=== PATIENT | male | born 1940 | race Hispanic/Latino ===

== ENCOUNTER 2017-03-08 18:24 | Emergency (ER) | payer MEDICARE, OTHER ==
[2017-03-08 18:25] VITALS: BMI 36.9
[2017-03-08 18:33] VITALS: RESP 20
--- NOTE | 2017-03-08 19:03 | C.PDOC ---
History Of Present Illness 76 year old male presents to the ED with complaints of hematuria beginning last night . Patient states at times it feels difficult to urinate, but he also has episodes of difficulty controlling his urine. He also notes a prior episode of hematuria that ultimately required prostate cautery by Dr. Kumar. He admits to mild SOB particularly with exertion, and states he has also had loose, dark stool. He denies fever, nausea, vomiting, abdominal pain, chest pain, palpitations. Time Seen by Provider: 03/08/17 18:59 Chief Complaint (Nursing): Male Genitourinary History Per: Patient History/Exam Limitations: no limitations Onset/Duration Of Symptoms: Hrs Current Symptoms Are (Timing): Still Present Severity: Mild Associated Symptoms: denies: Fever, Nausea, Vomiting, Diarrhea Past Medical History Reviewed: Historical Data, Nursing Documentation, Vital Signs Vital Signs: Last Vital Signs Temp 98.1 F 03/08/17 22:30 Pulse 82 03/08/17 22:30 Resp 20 03/08/17 22:30 BP 150/80 03/08/17 22:30 Pulse Ox 99 03/08/17 22:30 - Medical History PMH: Anemia (Requires transfusion), Anxiety, Fractures (ANKLE NO SURGERY), HTN, Hypercholesterolemia, Pneumonia (childhood) Surgical History: Endoscopy - [facility] Procedures TU BLADDER CLEARANCE (09/19/14) TU DESTRUC BLADD LES NEC (09/19/14) URETHRAL DILATION (03/02/14) Family History: States: No Known Family Hx - Social History Hx Alcohol Use: No Hx Substance Use: No Review Of Systems Except As Marked, All Systems Reviewed And Found Negative. Constitutional: Negative for: Fever, Chills Cardiovascular: Negative for: Chest Pain, Palpitations Respiratory: Positive for: Shortness of Breath. Negative for: Cough Gastrointestinal: Negative for: Nausea, Vomiting, Abdominal Pain, Diarrhea Genitourinary: Positive for: Hematuria. Negative for: Dysuria, Rash Skin: Negative for: Rash Physical Exam - Physical Exam Appears: Well, Non-toxic, No Acute Distress Skin: Warm, Dry Eye(s): bilateral: Normal Inspection Oral Mucosa: Moist Neck: Supple Cardiovascular: Rhythm Regular Respiratory: Normal Breath Sounds, No Rales, No Rhonchi, No Wheezing Gastrointestinal/Abdominal: Bowel Sounds, Soft, Tenderness (suprapubic tenderness and distension), No Guarding, No Rebound Rectal: Rectal Tone (normall), No Heme Positive, No Blood Streaked Stool, No Hemorrhoids, No Mass, No Tenderness Back: Normal Inspection, No CVA Tenderness Male Genital: Normal Inspection, Circumcised Neurological/Psych: Oriented x3 ED Course And Treatment - Laboratory Results Result Diagrams: 03/08/17 19:02 03/08/17 19:02 O2 Sat by Pulse Oximetry: 96 (room air ) Pulse Ox Interpretation: Normal - Radiology CXR: Interpreted by Me, Viewed By Me (no infiltrates/effusions) Progress Note: Bladder scan done by nurse showed 750 mL of urine. Walker insertion attempted, however nurse met with resistance. Patient then able to void large amount of urine (on floor). Bladder scan redone showing approx 290ml. Coudet walker catheter (16 icelandic) inserted by me, patient tolerated well. Approx 275ml of dark, tea colored urine drained. Reevaluation Time: 22:10 Reassessment Condition: Improved (Patient resting comfortably, in no pain/ distress. Walker attached to leg bag, and patient given Rx for Ciprofloxacin and instructed to continue his Flomax. Patient/family to call Dr. Kumar's office Friday for appt this week. Dr. Lux also spoken with and aware, agrees with d/c home. Patient understands he should return to ED if symptoms worsen.) - Physician Consult Information Physician Contacted: Yanick Kumar Outcome Of Conversation: Discussed patient with urologist, he would like patient started in antibiotics, continue Flomax, Urine Cx sent. Patient can follow up with him in the office this week - to call office for appt friday. Disposition Counseled Patient/Family Regarding: Studies Performed, Diagnosis, Need For Followup, Rx Given - Disposition Referrals: Yanick Kumar MD [Staff Provider] - Drew Lux MD [Staff Provider] - Disposition: HOME/ ROUTINE Disposition Time: 22:10 Condition: STABLE Additional Instructions: FOLLOW UP WITH DR KUMAR, CALL FOR APPOINTMENT ON FRIDAY FOLLOW UP WITH DR MCNAIR WITHIN 1 WEEK USE MEDICATION DIRECTED RETURN TO ER IF SYMPTOMS WORSEN Prescriptions: Ciprofloxacin [Cipro] 1 tab PO BID #14 tab Instructions: Urinary Retention in Men (ED), Acute Hematuria (ED) Print Language: VIETNAMESE - POA Present On Arrival: None - Clinical Impression Clinical Impression: Hematuria, Urinary retention, Anemia - Scribe Statement The provider has reviewed the documentation as recorded by the Scribe Laney De Leon All medical record entries made by the Nataleeibe were at my direction and personally dictated by me. I have reviewed the chart and agree that the record accurately reflects my personal performance of the history, physical exam, medical decision making, and the department course for this patient. I have also personally directed, reviewed, and agree with the discharge instructions and disposition.
[2017-03-08 19:07] LABS: BASO # 0.1 K/uL (0.0-0.2); BASO % 1.3 % (0.0-2.0); EOS # 0.2 K/uL (0.0-0.7); EOS % 4.4 % (0.0-4.0); HEMATOCRIT 29.7 % (35.0-51.0); LYMPH % 19.3 % (20.0-40.0); MEAN CELL VOLUME 83.5 fL (80.0-94.0); MEAN CORPUSCULAR HGB CONC 31.1 g/dL (33.0-37.0); MEAN PLATELET VOLUME 6.7 fL (7.2-11.7); MONO # 0.4 K/uL (0.0-0.8); MONO % 7.1 % (0.0-10.0); RED CELL DISTRIBUTION WIDTH 19.8 % (11.5-14.5); WHITE BLOOD COUNT 5.4 K/uL (4.8-10.8)
[2017-03-08 19:18] LABS: CHLORIDE 98 mmol/L (98-107); POTASSIUM 4.6 mmol/L (3.6-5.2); SODIUM 140 mmol/L (132-148)
[2017-03-08 19:20] LABS: ALB/GLOB RATIO 1.1 (1.0-2.1); AST/SGOT 21 U/L (17-59); BILIRUBIN,TOTAL 0.5 mg/dL (0.2-1.3); BLOOD UREA NITROGEN 23 mg/dL (9-20); CARBON DIOXIDE 26 mmol/L (22-30); GFR AFRICAN-AMERICAN > 60; TOTAL PROTEIN 8.2 g/dL (6.3-8.3)
[2017-03-08 19:21] LABS: ALKALINE PHOSPHATASE 181 U/L (38-126); ALT/SGPT 17 U/L (21-72); CALCIUM 9.4 mg/dl (8.6-10.4); GLUCOSE,RANDOM 112 mg/dL (75-110)
[2017-03-08 19:25] LABS: INR 1.1
[2017-03-08 20:42] LABS: RBC URINE 1691 /hpf (0-3); URINE BILIRUBIN NEGATIVE (NEGATIVE); URINE BLOOD 3+ (NEGATIVE); URINE COLOR Yellow (YELLOW); URINE GLUCOSE (UA) NORMAL (Normal); URINE KETONE NEGATIVE (NEGATIVE); URINE LEUKOCYTE ESTERASE NEG Leu/uL (Negative); URINE PROTEIN 2+ mg/dL (NEGATIVE); URINE UROBILINOGEN NORMAL mg/dL (0.2-1.0); WBC URINE 5 /hpf (0-5)
[2017-03-08 22:31] VITALS: BP 150/80; PULSE 82; TEMP 98.1
[2017-03-09 06:43] VITALS: O2SAT 96
--- NOTE | 2017-03-09 12:55 | RAD ---
PROCEDURE: CHEST RADIOGRAPH, 1 VIEW portable study 19:22. HISTORY: SOB COMPARISON: None available. FINDINGS: LUNGS: Clear. PLEURA: No pneumothorax or pleural fluid seen. CARDIOVASCULAR: No radiographic findings to suggest acute or significant cardiovascular disease. OSSEOUS STRUCTURES: No significant abnormalities. VISUALIZED UPPER ABDOMEN: Normal. OTHER FINDINGS: None. IMPRESSION: No active disease.
--- NOTE | 2017-03-11 07:41 | CARD ---
APPROVED REPORT EKG Measurement Heart [id number] <Conclusion> Sinus rhythm with sinus arrhythmia with occasional premature ventricular complexes Otherwise normal ECG
--- NOTE | 2017-03-24 09:00 | CP.PCM.CON ---
History of Present Illness - History of Present Illness History of Present Illness: Chief complaint: Abdominal pain History present illness: This is 76-year-old male with history of hypertension diabetes hypercholesteremia BPH chronic lower back pain came to the emergency room because of the abdominal pain. Patient's family concerned about the patient's condition. called me in the morning, bending of blood in the urine. I advised the family to bring him to the emergency room. In the emergency room patient was noted to have increasing abdominal distention. At the time patient was having severe abdominal distention. Patient was seen by emergency room doctor. I spoke to ER doctor, and was noted to have abdominal distention secondary to bladder distention. Immediately Phelps was placed, which was bleeding and later cleared. Patient underwent the hemoglobin monitoring. Clinical stable. Past medical history: Hypertension diabetes hypercholesteremia BPH low back pain Surgical history: Corneal transplant, history of prostate cancer radiation in the past multiple cystoscopy hernia repair Allergy: Allergic to aspirin Family history: Unknown family history father at the age of 62 Social history used to be a smoker in the past quit many years ago Current medications reviewed On examination: Vital signs stable Vital signs reviewed No neck vein distention noted Chest good air entry bilaterally, no wheezing or rales noted CVS regular heart sound, no murmur noted Abdomen soft, nontender. 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 Assessment and a condition: 76-year-old male with history of hypertension diabetes high cholesterol chronic lower back pain BPH prostate cancer status post radiation Patient has a bladder distention, possible retention associated with hematuria. Currently improving. Phelps catheter was inserted, I spoke to the family. Patient can discharge home, follow-up as an outpatient with the radiologist. Otherwise hemodialysis stable. Follow-up Past Patient History - Past Medical History & Family History Past Medical History?: Yes - Past Social History Smoking Status: Former Smoker - CARDIAC Hx Hypercholesterolemia: Yes Hx Hypertension: Yes - PULMONARY Hx Pneumonia: Yes (childhood) - NEUROLOGICAL Hx Neurological Disorder: No - HEENT Hx HEENT Problems: Yes Hx Cataracts: Yes (HAD SURGERY) - RENAL Hx Chronic Kidney Disease: No - ENDOCRINE/METABOLIC Hx Endocrine Disorders: Yes Hx Diabetes Mellitus Type 2: Yes - HEMATOLOGICAL/ONCOLOGICAL Hx Anemia: Yes (Requires transfusion) - INTEGUMENTARY Hx Dermatological Problems: No - MUSCULOSKELETAL/RHEUMATOLOGICAL Hx Fractures: Yes (ANKLE NO SURGERY) - GASTROINTESTINAL Hx Gastrointestinal Disorders: No - GENITOURINARY/GYNECOLOGICAL Hx Genitourinary Disorders: Yes (retention) Hx Hematuria: Yes Hx Prostate Cancer: Yes Hx Prostate Problems: Yes Other/Comment: RETENTION - PSYCHIATRIC Hx Anxiety: Yes Hx Substance Use: No - SURGICAL HISTORY Hx Surgeries: Yes (cysto /oiu) Hx Cataract Extraction: Yes (BILATERAL) Hx Herniorrhaphy: Yes (UMBILICAL AND INGUINAL) Other/Comment: PROSTATE SEED IMPLANT - ANESTHESIA Hx Anesthesia: Yes Hx Anesthesia Reactions: No Hx Malignant Hyperthermia: No Meds Allergies/Adverse Reactions: Allergies Allergy/AdvReac Type Severity Reaction Status Date / Time ciprofloxacin Allergy Intermediate DIZZINESS Verified 03/11/17 02:24 Results - Vital Signs Recent Vital Signs: Last Vital Signs Temp 98.1 F 03/08/17 22:30 Pulse 82 03/08/17 22:30 Resp 20 03/08/17 22:30 BP 150/80 03/08/17 22:30 Pulse Ox 96 03/09/17 06:49 - Labs Result Diagrams: 03/08/17 19:02 03/08/17 19:02
== END 2017-03-08 22:31 | disposition home or self-care (01) ==
LOC: C.ER 18:24
DX: R33.9 Retention of urine, unspecified (principal); R31.9 Hematuria, unspecified; D64.9 Anemia, unspecified

== ENCOUNTER 2017-03-10 18:01 | Inpatient (IN) | payer MEDICARE, OTHER ==
[2017-03-10 18:57] VITALS: BMI 36.8
--- NOTE | 2017-03-10 19:13 | C.PDOC ---
History Of Present Illness Patient was sent to ER by Dr. Gibson for a complaint of hematuria. Patient had a folley placed last week, may need cystoscopy as per Dr. Gibson. Patient has a PMHx of prostate CA. Patient denies nausea, vomiting, fever, or chills. Time Seen by Provider: 03/10/17 19:12 Chief Complaint (Nursing): Male Genitourinary History Per: Patient, Other (Dr. Gibson) History/Exam Limitations: no limitations Onset/Duration Of Symptoms: Hrs Current Symptoms Are (Timing): Still Present Severity: Mild Pain Scale Rating Of: 3 Quality Of Discomfort: Unable To Describe Associated Symptoms: Urinary Symptoms (Hematuria). denies: Fever, Chills, Nausea, Vomiting Alleviating Factors: None Recent travel outside of the [place]: No Past Medical History Reviewed: Historical Data, Nursing Documentation, Vital Signs Vital Signs: Last Vital Signs Temp 98.2 F 03/10/17 18:58 Pulse 95 H 03/10/17 18:58 Resp 18 03/10/17 18:58 BP 200/78 H 03/10/17 18:58 Pulse Ox 95 03/10/17 19:50 - Medical History PMH: Anemia (Requires transfusion), Anxiety, Fractures (ANKLE NO SURGERY), HTN, Hypercholesterolemia, Pneumonia (childhood) Surgical History: Endoscopy - [facility] Procedures TU BLADDER CLEARANCE (09/19/14) TU DESTRUC BLADD LES NEC (09/19/14) URETHRAL DILATION (03/02/14) Family History: States: No Known Family Hx - Social History Hx Alcohol Use: No Hx Substance Use: No - Immunization History Hx Tetanus Toxoid Vaccination: No Hx Influenza Vaccination: No Hx Pneumococcal Vaccination: No Review Of Systems Constitutional: Negative for: Fever, Chills Gastrointestinal: Negative for: Nausea, Vomiting Genitourinary: Positive for: Hematuria Physical Exam - Physical Exam Appears: Well, Non-toxic Skin: Warm, Dry Oral Mucosa: Moist Chest: Symmetrical, No Tenderness Cardiovascular: Rhythm Regular, No Murmur Respiratory: No Rales, No Rhonchi, No Wheezing Gastrointestinal/Abdominal: Soft, Tenderness (Suprapubic) Male Genital: Other (indwelling walker) Neurological/Psych: Oriented x3 ED Course And Treatment - Laboratory Results Result Diagrams: 03/10/17 19:57 03/10/17 19:57 O2 Sat by Pulse Oximetry: 95 (Room air) Pulse Ox Interpretation: Normal Progress Note: Blood work and urinalysis ordered. Disposition Discussed With : Drew Lux Comment: accepted the pt on his service and took over the care at 9:16PM Doctor Will See Patient In The: Hospital Counseled Patient/Family Regarding: Studies Performed, Diagnosis - Disposition Disposition: HOSPITALIZED Disposition Time: 19:13 Condition: FAIR - Clinical Impression Clinical Impression: Hematuria, Anemia - Scribe Statement The provider has reviewed the documentation as recorded by the Scribangelica Briceño All medical record entries made by the Nataleeibe were at my direction and personally dictated by me. I have reviewed the chart and agree that the record accurately reflects my personal performance of the history, physical exam, medical decision making, and the department course for this patient. I have also personally directed, reviewed, and agree with the discharge instructions and disposition. Decision To Admit - Pt Status Changed To: Hospital Disposition Of: Inpatient - Admit Certification Admit to Inpatient:: After my assessment, the patient will require hospitalization for at least two midnights. This is because of the severity of symptoms shown, intensity of services needed, and/or the medical risk in this patient being treated as an outpatient. - InPatient: Physician Admission Certification: I certify that this patient requires 2 or more midnights of care for the following reason:: After my assessment, the patient will require hospitalization for at least two midnights. This is because of the severity of symptoms shown, intensity of services needed, and/or the medical risk in this patient being treated as an outpatient. - . Bed Request Type: Regular Admitting Physician: Drew Lux Patient Diagnosis: Hematuria, Anemia
[2017-03-10 20:04] LABS: BASO # 0.1 K/uL (0.0-0.2); BASO % 0.9 % (0.0-2.0); EOS # 0.2 K/uL (0.0-0.7); HEMATOCRIT 28.5 % (35.0-51.0); LYMPH # 0.9 K/uL (1.0-4.3); LYMPH % 12.1 % (20.0-40.0); MEAN CELL VOLUME 83.1 fL (80.0-94.0); MEAN CORPUSCULAR HEMOGLOBIN 25.7 pg (27.0-31.0); MEAN CORPUSCULAR HGB CONC 30.9 g/dL (33.0-37.0); MEAN PLATELET VOLUME 6.9 fL (7.2-11.7); MONO # 0.5 K/uL (0.0-0.8); RED CELL DISTRIBUTION WIDTH 19.8 % (11.5-14.5); WHITE BLOOD COUNT 7.7 K/uL (4.8-10.8)
[2017-03-10 20:10] LABS: POTASSIUM 4.4 mmol/L (3.6-5.2)
[2017-03-10 20:12] LABS: ALB/GLOB RATIO 1.2 (1.0-2.1); BILIRUBIN,TOTAL 0.5 mg/dL (0.2-1.3); TOTAL PROTEIN 7.9 g/dL (6.3-8.3)
[2017-03-10 20:13] LABS: CALCIUM 8.8 mg/dl (8.6-10.4); INR 1.2
[2017-03-10 21:20] LABS: RBC URINE 35498 /hpf (0-3); URINE BACTERIA RARE (<OCC); URINE BILIRUBIN NEGATIVE (NEGATIVE); URINE BLOOD 3+ (NEGATIVE); URINE COLOR Red (YELLOW); URINE GLUCOSE (UA) 1+ mg/dL (Normal); URINE KETONE 1+ mg/dL (NEGATIVE); URINE LEUKOCYTE ESTERASE NEG Leu/uL (Negative); URINE PROTEIN 2+ mg/dL (NEGATIVE); URINE UROBILINOGEN NORMAL mg/dL (0.2-1.0)
[2017-03-10] MEDS: Sodium Chloride 0.9% 1,000 ML IV SCH (23:45)
--- NOTE | 2017-03-11 07:27 | HP ---
CHIEF COMPLAINT: The patient was sent by Dr. Gibson for hematuria. HISTORY OF PRESENT ILLNESS: The patient who is a 76-year-old male with a history of hypertension, di abetes, hypercholesterolemia, BPH and chronic lower back pain, came to the Emergency Room a few days ago with sudden onset of blood in the urine. The patient came to office Emergency Room. At that gino dominguez was having at least 24 hours prior to that was having significant amount of [facility] he was having significant amount of bleeding and associated with some discomfort, also so me pain. He did not have any fever or chills at that time. The patient denied any nausea, vomiting, but during this time, the patient had a Phelps catheter inserted and was producing significant blood. The labs were reviewed and the patient was sent home with urinary ____ and was told to follow up wi th the urologist. Yesterday he still continued to have blood in the urine. Today he went to see the urologist who referred him to the Emergency Room because of the worsening blood in the urine as well as some discomfort. The patient was also complaining of some pain over the abdominal area. The pat ient currently feeling somewhat discomfort, increased frequency and also pain, suprapubic. Did not h ave any fever, no chills, no nausea or vomiting noted. PAST MEDICAL HISTORY: Hypertension, diabetes, hypercholesterolemia, BPH and chronic lower back pain. PAST SURGICAL HISTORY: Corneal transplant, history of prostate cancer and radiation in the past, mul tiple cystoscopy and hernia repair. ALLERGIES: ALLERGIC TO ASPIRIN. FAMILY HISTORY: Mother: Unknown history. Father at the age of 62 of natural causes, had a his tory of stomach ulcer. SOCIAL HISTORY: He used to be a smoker in the past, quit many years ago. Denies any alcohol. Problems are reviewed. CURRENT MEDICATIONS: Include losartan/hydrochlorothiazide, metformin, allopurinol and Lipitor. REVIEW OF SYSTEMS: Currently, having no headache or visual symptom. Denies any chest pain or shortn ess of breath. No nausea, vomiting, but complaining of abdominal pain associated with some discomfor t. PHYSICAL EXAMINATION: VITAL SIGNS: Currently, temperature is 98.1, pulse 94, blood pressure 128/64, respirations 20, satur ation 96%. HEENT: PERRLA. NECK: Supple. CHEST: Bilateral good air entry. CARDIOVASCULAR: Regular heart sounds. ABDOMEN: Nontender. EXTREMITIES: No pedal edema. CENTRAL NERVOUS SYSTEM: Alert, awake, oriented x 3. No functional neurological deficit. GENITOURINARY: Phelps catheter is in place showing evidence of hematuria, suprapubically. Sonogram did not show any significant amount of urine. LABORATORY DATA: WBC 7.7, hemoglobin 8.8, hematocrit 28.5. Platelet is 431. Chemistry is nonspecif ic. Elevated alkaline phosphatase minimally noted. PT/INR is normal. Stool guaiac is negative. Chest x-ray is nonspecific. EKG normal sinus rhythm at a rate of 78 beats per minute, no ST-T change s. ASSESSMENT AND RECOMMENDATION: The patient is a 76-year-old male with a history of hypertension, jose betes, hypercholesterolemia, prostate cancer status post prostate intervention surgery, radiation see ds were done in the past, multiple cystoscopies in the past, admitted now with worsening hematuria an d worsening in spite of Phelps catheter. Continued to be monitored for intake and output. Urology ev aluation, possible cystoscopy, and monitor the hemoglobin. Will follow up the patient. Glucose jose radha. DVT and GI prophylaxis. Drew Lux MD cc: [id number] TT: 03/11/2017 07:26:10 nj
[2017-03-11 08:32] LABS: INR 1.2
[2017-03-11] MEDS ORDERED: Iodixanol 320 mg/ml 150 ml Bottle IV ONE (09:28)
--- NOTE | 2017-03-11 14:35 | CT ---
PROCEDURE: CT Abdomen and Pelvis with and without intravenous contrast HISTORY: gross hematuria COMPARISON: None available. TECHNIQUE: Axial images of the abdomen were obtained in the pre contrast, portal venous and delayed phases of enhancement. Coronal and sagittal reformats were generated and reviewed. Contrast dose: 100 cc Visipaque 320 Radiation dose: Total exam DLP = 3294.20 MGy-cm. This CT exam was performed using one or more of the following dose reduction techniques: Automated exposure control, adjustment of the mA and/or kV according to patient size, and/or use of iterative reconstruction technique. FINDINGS: LOWER THORAX: No visible consolidation, pleural effusion, or pneumothorax. LIVER: Too small to characterize hepatic hypodensities Sheyla possibly cysts or hemangiomas. GALLBLADDER AND BILE DUCTS: Unremarkable. PANCREAS: Unremarkable. SPLEEN: Unremarkable. ADRENALS: Unremarkable. KIDNEYS AND URETERS: The kidneys enhance symmetrically. No hydronephrosis or obstructing calculus identified. VASCULATURE: Dense atherosclerotic calcifications of the aorta and branches. No aortic aneurysm. BOWEL: Stomach is nondistended. Lack of oral contrast limits evaluation for bowel pathology. Bowel containing umbilical hernia. Bowel loops appear within normal limits of caliber without evidence of obstruction. Extensive diverticulosis without CT evidence of acute diverticulitis. APPENDIX: The appendix appears within normal limits of caliber. No secondary signs of acute appendicitis. PERITONEUM: No significant free fluid. No definite free air. LYMPH NODES: No bulky adenopathy evident. BLADDER: Phelps catheter within an under distended urinary bladder which contains air. Heterogeneous hyperdensity within the dependent portion of the urinary bladder, possibly blood products, however mass cannot be excluded. REPRODUCTIVE: Radiation prostate seeds. Large bilateral hydroceles. BONES: Degenerative changes of the spine. OTHER FINDINGS: Bilateral fat containing inguinal hernias. IMPRESSION: Phelps catheter within an under distended urinary bladder which contains air. Heterogeneous hyperdensity within the dependent portion of the urinary bladder, possibly blood products, however mass cannot be excluded. Recommend correlation with urinalysis and or cystoscopy if indicated. Multiple low-density sub cm lesions within the liver, possibly cysts or hemangiomas. Extensive diverticulosis without CT evidence of acute diverticulitis. Bowel containing umbilical hernia without evidence of obstruction. Prostate radiation seeds.
[2017-03-11] MEDS ORDERED: Lactated Ringer's 1,000 ML IV ONE (14:45)
[2017-03-11] MEDS ORDERED: Propofol 10 mg/ml Inj (20 ML) ONE (15:29)
[2017-03-11] MEDS ORDERED: cefTRIAXone IV 1 gm in Dextros 50 ML IVPB ONE (16:01)
[2017-03-11] MEDS ORDERED: Labetalol 25mg/5ml Syringe IVP STA (16:35)
[2017-03-11] MEDS ORDERED: Oxycodone/Acetaminophen 5/325 mg Tab PO PRN (17:23)
[2017-03-11] MEDS: Sodium Chloride 0.9% 1,000 ML IV SCH (21:06)
[2017-03-11] MEDS ORDERED: Ciprofloxacin 400mg/200ml D5W 400 MG/200 ML BAG IVPB SCH (22:00)
--- NOTE | 2017-03-11 22:11 | PN ---
DATE: 03/11/2017 SUBJECTIVE: The patient is a 76-year-old male admitted with hematuria. Today, the patient underwent a cystoscopy as well as retrograde pyelogram. Evacuation of clots and the biopsy was attempted. Th e patient underwent the procedure without any problems. Postoperatively, the patient is currently re ceiving CBI. Complaining of sweating and shaking, low-grade temperature noted. He denies any nausea , vomiting. Poor appetite noted. PHYSICAL EXAMINATION: VITAL SIGNS: Currently, temperature is 98.9 and , blood pressure 163/66, saturation is 93 on ro om air. CHEST: Bilateral good air entry. CARDIOVASCULAR: Regular heart sound. ABDOMEN: Slight distention noted, but patient is passing gas. EXTREMITIES: No leg edema. GENITOURINARY: Somewhat clear urine coming at this time. LABORATORY DATA: No recent labs. ASSESSMENT AND RECOMMENDATIONS: The patient is a 76-year-old male admitted with benign prostatic hyp ertrophy, hematuria, hypertension, anemia, diabetes, hypercholesterolemia, hypertension, lower back _ ____ and now having cystoscopy. Will continue to monitor electrolytes, monitoring and we will check the CBC and we will follow the patient. Drew Lux MD cc: [id number] TT: 03/11/2017 22:10:57 Confirmation # [id number] Dictation # [id number] mn
[2017-03-11 22:22] VITALS: RESP 20
[2017-03-12] MEDS: Sodium Chloride 0.9% 1,000 ML IV SCH ×2 (07:12→21:21)
[2017-03-12 08:15] LABS: BASO % 0.3 % (0.0-2.0); EOS # 0.1 K/uL (0.0-0.7); EOS % 0.9 % (0.0-4.0); HEMATOCRIT 26.1 % (35.0-51.0); LYMPH # 0.7 K/uL (1.0-4.3); LYMPH % 6.2 % (20.0-40.0); MEAN CELL VOLUME 83.5 fL (80.0-94.0); MEAN CORPUSCULAR HEMOGLOBIN 26.2 pg (27.0-31.0); MEAN CORPUSCULAR HGB CONC 31.3 g/dL (33.0-37.0); MONO # 0.7 K/uL (0.0-0.8); MONO % 6.3 % (0.0-10.0); PLATELET COUNT 370 K/uL (130-400); WHITE BLOOD COUNT 10.8 K/uL (4.8-10.8)
[2017-03-12 09:24] LABS: CHLORIDE 100 mmol/L (98-107)
[2017-03-12 09:25] LABS: POTASSIUM 3.9 mmol/L (3.6-5.2)
[2017-03-12 09:28] LABS: EOSINOPHIL 1 % (0-4); NEUTROPHIL 87 % (50-75); TOTAL CELLS COUNTED 100
[2017-03-12 09:40] LABS: SODIUM 135 mmol/L (132-148)
[2017-03-12 10:01] LABS: ALB/GLOB RATIO 1.1 (1.0-2.1); ALKALINE PHOSPHATASE 115 U/L (38-126); AST/SGOT 19 U/L (17-59); BILIRUBIN,TOTAL 0.5 mg/dL (0.2-1.3); BLOOD UREA NITROGEN 27 mg/dL (9-20); CARBON DIOXIDE 26 mmol/L (22-30); GFR AFRICAN-AMERICAN > 60; GLUCOSE,RANDOM 134 mg/dL (75-110)
[2017-03-12 10:02] LABS: ALT/SGPT 20 U/L (21-72); CALCIUM 7.8 mg/dl (8.6-10.4)
[2017-03-13 08:07] VITALS: BP 122/55
--- NOTE | 2017-03-13 13:18 | CP.PCM.PN ---
Subjective - Date & Time of Evaluation Date of Evaluation: 03/13/17 Time of Evaluation: 13:00 - Subjective Subjective: LAW FIRM ADMINISTRATOR NOTES Pt seen today states feels better , denies any abdominal pain, N/V/D , dysuria , voiding without any problems, clear urine , no clot reported a febrile s/p cystoscopy , and evacuation of clot by Dr. Gibson POD #3 Objective - Vital Signs/Intake and Output Vital Signs (last 24 hours): Temp Pulse Resp BP Pulse Ox 98.0 F 83 20 122/55 L 98 03/13/17 08:02 03/13/17 08:02 03/13/17 08:02 03/13/17 08:02 03/13/17 08:02 Intake and Output: 03/13/17 03/13/17 06:59 18:59 Intake Total 200 Output Total 300 Balance -100 - Medications Medications: Current Medications Acetaminophen (Tylenol 325mg Tab) 650 mg PO Q6 PRN PRN Reason: Pain, moderate (4-7) Ceftriaxone Sodium 1 gm/ (Sodium Chloride) 100 mls @ 100 mls/hr IVPB Q12H [facility] Last Admin: 03/13/17 09:34 Dose: 100 mls/hr Losartan Potassium (Cozaar) 50 mg PO DAILY [facility] Last Admin: 03/13/17 09:34 Dose: 50 mg Oxycodone/Acetaminophen (Percocet 5/325 Mg Tab) 1 tab PO Q6H PRN PRN Reason: Pain Stop: 03/14/17 17:24 Rosuvastatin Calcium (Crestor) 10 mg PO HS [facility] Last Admin: 03/12/17 21:09 Dose: 10 mg Tamsulosin HCl (Flomax) 0.4 mg PO DAILY [facility] Last Admin: 03/13/17 09:34 Dose: 0.4 mg - Labs Labs: 03/12/17 08:04 03/12/17 08:04 PT 13.5 SECONDS (9.7-12.2) H 03/11/17 08:19 INR 1.2 03/11/17 08:19 APTT 33 SECONDS (21-34) 03/10/17 19:57 Assessment and Plan - Assessment and Plan (Free Text) Assessment: A/P 76 yr old male admitted for hematuria s/p cystoscopy and evacuation of clot Day #3 no further hematuria reported hgb - 8.2<8.[address] Gibson today and cleared for discharge home today an d continue proscar and f/u with Dr. Gibson office in 1 -2 weeks D/W Dr. Gaspar can be discharged home today Discharge plan discussed with patient including f/u visit with Dr. Gaspar an dDr. Gibson, who understands and agrees with plan Patient instructed to call Dr. gibson / Dr. Gill or returns to ED for evaluation if hematuria/dysuria recurs or any other concerning symptoms
[2017-03-13 16:28] VITALS: PULSE 72; TEMP 98.2; O2SAT 97
--- NOTE | 2017-03-24 08:54 | CP.PCM.PN ---
Subjective - Date & Time of Evaluation Date of Evaluation: 03/12/17 Time of Evaluation: 08:54 - Subjective Subjective: The urine is much clearing. No blood noted at this time. Patient is able to void. Denies any chest pain or abdominal pain. Eating well. No leg swelling. Currently stable otherwise. Objective - Vital Signs/Intake and Output Vital Signs (last 24 hours): Temp Pulse Resp BP Pulse Ox 98.2 F 72 20 122/55 L 97 03/13/17 16:00 03/13/17 16:00 03/13/17 16:00 03/13/17 08:02 03/13/17 16:00 Intake and Output: Vital signs reviewed No neck vein distention noted Chest good air entry bilaterally, no wheezing or rales noted CVS regular heart sound, no murmur noted Abdomen soft, nontender. Extremities no pedal edema ESTHETICIAN/OWNER alert awake oriented 3, no functional neurological deficit - Labs Labs: 03/12/17 08:04 03/12/17 08:04 PT 13.5 SECONDS (9.7-12.2) H 03/11/17 08:19 INR 1.2 03/11/17 08:19 APTT 33 SECONDS (21-34) 03/10/17 19:57 Assessment and Plan (1) Hematuria Assessment & Plan: Hematuria most likely prosthate bleed. Status post a cystoscopy.clinical stable. Possible discharge planning the morning Status: Acute (2) Urinary retention Status: Acute
--- NOTE | 2017-03-24 08:56 | CP.PCM.DIS ---
Provider - Provider Date of Admission: 03/10/17 21:18 Attending physician: Drew Lux MD Time Spent in preparation of Discharge (in minutes): 45 Diagnosis - Discharge Diagnosis (1) Hematuria Status: Acute (2) Urinary retention Status: Acute Hospital Course - Lab Results Lab Results: Most Recent Lab Values WBC 10.8 K/uL (4.8-10.8) 03/12/17 08:04 RBC 3.13 Mil/uL (4.40-5.90) L 03/12/17 08:04 Hgb 8.2 g/dL (12.0-18.0) L 03/12/17 08:04 Hct 26.1 % (35.0-51.0) L 03/12/17 08:04 MCV 83.5 fL (80.0-94.0) 03/12/17 08:04 MCH 26.2 pg (27.0-31.0) L 03/12/17 08:04 MCHC 31.3 g/dL (33.0-37.0) L 03/12/17 08:04 RDW 20.0 % (11.5-14.5) H 03/12/17 08:04 Plt Count 370 K/uL (130-400) 03/12/17 08:04 MPV 7.0 fL (7.2-11.7) L 03/12/17 08:04 Neut % (Auto) 86.3 % (50.0-75.0) H 03/12/17 08:04 Lymph % (Auto) 6.2 % (20.0-40.0) L 03/12/17 08:04 [place] % (Auto) 6.3 % (0.0-10.0) 03/12/17 08:04 Eos % (Auto) 0.9 % (0.0-4.0) 03/12/17 08:04 Baso % (Auto) 0.3 % (0.0-2.0) 03/12/17 08:04 Neut # 9.3 K/uL (1.8-7.0) H 03/12/17 08:04 Lymph # 0.7 K/uL (1.0-4.3) L 03/12/17 08:04 [place] # 0.7 K/uL (0.0-0.8) 03/12/17 08:04 Eos # 0.1 K/uL (0.0-0.7) 03/12/17 08:04 Baso # 0.0 K/uL (0.0-0.2) 03/12/17 08:04 Neutrophils % (Manual) 87 % (50-75) H 03/12/17 08:04 Lymphocytes % (Manual) 4 % (20-40) L 03/12/17 08:04 Monocytes % (Manual) 8 % (0-10) 03/12/17 08:04 Eosinophils % (Manual) 1 % (0-4) 03/12/17 08:04 Platelet Estimate Normal (NORMAL) 03/12/17 08:04 Hypochromasia (manual) Slight 03/12/17 08:04 Poikilocytosis (manual Slight 03/12/17 08:04 Anisocytosis (manual) Slight 03/12/17 08:04 Ovalocytes Slight 03/12/17 08:04 PT 13.5 SECONDS (9.7-12.2) H 03/11/17 08:19 INR 1.2 03/11/17 08:19 APTT 33 SECONDS (21-34) 03/10/17 19:57 Sodium 135 mmol/L (132-148) 03/12/17 08:04 Potassium 3.9 mmol/L (3.6-5.2) 03/12/17 08:04 Chloride 100 mmol/L (98-107) 03/12/17 08:04 Carbon Dioxide 26 mmol/L (22-30) 03/12/17 08:04 Anion Gap 15 (10-20) 03/12/17 08:04 BUN 27 mg/dL (9-20) H 03/12/17 08:04 Creatinine 1.1 MG/DL (0.8-1.5) 03/12/17 08:04 Est GFR ( Amer) > 60 03/12/17 08:04 Est GFR (Non-Af Amer) > 60 03/12/17 08:04 POC Glucose (mg/dL) 150 mg/dL (65-110) H 03/13/17 15:57 Random Glucose 134 mg/dL (75-110) H 03/12/17 08:04 Calcium 7.8 mg/dl (8.6-10.4) L 03/12/17 08:04 Total Bilirubin 0.5 mg/dL (0.2-1.3) 03/12/17 08:04 AST 19 U/L (17-59) 03/12/17 08:04 ALT 20 U/L (21-72) L 03/12/17 08:04 Alkaline Phosphatase 115 U/L (38-126) 03/12/17 08:04 Total Protein 7.0 g/dL (6.3-8.3) 03/12/17 08:04 Albumin 3.6 g/dL (3.5-5.0) 03/12/17 08:04 Globulin 3.4 gm/dL (2.2-3.9) 03/12/17 08:04 Albumin/Globulin Ratio 1.1 (1.0-2.1) 03/12/17 08:04 Prostate Specific Ag < 0.064 ng/mL (0.00-4.0) 03/11/17 08:19 Urine Color Red (YELLOW) 03/10/17 20:32 Urine Clarity Turbid (Clear) 03/10/17 20:32 Urine pH 5.0 (5.0-8.0) 03/10/17 20:32 Ur Specific [place] 1.029 (1.003-1.030) 03/10/17 20:32 Urine Protein 2+ mg/dL (NEGATIVE) H 03/10/17 20:32 Urine Glucose (UA) 1+ mg/dL (Normal) H 03/10/17 20:32 Urine Ketones 1+ mg/dL (NEGATIVE) H 03/10/17 20:32 Urine Blood 3+ (NEGATIVE) H 03/10/17 20:32 Urine Nitrate Negative (NEGATIVE) 03/10/17 20:32 Urine Bilirubin Negative (NEGATIVE) 03/10/17 20:32 Urine Urobilinogen Normal mg/dL (0.2-1.0) 03/10/17 20:32 Ur Leukocyte Esterase Neg Juan David/uL (Negative) 03/10/17 20:32 Urine RBC (Auto) 93425 /hpf (0-3) H 03/10/17 20:32 Urine Bacteria Rare (<OCC) 03/10/17 20:32 Blood Type O POSITIVE 03/10/17 19:57 Antibody Screen Negative 05/08/17 19:57 - Hospital Course Hospital Course: 76-year-old male with history of hypertension anemia BPH. Patient in the past is seen by urologist. Few days ago patient hospitalized to to the emergency room with the acute urinary bleeding. Patient was sent home after that. But he started having increasing blood in the urine, he came into the emergency room. Patient was having persistent hematuria. In the emergency room patient was having severe bleeding. Hemoglobin otherwise stable and blood pressure was stable. Patient was hospitalized because of the persistent hematuria. Urological evaluation was called, patient underwent cystoscopy. There was a bleeding from the prostatic bed, and which was cauterized. Continuous bladder irrigation was continued. Phelps discontinued after 24 hours, clinically stable. No urine output problems, the urine cleared. Clinical stable. Patient will be discharged home, follow-up as an outpatient. His home medications will be continued. We will follow the patient Discharge Plan - Discharge Medications Prescriptions: Finasteride [Proscar] 5 mg PO DAILY #30 tab - Follow Up Plan Condition: FAIR Disposition: HOME/ ROUTINE Instructions: Finasteride (By mouth), Acute Hematuria (DC), Anemia (DC) Additional Instructions: Please f/u with Dr. Lux office next wee- ( f/u visit after hospitalization ) f/u with Dr. Arthur Herndon office in 1-2 weeks - call for appointment If any hematuria or difficulty voiding call DR. Gibson Continue medication as per Med. REc. Referrals: Drew Lux MD [Staff Provider] - Yanick Gibson MD [Staff Provider] -
--- NOTE | 2017-03-30 21:33 | OP ---
PROCEDURE DATE: 03/11/2017 PREOPERATIVE DIAGNOSIS: Gross hematuria with clot urinary retention. POSTOPERATIVE DIAGNOSIS: Gross hematuria with clot urinary retention. PROCEDURE: Cystoscopy, evacuation of clots, insertion of Phelps catheter. COMPLICATIONS: There were no complications. BLOOD LOSS: Less than 25 mL. See the operative report for further details, but this is a repeat of a dictation. The original date of the surgery is 03/11. And as I am going through the chart and the computer, I am recalling dictating note. INDICATIONS: See history and physical for further details. A 76-year-old gentleman, patient of Dr. Pimentel originally who actually is going to resume care afterwards, who comes in with gross hematuri a and clot urinary retention. See the consultation notes. As indicated above. The patient presented with gross hematuria and is now here for evacuation of clots. See the CT scan that is also listed on the chart. His CT scan dated from 03/10/2017. See the addendum at the end of this note. But basically, a 76-year-old gentleman who comes in with gross hematuria with a possible mass in the bladder, but this is just most likely clots. Although see the addendum at the end. Who is here now for a cystoscopy and evacuation of clots. With possible fulguration. The findings normal , no strictures from the verumontanum and the prostate. There is bleeding from the bladder neck. At this point, given his history, medications, etc., we just wanted to drain the clots. INDICATIONS: See history and physical for the details. A very pleasant gentleman who comes in with clot urinary retention. See the CT scan. He is here now for the above procedure. Afterwards, see the addendum at the end of this note. DESCRIPTION OF PROCEDURE: We introduced cystoscope via the urethra. We irrigated out a tremendous a mount of clots until the urine cleared. At this point, when we inspected further there are some irregularities noted. This may be from the Phelps and may be from the actual tissue. See the addendum at the end. Th e patient needs further followup. To rule out malignancy, but the goal here today was to clear the urine. At this point, once we had cleared the urine, a Phelps catheter inserted via the urethra. We used a 2 2-[place] 3-way catheter. And put this to CBI was some mild traction. The patient tolerated without complication and brought t o recovery in stable condition with the urine essentially clear. ADDENDUM: This is a repeat of a dictation I am trying to thumb through the chart, but the patient is going to return to Dr. Pimentel afterwards. I have discussed with the patient and the family and the particularly that the patient needs fol lowup, because he should get a biopsy for his prostate, bladder neck region to rule out an underlying malignancy at some point. ADDENDUM: Subsequently, I spoke to the patient. Everything went to better. The patient cleared uri ne. He will have outpatient followup. Chace Gibson MD cc: [phone] TT: 03/30/2017 21:32:02 gloria
== END 2017-03-13 16:30 | disposition home or self-care (01) | DRG 726 ==
LOC: C.ER 18:01 → C.3T 21:18
PROVIDERS: ADMIT Internal Medicine; ATTEND Internal Medicine
PROC: 0TCB8ZZ Extirpation of Matter from Bladder, Via Natural or Artificial Opening Endoscopic (ICD-10-PCS; principal; 2017-03-11 16:15)
DX: N40.1 Benign prostatic hyperplasia with lower urinary tract symptoms (principal); D64.9 Anemia, unspecified; E11.9 Type 2 diabetes mellitus without complications; I10 Essential (primary) hypertension; G89.29 Other chronic pain; R31.0 Gross hematuria; E78.00 Pure hypercholesterolemia, unspecified; M54.5 Low back pain; Z85.46 Personal history of malignant neoplasm of prostate; R33.9 Retention of urine, unspecified; Z87.891 Personal history of nicotine dependence

== ENCOUNTER 2017-04-30 08:24 | Inpatient (IN) | payer MEDICARE, OTHER ==
[2017-04-30 08:24] VITALS: BMI 36.8
--- NOTE | 2017-04-30 09:08 | C.PDOC ---
History Of Present Illness 77 y/o male referred to ED from PMD for possible transfusion. Pt s/p outpatient labs 04/25, "7 something." History of hematuria 03/2017. Pt gets weekly iron supplementation. No prior blood transfusion. Denies recurrent hematuria, GI bleed or known PUD. Pt also reports worsening SOB with mild exertion x2-3 weeks. Pt currently asymptomatic. History of HTN, anemia, BPH. REFERRED PMD FOR POSSIBLE TRANSFUSION. S/P OUTPT LABS 04/25, "7 SOMETHING". HO HEMATURIA 03/2017. GETS WEEKLY IRON SUPPLEMENTATION. NO PRIOR BLOOD TRANSFUSION. DENIES RECUR HEMATURIA, GI BLEED, KNOWN PUD. WORSENING SOB W MILD EXERTION X 2- 3 WEEKS. CURRENTLY ASYMPT history of hypertension anemia BPH EXAM NAD MILD PALLOR ABD NEG REMAINDER NEG Time Seen by Provider: 04/30/17 09:07 Chief Complaint (Nursing): Abnormal Labs History Per: Patient History/Exam Limitations: no limitations Current Symptoms Are (Timing): Gone Severity: Mild Reports Recently: Treated By A Physician Recent travel outside of the [place]: No Past Medical History Reviewed: Historical Data, Nursing Documentation, Vital Signs Vital Signs: Last Vital Signs Temp 98 F 04/30/17 08:35 Pulse 89 04/30/17 08:35 Resp 18 04/30/17 08:35 BP 154/71 H 04/30/17 08:35 Pulse Ox 98 04/30/17 10:24 - Medical History PMH: Anemia (Requires transfusion), Anxiety, Fractures (ANKLE NO SURGERY), HTN, Hypercholesterolemia, Pneumonia (childhood) Denies: Chronic Kidney Disease Surgical History: Endoscopy - [facility] Procedures EXTIRPATION OF MATTER FROM BLADDER, ENDO (03/10/17) TU BLADDER CLEARANCE (09/19/14) TU DESTRUC BLADD LES NEC (09/19/14) URETHRAL DILATION (03/02/14) Family History: States: Unknown Family Hx - Social History Hx Alcohol Use: No Hx Substance Use: No - Immunization History Hx Tetanus Toxoid Vaccination: No Hx Influenza Vaccination: No Hx Pneumococcal Vaccination: No Review Of Systems Except As Marked, All Systems Reviewed And Found Negative. Constitutional: Negative for: Fever Cardiovascular: Negative for: Chest Pain Respiratory: Positive for: Shortness of Breath (currently resolved) Gastrointestinal: Negative for: Vomiting Neurological: Negative for: Dizziness Physical Exam - Physical Exam Appears: Non-toxic, No Acute Distress Skin: Warm, Dry, Other (mild pallor) Head: Atraumatic, Normacephalic Neck: Normal, Normal ROM, Supple Chest: Symmetrical Cardiovascular: Rhythm Regular, No Murmur Respiratory: Normal Breath Sounds, No Rales, No Rhonchi, No Wheezing Gastrointestinal/Abdominal: Normal Exam, Soft, No Tenderness Extremity: Normal ROM Extremity: Bilateral: Atraumatic Neurological/Psych: Oriented x3, Normal Speech ED Course And Treatment - Laboratory Results Result Diagrams: 04/30/17 10:27 ECG: Interpreted By Me, Viewed By Me ECG Rhythm: Sinus Rhythm Interpretation Of ECG: occasional premature ventricular complexes Rate From EC (BPM) O2 Sat by Pulse Oximetry: 98 (room air) Pulse Ox Interpretation: Normal - Radiology CXR: Interpreted by Me CXR Interpretation: Yes: No Acute Disease Progress - Re-Evaluation Re-evaluation Note: 04/30/17 09:37 D/W PMD ANEMIA UNK CAUSE. WILL ADMIT 04/30/17 10:49 EXAM UNCH VSS - Data Reviewed Data Reviewed: Lab, Diagnostic imaging, EKG, Old records - Continuity of Care Discussed patient case with:: Patient, Family-HIPPA compliant Medical Decision Making Medical Decision Making: Plan: * EKG * CXR * labs * IV fluids Disposition Counseled Patient/Family Regarding: Studies Performed, Diagnosis, Need For Followup - Disposition Disposition: HOSPITALIZED Disposition Time: 09:37 Condition: STABLE Instructions: Weakness (ED) - POA Present On Arrival: None - Clinical Impression Clinical Impression: Symptomatic anemia, Dyspnea on exertion, Generalized weakness - Scribe Statement The provider has reviewed the documentation as recorded by the Brionna Heard Provider Attestation: All medical record entries made by the Brionna were at my direction and personally dictated by me. I have reviewed the chart and agree that the record accurately reflects my personal performance of the history, physical exam, medical decision making, and the department course for this patient. I have also personally directed, reviewed, and agree with the discharge instructions and disposition. Decision To Admit - Pt Status Changed To: Hospital Disposition Of: Observation - . Bed Request Type: Regular Admitting Physician: Drew Lux Patient Diagnosis: Symptomatic anemia, Dyspnea on exertion, Generalized weakness
--- NOTE | 2017-04-30 10:19 | RAD ---
HISTORY: MED CLEAR COMPARISON: 03/08/2017. TECHNIQUE: Chest PA and lateral FINDINGS: LUNGS: The lungs are well inflated and clear. PLEURA: No significant pleural effusion identified. No pneumothorax apparent. CARDIOVASCULAR: Normal. OSSEOUS STRUCTURES: No significant abnormalities. VISUALIZED UPPER ABDOMEN: Normal. OTHER FINDINGS: None. IMPRESSION: No active pulmonary disease.
[2017-04-30 10:39] LABS: BASO # 0.1 K/uL (0.0-0.2); BASO % 1.1 % (0.0-2.0); EOS # 0.1 K/uL (0.0-0.7); EOS % 2.4 % (0.0-4.0); HEMATOCRIT 25.4 % (35.0-51.0); LYMPH % 18.8 % (20.0-40.0); MEAN CORPUSCULAR HEMOGLOBIN 24.4 pg (27.0-31.0); MEAN CORPUSCULAR HGB CONC 30.9 g/dL (33.0-37.0); MEAN PLATELET VOLUME 7.1 fL (7.2-11.7); MONO # 0.5 K/uL (0.0-0.8); MONO % 9.8 % (0.0-10.0); RED CELL DISTRIBUTION WIDTH 19.5 % (11.5-14.5); WHITE BLOOD COUNT 5.3 K/uL (4.8-10.8)
[2017-04-30 10:41] LABS: CHLORIDE 99 mmol/L (98-107); POTASSIUM 4.4 mmol/L (3.6-5.2); SODIUM 135 mmol/L (132-148)
[2017-04-30 10:44] LABS: CARBON DIOXIDE 22 mmol/L (22-30); GFR AFRICAN-AMERICAN > 60
[2017-04-30 10:45] LABS: BLOOD UREA NITROGEN 26 mg/dL (9-20); CALCIUM 8.5 mg/dl (8.6-10.4); GLUCOSE,RANDOM 111 mg/dL (75-110)
--- NOTE | 2017-04-30 20:18 | CP.PCM.HP ---
History of Present Illness - History of Present Illness History of Present Illness: Patient came to the emergency room with the abnormal hemoglobin. History present illness: 76-year-old male with history of hypertension, hematuria recently, urinary retention, complicated, and also SAMANTHA came to the office today at the time patient was noted to have a very low hemoglobin, patient was immediately x2 the emergency room. In the ER patient was noted to have a low hemoglobin, and he was also having mild exertional dyspnea, and associate with the leg swelling bilaterally. Patient because of the worsening changes, needed hospitalization and further management. Patient as an outpatient was being seen by Dr. Slade for the chronic anemia. Extensive workup outpatient did not reveal any pathology. Patient may need further management including the bone marrow biopsy at this time. So patient came to the emergency room. Past medical history: Hypertension, hypercholesterolemia, patient had a history of BPH, and also present. Urinary retention and hematuria. Surgical history: Endoscopy. Allergy: Ciprofloxacin. Personal history. Nonspecific, nonsmoker nonalcoholic. Family history noncontributory. 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 Labs reviewed. Assessment and recommendation: 76-year-old male with history hypertension, hematuria, urinary retention, hypercholesteremia, BPH admitted to the hospital with the severe anemia and asymptomatic. Patient needed transfusion, iron infusion, hematology evaluation. Possible bone marrow biopsy. I spoke to the family in details about the condition. Continue the current treatment. DVT. GI prophylaxis will follow the patient Present on Admission - Present on Admission Any Indicators Present on Admission: No History of DVT/PE: No History of Uncontrolled Diabetes: No Urinary Catheter: No Decubitus Ulcer Present: No Past Patient History - Past Medical History & Family History Past Medical History?: Yes - Past Social History Smoking Status: Former Smoker - CARDIAC Hx Hypercholesterolemia: Yes Hx Hypertension: Yes - PULMONARY Hx Pneumonia: Yes (childhood) - NEUROLOGICAL Hx Neurological Disorder: No - HEENT Hx HEENT Problems: Yes Hx Cataracts: Yes (HAD SURGERY) - RENAL Hx Chronic Kidney Disease: No - ENDOCRINE/METABOLIC Hx Endocrine Disorders: Yes Hx Diabetes Mellitus Type 2: Yes - HEMATOLOGICAL/ONCOLOGICAL Hx Anemia: Yes (Requires transfusion) - INTEGUMENTARY Hx Dermatological Problems: No - MUSCULOSKELETAL/RHEUMATOLOGICAL Hx Falls: No Hx Fractures: Yes (ANKLE NO SURGERY) - GASTROINTESTINAL Hx Gastrointestinal Disorders: No - GENITOURINARY/GYNECOLOGICAL Hx Genitourinary Disorders: Yes (retention) Hx Hematuria: Yes Hx Prostate Cancer: Yes Hx Prostate Problems: Yes Other/Comment: RETENTION - PSYCHIATRIC Hx Anxiety: Yes Hx Substance Use: No - SURGICAL HISTORY Hx Surgeries: Yes Other/Comment: Colonoscopy - ANESTHESIA Hx Anesthesia: Yes Hx Anesthesia Reactions: No Hx Malignant Hyperthermia: No Meds Home Medications: Home Medication List Medication Instructions Recorded Confirmed Type Furosemide [Lasix] 20 mg PO DAILY #10 tab 05/04/17 Rx Allergies/Adverse Reactions: Allergies Allergy/AdvReac Type Severity Reaction Status Date / Time ciprofloxacin Allergy Intermediate DIZZINESS Verified 03/11/17 02:24 Results - Vital Signs Recent Vital Signs: Last Vital Signs Temp 98.5 F 04/30/17 16:00 Pulse 84 04/30/17 16:00 Resp 18 04/30/17 16:00 BP 140/68 04/30/17 16:00 Pulse Ox 95 04/30/17 15:00 - Labs Result Diagrams: 05/04/17 11:27 05/03/17 06:18
[2017-04-30] MEDS: Latanoprost 2.5 ml Opht Soln OU SCH (22:07)
--- NOTE | 2017-05-01 01:30 | CP.PCM.PN ---
Subjective - Date & Time of Evaluation Date of Evaluation: 05/01/17 Time of Evaluation: 01:30 - Subjective Subjective: Patient is currently feeling slightly better, leg swelling is positive. Urine output is okay, no urinary discomfort noted. Vital signs stable. Clinical stable. Currently the current treatment. Objective - Vital Signs/Intake and Output Vital Signs (last 24 hours): Temp Pulse Resp BP Pulse Ox 98.3 F 84 18 140/68 95 04/30/17 22:08 04/30/17 16:00 04/30/17 16:00 04/30/17 16:00 04/30/17 15:00 Intake and Output: 04/30/17 05/01/17 18:59 06:59 Intake Total 730 Balance 730 - Medications Medications: Current Medications Allopurinol (Zyloprim) 300 mg PO DAILY [facility] Finasteride (Proscar) 5 mg PO DAILY [facility] Furosemide (Lasix) 20 mg IVP DAILY [facility] Latanoprost (Xalatan Opht) 0.05 ml OU HS [facility] Last Admin: 04/30/17 22:07 Dose: 0.05 ml Pneumococcal Polyvalent Vaccine (Pneumovax 23 Vaccine) 0.5 ml IM .ONCE ONE Stop: 05/02/17 10:01 Rosuvastatin Calcium (Crestor) 20 mg PO HS [facility] Last Admin: 04/30/17 22:06 Dose: 20 mg Tamsulosin HCl (Flomax) 1 mg PO DAILY [facility]
[2017-05-01 06:19] LABS: BASO % 0.9 % (0.0-2.0); EOS # 0.2 K/uL (0.0-0.7); EOS % 3.6 % (0.0-4.0); HEMATOCRIT 27.8 % (35.0-51.0); LYMPH % 20.8 % (20.0-40.0); MEAN CELL VOLUME 80.3 fL (80.0-94.0); MEAN CORPUSCULAR HEMOGLOBIN 24.8 pg (27.0-31.0); MEAN CORPUSCULAR HGB CONC 30.8 g/dL (33.0-37.0); MONO # 0.5 K/uL (0.0-0.8); MONO % 9.5 % (0.0-10.0); NRBC % 0.1 % (0.0-2.0); RED CELL DISTRIBUTION WIDTH 18.9 % (11.5-14.5); WHITE BLOOD COUNT 4.8 K/uL (4.8-10.8)
[2017-05-01 07:27] LABS: CHLORIDE 102 mmol/L (98-107); POTASSIUM 4.9 mmol/L (3.6-5.2); SODIUM 138 mmol/L (132-148)
[2017-05-01 07:29] LABS: GFR AFRICAN-AMERICAN > 60
[2017-05-01 07:30] LABS: ALB/GLOB RATIO 0.9 (1.0-2.1); ALKALINE PHOSPHATASE 188 U/L (38-126); ALT/SGPT 22 U/L (21-72); AST/SGOT 21 U/L (17-59); BILIRUBIN,TOTAL 0.5 mg/dL (0.2-1.3); BLOOD UREA NITROGEN 24 mg/dL (9-20); CARBON DIOXIDE 26 mmol/L (22-30); GLUCOSE,RANDOM 120 mg/dL (75-110); TOTAL PROTEIN 6.9 g/dL (6.3-8.3)
[2017-05-01 07:31] LABS: CALCIUM 8.6 mg/dl (8.6-10.4)
[2017-05-01] MEDS ORDERED: Latanoprost 2.5 ml Opht Soln OD SCH (10:00)
[2017-05-01] MEDS: Ferric Sodium Gluconat Complex 62.5 mg/5 ml Vial IVPB SCH (18:07)
--- NOTE | 2017-05-01 18:42 | CP.PCM.CON ---
History of Present Illness - History of Present Illness History of Present Illness: Covering Dr. Slade 77 year old male with a history of HTN, HL, DM, prostate cancer s/p brachytherapy complicated by hematuria requiring evacuation of clots, BPH, chronic anemia of IV iron and intermittent Procrit, admitted with symptomatic anemia. The patient reports to progressive fatigue and swelling of his legs. He notes to intermittent hematuria in the past. He denies seeing blood in his stool. He has been receiving IV iron with Dr. Slade. He is currently s/p 1U PRBC and reports to feeling better. Past medical history: HTN, HL, DM, prostate cancer s/p brachytherapy complicated by hematuria requiring evacuation of clots, BPH, chronic anemia Past surgical history: Hernia repair Family history: Denies hematologic and oncologic problems Social history: Denies tobacco, alcohol, and illicit drug use. Allergies: Ciprofloxacin Review of systems: All remaining review of systems including HEENT, cardiovascular, respiratory, gastrointestinal, genitourinary, musculoskeletal, dermatologic, neurologic, and psychiatric are negative unless mentioned in the HPI. Past Patient History - Past Medical History & Family History Past Medical History?: Yes - Past Social History Smoking Status: Former Smoker - CARDIAC Hx Hypertension: Yes - PULMONARY Hx Pneumonia: Yes (childhood) - NEUROLOGICAL Hx Neurological Disorder: No - HEENT Hx HEENT Problems: Yes Hx Cataracts: Yes (HAD SURGERY) - RENAL Hx Chronic Kidney Disease: No - ENDOCRINE/METABOLIC Hx Diabetes Mellitus Type 2: Yes - HEMATOLOGICAL/ONCOLOGICAL Hx Anemia: Yes (Requires transfusion) - INTEGUMENTARY Hx Dermatological Problems: No - MUSCULOSKELETAL/RHEUMATOLOGICAL Hx Arthritis: Yes (B/L KNEES) - GASTROINTESTINAL Hx Gastrointestinal Disorders: No - GENITOURINARY/GYNECOLOGICAL Hx Genitourinary Disorders: Yes (retention) Hx Hematuria: Yes Hx Prostate Cancer: Yes Hx Prostate Problems: Yes Other/Comment: RETENTION - PSYCHIATRIC Hx Anxiety: Yes Hx Substance Use: No - SURGICAL HISTORY Hx Surgeries: Yes Other/Comment: Colonoscopy - ANESTHESIA Hx Anesthesia: Yes Hx Anesthesia Reactions: No Hx Malignant Hyperthermia: No Meds Allergies/Adverse Reactions: Allergies Allergy/AdvReac Type Severity Reaction Status Date / Time ciprofloxacin Allergy Intermediate DIZZINESS Verified 03/11/17 02:24 - Medications Medications: Current Medications Allopurinol (Zyloprim) 300 mg PO DAILY [facility] Last Admin: 05/01/17 10:53 Dose: 300 mg Ferric Sodium Gluconate Complex (Ferrlecit) 125 mg IVPB DAILY [facility] Stop: 05/09/17 16:31 Last Admin: 05/01/17 18:07 Dose: 125 mg Finasteride (Proscar) 5 mg PO DAILY [facility] Last Admin: 05/01/17 10:53 Dose: 5 mg Furosemide (Lasix) 20 mg IVP DAILY [facility] Last Admin: 05/01/17 10:54 Dose: 20 mg Latanoprost (Xalatan Opht) 0.05 ml OU HS [facility] Last Admin: 04/30/17 22:07 Dose: 0.05 ml Pneumococcal Polyvalent Vaccine (Pneumovax 23 Vaccine) 0.5 ml IM .ONCE ONE Stop: 05/02/17 10:01 Rosuvastatin Calcium (Crestor) 20 mg PO HS [facility] Last Admin: 04/30/17 22:06 Dose: 20 mg Tamsulosin HCl (Flomax) 0.4 mg PO DAILY [facility] Physical Exam - Head Exam Head Exam: ATRAUMATIC - Eye Exam Eye Exam: Normal appearance - ENT Exam ENT Exam: Mucous Membranes Dry - Respiratory Exam Respiratory Exam: NORMAL BREATHING PATTERN - Cardiovascular Exam Cardiovascular Exam: +S1, +S2 - GI/Abdominal Exam GI & Abdominal Exam: Normal Bowel Sounds - Extremities Exam Extremities exam: Positive for: pedal edema - Neurological Exam Neurological exam: Oriented x3 - Psychiatric Exam Psychiatric exam: Normal Affect, Normal Mood - Skin Skin Exam: Warm Results - Vital Signs Recent Vital Signs: Last Vital Signs Temp 97.9 F 05/01/17 08:43 Pulse 65 05/01/17 15:44 Resp 20 05/01/17 08:43 BP 164/67 H 05/01/17 15:44 Pulse Ox 98 05/01/17 15:44 - Labs Result Diagrams: 05/01/17 06:05 05/01/17 06:05 Labs: Laboratory Results - last 24 hr 05/01/17 05/01/17 05/01/17 06:05 06:05 06:05 WBC 4.8 RBC 3.47 L Hgb 8.6 L Hct 27.8 L MCV 80.3 MCH 24.8 L MCHC 30.8 L RDW 18.9 H Plt Count 485 H MPV 7.0 L Neut % (Auto) 65.2 Lymph % (Auto) 20.8 [place] % (Auto) 9.5 Eos % (Auto) 3.6 Baso % (Auto) 0.9 Neut # 3.1 Lymph # 1.0 [place] # 0.5 Eos # 0.2 Baso # 0.0 Sodium 138 Potassium 4.9 Chloride 102 Carbon Dioxide 26 Anion Gap 15 BUN 24 H Creatinine 1.0 Est GFR ( Amer) > 60 Est GFR (Non-Af Amer) > 60 Random Glucose 120 H Lactic Acid 0.6 L Calcium 8.6 Total Bilirubin 0.5 AST 21 ALT 22 Alkaline Phosphatase 188 H D Total Protein 6.9 Albumin 3.2 L Globulin 3.7 Albumin/Globulin Ratio 0.9 L Assessment & Plan (1) Anemia Assessment and Plan: will check retic count, b12, folate ferritin, FOBT, UA ? chronic bleeding will give 1 addition unit PRBC and start IV iron if not iron deficienct, can f/u with Dr. Slade for bone marrow evaluation Status: Acute (2) Prostate cancer Assessment and Plan: s/p brachytherapy in remission Thank you for this interesting consult. Status: Acute
[2017-05-01] MEDS: Latanoprost 2.5 ml Opht Soln OU SCH (21:13)
[2017-05-01 23:37] LABS: URINE BACTERIA RARE (<OCC); URINE BILIRUBIN NEGATIVE (NEGATIVE); URINE BLOOD NEGATIVE (NEGATIVE); URINE COLOR Yellow (YELLOW); URINE GLUCOSE (UA) NORMAL (Normal); URINE KETONE NEGATIVE (NEGATIVE); URINE LEUKOCYTE ESTERASE NEG Leu/uL (Negative); URINE PROTEIN 1+ mg/dL (NEGATIVE); URINE UROBILINOGEN NORMAL mg/dL (0.2-1.0); WBC URINE 1 /hpf (0-5)
[2017-05-02 01:11] VITALS: RESP 20
--- NOTE | 2017-05-02 06:23 | CARD ---
APPROVED REPORT EXAM: Two-dimensional and M-mode echocardiogram with Doppler and color Doppler. Other Information Quality : GoodRhythm : NSR INDICATION symptomatic anema, theodore RISK FACTORS Hypertension Diabetes M-Mode DIMENSIONS RVDd2.23 (2.1-3.2cm)Left Atrium (MM)4.53 (2.5-4.0cm) IVSd1.02 (0.7-1.1cm)Aortic Root3.24 (2.2-3.7cm) LVDd4.41 (4.0-5.6cm)Aortic Cusp Exc.2.15 (1.5-2.0cm) PWd0.98 (0.7-1.1cm)FS (%) 45 % LVDs2.42 (2.0-3.8cm)LVEF (%)77 (>50%) Mitral Valve MV E Ugwwgjza00.1cm/sMV A Rrxtrxeh931.8cm/sE/A ratio0.7 TDI E/Lateral E'0.0E/Medial E'0.0 Tricuspid Valve TR Peak Nuzfkmxa632qs/sTR Peak Gr.[id number] LEFT VENTRICLE The left ventricle is normal size. There is normal left ventricular wall thickness. The left ventricular function is normal. The left ventricular ejection fraction is within the normal range. No regional wall motion abnormalities noted. The left ventricular diastolic function is normal. No left ventricle thrombus noted on this study. There is no ventricular septal defect visualized. There is no left ventricular aneurysm. There is no mass noted in the left ventricle. RIGHT VENTRICLE The right ventricle is normal size. There is normal right ventricular wall thickness. The right ventricular systolic function is normal. ATRIA The left atrium is moderately dilated. The right atrium size is normal. The interatrial septum is intact with no evidence for an atrial septal defect. AORTIC VALVE The aortic valve is normal in structure and function. No aortic regurgitation is present. There is no aortic valvular stenosis. There is no aortic valvular vegetation. MITRAL VALVE The mitral valve is normal in structure and function. There is no evidence of mitral valve prolapse. There is no mitral valve stenosis. There is no mitral valve regurgitation noted. TRICUSPID VALVE The tricuspid valve is normal in structure and function. There is trace tricuspid regurgitation. Right ventricular systolic pressure is estimated at 50-60 mmHg. There is moderate-severe pulmonary hypertension. There is no tricuspid valve prolapse or vegetation. There is no tricuspid valve stenosis. PULMONIC VALVE The pulmonary valve is normal in structure and function. There is no pulmonic valvular regurgitation. There is no pulmonic valvular stenosis. GREAT VESSELS The aortic root is normal in size. The ascending aorta is normal in size. The pulmonary artery is normal. The IVC is normal in size and collapses >50% with inspiration. PERICARDIAL EFFUSION The pericardium appears normal. There is no pleural effusion. <Conclusion> There is normal left ventricular wall thickness. The left ventricular function is normal. The left ventricular ejection fraction is within the normal range. Right ventricular systolic pressure is estimated at 50-60 mmHg. There is moderate-severe pulmonary hypertension. The left atrium is moderately dilated. The pericardium appears normal. There is no pleural effusion.
[2017-05-02 06:40] LABS: BASO # 0.1 K/uL (0.0-0.2); BASO % 0.9 % (0.0-2.0); EOS # 0.2 K/uL (0.0-0.7); EOS % 3.2 % (0.0-4.0); HEMATOCRIT 28.4 % (35.0-51.0); LYMPH # 0.9 K/uL (1.0-4.3); LYMPH % 16.4 % (20.0-40.0); MEAN CELL VOLUME 79.7 fL (80.0-94.0); MEAN CORPUSCULAR HEMOGLOBIN 25.4 pg (27.0-31.0); MEAN CORPUSCULAR HGB CONC 31.9 g/dL (33.0-37.0); MONO # 0.5 K/uL (0.0-0.8); RED CELL DISTRIBUTION WIDTH 18.6 % (11.5-14.5); WHITE BLOOD COUNT 5.8 K/uL (4.8-10.8)
[2017-05-02 08:38] LABS: FOLATE 6.8 ng/mL
[2017-05-02] MEDS ORDERED: Pneumococcal 23-Valent Vaccine IM ONE (10:00)
[2017-05-02] MEDS: Ferric Sodium Gluconat Complex 62.5 mg/5 ml Vial IVPB SCH (11:42)
--- NOTE | 2017-05-02 15:22 | VASCLAB ---
PROCEDURE: Lower Extremity Venous Duplex Exam. HISTORY: pedal edema, B/L Lower extremity Pain PRIORS: None. TECHNIQUE: Bilateral common femoral, femoral, popliteal and posterior tibial, peroneal and great saphenous veins were evaluated. Flow was assessed with color Doppler, compressibility, assessment of phasic flow and augmentation response. Report prepared by Anthony Pulliam RVT FINDINGS: RIGHT: 1. Common Femoral Vein: 1.1. Compressibility - Fully compressible: Thrombus - None : Flow - Phasic: Augmentation -Normal: Reflux - None. 2. Femoral Vein: 2.1. Compressibility - Fully compressible: Thrombus - None : Flow - Phasic: Augmentation -Normal: Reflux - None. 3. Popliteal Vein: 3.1. Compressibility - Fully compressible: Thrombus - None : Flow - Phasic: Augmentation -Normal: Reflux - None. 4. Posterior Tibial Vein: 4.1. Compressibility - Fully compressible: Thrombus - None: Flow - Phasic: Augmentation -Normal: Reflux - None. 5. Peroneal Vein: 5.1. Compressibility - Fully compressible: Thrombus - None: Flow - Phasic: Augmentation -Normal: Reflux - None. 6. Great Saphenous Vein: 6.1. Compressibility - Fully compressible: Thrombus - None: Flow - Phasic: Augmentation - Normal: Reflux - None. LEFT: 1. Common Femoral Vein: 1.1. Compressibility - Fully compressible: Thrombus - None: Flow - Phasic: Augmentation -Normal: Reflux - None. 2. Femoral Vein: 2.1. Compressibility - Fully compressible: Thrombus - None: Flow - Phasic: Augmentation -Normal: Reflux - None. 3. Popliteal Vein: 3.1. Compressibility - Fully compressible: Thrombus - None : Flow - Phasic: Augmentation -Normal: Reflux - None. 4. Posterior Tibial Vein: 4.1. Compressibility - Fully compressible: Thrombus - None: Flow - Phasic: Augmentation -Normal: Reflux - None. 5. Peroneal Vein: 5.1. Compressibility - Fully compressible: Thrombus - None: Flow - Phasic: Augmentation -Normal: Reflux - None. 6. Great Saphenous Vein: 6.1. Compressibility - Fully compressible: Thrombus - None: Flow - Phasic: Augmentation - Normal: Reflux - None. OTHER FINDINGS: Right: None significant. Left: None significant. IMPRESSION: Right: No evidence of deep or superficial vein thrombosis of the right lower extremity. Normal valve function noted of the right side. Left: No evidence of deep or superficial vein thrombosis of the left lower extremity. Normal valve function noted of the left side.
--- NOTE | 2017-05-02 20:38 | CP.PCM.PN ---
Subjective - Date & Time of Evaluation Date of Evaluation: 05/02/17 Time of Evaluation: 20:37 - Subjective Subjective: The patient does not have any chest pain at this time. Able to walk. Neck swelling is positive. Urinary discomfort negative. Patient is making good urine at this time. Leg swelling is less. Vital signs stable. On examination: HEENT PERRLA, neck supple No thyromegaly was noted and no cervical adenopathy noted Chest bilateral good air entry, no wheezing or rales noted CVS regular heart sound, no murmur Abdomen soft and no organomegaly Extremities no pedal edema, no leg swelling, pedal pulses are good. ACADEMIC COACH alert awake oriented x3 no functional neurological deficit. Assessment and recommendation: 72-year-old male with history of anemia, now admitted with the severe anemia at this time. Is not clear about the diagnosis at this time. Patient will need outpatient diagnosis and management. Spoke to the stone grader. Also I spoke to the patient's family will follow the patient Objective - Vital Signs/Intake and Output Vital Signs (last 24 hours): Temp Pulse Resp BP Pulse Ox 98 F 78 20 160/66 H 96 05/02/17 15:00 05/02/17 15:00 05/02/17 15:00 05/02/17 15:00 05/02/17 15:00 Intake and Output: 05/02/17 05/03/17 18:59 06:59 Intake Total 500 Balance 500 - Medications Medications: Current Medications Allopurinol (Zyloprim) 300 mg PO DAILY [facility] Last Admin: 05/02/17 11:43 Dose: 300 mg Ferric Sodium Gluconate Complex (Ferrlecit) 125 mg IVPB DAILY [facility] Stop: 05/09/17 16:31 Last Admin: 05/02/17 11:42 Dose: 125 mg Finasteride (Proscar) 5 mg PO DAILY [facility] Last Admin: 05/02/17 11:42 Dose: 5 mg Furosemide (Lasix) 20 mg IVP DAILY [facility] Last Admin: 05/02/17 11:41 Dose: 20 mg Latanoprost (Xalatan Opht) 0.05 ml OU HS [facility] Last Admin: 05/01/17 21:13 Dose: 0.05 ml Pneumococcal Polyvalent Vaccine (Pneumovax 23 Vaccine) 0.5 ml IM .ONCE ONE Stop: 05/03/17 10:01 Rosuvastatin Calcium (Crestor) 20 mg PO [facility] Last Admin: 05/01/17 21:13 Dose: 20 mg Tamsulosin HCl (Flomax) 0.4 mg PO DAILY [facility] Last Admin: 05/02/17 11:42 Dose: 0.4 mg
--- NOTE | 2017-05-02 20:39 | CP.PCM.PN ---
Subjective - Date & Time of Evaluation Date of Evaluation: 05/02/17 Time of Evaluation: 18:50 - Subjective Subjective: Feeling better Objective - Vital Signs/Intake and Output Vital Signs (last 24 hours): Temp Pulse Resp BP Pulse Ox 98 F 78 20 160/66 H 96 05/02/17 15:00 05/02/17 15:00 05/02/17 15:00 05/02/17 15:00 05/02/17 15:00 Intake and Output: 05/02/17 05/03/17 18:59 06:59 Intake Total 500 Balance 500 - Medications Medications: Current Medications Allopurinol (Zyloprim) 300 mg PO DAILY [facility] Last Admin: 05/02/17 11:43 Dose: 300 mg Ferric Sodium Gluconate Complex (Ferrlecit) 125 mg IVPB DAILY [facility] Stop: 05/09/17 16:31 Last Admin: 05/02/17 11:42 Dose: 125 mg Finasteride (Proscar) 5 mg PO DAILY [facility] Last Admin: 05/02/17 11:42 Dose: 5 mg Furosemide (Lasix) 20 mg IVP DAILY [facility] Last Admin: 05/02/17 11:41 Dose: 20 mg Latanoprost (Xalatan Opht) 0.05 ml OU HS [facility] Last Admin: 05/01/17 21:13 Dose: 0.05 ml Pneumococcal Polyvalent Vaccine (Pneumovax 23 Vaccine) 0.5 ml IM .ONCE ONE Stop: 05/03/17 10:01 Rosuvastatin Calcium (Crestor) 20 mg PO HS [facility] Last Admin: 05/01/17 21:13 Dose: 20 mg Tamsulosin HCl (Flomax) 0.4 mg PO DAILY [facility] Last Admin: 05/02/17 11:42 Dose: 0.4 mg - Head Exam Head Exam: ATRAUMATIC - Eye Exam Eye Exam: Normal appearance - ENT Exam ENT Exam: Mucous Membranes Dry - Respiratory Exam Respiratory Exam: NORMAL BREATHING PATTERN - Cardiovascular Exam Cardiovascular Exam: +S1, +S2 - GI/Abdominal Exam GI & Abdominal Exam: Normal Bowel Sounds - Extremities Exam Extremities Exam: Normal Inspection Assessment and Plan (1) Anemia Assessment & Plan: borderline iron stores s/p 2U PRBC and on IV iron daily outpatient bone marrow biopsy if H/H cont. to trend down with Dr. Slade Status: Acute (2) Prostate cancer Assessment & Plan: in remission Status: Acute
[2017-05-02] MEDS: Latanoprost 2.5 ml Opht Soln OU SCH (21:21)
[2017-05-03 06:27] LABS: BASO % 0.6 % (0.0-2.0); EOS # 0.2 K/uL (0.0-0.7); EOS % 2.1 % (0.0-4.0); HEMATOCRIT 30.7 % (35.0-51.0); LYMPH # 1.1 K/uL (1.0-4.3); LYMPH % 14.4 % (20.0-40.0); MEAN CELL VOLUME 80.2 fL (80.0-94.0); MEAN CORPUSCULAR HEMOGLOBIN 24.7 pg (27.0-31.0); MEAN CORPUSCULAR HGB CONC 30.8 g/dL (33.0-37.0); MONO # 0.6 K/uL (0.0-0.8); MONO % 8.4 % (0.0-10.0); WHITE BLOOD COUNT 7.4 K/uL (4.8-10.8)
--- NOTE | 2017-05-03 06:49 | CARD ---
APPROVED REPORT EKG Measurement Heart [id number] <Conclusion> Sinus rhythm with occasional premature ventricular complexes Otherwise normal ECG
[2017-05-03 07:24] LABS: CHLORIDE 101 mmol/L (98-107); POTASSIUM 4.2 mmol/L (3.6-5.2); SODIUM 136 mmol/L (132-148)
[2017-05-03 07:26] LABS: AST/SGOT 22 U/L (17-59); BILIRUBIN,TOTAL 0.5 mg/dL (0.2-1.3); CARBON DIOXIDE 23 mmol/L (22-30); GFR AFRICAN-AMERICAN > 60
[2017-05-03 07:27] LABS: ALB/GLOB RATIO 0.9 (1.0-2.1); ALKALINE PHOSPHATASE 193 U/L (38-126); ALT/SGPT 21 U/L (21-72); BLOOD UREA NITROGEN 24 mg/dL (9-20); CALCIUM 8.6 mg/dl (8.6-10.4); GLUCOSE,RANDOM 136 mg/dL (75-110); TOTAL PROTEIN 7.1 g/dL (6.3-8.3); URIC ACID 5.5 mg/dL (3.5-8.5)
[2017-05-03] MEDS ORDERED: Pneumococcal 23-Valent Vaccine IM ONE (10:00)
[2017-05-03] MEDS: Ferric Sodium Gluconat Complex 62.5 mg/5 ml Vial IVPB SCH ×2 (10:50→14:26)
[2017-05-03] MEDS: Latanoprost 2.5 ml Opht Soln OU SCH (22:02)
--- NOTE | 2017-05-04 04:08 | CP.PCM.PN ---
Subjective - Date & Time of Evaluation Date of Evaluation: 05/03/17 Time of Evaluation: 15:00 - Subjective Subjective: Feeling better Objective - Vital Signs/Intake and Output Vital Signs (last 24 hours): Temp Pulse Resp BP Pulse Ox 98.6 F 82 20 130/58 L 94 L 05/04/17 00:00 05/04/17 00:00 05/04/17 00:00 05/04/17 00:00 05/04/17 00:00 Intake and Output: 05/03/17 05/04/17 18:59 06:59 Intake Total 400 Balance 400 - Medications Medications: Current Medications Diphenhydramine HCl (Benadryl) 50 mg PO HS [facility] Last Admin: 05/03/17 22:02 Dose: 50 mg Diphenhydramine HCl (Benadryl) 50 mg PO HS [facility] Ferric Sodium Gluconate Complex (Ferrlecit) 125 mg IVPB DAILY [facility] Stop: 05/09/17 16:31 Last Admin: 05/03/17 14:26 Dose: 125 mg Finasteride (Proscar) 5 mg PO DAILY [facility] Last Admin: 05/03/17 10:35 Dose: 5 mg Furosemide (Lasix) 20 mg IVP DAILY [facility] Last Admin: 05/03/17 10:36 Dose: 20 mg Latanoprost (Xalatan Opht) 0.05 ml OU HS [facility] Last Admin: 05/03/17 22:02 Dose: 0.05 ml Rosuvastatin Calcium (Crestor) 20 mg PO [facility] Last Admin: 05/03/17 22:01 Dose: 20 mg Tamsulosin HCl (Flomax) 0.4 mg PO DAILY [facility] Last Admin: 05/03/17 10:36 Dose: 0.4 mg - Labs Labs: 05/03/17 06:18 05/03/17 06:18 - Head Exam Head Exam: ATRAUMATIC - Eye Exam Eye Exam: Normal appearance - ENT Exam ENT Exam: Mucous Membranes Dry - Respiratory Exam Respiratory Exam: NORMAL BREATHING PATTERN - Cardiovascular Exam Cardiovascular Exam: +S1, +S2 - GI/Abdominal Exam GI & Abdominal Exam: Normal Bowel Sounds - Extremities Exam Extremities Exam: Pedal Edema Assessment and Plan (1) Anemia Assessment & Plan: borderline iron stores; on IV iron s/p 2U PRBC outpatient bone marrow biopsy if cytopenias persist Status: Acute (2) Prostate cancer Assessment & Plan: in remission Status: Acute
[2017-05-04] MEDS: Ferric Sodium Gluconat Complex 62.5 mg/5 ml Vial IVPB SCH (10:56)
[2017-05-04 11:33] LABS: BASO % 0.6 % (0.0-2.0); EOS # 0.1 K/uL (0.0-0.7); EOS % 1.3 % (0.0-4.0); HEMATOCRIT 29.4 % (35.0-51.0); MEAN CELL VOLUME 80.6 fL (80.0-94.0); MEAN CORPUSCULAR HEMOGLOBIN 25.2 pg (27.0-31.0); MEAN CORPUSCULAR HGB CONC 31.2 g/dL (33.0-37.0); MEAN PLATELET VOLUME 7.1 fL (7.2-11.7); MONO # 0.6 K/uL (0.0-0.8); MONO % 8.3 % (0.0-10.0); WHITE BLOOD COUNT 7.4 K/uL (4.8-10.8)
--- NOTE | 2017-05-04 13:57 | CP.PCM.DIS ---
Provider - Provider Date of Admission: 05/02/17 09:05 Attending physician: Drew Lux MD Time Spent in preparation of Discharge (in minutes): 45 Hospital Course - Lab Results Lab Results: Most Recent Lab Values WBC 7.4 K/uL (4.8-10.8) 05/04/17 11:27 RBC 3.65 Mil/uL (4.40-5.90) L 05/04/17 11:27 Hgb 9.2 g/dL (12.0-18.0) L 05/04/17 11:27 Hct 29.4 % (35.0-51.0) L 05/04/17 11:27 MCV 80.6 fL (80.0-94.0) 05/04/17 11:27 MCH 25.2 pg (27.0-31.0) L 05/04/17 11:27 MCHC 31.2 g/dL (33.0-37.0) L 05/04/17 11:27 RDW 19.0 % (11.5-14.5) H 05/04/17 11:27 Plt Count 477 K/uL (130-400) H 05/04/17 11:27 MPV 7.1 fL (7.2-11.7) L 05/04/17 11:27 Neut % (Auto) 76.8 % (50.0-75.0) H 05/04/17 11:27 Lymph % (Auto) 13.0 % (20.0-40.0) L 05/04/17 11:27 [place] % (Auto) 8.3 % (0.0-10.0) 05/04/17 11:27 Eos % (Auto) 1.3 % (0.0-4.0) 05/04/17 11:27 Baso % (Auto) 0.6 % (0.0-2.0) 05/04/17 11:27 Neut # 5.7 K/uL (1.8-7.0) 05/04/17 11:27 Lymph # 1.0 K/uL (1.0-4.3) 05/04/17 11:27 [place] # 0.6 K/uL (0.0-0.8) 05/04/17 11:27 Eos # 0.1 K/uL (0.0-0.7) 05/04/17 11:27 Baso # 0.0 K/uL (0.0-0.2) 05/04/17 11:27 Retic Count 1.7 % (0.5-1.5) H 05/02/17 06:20 Sodium 136 mmol/L (132-148) 05/03/17 06:18 Potassium 4.2 mmol/L (3.6-5.2) 05/03/17 06:18 Chloride 101 mmol/L (98-107) 05/03/17 06:18 Carbon Dioxide 23 mmol/L (22-30) 05/03/17 06:18 Anion Gap 16 (10-20) 05/03/17 06:18 BUN 24 mg/dL (9-20) H 05/03/17 06:18 Creatinine 1.0 MG/DL (0.8-1.5) 05/03/17 06:18 Est GFR ( Amer) > 60 05/03/17 06:18 Est GFR (Non-Af Amer) > 60 05/03/17 06:18 Random Glucose 136 mg/dL (75-110) H 05/03/17 06:18 Lactic Acid 0.6 mmol/L (0.7-2.1) L 05/01/17 06:05 Uric Acid 5.5 mg/dL (3.5-8.5) 05/03/17 06:18 Calcium 8.6 mg/dl (8.6-10.4) 05/03/17 06:18 Ferritin 95.0 ng/mL 05/02/17 06:20 Total Bilirubin 0.5 mg/dL (0.2-1.3) 05/03/17 06:18 AST 22 U/L (17-59) 05/03/17 06:18 ALT 21 U/L (21-72) 05/03/17 06:18 Alkaline Phosphatase 193 U/L (38-126) H 05/03/17 06:18 Total Protein 7.1 g/dL (6.3-8.3) 05/03/17 06:18 Albumin 3.3 g/dL (3.5-5.0) L 05/03/17 06:18 Globulin 3.7 gm/dL (2.2-3.9) 05/03/17 06:18 Albumin/Globulin Ratio 0.9 (1.0-2.1) L 05/03/17 06:18 Vitamin B12 329 pg/mL (239-931) 05/02/17 06:20 Folate 6.8 ng/mL 05/02/17 06:20 Urine Color Yellow (YELLOW) 05/01/17 23:15 Urine Clarity Clear (Clear) 05/01/17 23:15 Urine pH 5.0 (5.0-8.0) 05/01/17 23:15 Ur Specific [place] 1.019 (1.003-1.030) 05/01/17 23:15 Urine Protein 1+ mg/dL (NEGATIVE) H 05/01/17 23:15 Urine Glucose (UA) Normal mg/dL (Normal) 05/01/17 23:15 Urine Ketones Negative mg/dL (NEGATIVE) 05/01/17 23:15 Urine Blood Negative (NEGATIVE) 05/01/17 23:15 Urine Nitrate Negative (NEGATIVE) 05/01/17 23:15 Urine Bilirubin Negative (NEGATIVE) 05/01/17 23:15 Urine Urobilinogen Normal mg/dL (0.2-1.0) 05/01/17 23:15 Ur Leukocyte Esterase Neg Juan David/uL (Negative) 05/01/17 23:15 Urine WBC (Auto) 1 /hpf (0-5) 05/01/17 23:15 Ur Squamous Epith Cells 1 /hpf (0-5) 05/01/17 23:15 Urine Bacteria Rare (<OCC) 05/01/17 23:15 Blood Type O POSITIVE 04/30/17 10:27 Antibody Screen Negative 04/30/17 10:27 - Hospital Course Hospital Course: Patient came to the emergency room with the abnormal hemoglobin. History present illness: 76-year-old male with history of hypertension, hematuria recently, urinary retention, complicated, and also SAMANTHA came to the office today at the time patient was noted to have a very low hemoglobin, patient was immediately x2 the emergency room. In the ER patient was noted to have a low hemoglobin, and he was also having mild exertional dyspnea, and associate with the leg swelling bilaterally. Patient because of the worsening changes, needed hospitalization and further management. Patient as an outpatient was being seen by Dr. Slade for the chronic anemia. Extensive workup outpatient did not reveal any pathology. Patient may need further management including the bone marrow biopsy at this time. So patient came to the emergency room. Past medical history: Hypertension, hypercholesterolemia, patient had a history of BPH, and also present. Urinary retention and hematuria. Surgical history: Endoscopy. Allergy: Ciprofloxacin. Personal history. Nonspecific, nonsmoker nonalcoholic. Family history noncontributory. Review of systems: Patient is currently having no headache, mild SOB noted, leg swelling noted, soreness of breath on walking noted, no distention noted On examination: HEENT PERRLA, neck supple No thyromegaly was noted and no cervical adenopathy noted Chest bilateral good air entry, no wheezing or rales noted CVS regular heart sound, no murmur Abdomen soft and no organomegaly Bilateral pedal edema noted INFECTION CONTROL MANAGER alert awake oriented x3 no functional neurological deficit. Labs reviewed. Assessment and recommendation: 76-year-old male with history hypertension, hematuria, urinary retention, hypercholesteremia, BPH admitted to the hospital with the severe anemia and asymptomatic. Patient needed transfusion, iron infusion, hematology evaluation. Possible bone marrow biopsy. I spoke to the family in details about the condition. Continue the current treatment. DVT. GI prophylaxis will follow the patient Patient received 2 units of blood transfusion. Intravenous iron was given. Spoke to the custom car builder. The patient had extensive workup as an outpatient including workup for myeloma so far negative. Insurance Claims Clerk thinking that biopsy can be done as an outpatient. And also spoke to the family. Explained to the family about the condition. Patient will be discharged home, he will continue the diuretics. Will follow the patient. Discharge Exam - Head Exam Head Exam: ATRAUMATIC Discharge Plan - Discharge Medications Prescriptions: Furosemide [Lasix] 20 mg PO DAILY #10 tab - Follow Up Plan Condition: STABLE Disposition: HOME/ ROUTINE Instructions: Furosemide (By mouth), Weakness (ED), Dyspnea (GEN), Anemia (DC) Additional Instructions: Follow up with Dr. Lux on 05/06 or 05/07 about a biopsy. Referrals: Drew Lux MD [Staff Provider] -
[2017-05-04 15:58] VITALS: BP 130/64; PULSE 78; TEMP 99; O2SAT 94
== END 2017-05-04 16:30 | disposition home or self-care (01) | DRG 812 ==
LOC: C.ER 08:24 → C.9E 10:48 → C.3T 11:20 → OBSVTOIN 05-02 09:05
PROVIDERS: ADMIT Internal Medicine; ATTEND Internal Medicine
PROC: 30233N1 Transfusion of Nonautologous Red Blood Cells into Peripheral Vein, Percutaneous Approach (ICD-10-PCS; principal; 2017-05-02)
DX: D50.9 Iron deficiency anemia, unspecified (principal); E11.9 Type 2 diabetes mellitus without complications; I10 Essential (primary) hypertension; F41.9 Anxiety disorder, unspecified; E78.00 Pure hypercholesterolemia, unspecified; Z87.891 Personal history of nicotine dependence; Z85.46 Personal history of malignant neoplasm of prostate; M17.0 Bilateral primary osteoarthritis of knee; R60.0 Localized edema

== ENCOUNTER → 2017-12-08 | Day surgery (SDC) | payer MEDICARE, OTHER ==
[2017-12-05 08:27] VITALS: BMI 31.9
[~2017-12-08] MED LIST: Midazolam 2 MG/2 ML VIAL ONE
--- NOTE | 2017-12-08 13:05 | CP.SDSHP ---
Same Day Surgery H & P - History Proposed Procedure: CT guided left lung mass biopsy Pre-Op Diagnosis: Left lung mass - Allergies Allergies: Allergies No Known Allergies Allergy (Verified 12/05/17 08:45) - Physical Exam Vital Signs: Vital Signs 12/08/17 09:36 Temperature 97.7 F Pulse Rate 92 H Respiratory 20 Rate Blood Pressure 167/70 H O2 Sat by Pulse 97 Oximetry Mental Status: Alert & Oriented x3 Neuro: WNL Heart: WNL Lungs: WNL - Impression Impression: Pt with a 4 cm left lung mass. Plan CT guided core biopsy. Informed consent and risk of pneumothorax requiring chest tube explained. Pt. Evaluated Today:Candidate for Anesthesia & Procedure: Yes (ASA 3 Malampati 3) Short Stay Discharge - Short Stay Discharge Admitting Diagnosis/Reason for Visit: LUNG MASS Disposition: HOME/ ROUTINE
--- NOTE | 2017-12-08 13:20 | PCM.SURG1 ---
Surgeon's Initial Post Op Note - Surgeon's Notes Surgeon: Gautam Campos md [employer] Operator: none Type of Anesthesia: IV Sedation Pre-Operative Diagnosis: Left lung mass Operative Findings: CT shows a 3.2 cm left lung mass. Post-Operative Diagnosis: Lung mass Operation Performed: CT guided left lung mass biopsy. Specimen/Specimens Removed: 20 g core x 2 Estimated Blood Loss: EBL {In ML}: 0 Blood Products Given: N/A Drains Used: No Drains Post-Op Condition: Good Date of Surgery/Procedure: 12/08/17 Time of Surgery/Procedure: 13:20
--- NOTE | 2017-12-08 14:30 | CT ---
PROCEDURE: Date of procedure: 12/08/2017 Procedure: 1. CT-guided lung mass biopsy, CPT [address] Guidance for biopsy, [address] Medications: The patient was sedated by anesthesiologist along with physiologic monitoring. HISTORY: Left upper lobe lung MASS TECHNIQUE: Following informed consent and procedure time out, the patient was placed supine on the CT table and noncontrast CT scan was performed. Noncontrast CT scan confirmed the presence of a 3.2 cm left lung mass. A smaller 6 mm nodule is present. A skin localizer was placed on the patient's LEFT chest and a repeat CT scan was performed. The skin was marked, prepped, and draped in the usual sterile fashion. After the skin was anesthetized with lidocaine and the patient sedated by the anesthesiologist, a 20 gauge core needle was advanced percutaneously under direct CT guidance into the mass. Upon confirmation of needle position, Two 20-gauge core specimens were obtained and sent for routine pathology. The needle was removed and a xeroform dressing was applied. A post biopsy CT scan showed no pneumothorax. IMPRESSION: CT guided core biopsy left lung mass.
--- NOTE | 2017-12-08 14:51 | RAD ---
PROCEDURE: CHEST RADIOGRAPH, 1 VIEW HISTORY: Status post left lung mass biopsy. COMPARISON: None available. FINDINGS: LUNGS: Clear. PLEURA: No pneumothorax or pleural fluid seen. CARDIOVASCULAR: Normal. OSSEOUS STRUCTURES: No significant abnormalities. VISUALIZED UPPER ABDOMEN: Normal. OTHER FINDINGS: None. IMPRESSION: No pneumothorax following biopsy of left lung mass.
[2017-12-08 15:33] VITALS: BP 126/90; PULSE 66; RESP 18; TEMP 97; O2SAT 96
== END | disposition home or self-care (01) ==
LOC: C.CATHLAB 09:22
PROVIDERS: ATTEND Radiology Vascular & Interventional Radiology
DX: R91.8 Other nonspecific abnormal finding of lung field (principal)
CPT/HCPCS: 32405; 71045; 82948; 88305; J2250; J3010

== ENCOUNTER 2018-07-21 16:45 | Inpatient (IN) | payer MEDICARE, OTHER ==
[2018-07-21 17:05] VITALS: BMI 27.2
--- NOTE | 2018-07-21 17:19 | C.PDOC ---
History Of Present Illness 76-year-old male with history of HTN, hypercholesterolemia, and lung cancer sent from D Dr Lux office for admission. Per note and family the patient has been increasing productive cough with sputum and SOB, and associated chest tightness. Patient has 15 pound weight loss and not feeling well. They also report noticing blood in sputum. Time Seen by Provider: 07/21/18 17:16 Chief Complaint (Nursing): Shortness Of Breath History Per: Patient History/Exam Limitations: no limitations Onset/Duration Of Symptoms: Days Current Symptoms Are (Timing): Still Present Past Medical History Reviewed: Historical Data, Nursing Documentation, Vital Signs Vital Signs: Last Vital Signs Temp 98.0 F 07/21/18 17:05 Pulse 101 H 07/21/18 17:05 Resp 19 07/21/18 17:05 BP 97/59 L 07/21/18 17:05 Pulse Ox 94 L 07/21/18 18:20 - Medical History PMH: Anemia (Requires transfusion), Anxiety, Arthritis (B/L KNEES), Fractures ( ANKLE NO SURGERY), HTN, Hypercholesterolemia, Pneumonia (childhood) Surgical History: Endoscopy - [facility] Procedures EXTIRPATION OF MATTER FROM BLADDER, ENDO (03/10/17) TRANSFUSE NONAUT RED BLOOD CELLS IN PERIPH VEIN, PERC (05/02/17) TU BLADDER CLEARANCE (09/19/14) TU DESTRUC BLADD LES NEC (09/19/14) URETHRAL DILATION (03/02/14) Family History: States: No Known Family Hx - Social History Hx Alcohol Use: No Hx Substance Use: No - Immunization History Hx Tetanus Toxoid Vaccination: No Hx Influenza Vaccination: No Hx Pneumococcal Vaccination: No Review Of Systems Constitutional: Negative for: Fever, Chills Cardiovascular: Positive for: Chest Pain Respiratory: Positive for: Cough, Shortness of Breath, Sputum Gastrointestinal: Negative for: Nausea, Vomiting Skin: Negative for: Rash Physical Exam - Physical Exam Appears: No Acute Distress, Chronically Ill Skin: Warm, Dry, Pale, No Rash Head: Atraumatic, Normacephalic Eye(s): bilateral: Normal Inspection Oral Mucosa: Dry Neck: Normal ROM, Supple Cardiovascular: Rhythm Regular, No Murmur Respiratory: No Rales, Rhonchi (scattered), No Wheezing Gastrointestinal/Abdominal: Soft, No Tenderness, No Guarding, No Rebound Extremity: No Pedal Edema, No Calf Tenderness, Capillary Refill (<2 seconds) Neurological/Psych: Oriented x3, Normal Speech Gait: Unable To Assess ED Course And Treatment - Laboratory Results Result Diagrams: 07/21/18 17:46 Lab Interpretation: No Changes Compared To Prior Results O2 Sat by Pulse Oximetry: 94 (RA) - Radiology CXR: Viewed By Me, Read By Radiologist CXR Interpretation: Yes: Cardiomegaly, Other ( interstitial pneumonitis) - Other Rad CXR X-Ray: Viewed By Me, Read By Radiologist Interpretation: HISTORY: sob. COMPARISON: Chest radiographs 06/30/2018. FINDINGS: LUNGS: Persistent infiltrate or mass in the left mid lung zone lateral to the hilum once again without interval change. Reticular markings remain prominent at the right greater than left lung bases with the apices affected but less so than the bases bilaterally. PLEURA: No significant pleural effusion identified, no pneumothorax apparent. CARDIOVASCULAR: Cardiomegaly is stable. No pulmonary vascular congestion. OSSEOUS STRUCTURES: No significant abnormalities. VISUALIZED UPPER ABDOMEN: Normal. OTHER FINDINGS: None. IMPRESSION: Findings suggest interstitial pneumonitis affecting bilateral lung bases with left upper lobe mass unchanged. Consider potential lymphangitis spread of neoplasm. Stable cardiomegaly. Left hemidiaphragm appears elevated. - CT Scan/US CT chest Other Rad Studies (CT/US): Read By Radiologist, Radiology Report Reviewed CT/US Interpretation: PROCEDURE: CT Chest without contrast. HISTORY: lung mass. COMPARISON: Noncontrast chest CT 12/03/2017. TECHNIQUE: Contiguous axial images were obtained through the chest without intravenous contrast enhancement. Sagittal and coronal reconstructions were performed. . Radiation dose (DLP): 478.14 mGy-cm. This CT exam was performed using one or more of the following dose reduction techniques: Automated exposure control, adjustment of the mA and/or kV according to patient size, and/or use of iterative reconstruction technique. FINDINGS: LUNGS: Marked interval progression of the left upper lobe mass is appreciated now measuring 4.1 x 3.8 cm compared to 3.1 x 2.9 cm previously reticular changes are appreciated at the right upper middle and lower lobes and minimally at the left lower lobe in a pattern that come is combined with limited alveolitis and therefore may reflect pneumonia although potential lymphangitis spread of neoplasm is not excluded. Clinically correlate further. Central airways appear clear. MEDIASTINUM: Unremarkable thoracic aorta. No aneurysm. Cardiac size is normal however there is a moderately large pericardial effusion present in the interval. There is also extensive mediastinal lymphadenopathy with moderate bilateral hilar lymphadenopathy suspected though difficult to define given lack of intravenous contrast. Inferior right paratracheal lymph node measures 3.8 x 2.7 cm and a sub carinal lymph node measures 3.8 x 2.5 cm. Main pulmonary artery unremarkable. No vascular congestion. PLEURA: No pleural effusion bilaterally. No pneumothorax. BONES: No fracture. No destructive lesion. UPPER ABDOMEN: Stable 15 mm lucency right lobe liver with a least 1 sub cm lucency identified in the left lobe. OTHER FINDINGS: Bilateral gynecomastia reiterated. IMPRESSION: Interval progression of left upper lobe neoplasm including mediastinal lymphadenopathy. Interval interstitial and alveolar changes affecting the right lung and left lower lobe may reflect atypical pneumonitis with limited possibility of lymphangitic spread of cancer. Further clinical correlation is recommended. Interval progression of mediastinal lymphadenopathy appreciated. Lack images contrast limits definition of mediastinal anatomy. Incidental lucencies at the right and left lobes liver reiterated. Medical Decision Making Medical Decision Making: Impression: Lung CA, worsening cough, SOB and weight loss Plan: * Labs * CXR * CT Chest Progress: diagnostics reviewed. Spoke with Dr Lux who accepted med-reg admission for patient Disposition - Disposition Disposition: HOSPITALIZED Disposition Time: 18:20 Condition: FAIR - POA Present On Arrival: None - Clinical Impression Clinical Impression: Pneumonitis, Lung cancer - PA / CARDIOLOGY CLINICAL CONSULTANT / Resident Statement MD/DO has reviewed & agrees with the documentation as recorded. - Scribe Statement The provider has reviewed the documentation as recorded by the Brionna Reis All medical record entries made by the Brionna were at my direction and personally dictated by me. I have reviewed the chart and agree that the record accurately reflects my personal performance of the history, physical exam, medical decision making, and the department course for this patient. I have also personally directed, reviewed, and agree with the discharge instructions and disposition. Decision To Admit - Pt Status Changed To: Hospital Disposition Of: Inpatient - Admit Certification Admit to Inpatient:: After my assessment, the patient will require hospitalization for at least two midnights. This is because of the severity of symptoms shown, intensity of services needed, and/or the medical risk in this patient being treated as an outpatient. - InPatient: Physician Admission Certification: I certify that this patient requires 2 or more midnights of care for the following reason:: Patient with history of lung cancer, worsening symptoms and weight loss - . Bed Request Type: Regular Admitting Physician: Drew uLx Patient Diagnosis: Pneumonitis, Lung cancer
[2018-07-21 17:58] LABS: BASO % 0.6 % (0.0-2.0); EOS # 0.2 K/uL (0.0-0.7); EOS % 3.7 % (0.0-4.0); HEMOGLOBIN 10.2 g/dL (12.0-18.0); LYMPH # 0.5 K/uL (1.0-4.3); LYMPH % 8.3 % (20.0-40.0); MEAN CELL VOLUME 80.6 fL (80.0-94.0); MEAN CORPUSCULAR HEMOGLOBIN 25.2 pg (27.0-31.0); MEAN CORPUSCULAR HGB CONC 31.3 g/dL (33.0-37.0); MEAN PLATELET VOLUME 7.4 fL (7.2-11.7); MONO # 0.5 K/uL (0.0-0.8); NEUT # 4.7 K/uL (1.8-7.0); NEUT % 79.4 % (50.0-75.0); PLATELET COUNT 269 K/uL (130-400); RBC 4.03 Mil/uL (4.40-5.90); RED CELL DISTRIBUTION WIDTH 21.4 % (11.5-14.5); WHITE BLOOD COUNT 5.9 K/uL (4.8-10.8)
--- NOTE | 2018-07-21 18:02 | RAD ---
Date of service: 07/21/2018 HISTORY: sob COMPARISON: Chest radiographs 06/30/2018. FINDINGS: LUNGS: Persistent infiltrate or mass in the left mid lung zone lateral to the hilum once again without interval change. Reticular markings remain prominent at the right greater than left lung bases with the apices affected but less so than the bases bilaterally. PLEURA: No significant pleural effusion identified, no pneumothorax apparent. CARDIOVASCULAR: Cardiomegaly is stable. No pulmonary vascular congestion. OSSEOUS STRUCTURES: No significant abnormalities. VISUALIZED UPPER ABDOMEN: Normal. OTHER FINDINGS: None. IMPRESSION: Findings suggest interstitial pneumonitis affecting bilateral lung bases with left upper lobe mass unchanged. Consider potential lymphangitis spread of neoplasm. Stable cardiomegaly. Left hemidiaphragm appears elevated.
--- NOTE | 2018-07-21 18:09 | CT ---
Date of service: 07/21/2018 PROCEDURE: CT Chest without contrast HISTORY: lung mass COMPARISON: Noncontrast chest CT 12/03/2017. TECHNIQUE: Contiguous axial images were obtained through the chest without intravenous contrast enhancement. Sagittal and coronal reconstructions were performed. Radiation dose (DLP): 478.14 mGy-cm. This CT exam was performed using one or more of the following dose reduction techniques: Automated exposure control, adjustment of the mA and/or kV according to patient size, and/or use of iterative reconstruction technique. FINDINGS: LUNGS: Marked interval progression of the left upper lobe mass is appreciated now measuring 4.1 x 3.8 cm compared to 3.1 x 2.9 cm previously reticular changes are appreciated at the right upper middle and lower lobes and minimally at the left lower lobe in a pattern that come is combined with limited alveolitis and therefore may reflect pneumonia although potential lymphangitis spread of neoplasm is not excluded. Clinically correlate further. Central airways appear clear. MEDIASTINUM: Unremarkable thoracic aorta. No aneurysm. Cardiac size is normal however there is a moderately large pericardial effusion present in the interval. There is also extensive mediastinal lymphadenopathy with moderate bilateral hilar lymphadenopathy suspected though difficult to define given lack of intravenous contrast. Inferior right paratracheal lymph node measures 3.8 x 2.7 cm and a sub carinal lymph node measures 3.8 x 2.5 cm. Main pulmonary artery unremarkable. No vascular congestion. PLEURA: No pleural effusion bilaterally. No pneumothorax. BONES: No fracture. No destructive lesion. UPPER ABDOMEN: Stable 15 mm lucency right lobe liver with a least 1 sub cm lucency identified in the left lobe. OTHER FINDINGS: Bilateral gynecomastia reiterated. IMPRESSION: Interval progression of left upper lobe neoplasm including mediastinal lymphadenopathy. Interval interstitial and alveolar changes affecting the right lung and left lower lobe may reflect atypical pneumonitis with limited possibility of lymphangitic spread of cancer. Further clinical correlation is recommended. Interval progression of mediastinal lymphadenopathy appreciated. Lack images contrast limits definition of mediastinal anatomy. Incidental lucencies at the right and left lobes liver reiterated.
[2018-07-21 18:11] LABS: INR 1.2; PROTHROMBIN TIME 12.9 SECONDS (9.7-12.2)
[2018-07-21 18:26] LABS: ALBUMIN 3.7 g/dL (3.5-5.0); CALCIUM 8.8 mg/dl (8.6-10.4)
--- NOTE | 2018-07-21 19:02 | CP.PCM.HP ---
History of Present Illness - History of Present Illness History of Present Illness: Chief complaint: Shortness of breath History present illness: 78-year-old male with history of hypertension, diabetes, high cholesterol and BPH history of corneal transplant, prostate cancer recurrent history of urinary tract infection, hematuria, recently diagnosed with lung cancer currently on treatment. Patient for the last one month, started noticing increasing cough. Patient also started noticing increasing wheezing. But 2 weeks symptoms got worse, he started having poor appetite. He's also having significant weight loss. He has a significant problem in eating, he immediately gets diarrhea, associate with the nausea and also stomach discomfort. he's also having increasing coughing, chest congestion, wheezing, unable to sleep, and while he is using the nebulizer, he started having a metallic taste in the mouth. Today he went to see oncologist. Received intravenous iron, IV fluid and Procrit. Patient is taking oral medication for his lung cancer. According to the oncologist at this medicine can cause diffuse lung disease. Patient had tumor of the left upper lung zone, but the recent chest x-ray 2 weeks ago showing worsening lung changes in the right lung guevara. He did not have any fever. Unable to sleep well. Chest pain on and off noted chest tightness. Past medical history: Hypertension, hyperlipidemia, diabetes, hypercholesterolemia. Prostate cancer. Hematorrhea. Lung cancer. Personal history: Used to be a smoker in the past. Nonalcoholic. Lives with family Surgical history include cystoscopy. Prostate seeds. Corneal transplant. Allergic to aspirin. Current medications reviewed Family history noncontributory Review of systems: Patient has ongoing weakness, tiredness, fatigability. Poor intake. Weight loss. Nausea. Vomiting. Diarrhea. On examination: Vital signs stable except hypoxia. Madisyn heart sound. Chest bilateral diffuse rhonchi and wheezing more on the right leg. Regular heart sound. Abdomen soft. No pedal edema Labs reviewed Nonspecific. X-ray and CAT scan showing evidence of bilateral diffuse lung disease. More on the right lung, associate with interstitial changes, alveolar pattern noted Assessment: 78-year-old male with history of lung cancer. Now currently receiving treatment. Comes with hypoxia, interstitial lung changes, underlying interstitial pneumonia possible. Interstitial lung disease possible. Complications From cancer medication is also likely. To start the patient on inhaled corticosteroid bronchodilators IV corticosteroid. Oxygen supplementation. Oncology evaluation. Further workup, possibility of metastatic lung cancer cannot be ruled out. DVT GI prophylaxis and will follow the patient Present on Admission - Present on Admission Any Indicators Present on Admission: No History of DVT/PE: No History of Uncontrolled Diabetes: No Urinary Catheter: No Decubitus Ulcer Present: No Past Patient History - Past Medical History & Family History Past Medical History?: Yes - Past Social History Smoking Status: Former Smoker - CARDIAC Hx Hypercholesterolemia: Yes Hx Hypertension: Yes - PULMONARY Hx Pneumonia: Yes (childhood) - NEUROLOGICAL Hx Neurological Disorder: No - HEENT Hx HEENT Problems: Yes Hx Cataracts: Yes - RENAL Hx Chronic Kidney Disease: No - ENDOCRINE/METABOLIC Hx Endocrine Disorders: Yes Hx Diabetes Mellitus Type 2: Yes - HEMATOLOGICAL/ONCOLOGICAL Hx Anemia: Yes (Requires transfusion) - INTEGUMENTARY Hx Dermatological Problems: No - MUSCULOSKELETAL/RHEUMATOLOGICAL Hx Arthritis: Yes (B/L KNEES) Hx Fractures: Yes (ANKLE NO SURGERY) - GASTROINTESTINAL Hx Gastrointestinal Disorders: No - GENITOURINARY/GYNECOLOGICAL Hx Genitourinary Disorders: Yes (retention) - PSYCHIATRIC Hx Anxiety: Yes Hx Substance Use: No - SURGICAL HISTORY Hx Surgeries: Yes - ANESTHESIA Hx Anesthesia: Yes Hx Anesthesia Reactions: No Hx Malignant Hyperthermia: No Meds Allergies/Adverse Reactions: Allergies Allergy/AdvReac Type Severity Reaction Status Date / Time No Known Allergies Allergy Verified 07/21/18 17:04 Results - Vital Signs Recent Vital Signs: Last Vital Signs Temp 98.5 F 07/21/18 18:55 Pulse 96 H 07/21/18 18:55 Resp 13 07/21/18 18:55 BP 115/46 L 07/21/18 18:55 Pulse Ox 94 L 07/21/18 18:55 - Labs Result Diagrams: 07/21/18 17:46 07/21/18 17:46 Labs: Laboratory Results - last 24 hr 07/21/18 07/21/18 07/21/18 17:46 17:46 17:46 WBC 5.9 RBC 4.03 L Hgb 10.2 L Hct 32.5 L MCV 80.6 D MCH 25.2 L MCHC 31.3 L RDW 21.4 H Plt Count 269 D MPV 7.4 Neut % (Auto) 79.4 H Lymph % (Auto) 8.3 L [place] % (Auto) 8.0 Eos % (Auto) 3.7 Baso % (Auto) 0.6 Neut # (Auto) 4.7 Lymph # (Auto) 0.5 L [place] # (Auto) 0.5 Eos # (Auto) 0.2 Baso # (Auto) 0.0 PT 12.9 H INR 1.2 APTT 32 Sodium 137 Potassium 6.2 H* D Chloride 107 Carbon Dioxide 16 L Anion Gap 20 BUN 74 H Creatinine 2.7 H Est GFR ( Amer) 28 Est GFR (Non-Af Amer) 23 Random Glucose 107 Lactic Acid Calcium 8.8 Total Bilirubin 0.4 AST 25 ALT 21 Alkaline Phosphatase 99 Total Creatine Kinase 70 NT-Pro-B Natriuret Pep 596 Total Protein 7.2 Albumin 3.7 Globulin 3.5 Albumin/Globulin Ratio 1.0 Influenza Typ A,B (EIA) 07/21/18 07/21/18 17:46 18:24 WBC RBC Hgb Hct MCV MCH MCHC RDW Plt Count MPV Neut % (Auto) Lymph % (Auto) [place] % (Auto) Eos % (Auto) Baso % (Auto) Neut # (Auto) Lymph # (Auto) [place] # (Auto) Eos # (Auto) Baso # (Auto) PT INR APTT Sodium Potassium Chloride Carbon Dioxide Anion Gap BUN Creatinine Est GFR ( Amer) Est GFR (Non-Af Amer) Random Glucose Lactic Acid 1.5 Calcium Total Bilirubin AST ALT Alkaline Phosphatase Total Creatine Kinase NT-Pro-B Natriuret Pep Total Protein Albumin Globulin Albumin/Globulin Ratio Influenza Typ A,B (EIA) Negative for flu a/b
[2018-07-21 19:12] LABS: BANDS 8 % (0-2); EOSINOPHIL 4 % (0-4); LYMPHOCYTE 11 % (20-40); MICROCYTOSIS SLIGHT; MONOCYTE 7 % (0-10); NEUTROPHIL 70 % (50-75); OVALOCYTES SLIGHT; PLATELET ESTIMATE NORMAL (NORMAL); TOTAL CELLS COUNTED 100
[2018-07-21 19:13] LABS: HYPOCHROMIC SLIGHT
[2018-07-21 19:33] LABS: ABG ALLEN TEST POS; ARTERIAL BLOOD GAS HCO3 17.5 mmol/L (21-28); ARTERIAL BLOOD GAS HEMOGLOBIN 9.8 g/dL (11.7-17.4); ARTERIAL BLOOD GAS O2 SAT 95.3 % (95-98); ARTERIAL BLOOD GAS PCO2 29 mm/Hg (35-45); ARTERIAL BLOOD GAS PH 7.33 (7.35-7.45); ARTERIAL BLOOD GAS PO2 69 mm/Hg (80-100); ARTERIAL BLOOD GAS TCO2 16.2 mmol/L (22-28)
[2018-07-21] MEDS: Sodium Chloride 0.9% 1,000 ML IV SCH (20:25)
[2018-07-21] MEDS ORDERED: Sod Polystyrene Sulf 15 gm/60 ml Susp PO ONE (22:09)
[2018-07-21] MEDS: Latanoprost 2.5 ml Opht Soln OU SCH (22:20)
[2018-07-21] MEDS: Albuterol-Ipratrop 3 mg / 0.5 (3 ml) UD INH SCH (22:52)
[2018-07-22] MEDS: Albuterol-Ipratrop 3 mg / 0.5 (3 ml) UD INH SCH ×4 (01:11→21:13)
[2018-07-22] MEDS: Sodium Chloride 0.9% 1,000 ML IV SCH (05:29)
[2018-07-22 07:12] LABS: SQUAMOUS EPITHIAL < 1 /hpf (0-5); URINE BACTERIA RARE (<OCC); URINE BILIRUBIN NEGATIVE (NEGATIVE); URINE BLOOD NEGATIVE (NEGATIVE); URINE CLARITY Clear (Clear); URINE COLOR Yellow (YELLOW); URINE GLUCOSE (UA) NORMAL (Normal); URINE LEUKOCYTE ESTERASE NEG Leu/uL (Negative); URINE PROTEIN NEGATIVE (NEGATIVE); URINE UROBILINOGEN NORMAL mg/dL (0.2-1.0)
[2018-07-22 07:48] LABS: BASO % 0.4 % (0.0-2.0); EOS # 0.1 K/uL (0.0-0.7); EOS % 2.3 % (0.0-4.0); HEMOGLOBIN 10.1 g/dL (12.0-18.0); LYMPH # 0.5 K/uL (1.0-4.3); LYMPH % 7.3 % (20.0-40.0); MEAN CELL VOLUME 79.6 fL (80.0-94.0); MEAN CORPUSCULAR HEMOGLOBIN 25.1 pg (27.0-31.0); MEAN CORPUSCULAR HGB CONC 31.6 g/dL (33.0-37.0); MEAN PLATELET VOLUME 7.4 fL (7.2-11.7); MONO # 0.6 K/uL (0.0-0.8); MONO % 8.8 % (0.0-10.0); NEUT # 5.2 K/uL (1.8-7.0); NEUT % 81.2 % (50.0-75.0); PLATELET COUNT 244 K/uL (130-400); RBC 4.02 Mil/uL (4.40-5.90); RED CELL DISTRIBUTION WIDTH 21.7 % (11.5-14.5); WHITE BLOOD COUNT 6.4 K/uL (4.8-10.8)
[2018-07-22 08:04] LABS: ALBUMIN 3.3 g/dL (3.5-5.0); CALCIUM 8.6 mg/dl (8.6-10.4)
[2018-07-22] MEDS ORDERED: FLUOROMETHOLONE OP SCH (10:00)
[2018-07-22 10:11] LABS: ANISOCYTOSIS MODERATE; BANDS 1 % (0-2); EOSINOPHIL 4 % (0-4); HYPOCHROMIC SLIGHT; LYMPHOCYTE 4 % (20-40); MONOCYTE 6 % (0-10); NEUTROPHIL 85 % (50-75); OVALOCYTES SLIGHT; PLATELET ESTIMATE NORMAL (NORMAL); POLYCHROMIC SLIGHT; TOTAL CELLS COUNTED 100
[2018-07-22] MEDS ORDERED: Sodium Chloride 0.9% 1,000 ML IV SCH (10:28)
[2018-07-22] MEDS: Piperacill/Tazo 2.25gm in Dex 2.25 GM/50 ML BAG IVPB SCH ×2 (14:20→22:36)
[2018-07-22 19:59] LABS: BASO % 0.3 % (0.0-2.0); EOS # 0.1 K/uL (0.0-0.7); EOS % 1.9 % (0.0-4.0); HEMOGLOBIN 9.7 g/dL (12.0-18.0); LYMPH # 0.3 K/uL (1.0-4.3); LYMPH % 3.9 % (20.0-40.0); MEAN CELL VOLUME 80.6 fL (80.0-94.0); MEAN CORPUSCULAR HEMOGLOBIN 25.6 pg (27.0-31.0); MEAN CORPUSCULAR HGB CONC 31.7 g/dL (33.0-37.0); MEAN PLATELET VOLUME 7.6 fL (7.2-11.7); MONO # 0.6 K/uL (0.0-0.8); MONO % 7.7 % (0.0-10.0); NEUT # 6.5 K/uL (1.8-7.0); NEUT % 86.2 % (50.0-75.0); PLATELET COUNT 241 K/uL (130-400); RBC 3.81 Mil/uL (4.40-5.90); RED CELL DISTRIBUTION WIDTH 21.7 % (11.5-14.5); WHITE BLOOD COUNT 7.5 K/uL (4.8-10.8)
[2018-07-22 20:27] LABS: ALBUMIN 3.4 g/dL (3.5-5.0); CALCIUM 8.5 mg/dl (8.6-10.4)
[2018-07-22 20:37] LABS: CK-MB 2.1 ng/mL (0.0-3.38); TROPONIN I 0.02 ng/mL (0.00-0.120)
[2018-07-22 21:02] LABS: LYMPHOCYTE 4 % (20-40); MONOCYTE 1 % (0-10); NEUTROPHIL 95 % (50-75); PLATELET ESTIMATE NORMAL (NORMAL); TOTAL CELLS COUNTED 100
[2018-07-22 21:03] LABS: ANISOCYTOSIS SLIGHT; HYPOCHROMIC SLIGHT; OVALOCYTES SLIGHT; POLYCHROMIC SLIGHT
[2018-07-22] MEDS: Latanoprost 2.5 ml Opht Soln OU SCH (23:00)
--- NOTE | 2018-07-22 23:17 | CP.PCM.CON ---
History of Present Illness - History of Present Illness History of Present Illness: Surgery 78 M w PMH of prostate CA, Lung CA on chemo and HTN came with worsening SOB and weakness for a month. Pt started oral chemo therapy 4 month ago for his lung CA. Had unintentional weight loss, SOB , clear productive cough, dyspnea upon lying down. Denies fever, Nausea, vomiting, chest trauma, syncopy. Echo was taken and shows impending cardiac tamponade. Surgery is consulted to evaluate for pericardial effusion. Pt and family consented for surgery. Pt is taken to OR for pericardial window. Still intubated and sent to ICU. PMH see above PSH prostate seeding, hernia repair SS former smoker 2 pack a day, EtOH socially. Review of Systems - Review of Systems Review of Systems: See HPI Past Patient History - Past Medical History & Family History Past Medical History?: Yes - Past Social History Smoking Status: Never Smoked - CARDIAC Hx Hypercholesterolemia: Yes Hx Hypertension: Yes - PULMONARY Hx Pneumonia: Yes (childhood) - NEUROLOGICAL Hx Neurological Disorder: No - HEENT Hx HEENT Problems: Yes Hx Cataracts: Yes Other/Comment: corneal transplant both eyes 5yrs ago - RENAL Hx Chronic Kidney Disease: No Hx Dialysis: No - ENDOCRINE/METABOLIC Hx Endocrine Disorders: Yes Hx Diabetes Mellitus Type 2: Yes - HEMATOLOGICAL/ONCOLOGICAL Hx Anemia: Yes (Requires transfusion) - INTEGUMENTARY Hx Dermatological Problems: No - MUSCULOSKELETAL/RHEUMATOLOGICAL Hx Arthritis: Yes (B/L KNEES) Hx Falls: No Hx Fractures: Yes (ANKLE NO SURGERY) - GASTROINTESTINAL Hx Gastrointestinal Disorders: No - GENITOURINARY/GYNECOLOGICAL Hx Genitourinary Disorders: Yes (retention) - PSYCHIATRIC Hx Anxiety: Yes Hx Substance Use: No - SURGICAL HISTORY Hx Surgeries: Yes - ANESTHESIA Hx Anesthesia: Yes Hx Anesthesia Reactions: No Hx Malignant Hyperthermia: No Meds Allergies/Adverse Reactions: Allergies Allergy/AdvReac Type Severity Reaction Status Date / Time No Known Allergies Allergy Verified 07/21/18 17:04 - Medications Medications: Current Medications Albuterol/Ipratropium (Duoneb 3 Mg/0.5 Mg (3 Ml) Ud) 3 ml INH RQ6 [facility] Last Admin: 07/22/18 21:13 Dose: Not Given Finasteride (Proscar) 5 mg PO DAILY [facility] Last Admin: 07/22/18 09:27 Dose: 5 mg Piperacillin Sod/Tazobactam Sod (Zosyn 2.25 Gm Iv Premix) 2.25 gm in 50 mls @ 100 mls/hr IVPB Q8 [facility] PRN Reason: Protocol Last Admin: 07/22/18 22:36 Dose: 100 mls/hr Latanoprost (Xalatan Opht) 0.05 ml OU HS [facility] Last Admin: 07/21/18 22:20 Dose: 0.05 ml Pantoprazole Sodium (Protonix Inj) 40 mg IVP DAILY [facility] Last Admin: 07/22/18 09:27 Dose: 40 mg Tamsulosin HCl (Flomax) 0.4 mg PO DAILY [facility] Last Admin: 07/22/18 09:27 Dose: 0.4 mg Physical Exam - Constitutional Appears: In Acute Distress - Head Exam Head Exam: ATRAUMATIC, NORMAL INSPECTION, NORMOCEPHALIC - Eye Exam Eye Exam: Normal appearance - ENT Exam ENT Exam: Mucous Membranes Moist, Normal Exam - Neck Exam Neck exam: Positive for: Normal Inspection - Respiratory Exam Respiratory Exam: Respiratory Distress Additional comments: on vent . b/l chest tubes - Cardiovascular Exam Cardiovascular Exam: Tachycardia - GI/Abdominal Exam GI & Abdominal Exam: Soft. absent: Distended, Tenderness - Extremities Exam Extremities exam: Positive for: normal inspection - Back Exam Back exam: NORMAL INSPECTION - Skin Skin Exam: Dry, Intact, Normal Color, Warm Results - Vital Signs Recent Vital Signs: Last Vital Signs Temp 98.2 F 07/22/18 15:30 Pulse 103 H 07/22/18 15:30 Resp 20 07/22/18 15:30 BP 107/65 07/22/18 15:30 Pulse Ox 96 07/22/18 15:30 - Labs Result Diagrams: 07/22/18 19:50 07/22/18 19:50 Labs: Laboratory Results - last 24 hr 07/21/18 07/22/18 07/22/18 17:19 07:35 07:35 WBC 6.4 RBC 4.02 L Hgb 10.1 L Hct 32.0 L MCV 79.6 L MCH 25.1 L MCHC 31.6 L RDW 21.7 H Plt Count 244 MPV 7.4 Neut % (Auto) 81.2 H Lymph % (Auto) 7.3 L [place] % (Auto) 8.8 Eos % (Auto) 2.3 Baso % (Auto) 0.4 Neut # (Auto) 5.2 Lymph # (Auto) 0.5 L [place] # (Auto) 0.6 Eos # (Auto) 0.1 Baso # (Auto) 0.0 Neutrophils % (Manual) 85 H Band Neutrophils % 1 Lymphocytes % (Manual) 4 L Monocytes % (Manual) 6 Eosinophils % (Manual) 4 Platelet Estimate Normal Polychromasia Slight Hypochromasia (manual) Slight Anisocytosis (manual) Moderate Ovalocytes Slight Sodium 140 Potassium 5.6 H Chloride 110 H Carbon Dioxide 17 L Anion Gap 19 BUN 66 H Creatinine 2.5 H Est GFR ( Amer) 31 Est GFR (Non-Af Amer) 25 Random Glucose 114 H Calcium 8.6 Phosphorus 4.2 Magnesium 2.1 Total Bilirubin 0.2 AST 21 ALT 25 Alkaline Phosphatase 105 Total Creatine Kinase CK-MB (Mass) Troponin I Total Protein 6.7 Albumin 3.3 L Globulin 3.4 Albumin/Globulin Ratio 1.0 Urine Color Yellow Urine Clarity Clear Urine pH 5.0 Ur Specific [place] 1.014 Urine Protein Negative Urine Glucose (UA) Normal Urine Ketones Negative Urine Blood Negative Urine Nitrate Negative Urine Bilirubin Negative Urine Urobilinogen Normal Ur Leukocyte Esterase Neg Urine WBC (Auto) 3 Urine RBC (Auto) < 1 Ur Squamous Epith Cells < 1 Urine Bacteria Rare C. difficile Ag & Toxin 07/22/18 07/22/18 07/22/18 13:05 19:50 19:50 WBC 7.5 RBC 3.81 L Hgb 9.7 L Hct 30.7 L MCV 80.6 MCH 25.6 L MCHC 31.7 L RDW 21.7 H Plt Count 241 MPV 7.6 Neut % (Auto) 86.2 H Lymph % (Auto) 3.9 L [place] % (Auto) 7.7 Eos % (Auto) 1.9 Baso % (Auto) 0.3 Neut # (Auto) 6.5 Lymph # (Auto) 0.3 L [place] # (Auto) 0.6 Eos # (Auto) 0.1 Baso # (Auto) 0.0 Neutrophils % (Manual) 95 H Band Neutrophils % Lymphocytes % (Manual) 4 L Monocytes % (Manual) 1 Eosinophils % (Manual) Platelet Estimate Normal Polychromasia Slight Hypochromasia (manual) Slight Anisocytosis (manual) Slight Ovalocytes Slight Sodium 136 Potassium 4.6 Chloride 106 Carbon Dioxide 15 L Anion Gap 19 BUN 63 H Creatinine 2.2 H Est GFR ( Amer) 35 Est GFR (Non-Af Amer) 29 Random Glucose 206 H Calcium 8.5 L Phosphorus 4.2 Magnesium 2.0 Total Bilirubin 0.1 L AST 18 ALT 21 Alkaline Phosphatase 95 Total Creatine Kinase 62 CK-MB (Mass) 2.10 Troponin I 0.0200 Total Protein 6.6 Albumin 3.4 L Globulin 3.2 Albumin/Globulin Ratio 1.0 Urine Color Urine Clarity Urine pH Ur Specific [place] Urine Protein Urine Glucose (UA) Urine Ketones Urine Blood Urine Nitrate Urine Bilirubin Urine Urobilinogen Ur Leukocyte Esterase Urine WBC (Auto) Urine RBC (Auto) Ur Squamous Epith Cells Urine Bacteria C. difficile Ag & Toxin Negative Assessment & Plan - Assessment and Plan (Free Text) Assessment: Pericardial effusion POD 1 s/p pericardial window and chest tubes x2 Post op CXR reviewed w Dr. Yañez: likely mucus plug -Recommend bronchoscopy / chest PT / suctioning -Monitor chest tube output: CT to suction -MOnitor VS DW Dr. Yañez
--- NOTE | 2018-07-22 23:31 | CP.PCM.PN ---
Subjective - Date & Time of Evaluation Date of Evaluation: 07/22/18 Time of Evaluation: 23:25 - Subjective Subjective: Reason for consultation: Impending cardiac tamponade. Reques ashley by: Dr Haskins. 78 yo male pmh of nonsmall cell lung ca on chemo who presented with sob, tachycardia and tachypnea. ECHO: consistent with impending cardiac tamponade. CT chest large left kaleigh mass with bilat lymphagitic infiltrates. a/p: Pericardial effusion Impending cardiac tampondade. Pericardial window. Objective - Vital Signs/Intake and Output Vital Signs (last 24 hours): Temp Pulse Resp BP Pulse Ox 98.2 F 103 H 20 107/65 96 07/22/18 15:30 07/22/18 15:30 07/22/18 15:30 07/22/18 15:30 07/22/18 15:30 Intake and Output: 07/22/18 07/23/18 18:59 06:59 Intake Total 1150 Balance 1150 - Medications Medications: Current Medications Albuterol/Ipratropium (Duoneb 3 Mg/0.5 Mg (3 Ml) Ud) 3 ml INH RQ6 [facility] Last Admin: 07/22/18 21:13 Dose: Not Given Finasteride (Proscar) 5 mg PO DAILY [facility] Last Admin: 07/22/18 09:27 Dose: 5 mg Piperacillin Sod/Tazobactam Sod (Zosyn 2.25 Gm Iv Premix) 2.25 gm in 50 mls @ 100 mls/hr IVPB Q8 [facility] PRN Reason: Protocol Last Admin: 07/22/18 22:36 Dose: 100 mls/hr Latanoprost (Xalatan Opht) 0.05 ml OU HS [facility] Last Admin: 07/21/18 22:20 Dose: 0.05 ml Pantoprazole Sodium (Protonix Inj) 40 mg IVP DAILY [facility] Last Admin: 07/22/18 09:27 Dose: 40 mg Tamsulosin HCl (Flomax) 0.4 mg PO DAILY [facility] Last Admin: 07/22/18 09:27 Dose: 0.4 mg - Labs Labs: 07/22/18 19:50 07/22/18 19:50 PT 12.9 SECONDS (9.7-12.2) H 07/21/18 17:46 INR 1.2 07/21/18 17:46 APTT 32 SECONDS (21-34) 07/21/18 17:46
[2018-07-22] MEDS ORDERED: KETAMINE HCL 50 MG/ML SYRINGE ONE (23:32)
[2018-07-22] MEDS ORDERED: Etomidate 20 mg/10ml Inj IV ONE (23:59)
[2018-07-22] MEDS ORDERED: Succinylcholine Chloride 20 mg/ml Syr (5 ml) IV ONE (23:59)
[2018-07-23] MEDS ORDERED: Midazolam 2 MG/2 ML VIAL ONE
--- NOTE | 2018-07-23 00:06 | CP.PCM.CON ---
History of Present Illness - History of Present Illness History of Present Illness: 78yo M. PMHx HTN, DM type 2, high cholesterol, BPH, corneal transplant, prostate CA, UTI, hematuria, lung cancer on treatment. p/w SOB, found to have significant pericardial effusion, being taken to OR for pericardial window and drainage. Review of Systems - Review of Systems All systems: reviewed and no additional remarkable complaints except - Respiratory Additional comments: SOB with orthopnea Past Patient History - Past Medical History & Family History Past Medical History?: Yes - Past Social History Smoking Status: Never Smoked - CARDIAC Hx Hypercholesterolemia: Yes Hx Hypertension: Yes - PULMONARY Hx Pneumonia: Yes (childhood) - NEUROLOGICAL Hx Neurological Disorder: No - HEENT Hx HEENT Problems: Yes Hx Cataracts: Yes Other/Comment: corneal transplant both eyes 5yrs ago - RENAL Hx Chronic Kidney Disease: No Hx Dialysis: No - ENDOCRINE/METABOLIC Hx Endocrine Disorders: Yes Hx Diabetes Mellitus Type 2: Yes - HEMATOLOGICAL/ONCOLOGICAL Hx Anemia: Yes (Requires transfusion) - INTEGUMENTARY Hx Dermatological Problems: No - MUSCULOSKELETAL/RHEUMATOLOGICAL Hx Arthritis: Yes (B/L KNEES) Hx Falls: No Hx Fractures: Yes (ANKLE NO SURGERY) - GASTROINTESTINAL Hx Gastrointestinal Disorders: No - GENITOURINARY/GYNECOLOGICAL Hx Genitourinary Disorders: Yes (retention) - PSYCHIATRIC Hx Anxiety: Yes Hx Substance Use: No - SURGICAL HISTORY Hx Surgeries: Yes - ANESTHESIA Hx Anesthesia: Yes Hx Anesthesia Reactions: No Hx Malignant Hyperthermia: No Meds Allergies/Adverse Reactions: Allergies Allergy/AdvReac Type Severity Reaction Status Date / Time No Known Allergies Allergy Verified 07/21/18 17:04 - Medications Medications: Current Medications Albuterol/Ipratropium (Duoneb 3 Mg/0.5 Mg (3 Ml) Ud) 3 ml INH RQ6 [facility] Last Admin: 07/22/18 21:13 Dose: Not Given Finasteride (Proscar) 5 mg PO DAILY [facility] Last Admin: 07/22/18 09:27 Dose: 5 mg Piperacillin Sod/Tazobactam Sod (Zosyn 2.25 Gm Iv Premix) 2.25 gm in 50 mls @ 100 mls/hr IVPB Q8 [facility] PRN Reason: Protocol Last Admin: 07/22/18 22:36 Dose: 100 mls/hr Latanoprost (Xalatan Opht) 0.05 ml OU HS [facility] Last Admin: 07/21/18 22:20 Dose: 0.05 ml Pantoprazole Sodium (Protonix Inj) 40 mg IVP DAILY [facility] Last Admin: 07/22/18 09:27 Dose: 40 mg Tamsulosin HCl (Flomax) 0.4 mg PO DAILY [facility] Last Admin: 07/22/18 09:27 Dose: 0.4 mg Physical Exam - Constitutional Appears: In Acute Distress - Head Exam Head Exam: ATRAUMATIC, NORMAL INSPECTION, NORMOCEPHALIC - Eye Exam Eye Exam: EOMI, Normal appearance, PERRL Pupil Exam: NORMAL ACCOMODATION, PERRL - Respiratory Exam Respiratory Exam: Clear to Auscultation Bilateral Additional comments: tachypnea - Cardiovascular Exam Cardiovascular Exam: Tachycardia - GI/Abdominal Exam GI & Abdominal Exam: Normal Bowel Sounds, Soft. absent: Tenderness - Extremities Exam Extremities exam: Positive for: normal inspection - Neurological Exam Neurological exam: Alert, Oriented x3 - Psychiatric Exam Psychiatric exam: Anxious Results - Vital Signs Recent Vital Signs: Last Vital Signs Temp 98.7 F 07/22/18 22:30 Pulse 103 H 07/22/18 15:30 Resp 20 07/22/18 15:30 BP 107/65 07/22/18 15:30 Pulse Ox 96 07/22/18 15:30 - Labs Result Diagrams: 07/22/18 19:50 07/22/18 19:50 Labs: Laboratory Results - last 24 hr 07/21/18 07/22/18 07/22/18 17:19 07:35 07:35 WBC 6.4 RBC 4.02 L Hgb 10.1 L Hct 32.0 L MCV 79.6 L MCH 25.1 L MCHC 31.6 L RDW 21.7 H Plt Count 244 MPV 7.4 Neut % (Auto) 81.2 H Lymph % (Auto) 7.3 L [place] % (Auto) 8.8 Eos % (Auto) 2.3 Baso % (Auto) 0.4 Neut # (Auto) 5.2 Lymph # (Auto) 0.5 L [place] # (Auto) 0.6 Eos # (Auto) 0.1 Baso # (Auto) 0.0 Neutrophils % (Manual) 85 H Band Neutrophils % 1 Lymphocytes % (Manual) 4 L Monocytes % (Manual) 6 Eosinophils % (Manual) 4 Platelet Estimate Normal Polychromasia Slight Hypochromasia (manual) Slight Anisocytosis (manual) Moderate Ovalocytes Slight Sodium 140 Potassium 5.6 H Chloride 110 H Carbon Dioxide 17 L Anion Gap 19 BUN 66 H Creatinine 2.5 H Est GFR ( Amer) 31 Est GFR (Non-Af Amer) 25 Random Glucose 114 H Calcium 8.6 Phosphorus 4.2 Magnesium 2.1 Total Bilirubin 0.2 AST 21 ALT 25 Alkaline Phosphatase 105 Total Creatine Kinase CK-MB (Mass) Troponin I Total Protein 6.7 Albumin 3.3 L Globulin 3.4 Albumin/Globulin Ratio 1.0 Urine Color Yellow Urine Clarity Clear Urine pH 5.0 Ur Specific [place] 1.014 Urine Protein Negative Urine Glucose (UA) Normal Urine Ketones Negative Urine Blood Negative Urine Nitrate Negative Urine Bilirubin Negative Urine Urobilinogen Normal Ur Leukocyte Esterase Neg Urine WBC (Auto) 3 Urine RBC (Auto) < 1 Ur Squamous Epith Cells < 1 Urine Bacteria Rare C. difficile Ag & Toxin Blood Type Antibody Screen 07/22/18 07/22/18 07/22/18 13:05 19:50 19:50 WBC 7.5 RBC 3.81 L Hgb 9.7 L Hct 30.7 L MCV 80.6 MCH 25.6 L MCHC 31.7 L RDW 21.7 H Plt Count 241 MPV 7.6 Neut % (Auto) 86.2 H Lymph % (Auto) 3.9 L [place] % (Auto) 7.7 Eos % (Auto) 1.9 Baso % (Auto) 0.3 Neut # (Auto) 6.5 Lymph # (Auto) 0.3 L [place] # (Auto) 0.6 Eos # (Auto) 0.1 Baso # (Auto) 0.0 Neutrophils % (Manual) 95 H Band Neutrophils % Lymphocytes % (Manual) 4 L Monocytes % (Manual) 1 Eosinophils % (Manual) Platelet Estimate Normal Polychromasia Slight Hypochromasia (manual) Slight Anisocytosis (manual) Slight Ovalocytes Slight Sodium 136 Potassium 4.6 Chloride 106 Carbon Dioxide 15 L Anion Gap 19 BUN 63 H Creatinine 2.2 H Est GFR ( Amer) 35 Est GFR (Non-Af Amer) 29 Random Glucose 206 H Calcium 8.5 L Phosphorus 4.2 Magnesium 2.0 Total Bilirubin 0.1 L AST 18 ALT 21 Alkaline Phosphatase 95 Total Creatine Kinase 62 CK-MB (Mass) 2.10 Troponin I 0.0200 Total Protein 6.6 Albumin 3.4 L Globulin 3.2 Albumin/Globulin Ratio 1.0 Urine Color Urine Clarity Urine pH Ur Specific [place] Urine Protein Urine Glucose (UA) Urine Ketones Urine Blood Urine Nitrate Urine Bilirubin Urine Urobilinogen Ur Leukocyte Esterase Urine WBC (Auto) Urine RBC (Auto) Ur Squamous Epith Cells Urine Bacteria C. difficile Ag & Toxin Negative Blood Type Antibody Screen 07/22/18 23:07 WBC RBC Hgb Hct MCV MCH MCHC RDW Plt Count MPV Neut % (Auto) Lymph % (Auto) [place] % (Auto) Eos % (Auto) Baso % (Auto) Neut # (Auto) Lymph # (Auto) [place] # (Auto) Eos # (Auto) Baso # (Auto) Neutrophils % (Manual) Band Neutrophils % Lymphocytes % (Manual) Monocytes % (Manual) Eosinophils % (Manual) Platelet Estimate Polychromasia Hypochromasia (manual) Anisocytosis (manual) Ovalocytes Sodium Potassium Chloride Carbon Dioxide Anion Gap BUN Creatinine Est GFR ( Amer) Est GFR (Non-Af Amer) Random Glucose Calcium Phosphorus Magnesium Total Bilirubin AST ALT Alkaline Phosphatase Total Creatine Kinase CK-MB (Mass) Troponin I Total Protein Albumin Globulin Albumin/Globulin Ratio Urine Color Urine Clarity Urine pH Ur Specific [place] Urine Protein Urine Glucose (UA) Urine Ketones Urine Blood Urine Nitrate Urine Bilirubin Urine Urobilinogen Ur Leukocyte Esterase Urine WBC (Auto) Urine RBC (Auto) Ur Squamous Epith Cells Urine Bacteria C. difficile Ag & Toxin Blood Type O POSITIVE Antibody Screen Negative Assessment & Plan (1) Pericardial effusion with cardiac tamponade Assessment and Plan: 78yo M. PMHx HTN, DM type 2, high cholesterol, BPH, corneal transplant, prostate CA, UTI, hematuria, lung cancer on treatment. p/w pericardial effusion with tamponade. Neuro: alert and oriented x 3 Pulm: SOB with orthopnea CV: relative hypotension for a normally hypertensive patient. Cardiac tamponade from pericardial effusion, undergoing pericardial window with drainage , will monitor post-op. Cause of effusion is unknown, must consider malignant, f/u cytology. Hem: no acute issues Renal: no acute issues, urine output wnl Endo: DM type 2, SISS for coverage GI: heart healthy diet ID: empiric therapy with Zosyn, bandemia resolved, can consider stopping. DVT proph - SCD's, a/c held immediately post-op GI proph - not currently indicated Code status - full code Critical Care Time spent 35 minutes The documented time is cumulative and includes review of patient data/exams/labs /chart review and examination of the patient on rounds and throughout the day; time is exclusive of any procedures or teaching time. Status: Acute
[2018-07-23] MEDS ORDERED: Propofol 10 mg/ml Inj (20 ML) ONE (00:09)
--- NOTE | 2018-07-23 00:27 | CP.PCM.CON ---
History of Present Illness - History of Present Illness History of Present Illness: Covering Dr. Slade 78 year old male with a history of HTN, HL, DM, prostate cancer s/p brachytherapy in remission, NSCLC dx 12/[address] Slade, presenting with progressive shortness of breath and orthopnea, found to have increasing pericardial effusion concerning for impending cardiac tamponade, awaiting pericardial window. The patient notes to taking pills for his lung cancer. He feels his increasing fluid may be related to his treatment. He is being transferred to ICU and for pericardial window for impending pericardial tamponade. Past medical history: HTN, HL, DM, prostate cancer s/p brachytherapy anemia, NSCLC Past surgical history: Hernia repair Family history: Denies hematologic and oncologic problems Social history: Denies tobacco, alcohol, and illicit drug use. Allergies: Ciprofloxacin Review of systems: All remaining review of systems including HEENT, cardiovascular, respiratory, gastrointestinal, genitourinary, musculoskeletal, dermatologic, neurologic, and psychiatric are negative unless mentioned in the HPI. Past Patient History - Past Medical History & Family History Past Medical History?: Yes - Past Social History Smoking Status: Never Smoked - CARDIAC Hx Hypercholesterolemia: Yes Hx Hypertension: Yes - PULMONARY Hx Pneumonia: Yes (childhood) - NEUROLOGICAL Hx Neurological Disorder: No - HEENT Hx HEENT Problems: Yes Hx Cataracts: Yes Other/Comment: corneal transplant both eyes 5yrs ago - RENAL Hx Chronic Kidney Disease: No Hx Dialysis: No - ENDOCRINE/METABOLIC Hx Endocrine Disorders: Yes Hx Diabetes Mellitus Type 2: Yes - HEMATOLOGICAL/ONCOLOGICAL Hx Anemia: Yes (Requires transfusion) - INTEGUMENTARY Hx Dermatological Problems: No - MUSCULOSKELETAL/RHEUMATOLOGICAL Hx Arthritis: Yes (B/L KNEES) Hx Falls: No Hx Fractures: Yes (ANKLE NO SURGERY) - GASTROINTESTINAL Hx Gastrointestinal Disorders: No - GENITOURINARY/GYNECOLOGICAL Hx Genitourinary Disorders: Yes (retention) - PSYCHIATRIC Hx Anxiety: Yes Hx Substance Use: No - SURGICAL HISTORY Hx Surgeries: Yes - ANESTHESIA Hx Anesthesia: Yes Hx Anesthesia Reactions: No Hx Malignant Hyperthermia: No Meds Allergies/Adverse Reactions: Allergies Allergy/AdvReac Type Severity Reaction Status Date / Time No Known Allergies Allergy Verified 07/21/18 17:04 - Medications Medications: Current Medications Albuterol/Ipratropium (Duoneb 3 Mg/0.5 Mg (3 Ml) Ud) 3 ml INH RQ6 CHARLES Last Admin: 07/22/18 21:13 Dose: Not Given Finasteride (Proscar) 5 mg PO DAILY [facility] Last Admin: 07/22/18 09:27 Dose: 5 mg Piperacillin Sod/Tazobactam Sod (Zosyn 2.25 Gm Iv Premix) 2.25 gm in 50 mls @ 100 mls/hr IVPB Q8 CHARLES PRN Reason: Protocol Last Admin: 07/22/18 22:36 Dose: 100 mls/hr Latanoprost (Xalatan Opht) 0.05 ml OU HS [facility] Last Admin: 07/21/18 22:20 Dose: 0.05 ml Pantoprazole Sodium (Protonix Inj) 40 mg IVP DAILY [facility] Last Admin: 07/22/18 09:27 Dose: 40 mg Tamsulosin HCl (Flomax) 0.4 mg PO DAILY [facility] Last Admin: 07/22/18 09:27 Dose: 0.4 mg Physical Exam - Head Exam Head Exam: ATRAUMATIC - Eye Exam Eye Exam: Normal appearance - ENT Exam ENT Exam: Mucous Membranes Dry - Respiratory Exam Respiratory Exam: Decreased Breath Sounds - Cardiovascular Exam Cardiovascular Exam: +S1, +S2 - GI/Abdominal Exam GI & Abdominal Exam: Normal Bowel Sounds - Extremities Exam Extremities exam: Positive for: pedal edema - Neurological Exam Neurological exam: Oriented x3 - Psychiatric Exam Psychiatric exam: Normal Affect, Normal Mood - Skin Skin Exam: Warm Results - Vital Signs Recent Vital Signs: Last Vital Signs Temp 98.7 F 07/22/18 22:30 Pulse 110 H 07/22/18 23:20 Resp 16 07/22/18 23:20 BP 129/63 07/22/18 23:07 Pulse Ox 97 07/22/18 23:20 - Labs Result Diagrams: 07/22/18 19:50 07/22/18 19:50 Labs: Laboratory Results - last 24 hr 07/21/18 07/22/18 07/22/18 17:19 07:35 07:35 WBC 6.4 RBC 4.02 L Hgb 10.1 L Hct 32.0 L MCV 79.6 L MCH 25.1 L MCHC 31.6 L RDW 21.7 H Plt Count 244 MPV 7.4 Neut % (Auto) 81.2 H Lymph % (Auto) 7.3 L [place] % (Auto) 8.8 Eos % (Auto) 2.3 Baso % (Auto) 0.4 Neut # (Auto) 5.2 Lymph # (Auto) 0.5 L [place] # (Auto) 0.6 Eos # (Auto) 0.1 Baso # (Auto) 0.0 Neutrophils % (Manual) 85 H Band Neutrophils % 1 Lymphocytes % (Manual) 4 L Monocytes % (Manual) 6 Eosinophils % (Manual) 4 Platelet Estimate Normal Polychromasia Slight Hypochromasia (manual) Slight Anisocytosis (manual) Moderate Ovalocytes Slight Sodium 140 Potassium 5.6 H Chloride 110 H Carbon Dioxide 17 L Anion Gap 19 BUN 66 H Creatinine 2.5 H Est GFR ( Amer) 31 Est GFR (Non-Af Amer) 25 Random Glucose 114 H Calcium 8.6 Phosphorus 4.2 Magnesium 2.1 Total Bilirubin 0.2 AST 21 ALT 25 Alkaline Phosphatase 105 Total Creatine Kinase CK-MB (Mass) Troponin I Total Protein 6.7 Albumin 3.3 L Globulin 3.4 Albumin/Globulin Ratio 1.0 Urine Color Yellow Urine Clarity Clear Urine pH 5.0 Ur Specific [place] 1.014 Urine Protein Negative Urine Glucose (UA) Normal Urine Ketones Negative Urine Blood Negative Urine Nitrate Negative Urine Bilirubin Negative Urine Urobilinogen Normal Ur Leukocyte Esterase Neg Urine WBC (Auto) 3 Urine RBC (Auto) < 1 Ur Squamous Epith Cells < 1 Urine Bacteria Rare C. difficile Ag & Toxin Blood Type Antibody Screen 07/22/18 07/22/18 07/22/18 13:05 19:50 19:50 WBC 7.5 RBC 3.81 L Hgb 9.7 L Hct 30.7 L MCV 80.6 MCH 25.6 L MCHC 31.7 L RDW 21.7 H Plt Count 241 MPV 7.6 Neut % (Auto) 86.2 H Lymph % (Auto) 3.9 L [place] % (Auto) 7.7 Eos % (Auto) 1.9 Baso % (Auto) 0.3 Neut # (Auto) 6.5 Lymph # (Auto) 0.3 L [place] # (Auto) 0.6 Eos # (Auto) 0.1 Baso # (Auto) 0.0 Neutrophils % (Manual) 95 H Band Neutrophils % Lymphocytes % (Manual) 4 L Monocytes % (Manual) 1 Eosinophils % (Manual) Platelet Estimate Normal Polychromasia Slight Hypochromasia (manual) Slight Anisocytosis (manual) Slight Ovalocytes Slight Sodium 136 Potassium 4.6 Chloride 106 Carbon Dioxide 15 L Anion Gap 19 BUN 63 H Creatinine 2.2 H Est GFR ( Amer) 35 Est GFR (Non-Af Amer) 29 Random Glucose 206 H Calcium 8.5 L Phosphorus 4.2 Magnesium 2.0 Total Bilirubin 0.1 L AST 18 ALT 21 Alkaline Phosphatase 95 Total Creatine Kinase 62 CK-MB (Mass) 2.10 Troponin I 0.0200 Total Protein 6.6 Albumin 3.4 L Globulin 3.2 Albumin/Globulin Ratio 1.0 Urine Color Urine Clarity Urine pH Ur Specific [place] Urine Protein Urine Glucose (UA) Urine Ketones Urine Blood Urine Nitrate Urine Bilirubin Urine Urobilinogen Ur Leukocyte Esterase Urine WBC (Auto) Urine RBC (Auto) Ur Squamous Epith Cells Urine Bacteria C. difficile Ag & Toxin Negative Blood Type Antibody Screen 07/22/18 23:07 WBC RBC Hgb Hct MCV MCH MCHC RDW Plt Count MPV Neut % (Auto) Lymph % (Auto) [place] % (Auto) Eos % (Auto) Baso % (Auto) Neut # (Auto) Lymph # (Auto) [place] # (Auto) Eos # (Auto) Baso # (Auto) Neutrophils % (Manual) Band Neutrophils % Lymphocytes % (Manual) Monocytes % (Manual) Eosinophils % (Manual) Platelet Estimate Polychromasia Hypochromasia (manual) Anisocytosis (manual) Ovalocytes Sodium Potassium Chloride Carbon Dioxide Anion Gap BUN Creatinine Est GFR ( Amer) Est GFR (Non-Af Amer) Random Glucose Calcium Phosphorus Magnesium Total Bilirubin AST ALT Alkaline Phosphatase Total Creatine Kinase CK-MB (Mass) Troponin I Total Protein Albumin Globulin Albumin/Globulin Ratio Urine Color Urine Clarity Urine pH Ur Specific [place] Urine Protein Urine Glucose (UA) Urine Ketones Urine Blood Urine Nitrate Urine Bilirubin Urine Urobilinogen Ur Leukocyte Esterase Urine WBC (Auto) Urine RBC (Auto) Ur Squamous Epith Cells Urine Bacteria C. difficile Ag & Toxin Blood Type O POSITIVE Antibody Screen Negative Assessment & Plan (1) Pericardial effusion with cardiac tamponade Assessment and Plan: ? malignant f/u cytology pericardial window by CT surgery Status: Acute (2) Anemia Assessment and Plan: retic count, b12, folate, ferritin to further characterize Status: Acute (3) Lung cancer Assessment and Plan: NSCLC PDL1 positive outpatient treatment with Dr. Slade Status: Acute (4) History of prostate cancer Assessment and Plan: likely in remission check PSA Thank you for this interesting consult. Status: Acute
[2018-07-23] MEDS ORDERED: Bacitracin Ointment 30 GM TUBE ONE (01:19)
[2018-07-23] MEDS ORDERED: Propofol 10 mg/ml Inj (100 ml) IV SCH (02:00)
[2018-07-23] MEDS ORDERED: Sodium Chloride 0.9% 1,000 ML IV SCH ×2 (02:00→07:56)
[2018-07-23] MEDS ORDERED: HYDROmorphone 1 mg/ml ISec IVP PRN (02:06)
--- NOTE | 2018-07-23 02:14 | PCM.SURG1 ---
Surgeon's Initial Post Op Note - Surgeon's Notes Surgeon: Dr. Yañez Junior Financial Analyst: Brandon Marcus PGY3 Type of Anesthesia: General Endo Anesthesia Administered By: Ramon Pre-Operative Diagnosis: Pericardial effusion Operative Findings: 1.5L blood in pericardium Post-Operative Diagnosis: Same Operation Performed: Pericardial effusion Specimen/Specimens Removed: 1.5 L Pericardial blood Estimated Blood Loss: EBL {In ML}: 50 Blood Products Given: N/A Drains Used: Chest Tubes Post-Op Condition: Fair Date of Surgery/Procedure: 07/23/18 Time of Surgery/Procedure: 02:13
[2018-07-23 02:53] LABS: ARTERIAL BLOOD GAS HCO3 14.8 mmol/L (21-28); ARTERIAL BLOOD GAS HEMOGLOBIN 9.6 g/dL (11.7-17.4); ARTERIAL BLOOD GAS O2 SAT 97.5 % (95-98); ARTERIAL BLOOD GAS PCO2 42 mm/Hg (35-45); ARTERIAL BLOOD GAS PH 7.16 (7.35-7.45); ARTERIAL BLOOD GAS PO2 90 mm/Hg (80-100); ARTERIAL BLOOD GAS TCO2 16.3 mmol/L (22-28)
[2018-07-23] MEDS ORDERED: Sodium Bicarbonate (8.4%) 50 Meq Syringe IV ONE (03:00)
[2018-07-23] MEDS: Albuterol-Ipratrop 3 mg / 0.5 (3 ml) UD INH SCH ×4 (03:31→19:37)
[2018-07-23] MEDS ORDERED: Propofol 10 mg/ml 1,000 MG/100 ML VIAL IV PRN (03:46)
[2018-07-23 06:09] LABS: ARTERIAL BLOOD GAS HCO3 17.9 mmol/L (21-28); ARTERIAL BLOOD GAS HEMOGLOBIN 9.1 g/dL (11.7-17.4); ARTERIAL BLOOD GAS O2 SAT 99.5 % (95-98); ARTERIAL BLOOD GAS PCO2 35 mm/Hg (35-45); ARTERIAL BLOOD GAS PH 7.29 (7.35-7.45); ARTERIAL BLOOD GAS PO2 295 mm/Hg (80-100); ARTERIAL BLOOD GAS TCO2 17.9 mmol/L (22-28)
[2018-07-23] MEDS: Piperacill/Tazo 2.25gm in Dex 2.25 GM/50 ML BAG IVPB SCH ×3 (06:24→21:04)
--- NOTE | 2018-07-23 06:24 | CARD ---
APPROVED REPORT Date of service: 07/22/2018 EXAM: Two-dimensional and M-mode echocardiogram with Doppler and color Doppler. INDICATION Congestive Heart Failure Lung Cancer/ Pneumonitis 2D DIMENSIONS IVSd1.0 (0.7-1.1cm)LVDd3.9 (3.9-5.9cm) PWd1.0 (0.7-1.1cm)LVDs2.0 (2.5-4.0cm) FS (%) 50.4 %LVEF (%)75.0 (>50%) M-Mode DIMENSIONS Left Atrium (MM)3.56 (2.5-4.0cm)IVSd0.86 (0.7-1.1cm) Aortic Root4.09 (2.2-3.7cm)LVDd4.53 (4.0-5.6cm) Aortic Cusp Exc.2.49 (1.5-2.0cm)PWd0.78 (0.7-1.1cm) FS (%) 42 %LVDs2.61 (2.0-3.8cm) TAPSE25.07 cmLVEF (%)74 (>50%) Mitral Valve MV E Fyeqmdhs19.6cm/sMV A Lzxjidxe89.8cm/sE/A ratio0.7 TDI E/Lateral E'0.0E/Medial E'0.0 Tricuspid Valve TR Peak Nvgkxmzb371ic/sTR Peak Gr.[id number] LEFT VENTRICLE The left ventricle is normal size. There is mild concentric left ventricular hypertrophy. Left ventricle systolic function is normal. The Ejection Fraction is 65-70%. Septal motion consistent with conduction abnormality. Tissue Doppler imaging reveals abnormal left ventricular diastolic dysfunction. RIGHT VENTRICLE The right ventricle is normal size. There is normal right ventricular wall thickness. The right ventricle is hyperdynamic. ATRIA The left atrium size is normal. The right atrium size is normal. The interatrial septum is intact with no evidence for an atrial septal defect. AORTIC VALVE The aortic valve is normal in structure. No aortic regurgitation is present. There is no aortic valvular stenosis. There is no aortic valvular vegetation. MITRAL VALVE The mitral valve is normal in structure. There is no evidence of mitral valve prolapse. There is no mitral valve stenosis. There is no mitral valve regurgitation noted. TRICUSPID VALVE The tricuspid valve is normal in structure. There is mild tricuspid regurgitation. Right ventricular systolic pressure is estimated at 40-50 mmHg. There is mild-moderate pulmonary hypertension. PULMONIC VALVE The pulmonic valve is not well visualized. There is no pulmonic valvular regurgitation. GREAT VESSELS The aortic root is normal in size. PERICARDIAL EFFUSION There is a large circumferential pericardial effusion. There are echocardiographic indications impending cardiac tamponade. There is an evidence of diastolic compression of the right ventricle pericardial effusion. Clinical correlation suggested. <Conclusion> Left ventricle systolic function is normal. The Ejection Fraction is 65-70%. Hypertensive heart disease. Diastolic dysfunction. No aortic regurgitation is present. There is no mitral valve regurgitation noted. There is mild tricuspid regurgitation. There is mild-moderate pulmonary hypertension. There is no pulmonic valvular regurgitation. There is a large circumferential pericardial effusion. There are echocardiographic indications impending cardiac tamponade. There is an evidence of diastolic compression of the right ventricle pericardial effusion. Please correlate clinically.
[2018-07-23 06:27] LABS: BASO % 0.2 % (0.0-2.0); EOS % 0.2 % (0.0-4.0); HEMOGLOBIN 9.4 g/dL (12.0-18.0); LYMPH # 0.3 K/uL (1.0-4.3); LYMPH % 3.1 % (20.0-40.0); MEAN CELL VOLUME 80.5 fL (80.0-94.0); MEAN CORPUSCULAR HEMOGLOBIN 25.5 pg (27.0-31.0); MEAN CORPUSCULAR HGB CONC 31.7 g/dL (33.0-37.0); MEAN PLATELET VOLUME 7.6 fL (7.2-11.7); MONO # 0.7 K/uL (0.0-0.8); NEUT # 8.5 K/uL (1.8-7.0); NEUT % 89.5 % (50.0-75.0); PLATELET COUNT 197 K/uL (130-400); RBC 3.67 Mil/uL (4.40-5.90); RED CELL DISTRIBUTION WIDTH 21.1 % (11.5-14.5); WHITE BLOOD COUNT 9.5 K/uL (4.8-10.8)
[2018-07-23 06:51] LABS: CALCIUM 7.9 mg/dl (8.6-10.4)
--- NOTE | 2018-07-23 06:58 | CARD ---
APPROVED REPORT Date of service: 07/21/2018 EKG Measurement Heart [id number] CT [id number] <Conclusion> Sinus rhythm with fusion complexes Low voltage QRS Cannot rule out Anterior infarct, age undetermined Abnormal ECG
--- NOTE | 2018-07-23 08:00 | RAD ---
Date of service: 07/23/2018 HISTORY: s/p OR COMPARISON: Portable chest 07/21/2018. FINDINGS: LUNGS: An endotracheal tube is in placed with the tip terminating 5 cm of the ade. Complete opacification of the right upper lobe possibly as a function of postobstructive atelectasis. Left-sided pulmonary mass again identified. Patchy airspace disease seen at the inferior right lung zone. Reticular markings unchanged at the left base. PLEURA: No significant pleural effusion identified, no pneumothorax apparent. CARDIOVASCULAR: Normal. OSSEOUS STRUCTURES: No significant abnormalities. VISUALIZED UPPER ABDOMEN: Skin sheeba are seen at the midline upper abdomen with tubing overlying or within the abdomen and lower chest. OTHER FINDINGS: None. IMPRESSION: Likely dense postobstructive atelectasis right upper lobe with endotracheal tube placed as discussed above. Patchy density developing at the right base with reticular markings unchanged left base. Left mid lung zone mass reiterated.
[2018-07-23 08:18] LABS: BODY FLUID TYPE PERICARDIAL
--- NOTE | 2018-07-23 08:38 | RAD ---
Date of service: 07/23/2018 HISTORY: lung collapse COMPARISON: 07/23/2018 FINDINGS: LUNGS: Interval re-expansion and/or aeration of the prior right upper lobe homogeneous opacity. Coalescent airspace opacity right mid lung zone probably similar Patchy rounded opacity left mid lung zone slightly increased in density-apparently a previously referenced suspected pulmonary mass. Endotracheal tube tip above the ade-inferior clavicular level. PLEURA: Small right pleural effusion suspect. No pneumothorax appreciated CARDIOVASCULAR: Cardiomegaly. Central pulmonary venous congestion-similar Atherosclerotic vascular calcifications present. OSSEOUS STRUCTURES: Thoracic spondylosis. VISUALIZED UPPER ABDOMEN: Midline abdominal skin sheeba present. OTHER FINDINGS: Overlying central thoracic and upper abdominal tubing/lines projecting over image-correlate clinically. IMPRESSION: Interval re-expansion/improved aeration of prior right upper lobe collapse. The coalescent mid lung zone patchy opacity compatible with coalescent areas of atelectasis/pneumonitis with or without pulmonary edema. Continued follow-up here recommended. Appearance is similar. Left mid lung zone apparently known rounded lung mass suspicious for malignancy. Other findings as above.
[2018-07-23 08:48] LABS: ANISOCYTOSIS MODERATE; BANDS 12 % (0-2); HYPOCHROMIC MODERATE; LYMPHOCYTE 6 % (20-40); MONOCYTE 7 % (0-10); NEUTROPHIL 75 % (50-75); PLATELET ESTIMATE NORMAL (NORMAL); POIKILOCYTOSIS SLIGHT; TOTAL CELLS COUNTED 100
[2018-07-23 08:49] LABS: OVALOCYTES SLIGHT; TOXIC GRANULATION PRESENT
[2018-07-23 09:41] LABS: BF GROSS APPEARANCE BLOODY (CLEAR)
[2018-07-23 09:45] LABS: BODY FLUID MONO/MACROPHAGE 3 % (0-0); BODY FLUID TOTAL COUNT 100 (0-0)
--- NOTE | 2018-07-23 13:08 | CP.CCUPN ---
<Sukh Cotton - Last Filed: 07/23/18 15:49> CCU Subjective - Physician Review Subjective (Free Text): Critical care progress note: Pt seen and examined at bedside. Patient extubated this morning. Denies any pain or complaints at this time. 12 Point ROS performed and neg other than stated above. CCU Objective - Vital Signs / Intake & Output Vital Signs (Last 4 hours): Vital Signs Pulse Resp BP Pulse Ox 07/23/18 11:10 121 H 18 113/51 L 93 L 07/23/18 09:55 118 H 15 111/51 L 100 Intake and Output (Last 8hrs): Intake & Output 07/22/18 07/23/18 07/23/18 22:59 06:59 14:59 Intake Total 382.86 546.4 Output Total 80 520 Balance 302.86 26.4 Intake: IV 5.5 Intake, IV Amount 377.36 546.4 Left Antecubital 6.0 4.8 Left Forearm 33.86 41.6 Right Forearm 337.5 500 Oral 0 Output: Drainage 150 Anterior Medial Chest 150 Urine 80 370 Urethral (Phelps) 80 370 Urine, Voided 0 - Physical Exam Head: Positive for: Atraumatic, Normocephalic Pupils: Positive for: PERRL Extroacular Muscles: Positive for: EOMI Mouth: Positive for: Moist Mucous Membranes Neck: Positive for: Normal Range of Motion. Negative for: JVD Respiratory/Chest: Positive for: Clear to Auscultation, Good Air Exchange. Negative for: Wheezes, Rales Cardiovascular: Positive for: Regular Rate and Rhythm, Normal S1, S2 Abdomen: Positive for: Normal Bowel Sounds. Negative for: Tenderness, Distention Upper Extremity: Negative for: Cyanosis, Edema Lower Extremity: Negative for: Edema, CALF TENDERNESS Neurological: Positive for: GCS=15, CN II-XII Intact Skin: Positive for: Warm, Dry Psychiatric: Positive for: Alert, Oriented x 3 - Medications Active Medications: Active Medications Generic Name Dose Route Start Last Admin Trade Name Freq PRN Reason Stop Dose Admin Albuterol/Ipratropium 3 ml 07/21/18 20:00 07/23/18 08:24 Duoneb 3 Mg/0.5 Mg (3 Ml) Ud INH 3 ml RQ6 ASPEN Administration Finasteride 5 mg 07/22/18 10:00 07/22/18 09:27 Proscar PO 5 mg DAILY ASPEN Administration Piperacillin Sod/Tazobactam Sod 2.25 gm in 50 mls @ 100 mls/hr 07/22/18 14:00 07/23/18 06:24 Zosyn 2.25 Gm Iv Premix IVPB 100 mls/hr Q8 ASPEN Administration Protocol Sodium Chloride 1,000 mls @ 50 mls/hr 07/23/18 07:56 Sodium Chloride 0.9% IV .Q20H ASPEN Latanoprost 0.05 ml 07/21/18 22:00 07/22/18 23:00 Xalatan Opht OU 0.05 ml HS ASPEN Administration Morphine Sulfate 2 mg 07/23/18 07:45 Morphine IVP Q4 PRN Pain, severe (8-10) Pantoprazole Sodium 40 mg 07/22/18 10:00 07/23/18 10:29 Protonix Inj IVP 40 mg DAILY ASPEN Administration Tamsulosin HCl 0.4 mg 07/22/18 10:00 07/22/18 09:27 Flomax PO 0.4 mg DAILY ASPEN Administration - Patient Studies Lab Studies: Microbiology Studies 07/23/18 08:13 Fungal Culture - Preliminary Pericardial Fluid Lab Studies 07/23/18 07/23/18 07/23/18 Range/Units 11:15 08:13 06:17 WBC (4.8-10.8) K/uL RBC (4.40-5.90) Mil/uL Hgb (12.0-18.0) g/dL Hct (35.0-51.0) % MCV (80.0-94.0) fL MCH (27.0-31.0) pg MCHC (33.0-37.0) g/dL RDW (11.5-14.5) % Plt Count (130-400) K/uL MPV (7.2-11.7) fL Neut % (Auto) (50.0-75.0) % Lymph % (Auto) (20.0-40.0) % [place] % (Auto) (0.0-10.0) % Eos % (Auto) (0.0-4.0) % Baso % (Auto) (0.0-2.0) % Neut # (Auto) (1.8-7.0) K/uL Lymph # (Auto) (1.0-4.3) K/uL [place] # (Auto) (0.0-0.8) K/uL Eos # (Auto) (0.0-0.7) K/uL Baso # (Auto) (0.0-0.2) K/uL Neutrophils % (Manual) (50-75) % Band Neutrophils % (0-2) % Lymphocytes % (Manual) (20-40) % Monocytes % (Manual) (0-10) % Toxic Granulation Platelet Estimate (NORMAL) Polychromasia Hypochromasia (manual) Poikilocytosis (manual Anisocytosis (manual) Ovalocytes Puncture Site pCO2 (35-45) mm/Hg pO2 (80-100) mm/Hg HCO3 (21-28) mmol/L ABG pH (7.35-7.45) ABG Total CO2 (22-28) mmol/L ABG O2 Saturation (95-98) % ABG Base Excess (-2.0-3.0) mmol/L ABG Hemoglobin (11.7-17.4) g/dL ABG Carboxyhemoglobin (0.5-1.5) % POC ABG HHb (Measured) (0.0-5.0) % ABG Methemoglobin (0.0-3.0) % Braulio Test A-a O2 Difference mm/Hg Respiratory Index Hgb O2 Saturation (95.0-98.0) % Vent Mode Mechanical Rate FiO2 % Tidal Volume PEEP Crit Value Called To Crit Value Called By Crit Value Read Back Blood Gas Notified Time Sodium 137 (132-148) mmol/L Potassium 4.7 (3.6-5.2) mmol/L Chloride 108 H (98-107) mmol/L Carbon Dioxide 16 L (22-30) mmol/L Anion Gap 18 (10-20) BUN 61 H (9-20) mg/dL Creatinine 2.0 H (0.8-1.5) mg/dL Est GFR ( Amer) 40 Est GFR (Non-Af Amer) 33 POC Glucose (mg/dL) 140 H (65-110) mg/dL Random Glucose 153 H (75-110) mg/dL Calcium 7.9 L (8.6-10.4) mg/dl Phosphorus 5.3 H (2.5-4.5) mg/dL Magnesium 2.0 (1.6-2.3) mg/dL Total Bilirubin 0.3 (0.2-1.3) mg/dL AST 20 (17-59) U/L ALT 28 (21-72) U/L Alkaline Phosphatase 74 (38-126) U/L Total Creatine Kinase (55-170) U/L CK-MB (Mass) (0.0-3.38) ng/mL Troponin I (0.00-0.120) ng/mL Total Protein 6.0 L (6.3-8.3) g/dL Albumin 3.0 L (3.5-5.0) g/dL Globulin 3.0 (2.2-3.9) gm/dL Albumin/Globulin Ratio 1.0 (1.0-2.1) Fluid Source Pericardial Fluid Appearance Bloody (CLEAR) Fluid WBC 8522.0 H (0.0-300.0) /mm3 Fluid RBC 8639405.0 H (0.0-0.0) /mm3 Fluid Tot Cell Count 100 H (0-0) Fluid Neutrophils 71.0 H (0-0) % Fluid Lymphocytes 10.0 H (0-0) % Fld Monocyte/Macrophag 3 H (0-0) % Fluid Comment C. difficile Ag & Toxin (NEGATIVE) Blood Type Antibody Screen 07/23/18 07/23/18 07/23/18 Range/Units 06:17 05:36 02:47 WBC 9.5 (4.8-10.8) K/uL RBC 3.67 L (4.40-5.90) Mil/uL Hgb 9.4 L (12.0-18.0) g/dL Hct 29.6 L (35.0-51.0) % MCV 80.5 (80.0-94.0) fL MCH 25.5 L (27.0-31.0) pg MCHC 31.7 L (33.0-37.0) g/dL RDW 21.1 H (11.5-14.5) % Plt Count 197 (130-400) K/uL MPV 7.6 (7.2-11.7) fL Neut % (Auto) 89.5 H (50.0-75.0) % Lymph % (Auto) 3.1 L (20.0-40.0) % [place] % (Auto) 7.0 (0.0-10.0) % Eos % (Auto) 0.2 (0.0-4.0) % Baso % (Auto) 0.2 (0.0-2.0) % Neut # (Auto) 8.5 H (1.8-7.0) K/uL Lymph # (Auto) 0.3 L (1.0-4.3) K/uL [place] # (Auto) 0.7 (0.0-0.8) K/uL Eos # (Auto) 0.0 (0.0-0.7) K/uL Baso # (Auto) 0.0 (0.0-0.2) K/uL Neutrophils % (Manual) 75 (50-75) % Band Neutrophils % 12 H* (0-2) % Lymphocytes % (Manual) 6 L (20-40) % Monocytes % (Manual) 7 (0-10) % Toxic Granulation Present Platelet Estimate Normal (NORMAL) Polychromasia Hypochromasia (manual) Moderate Poikilocytosis (manual Slight Anisocytosis (manual) Moderate Ovalocytes Slight Puncture Site A-line A-line pCO2 35 42 (35-45) mm/Hg pO2 295 H 90 (80-100) mm/Hg HCO3 17.9 L 14.8 L (21-28) mmol/L ABG pH 7.29 L 7.16 L* (7.35-7.45) ABG Total CO2 17.9 L 16.3 L (22-28) mmol/L ABG O2 Saturation 99.5 H 97.5 (95-98) % ABG Base Excess -9.0 L -12.9 L (-2.0-3.0) mmol/L ABG Hemoglobin 9.1 L 9.6 L (11.7-17.4) g/dL ABG Carboxyhemoglobin 1.3 2.0 H (0.5-1.5) % POC ABG HHb (Measured) 0.5 2.4 (0.0-5.0) % ABG Methemoglobin 1.5 1.0 (0.0-3.0) % Braulio Test Na Na A-a O2 Difference 374.0 571.0 mm/Hg Respiratory Index 1.3 6.3 Hgb O2 Saturation 96.8 94.6 L (95.0-98.0) % Vent Mode Prvc Prvc Mechanical Rate 14 14 FiO2 100.0 100.0 % Tidal Volume 450 500 PEEP 8 8 Crit Value Called To Serafin morales olericulturist Crit Value Called By Magalie andrews rt Crit Value Read Back Y Blood Gas Notified Time 252 Sodium (132-148) mmol/L Potassium (3.6-5.2) mmol/L Chloride (98-107) mmol/L Carbon Dioxide (22-30) mmol/L Anion Gap (10-20) BUN (9-20) mg/dL Creatinine (0.8-1.5) mg/dL Est GFR ( Amer) Est GFR (Non-Af Amer) POC Glucose (mg/dL) (65-110) mg/dL Random Glucose (75-110) mg/dL Calcium (8.6-10.4) mg/dl Phosphorus (2.5-4.5) mg/dL Magnesium (1.6-2.3) mg/dL Total Bilirubin (0.2-1.3) mg/dL AST (17-59) U/L ALT (21-72) U/L Alkaline Phosphatase (38-126) U/L Total Creatine Kinase (55-170) U/L CK-MB (Mass) (0.0-3.38) ng/mL Troponin I (0.00-0.120) ng/mL Total Protein (6.3-8.3) g/dL Albumin (3.5-5.0) g/dL Globulin (2.2-3.9) gm/dL Albumin/Globulin Ratio (1.0-2.1) Fluid Source Fluid Appearance (CLEAR) Fluid WBC (0.0-300.0) /mm3 Fluid RBC (0.0-0.0) /mm3 Fluid Tot Cell Count (0-0) Fluid Neutrophils (0-0) % Fluid Lymphocytes (0-0) % Fld Monocyte/Macrophag (0-0) % Fluid Comment C. difficile Ag & Toxin (NEGATIVE) Blood Type Antibody Screen 07/22/18 07/22/18 07/22/18 Range/Units 23:07 19:50 19:50 WBC 7.5 (4.8-10.8) K/uL RBC 3.81 L (4.40-5.90) Mil/uL Hgb 9.7 L (12.0-18.0) g/dL Hct 30.7 L (35.0-51.0) % MCV 80.6 (80.0-94.0) fL MCH 25.6 L (27.0-31.0) pg MCHC 31.7 L (33.0-37.0) g/dL RDW 21.7 H (11.5-14.5) % Plt Count 241 (130-400) K/uL MPV 7.6 (7.2-11.7) fL Neut % (Auto) 86.2 H (50.0-75.0) % Lymph % (Auto) 3.9 L (20.0-40.0) % [place] % (Auto) 7.7 (0.0-10.0) % Eos % (Auto) 1.9 (0.0-4.0) % Baso % (Auto) 0.3 (0.0-2.0) % Neut # (Auto) 6.5 (1.8-7.0) K/uL Lymph # (Auto) 0.3 L (1.0-4.3) K/uL [place] # (Auto) 0.6 (0.0-0.8) K/uL Eos # (Auto) 0.1 (0.0-0.7) K/uL Baso # (Auto) 0.0 (0.0-0.2) K/uL Neutrophils % (Manual) 95 H (50-75) % Band Neutrophils % (0-2) % Lymphocytes % (Manual) 4 L (20-40) % Monocytes % (Manual) 1 (0-10) % Toxic Granulation Platelet Estimate Normal (NORMAL) Polychromasia Slight Hypochromasia (manual) Slight Poikilocytosis (manual Anisocytosis (manual) Slight Ovalocytes Slight Puncture Site pCO2 (35-45) mm/Hg pO2 (80-100) mm/Hg HCO3 (21-28) mmol/L ABG pH (7.35-7.45) ABG Total CO2 (22-28) mmol/L ABG O2 Saturation (95-98) % ABG Base Excess (-2.0-3.0) mmol/L ABG Hemoglobin (11.7-17.4) g/dL ABG Carboxyhemoglobin (0.5-1.5) % POC ABG HHb (Measured) (0.0-5.0) % ABG Methemoglobin (0.0-3.0) % Braulio Test A-a O2 Difference mm/Hg Respiratory Index Hgb O2 Saturation (95.0-98.0) % Vent Mode Mechanical Rate FiO2 % Tidal Volume PEEP Crit Value Called To Crit Value Called By Crit Value Read Back Blood Gas Notified Time Sodium 136 (132-148) mmol/L Potassium 4.6 (3.6-5.2) mmol/L Chloride 106 (98-107) mmol/L Carbon Dioxide 15 L (22-30) mmol/L Anion Gap 19 (10-20) BUN 63 H (9-20) mg/dL Creatinine 2.2 H (0.8-1.5) mg/dL Est GFR ( Amer) 35 Est GFR (Non-Af Amer) 29 POC Glucose (mg/dL) (65-110) mg/dL Random Glucose 206 H (75-110) mg/dL Calcium 8.5 L (8.6-10.4) mg/dl Phosphorus 4.2 (2.5-4.5) mg/dL Magnesium 2.0 (1.6-2.3) mg/dL Total Bilirubin 0.1 L (0.2-1.3) mg/dL AST 18 (17-59) U/L ALT 21 (21-72) U/L Alkaline Phosphatase 95 (38-126) U/L Total Creatine Kinase 62 (55-170) U/L CK-MB (Mass) 2.10 (0.0-3.38) ng/mL Troponin I 0.0200 (0.00-0.120) ng/mL Total Protein 6.6 (6.3-8.3) g/dL Albumin 3.4 L (3.5-5.0) g/dL Globulin 3.2 (2.2-3.9) gm/dL Albumin/Globulin Ratio 1.0 (1.0-2.1) Fluid Source Fluid Appearance (CLEAR) Fluid WBC (0.0-300.0) /mm3 Fluid RBC (0.0-0.0) /mm3 Fluid Tot Cell Count (0-0) Fluid Neutrophils (0-0) % Fluid Lymphocytes (0-0) % Fld Monocyte/Macrophag (0-0) % Fluid Comment C. difficile Ag & Toxin (NEGATIVE) Blood Type O POSITIVE Antibody Screen Negative 07/22/18 Range/Units 13:05 WBC (4.8-10.8) K/uL RBC (4.40-5.90) Mil/uL Hgb (12.0-18.0) g/dL Hct (35.0-51.0) % MCV (80.0-94.0) fL MCH (27.0-31.0) pg MCHC (33.0-37.0) g/dL RDW (11.5-14.5) % Plt Count (130-400) K/uL MPV (7.2-11.7) fL Neut % (Auto) (50.0-75.0) % Lymph % (Auto) (20.0-40.0) % [place] % (Auto) (0.0-10.0) % Eos % (Auto) (0.0-4.0) % Baso % (Auto) (0.0-2.0) % Neut # (Auto) (1.8-7.0) K/uL Lymph # (Auto) (1.0-4.3) K/uL [place] # (Auto) (0.0-0.8) K/uL Eos # (Auto) (0.0-0.7) K/uL Baso # (Auto) (0.0-0.2) K/uL Neutrophils % (Manual) (50-75) % Band Neutrophils % (0-2) % Lymphocytes % (Manual) (20-40) % Monocytes % (Manual) (0-10) % Toxic Granulation Platelet Estimate (NORMAL) Polychromasia Hypochromasia (manual) Poikilocytosis (manual Anisocytosis (manual) Ovalocytes Puncture Site pCO2 (35-45) mm/Hg pO2 (80-100) mm/Hg HCO3 (21-28) mmol/L ABG pH (7.35-7.45) ABG Total CO2 (22-28) mmol/L ABG O2 Saturation (95-98) % ABG Base Excess (-2.0-3.0) mmol/L ABG Hemoglobin (11.7-17.4) g/dL ABG Carboxyhemoglobin (0.5-1.5) % POC ABG HHb (Measured) (0.0-5.0) % ABG Methemoglobin (0.0-3.0) % Braulio Test A-a O2 Difference mm/Hg Respiratory Index Hgb O2 Saturation (95.0-98.0) % Vent Mode Mechanical Rate FiO2 % Tidal Volume PEEP Crit Value Called To Crit Value Called By Crit Value Read Back Blood Gas Notified Time Sodium (132-148) mmol/L Potassium (3.6-5.2) mmol/L Chloride (98-107) mmol/L Carbon Dioxide (22-30) mmol/L Anion Gap (10-20) BUN (9-20) mg/dL Creatinine (0.8-1.5) mg/dL Est GFR ( Amer) Est GFR (Non-Af Amer) POC Glucose (mg/dL) (65-110) mg/dL Random Glucose (75-110) mg/dL Calcium (8.6-10.4) mg/dl Phosphorus (2.5-4.5) mg/dL Magnesium (1.6-2.3) mg/dL Total Bilirubin (0.2-1.3) mg/dL AST (17-59) U/L ALT (21-72) U/L Alkaline Phosphatase (38-126) U/L Total Creatine Kinase (55-170) U/L CK-MB (Mass) (0.0-3.38) ng/mL Troponin I (0.00-0.120) ng/mL Total Protein (6.3-8.3) g/dL Albumin (3.5-5.0) g/dL Globulin (2.2-3.9) gm/dL Albumin/Globulin Ratio (1.0-2.1) Fluid Source Fluid Appearance (CLEAR) Fluid WBC (0.0-300.0) /mm3 Fluid RBC (0.0-0.0) /mm3 Fluid Tot Cell Count (0-0) Fluid Neutrophils (0-0) % Fluid Lymphocytes (0-0) % Fld Monocyte/Macrophag (0-0) % Fluid Comment C. difficile Ag & Toxin Negative (NEGATIVE) Blood Type Antibody Screen Laboratory Results - last 24 hr 0907/22/18 07/22/18 13:05 19:50 19:50 WBC 7.5 RBC 3.81 L Hgb 9.7 L Hct 30.7 L MCV 80.6 MCH 25.6 L MCHC 31.7 L RDW 21.7 H Plt Count 241 MPV 7.6 Neut % (Auto) 86.2 H Lymph % (Auto) 3.9 L [place] % (Auto) 7.7 Eos % (Auto) 1.9 Baso % (Auto) 0.3 Neut # (Auto) 6.5 Lymph # (Auto) 0.3 L [place] # (Auto) 0.6 Eos # (Auto) 0.1 Baso # (Auto) 0.0 Neutrophils % (Manual) 95 H Band Neutrophils % Lymphocytes % (Manual) 4 L Monocytes % (Manual) 1 Toxic Granulation Platelet Estimate Normal Polychromasia Slight Hypochromasia (manual) Slight Poikilocytosis (manual Anisocytosis (manual) Slight Ovalocytes Slight Puncture Site pCO2 pO2 HCO3 ABG pH ABG Total CO2 ABG O2 Saturation ABG Base Excess ABG Hemoglobin ABG Carboxyhemoglobin POC ABG HHb (Measured) ABG Methemoglobin Braulio Test A-a O2 Difference Respiratory Index Hgb O2 Saturation Vent Mode Mechanical Rate FiO2 Tidal Volume PEEP Crit Value Called To Crit Value Called By Crit Value Read Back Blood Gas Notified Time Sodium 136 Potassium 4.6 Chloride 106 Carbon Dioxide 15 L Anion Gap 19 BUN 63 H Creatinine 2.2 H Est GFR ( Amer) 35 Est GFR (Non-Af Amer) 29 POC Glucose (mg/dL) Random Glucose 206 H Calcium 8.5 L Phosphorus 4.2 Magnesium 2.0 Total Bilirubin 0.1 L AST 18 ALT 21 Alkaline Phosphatase 95 Total Creatine Kinase 62 CK-MB (Mass) 2.10 Troponin I 0.0200 Total Protein 6.6 Albumin 3.4 L Globulin 3.2 Albumin/Globulin Ratio 1.0 Fluid Source Fluid Appearance Fluid WBC Fluid RBC Fluid Tot Cell Count Fluid Neutrophils Fluid Lymphocytes Fld Monocyte/Macrophag Fluid Comment C. difficile Ag & Toxin Negative Blood Type Antibody Screen 07/22/18 07/23/18 07/23/18 23:07 02:47 05:36 WBC RBC Hgb Hct MCV MCH MCHC RDW Plt Count MPV Neut % (Auto) Lymph % (Auto) [place] % (Auto) Eos % (Auto) Baso % (Auto) Neut # (Auto) Lymph # (Auto) [place] # (Auto) Eos # (Auto) Baso # (Auto) Neutrophils % (Manual) Band Neutrophils % Lymphocytes % (Manual) Monocytes % (Manual) Toxic Granulation Platelet Estimate Polychromasia Hypochromasia (manual) Poikilocytosis (manual Anisocytosis (manual) Ovalocytes Puncture Site A-line A-line pCO2 42 35 pO2 90 295 H HCO3 14.8 L 17.9 L ABG pH 7.16 L* 7.29 L ABG Total CO2 16.3 L 17.9 L ABG O2 Saturation 97.5 99.5 H ABG Base Excess -12.9 L -9.0 L ABG Hemoglobin 9.6 L 9.1 L ABG Carboxyhemoglobin 2.0 H 1.3 POC ABG HHb (Measured) 2.4 0.5 ABG Methemoglobin 1.0 1.5 Braulio Test Na Na A-a O2 Difference 571.0 374.0 Respiratory Index 6.3 1.3 Hgb O2 Saturation 94.6 L 96.8 Vent Mode Prvc Prvc Mechanical Rate 14 14 FiO2 100.0 100.0 Tidal Volume 500 450 PEEP 8 8 Crit Value Called To Serafin morales olericulturist Crit Value Called By Magalie andrews rt Crit Value Read Back Y Blood Gas Notified Time 252 Sodium Potassium Chloride Carbon Dioxide Anion Gap BUN Creatinine Est GFR ( Amer) Est GFR (Non-Af Amer) POC Glucose (mg/dL) Random Glucose Calcium Phosphorus Magnesium Total Bilirubin AST ALT Alkaline Phosphatase Total Creatine Kinase CK-MB (Mass) Troponin I Total Protein Albumin Globulin Albumin/Globulin Ratio Fluid Source Fluid Appearance Fluid WBC Fluid RBC Fluid Tot Cell Count Fluid Neutrophils Fluid Lymphocytes Fld Monocyte/Macrophag Fluid Comment C. difficile Ag & Toxin Blood Type O POSITIVE Antibody Screen Negative 07/23/18 07/23/18 07/23/18 06:17 06:17 08:13 WBC 9.5 RBC 3.67 L Hgb 9.4 L Hct 29.6 L MCV 80.5 MCH 25.5 L MCHC 31.7 L RDW 21.1 H Plt Count 197 MPV 7.6 Neut % (Auto) 89.5 H Lymph % (Auto) 3.1 L [place] % (Auto) 7.0 Eos % (Auto) 0.2 Baso % (Auto) 0.2 Neut # (Auto) 8.5 H Lymph # (Auto) 0.3 L [place] # (Auto) 0.7 Eos # (Auto) 0.0 Baso # (Auto) 0.0 Neutrophils % (Manual) 75 Band Neutrophils % 12 H* Lymphocytes % (Manual) 6 L Monocytes % (Manual) 7 Toxic Granulation Present Platelet Estimate Normal Polychromasia Hypochromasia (manual) Moderate Poikilocytosis (manual Slight Anisocytosis (manual) Moderate Ovalocytes Slight Puncture Site pCO2 pO2 HCO3 ABG pH ABG Total CO2 ABG O2 Saturation ABG Base Excess ABG Hemoglobin ABG Carboxyhemoglobin POC ABG HHb (Measured) ABG Methemoglobin Braulio Test A-a O2 Difference Respiratory Index Hgb O2 Saturation Vent Mode Mechanical Rate FiO2 Tidal Volume PEEP Crit Value Called To Crit Value Called By Crit Value Read Back Blood Gas Notified Time Sodium 137 Potassium 4.7 Chloride 108 H Carbon Dioxide 16 L Anion Gap 18 BUN 61 H Creatinine 2.0 H Est GFR ( Amer) 40 Est GFR (Non-Af Amer) 33 POC Glucose (mg/dL) Random Glucose 153 H Calcium 7.9 L Phosphorus 5.3 H Magnesium 2.0 Total Bilirubin 0.3 AST 20 ALT 28 Alkaline Phosphatase 74 Total Creatine Kinase CK-MB (Mass) Troponin I Total Protein 6.0 L Albumin 3.0 L Globulin 3.0 Albumin/Globulin Ratio 1.0 Fluid Source Pericardial Fluid Appearance Bloody Fluid WBC 8522.0 H Fluid RBC 7861617.0 H Fluid Tot Cell Count 100 H Fluid Neutrophils 71.0 H Fluid Lymphocytes 10.0 H Fld Monocyte/Macrophag 3 H Fluid Comment C. difficile Ag & Toxin Blood Type Antibody Screen 07/23/18 11:15 WBC RBC Hgb Hct MCV MCH MCHC RDW Plt Count MPV Neut % (Auto) Lymph % (Auto) [place] % (Auto) Eos % (Auto) Baso % (Auto) Neut # (Auto) Lymph # (Auto) [place] # (Auto) Eos # (Auto) Baso # (Auto) Neutrophils % (Manual) Band Neutrophils % Lymphocytes % (Manual) Monocytes % (Manual) Toxic Granulation Platelet Estimate Polychromasia Hypochromasia (manual) Poikilocytosis (manual Anisocytosis (manual) Ovalocytes Puncture Site pCO2 pO2 HCO3 ABG pH ABG Total CO2 ABG O2 Saturation ABG Base Excess ABG Hemoglobin ABG Carboxyhemoglobin POC ABG HHb (Measured) ABG Methemoglobin Braulio Test A-a O2 Difference Respiratory Index Hgb O2 Saturation Vent Mode Mechanical Rate FiO2 Tidal Volume PEEP Crit Value Called To Crit Value Called By Crit Value Read Back Blood Gas Notified Time Sodium Potassium Chloride Carbon Dioxide Anion Gap BUN Creatinine Est GFR ( Amer) Est GFR (Non-Af Amer) POC Glucose (mg/dL) 140 H Random Glucose Calcium Phosphorus Magnesium Total Bilirubin AST ALT Alkaline Phosphatase Total Creatine Kinase CK-MB (Mass) Troponin I Total Protein Albumin Globulin Albumin/Globulin Ratio Fluid Source Fluid Appearance Fluid WBC Fluid RBC Fluid Tot Cell Count Fluid Neutrophils Fluid Lymphocytes Fld Monocyte/Macrophag Fluid Comment C. difficile Ag & Toxin Blood Type Antibody Screen EKG/Cardiology Studies: Cardiology / EKG Studies 07/22/18 18:39 EKG [ELECTROCARDIOGRAM] Stat Comment: Mode Of Transportation: PORTABLE Reason For Exam: c/o pressure in chest Review of Systems - Review of Systems All systems: reviewed and no additional remarkable complaints except (HPI) Critical Care Progress Note - Nutrition Nutrition: Nutrition Category Date Time Status Liquid Diet [DIET] Diets 07/23/18 Breakfast Ordered Assessment/Plan - Assessment and Plan (Free Text) Assessment: 78yo M. PMHx HTN, DM type 2, high cholesterol, BPH, corneal transplant, prostate CA, UTI, hematuria, lung cancer on treatment presents with pericardial effusion with tamponade. S/p pericardial window and drainage. S/p extubation today. Neuro: - alert and oriented x 3 - pain control Pulm: - Extubated this AM, tolerating well - Nasal cannula as needed - Maintain SPO2 > 92% - Cont Duonebs aspen CV: - Currently hemodynamically stable - maintain MAP > 65 f/u cytology - F/u CT surgery consult and recs - F/u drain output GI: - Gi ppx - Liquid diet as tolerated Hem: - no acute issues - Monitor H/H Renal: - no acute issues, urine output wnl - Cont bicarb ggt - Monitor I and O - Replete electrolytes as needed - Cont finesteride Endo: - DM type 2, SISS for coverage ID: - empiric therapy with Zosyn - F/u septic work up DVT proph - SCD's, a/c held immediately post-op GI proph - protonix Code status - full code Case and plan was removed and discussed in detail with Dr Romero. <HeatherRobert M - Last Filed: 07/23/18 20:45> CCU Objective - Vital Signs / Intake & Output Vital Signs (Last 4 hours): Vital Signs Pulse Resp BP Pulse Ox 07/23/18 19:02 106 H 22 100/41 L 95 07/23/18 18:02 104 H 21 102/49 L 92 L 07/23/18 17:02 102 H 17 102/42 L 96 Intake and Output (Last 8hrs): Intake & Output 07/23/18 07/23/18 07/23/18 06:59 14:59 22:59 Intake Total 382.86 1146.4 750 Output Total 80 800 243 Balance 302.86 346.4 507 Intake: IV 5.5 Intake, IV Amount 377.36 1146.4 750 Left Antecubital 6.0 4.8 Left Forearm 33.86 41.6 Right Forearm 337.5 1100 750 Oral 0 Output: Chest Tube Drainage 38 Right mid anterior chest 38 Drainage 150 Anterior Medial Chest 150 Urine 80 650 205 Urethral ([place]) 80 650 205 Urine, Voided 0 - Medications Active Medications: Active Medications Generic Name Dose Route Start Last Admin Trade Name Freq PRN Reason Stop Dose Admin Albuterol/Ipratropium 3 ml 07/21/18 20:00 07/23/18 19:37 Duoneb 3 Mg/0.5 Mg (3 Ml) Ud INH 3 ml RQ6 ASPEN Administration Finasteride 5 mg 07/22/18 10:00 07/23/18 15:12 Proscar PO 5 mg DAILY ASPEN Administration Piperacillin Sod/Tazobactam Sod 2.25 gm in 50 mls @ 100 mls/hr 07/22/18 14:00 07/23/18 14:35 Zosyn 2.25 Gm Iv Premix IVPB 100 mls/hr Q8 ASPEN Administration Protocol Insulin Human Regular 0 unit 07/23/18 22:00 Novolin R SC ACHS ASPEN Protocol Latanoprost 0.05 ml 07/21/18 22:00 07/22/18 23:00 Xalatan Opht OU 0.05 ml HS ASPEN Administration Morphine Sulfate 2 mg 07/23/18 07:45 07/23/18 16:07 Morphine IVP 2 mg Q4 PRN Administration Pain, severe (8-10) Pantoprazole Sodium 40 mg 07/22/18 10:00 07/23/18 10:29 Protonix Inj IVP 40 mg DAILY ASPEN Administration Tamsulosin HCl 0.4 mg 07/22/18 10:00 07/23/18 15:12 Flomax PO 0.4 mg DAILY ASPEN Administration - Patient Studies Lab Studies: Microbiology Studies 07/23/18 08:13 Gram Stain - Final Pericardial Fluid Fungal Culture - Preliminary 07/21/18 21:29 Blood Culture - Preliminary Blood NO GROWTH AFTER 24 HOURS Lab Studies 07/23/18 07/23/18 07/23/18 Range/Units 16:12 11:15 08:13 WBC (4.8-10.8) K/uL RBC (4.40-5.90) Mil/uL Hgb (12.0-18.0) g/dL Hct (35.0-51.0) % MCV (80.0-94.0) fL MCH (27.0-31.0) pg MCHC (33.0-37.0) g/dL RDW (11.5-14.5) % Plt Count (130-400) K/uL MPV (7.2-11.7) fL Neut % (Auto) (50.0-75.0) % Lymph % (Auto) (20.0-40.0) % [place] % (Auto) (0.0-10.0) % Eos % (Auto) (0.0-4.0) % Baso % (Auto) (0.0-2.0) % Neut # (Auto) (1.8-7.0) K/uL Lymph # (Auto) (1.0-4.3) K/uL [place] # (Auto) (0.0-0.8) K/uL Eos # (Auto) (0.0-0.7) K/uL Baso # (Auto) (0.0-0.2) K/uL Neutrophils % (Manual) (50-75) % Band Neutrophils % (0-2) % Lymphocytes % (Manual) (20-40) % Monocytes % (Manual) (0-10) % Toxic Granulation Platelet Estimate (NORMAL) Polychromasia Hypochromasia (manual) Poikilocytosis (manual Anisocytosis (manual) Ovalocytes Puncture Site pCO2 (35-45) mm/Hg pO2 (80-100) mm/Hg HCO3 (21-28) mmol/L ABG pH (7.35-7.45) ABG Total CO2 (22-28) mmol/L ABG O2 Saturation (95-98) % ABG Base Excess (-2.0-3.0) mmol/L ABG Hemoglobin (11.7-17.4) g/dL ABG Carboxyhemoglobin (0.5-1.5) % POC ABG HHb (Measured) (0.0-5.0) % ABG Methemoglobin (0.0-3.0) % Braulio Test A-a O2 Difference mm/Hg Respiratory Index Hgb O2 Saturation (95.0-98.0) % Vent Mode Mechanical Rate FiO2 % Tidal Volume PEEP Crit Value Called To Crit Value Called By Crit Value Read Back Blood Gas Notified Time Sodium (132-148) mmol/L Potassium (3.6-5.2) mmol/L Chloride (98-107) mmol/L Carbon Dioxide (22-30) mmol/L Anion Gap (10-20) BUN (9-20) mg/dL Creatinine (0.8-1.5) mg/dL Est GFR ( Amer) Est GFR (Non-Af Amer) POC Glucose (mg/dL) 200 H 140 H (65-110) mg/dL Random Glucose (75-110) mg/dL Calcium (8.6-10.4) mg/dl Phosphorus (2.5-4.5) mg/dL Magnesium (1.6-2.3) mg/dL Total Bilirubin (0.2-1.3) mg/dL AST (17-59) U/L ALT (21-72) U/L Alkaline Phosphatase (38-126) U/L Total Protein (6.3-8.3) g/dL Albumin (3.5-5.0) g/dL Globulin (2.2-3.9) gm/dL Albumin/Globulin Ratio (1.0-2.1) Fluid Source Pericardial Fluid Appearance Bloody (CLEAR) Fluid WBC 8522.0 H (0.0-300.0) /mm3 Fluid RBC 4967363.0 H (0.0-0.0) /mm3 Fluid Tot Cell Count 100 H (0-0) Fluid Neutrophils 71.0 H (0-0) % Fluid Lymphocytes 10.0 H (0-0) % Fld Monocyte/Macrophag 3 H (0-0) % Fluid Comment Blood Type Antibody Screen 07/23/18 07/23/18 07/23/18 Range/Units 06:17 06:17 05:36 WBC 9.5 (4.8-10.8) K/uL RBC 3.67 L (4.40-5.90) Mil/uL Hgb 9.4 L (12.0-18.0) g/dL Hct 29.6 L (35.0-51.0) % MCV 80.5 (80.0-94.0) fL MCH 25.5 L (27.0-31.0) pg MCHC 31.7 L (33.0-37.0) g/dL RDW 21.1 H (11.5-14.5) % Plt Count 197 (130-400) K/uL MPV 7.6 (7.2-11.7) fL Neut % (Auto) 89.5 H (50.0-75.0) % Lymph % (Auto) 3.1 L (20.0-40.0) % [place] % (Auto) 7.0 (0.0-10.0) % Eos % (Auto) 0.2 (0.0-4.0) % Baso % (Auto) 0.2 (0.0-2.0) % Neut # (Auto) 8.5 H (1.8-7.0) K/uL Lymph # (Auto) 0.3 L (1.0-4.3) K/uL [place] # (Auto) 0.7 (0.0-0.8) K/uL Eos # (Auto) 0.0 (0.0-0.7) K/uL Baso # (Auto) 0.0 (0.0-0.2) K/uL Neutrophils % (Manual) 75 (50-75) % Band Neutrophils % 12 H* (0-2) % Lymphocytes % (Manual) 6 L (20-40) % Monocytes % (Manual) 7 (0-10) % Toxic Granulation Present Platelet Estimate Normal (NORMAL) Polychromasia Hypochromasia (manual) Moderate Poikilocytosis (manual Slight Anisocytosis (manual) Moderate Ovalocytes Slight Puncture Site A-line pCO2 35 (35-45) mm/Hg pO2 295 H (80-100) mm/Hg HCO3 17.9 L (21-28) mmol/L ABG pH 7.29 L (7.35-7.45) ABG Total CO2 17.9 L (22-28) mmol/L ABG O2 Saturation 99.5 H (95-98) % ABG Base Excess -9.0 L (-2.0-3.0) mmol/L ABG Hemoglobin 9.1 L (11.7-17.4) g/dL ABG Carboxyhemoglobin 1.3 (0.5-1.5) % POC ABG HHb (Measured) 0.5 (0.0-5.0) % ABG Methemoglobin 1.5 (0.0-3.0) % Braulio Test Na A-a O2 Difference 374.0 mm/Hg Respiratory Index 1.3 Hgb O2 Saturation 96.8 (95.0-98.0) % Vent Mode Prvc Mechanical Rate 14 FiO2 100.0 % Tidal Volume 450 PEEP 8 Crit Value Called To Crit Value Called By Crit Value Read Back Blood Gas Notified Time Sodium 137 (132-148) mmol/L Potassium 4.7 (3.6-5.2) mmol/L Chloride 108 H (98-107) mmol/L Carbon Dioxide 16 L (22-30) mmol/L Anion Gap 18 (10-20) BUN 61 H (9-20) mg/dL Creatinine 2.0 H (0.8-1.5) mg/dL Est GFR ( Amer) 40 Est GFR (Non-Af Amer) 33 POC Glucose (mg/dL) (65-110) mg/dL Random Glucose 153 H (75-110) mg/dL Calcium 7.9 L (8.6-10.4) mg/dl Phosphorus 5.3 H (2.5-4.5) mg/dL Magnesium 2.0 (1.6-2.3) mg/dL Total Bilirubin 0.3 (0.2-1.3) mg/dL AST 20 (17-59) U/L ALT 28 (21-72) U/L Alkaline Phosphatase 74 (38-126) U/L Total Protein 6.0 L (6.3-8.3) g/dL Albumin 3.0 L (3.5-5.0) g/dL Globulin 3.0 (2.2-3.9) gm/dL Albumin/Globulin Ratio 1.0 (1.0-2.1) Fluid Source Fluid Appearance (CLEAR) Fluid WBC (0.0-300.0) /mm3 Fluid RBC (0.0-0.0) /mm3 Fluid Tot Cell Count (0-0) Fluid Neutrophils (0-0) % Fluid Lymphocytes (0-0) % Fld Monocyte/Macrophag (0-0) % Fluid Comment Blood Type Antibody Screen 07/23/18 07/22/18 07/22/18 Range/Units 02:47 23:07 19:50 WBC (4.8-10.8) K/uL RBC (4.40-5.90) Mil/uL Hgb (12.0-18.0) g/dL Hct (35.0-51.0) % MCV (80.0-94.0) fL MCH (27.0-31.0) pg MCHC (33.0-37.0) g/dL RDW (11.5-14.5) % Plt Count (130-400) K/uL MPV (7.2-11.7) fL Neut % (Auto) (50.0-75.0) % Lymph % (Auto) (20.0-40.0) % [place] % (Auto) (0.0-10.0) % Eos % (Auto) (0.0-4.0) % Baso % (Auto) (0.0-2.0) % Neut # (Auto) (1.8-7.0) K/uL Lymph # (Auto) (1.0-4.3) K/uL [place] # (Auto) (0.0-0.8) K/uL Eos # (Auto) (0.0-0.7) K/uL Baso # (Auto) (0.0-0.2) K/uL Neutrophils % (Manual) 95 H (50-75) % Band Neutrophils % (0-2) % Lymphocytes % (Manual) 4 L (20-40) % Monocytes % (Manual) 1 (0-10) % Toxic Granulation Platelet Estimate Normal (NORMAL) Polychromasia Slight Hypochromasia (manual) Slight Poikilocytosis (manual Anisocytosis (manual) Slight Ovalocytes Slight Puncture Site A-line pCO2 42 (35-45) mm/Hg pO2 90 (80-100) mm/Hg HCO3 14.8 L (21-28) mmol/L ABG pH 7.16 L* (7.35-7.45) ABG Total CO2 16.3 L (22-28) mmol/L ABG O2 Saturation 97.5 (95-98) % ABG Base Excess -12.9 L (-2.0-3.0) mmol/L ABG Hemoglobin 9.6 L (11.7-17.4) g/dL ABG Carboxyhemoglobin 2.0 H (0.5-1.5) % POC ABG HHb (Measured) 2.4 (0.0-5.0) % ABG Methemoglobin 1.0 (0.0-3.0) % Braulio Test Na A-a O2 Difference 571.0 mm/Hg Respiratory Index 6.3 Hgb O2 Saturation 94.6 L (95.0-98.0) % Vent Mode Prvc Mechanical Rate 14 FiO2 100.0 % Tidal Volume 500 PEEP 8 Crit Value Called To Serafin morales olericulturist Crit Value Called By Magalie andrews rt Crit Value Read Back Y Blood Gas Notified Time 252 Sodium (132-148) mmol/L Potassium (3.6-5.2) mmol/L Chloride (98-107) mmol/L Carbon Dioxide (22-30) mmol/L Anion Gap (10-20) BUN (9-20) mg/dL Creatinine (0.8-1.5) mg/dL Est GFR ( Amer) Est GFR (Non-Af Amer) POC Glucose (mg/dL) (65-110) mg/dL Random Glucose (75-110) mg/dL Calcium (8.6-10.4) mg/dl Phosphorus (2.5-4.5) mg/dL Magnesium (1.6-2.3) mg/dL Total Bilirubin (0.2-1.3) mg/dL AST (17-59) U/L ALT (21-72) U/L Alkaline Phosphatase (38-126) U/L Total Protein (6.3-8.3) g/dL Albumin (3.5-5.0) g/dL Globulin (2.2-3.9) gm/dL Albumin/Globulin Ratio (1.0-2.1) Fluid Source Fluid Appearance (CLEAR) Fluid WBC (0.0-300.0) /mm3 Fluid RBC (0.0-0.0) /mm3 Fluid Tot Cell Count (0-0) Fluid Neutrophils (0-0) % Fluid Lymphocytes (0-0) % Fld Monocyte/Macrophag (0-0) % Fluid Comment Blood Type O POSITIVE Antibody Screen Negative Laboratory Results - last 24 hr 07/22/18 07/22/18 07/23/18 19:50 23:07 02:47 WBC RBC Hgb Hct MCV MCH MCHC RDW Plt Count MPV Neut % (Auto) Lymph % (Auto) [place] % (Auto) Eos % (Auto) Baso % (Auto) Neut # (Auto) Lymph # (Auto) [place] # (Auto) Eos # (Auto) Baso # (Auto) Neutrophils % (Manual) 95 H Band Neutrophils % Lymphocytes % (Manual) 4 L Monocytes % (Manual) 1 Toxic Granulation Platelet Estimate Normal Polychromasia Slight Hypochromasia (manual) Slight Poikilocytosis (manual Anisocytosis (manual) Slight Ovalocytes Slight Puncture Site A-line pCO2 42 pO2 90 HCO3 14.8 L ABG pH 7.16 L* ABG Total CO2 16.3 L ABG O2 Saturation 97.5 ABG Base Excess -12.9 L ABG Hemoglobin 9.6 L ABG Carboxyhemoglobin 2.0 H POC ABG HHb (Measured) 2.4 ABG Methemoglobin 1.0 Braulio Test Na A-a O2 Difference 571.0 Respiratory Index 6.3 Hgb O2 Saturation 94.6 L Vent Mode Prvc Mechanical Rate 14 FiO2 100.0 Tidal Volume 500 PEEP 8 Crit Value Called To Serafin morales olericulturist Crit Value Called By Magalie andrews rt Crit Value Read Back Y Blood Gas Notified Time 252 Sodium Potassium Chloride Carbon Dioxide Anion Gap BUN Creatinine Est GFR ( Amer) Est GFR (Non-Af Amer) POC Glucose (mg/dL) Random Glucose Calcium Phosphorus Magnesium Total Bilirubin AST ALT Alkaline Phosphatase Total Protein Albumin Globulin Albumin/Globulin Ratio Fluid Source Fluid Appearance Fluid WBC Fluid RBC Fluid Tot Cell Count Fluid Neutrophils Fluid Lymphocytes Fld Monocyte/Macrophag Fluid Comment Blood Type O POSITIVE Antibody Screen Negative 07/23/18 07/23/18 07/23/18 05:36 06:17 06:17 WBC 9.5 RBC 3.67 L Hgb 9.4 L Hct 29.6 L MCV 80.5 MCH 25.5 L MCHC 31.7 L RDW 21.1 H Plt Count 197 MPV 7.6 Neut % (Auto) 89.5 H Lymph % (Auto) 3.1 L [place] % (Auto) 7.0 Eos % (Auto) 0.2 Baso % (Auto) 0.2 Neut # (Auto) 8.5 H Lymph # (Auto) 0.3 L [place] # (Auto) 0.7 Eos # (Auto) 0.0 Baso # (Auto) 0.0 Neutrophils % (Manual) 75 Band Neutrophils % 12 H* Lymphocytes % (Manual) 6 L Monocytes % (Manual) 7 Toxic Granulation Present Platelet Estimate Normal Polychromasia Hypochromasia (manual) Moderate Poikilocytosis (manual Slight Anisocytosis (manual) Moderate Ovalocytes Slight Puncture Site A-line pCO2 35 pO2 295 H HCO3 17.9 L ABG pH 7.29 L ABG Total CO2 17.9 L ABG O2 Saturation 99.5 H ABG Base Excess -9.0 L ABG Hemoglobin 9.1 L ABG Carboxyhemoglobin 1.3 POC ABG HHb (Measured) 0.5 ABG Methemoglobin 1.5 Braulio Test Na A-a O2 Difference 374.0 Respiratory Index 1.3 Hgb O2 Saturation 96.8 Vent Mode Prvc Mechanical Rate 14 FiO2 100.0 Tidal Volume 450 PEEP 8 Crit Value Called To Crit Value Called By Crit Value Read Back Blood Gas Notified Time Sodium 137 Potassium 4.7 Chloride 108 H Carbon Dioxide 16 L Anion Gap 18 BUN 61 H Creatinine 2.0 H Est GFR ( Amer) 40 Est GFR (Non-Af Amer) 33 POC Glucose (mg/dL) Random Glucose 153 H Calcium 7.9 L Phosphorus 5.3 H Magnesium 2.0 Total Bilirubin 0.3 AST 20 ALT 28 Alkaline Phosphatase 74 Total Protein 6.0 L Albumin 3.0 L Globulin 3.0 Albumin/Globulin Ratio 1.0 Fluid Source Fluid Appearance Fluid WBC Fluid RBC Fluid Tot Cell Count Fluid Neutrophils Fluid Lymphocytes Fld Monocyte/Macrophag Fluid Comment Blood Type Antibody Screen 07/23/18 07/23/18 07/23/18 08:13 11:15 16:12 WBC RBC Hgb Hct MCV MCH MCHC RDW Plt Count MPV Neut % (Auto) Lymph % (Auto) [place] % (Auto) Eos % (Auto) Baso % (Auto) Neut # (Auto) Lymph # (Auto) [place] # (Auto) Eos # (Auto) Baso # (Auto) Neutrophils % (Manual) Band Neutrophils % Lymphocytes % (Manual) Monocytes % (Manual) Toxic Granulation Platelet Estimate Polychromasia Hypochromasia (manual) Poikilocytosis (manual Anisocytosis (manual) Ovalocytes Puncture Site pCO2 pO2 HCO3 ABG pH ABG Total CO2 ABG O2 Saturation ABG Base Excess ABG Hemoglobin ABG Carboxyhemoglobin POC ABG HHb (Measured) ABG Methemoglobin Braulio Test A-a O2 Difference Respiratory Index Hgb O2 Saturation Vent Mode Mechanical Rate FiO2 Tidal Volume PEEP Crit Value Called To Crit Value Called By Crit Value Read Back Blood Gas Notified Time Sodium Potassium Chloride Carbon Dioxide Anion Gap BUN Creatinine Est GFR ( Amer) Est GFR (Non-Af Amer) POC Glucose (mg/dL) 140 H 200 H Random Glucose Calcium Phosphorus Magnesium Total Bilirubin AST ALT Alkaline Phosphatase Total Protein Albumin Globulin Albumin/Globulin Ratio Fluid Source Pericardial Fluid Appearance Bloody Fluid WBC 8522.0 H Fluid RBC 4146133.0 H Fluid Tot Cell Count 100 H Fluid Neutrophils 71.0 H Fluid Lymphocytes 10.0 H Fld Monocyte/Macrophag 3 H Fluid Comment Blood Type Antibody Screen Critical Care Progress Note - Nutrition Nutrition: Nutrition Category Date Time Status Liquid Diet [DIET] Diets 07/23/18 Breakfast Active Attending/Attestation - Attestation I have personally seen and examined this patient.: Yes I have fully participated in the care of the patient.: Yes I have reviewed all pertinent clinical information: Yes Notes (Text): 07/23/18 20:45 The patient was Seen/interviewed and examined by me at the bedside during ICU round, Medical records reviewed and Management issues were discussed and formulated with the house staff. Events reviewed I have reviewed all the relevant clinical, laboratory, hemodynamic, radiographic data and medications Pain issues, skin care, head of the bed elevation, glycemic control were addressed. I concur with resident's assessment and plan of care as transcribed in Dr. Cotton note.
--- NOTE | 2018-07-23 13:22 | CP.PCM.PN ---
Subjective - Date & Time of Evaluation Date of Evaluation: 07/23/18 Time of Evaluation: 13:17 - Subjective Subjective: Pt s/e. Extubated. sinus tach-O2 sat satisfactory. CXR : Right upper lobe reexpanded. chest tube: 150cc of ss fluid-no air leak. a/p: satisfactory POD#1 Continue current supportive care. Objective - Vital Signs/Intake and Output Vital Signs (last 24 hours): Temp Pulse Resp BP Pulse Ox 97.5 F L 121 H 17 91/48 L 95 07/23/18 12:00 07/23/18 12:10 07/23/18 12:10 07/23/18 12:10 07/23/18 12:10 Intake and Output: 07/23/18 07/23/18 06:59 18:59 Intake Total 382.86 996.4 Output Total 80 735 Balance 302.86 261.4 - Medications Medications: Current Medications Albuterol/Ipratropium (Duoneb 3 Mg/0.5 Mg (3 Ml) Ud) 3 ml INH RQ6 [facility] Last Admin: 07/23/18 08:24 Dose: 3 ml Finasteride (Proscar) 5 mg PO DAILY [facility] Last Admin: 07/22/18 09:27 Dose: 5 mg Piperacillin Sod/Tazobactam Sod (Zosyn 2.25 Gm Iv Premix) 2.25 gm in 50 mls @ 100 mls/hr IVPB Q8 [facility] PRN Reason: Protocol Last Admin: 07/23/18 06:24 Dose: 100 mls/hr Latanoprost (Xalatan Opht) 0.05 ml OU HS [facility] Last Admin: 07/22/18 23:00 Dose: 0.05 ml Morphine Sulfate (Morphine) 2 mg IVP Q4 PRN PRN Reason: Pain, severe (8-10) Pantoprazole Sodium (Protonix Inj) 40 mg IVP DAILY [facility] Last Admin: 07/23/18 10:29 Dose: 40 mg Tamsulosin HCl (Flomax) 0.4 mg PO DAILY [facility] Last Admin: 07/22/18 09:27 Dose: 0.4 mg - Labs Labs: 07/23/18 06:17 07/23/18 06:17 PT 12.9 SECONDS (9.7-12.2) H 07/21/18 17:46 INR 1.2 07/21/18 17:46 APTT 32 SECONDS (21-34) 07/21/18 17:46
--- NOTE | 2018-07-23 16:00 | CP.PCM.CON ---
History of Present Illness - History of Present Illness History of Present Illness: Cardiology consult note ( Dr. Graham covering Dr. Ricci's service) CC: Pericardial effusion HPI: As per EMR as patient was intubated during the encounter Patient is a 78 year old male with past medical history of HTN, DM type 2, high cholesterol, BPH, corneal transplant, prostate CA, UTI, hematuria, lung cancer on treatment with complaint of increasing shortness of breath and cough that started a month ago. Patient also presented with complaint of significant weight loss. Patient was admitted to the ICU for noted pericardial effusion s/p 1.5L blood in pericardium drainage (pericardial window and drainage). Cardiology consultation placed for pericardial effusion. During evaluation, unable to evaluate ROS and obtain HPI due to current patient's status. PMD: Dr. Lux PMHx: HTN, DM type 2, high cholesterol, BPH, corneal transplant, prostate CA, UTI, hematuria, lung cancer PSHx: Prostate seeds, Corneal transplant FHx: Noncontributory Medications: refer to the emr Allergies: NKDA Social Hx: Lives with family. Former smoker, nonalcoholic and denies illicit drugs Review of Systems - Review of Systems Review of Systems: Unable to evaluate as patient is currently intubated with mild sedation Past Patient History - Past Medical History & Family History Past Medical History?: Yes - Past Social History Smoking Status: Never Smoked - CARDIAC Hx Hypercholesterolemia: Yes Hx Hypertension: Yes - PULMONARY Hx Pneumonia: Yes (childhood) - NEUROLOGICAL Hx Neurological Disorder: No - HEENT Hx HEENT Problems: Yes Hx Cataracts: Yes Other/Comment: corneal transplant both eyes 5yrs ago - RENAL Hx Chronic Kidney Disease: No Hx Dialysis: No - ENDOCRINE/METABOLIC Hx Endocrine Disorders: Yes Hx Diabetes Mellitus Type 2: Yes - HEMATOLOGICAL/ONCOLOGICAL Hx Anemia: Yes (Requires transfusion) - INTEGUMENTARY Hx Dermatological Problems: No - MUSCULOSKELETAL/RHEUMATOLOGICAL Hx Arthritis: Yes (B/L KNEES) Hx Falls: No Hx Fractures: Yes (ANKLE NO SURGERY) - GASTROINTESTINAL Hx Gastrointestinal Disorders: No - GENITOURINARY/GYNECOLOGICAL Hx Genitourinary Disorders: Yes (retention) - PSYCHIATRIC Hx Anxiety: Yes Hx Substance Use: No - SURGICAL HISTORY Hx Surgeries: Yes - ANESTHESIA Hx Anesthesia: Yes Hx Anesthesia Reactions: No Hx Malignant Hyperthermia: No Meds Allergies/Adverse Reactions: Allergies Allergy/AdvReac Type Severity Reaction Status Date / Time No Known Allergies Allergy Verified 07/21/18 17:04 - Medications Medications: Current Medications Albuterol/Ipratropium (Duoneb 3 Mg/0.5 Mg (3 Ml) Ud) 3 ml INH RQ6 [facility] Last Admin: 07/23/18 13:37 Dose: 3 ml Finasteride (Proscar) 5 mg PO DAILY [facility] Last Admin: 07/23/18 15:12 Dose: 5 mg Piperacillin Sod/Tazobactam Sod (Zosyn 2.25 Gm Iv Premix) 2.25 gm in 50 mls @ 100 mls/hr IVPB Q8 [facility] PRN Reason: Protocol Last Admin: 07/23/18 14:35 Dose: 100 mls/hr Latanoprost (Xalatan Opht) 0.05 ml OU HS [facility] Last Admin: 07/22/18 23:00 Dose: 0.05 ml Morphine Sulfate (Morphine) 2 mg IVP Q4 PRN PRN Reason: Pain, severe (8-10) Pantoprazole Sodium (Protonix Inj) 40 mg IVP DAILY [facility] Last Admin: 07/23/18 10:29 Dose: 40 mg Tamsulosin HCl (Flomax) 0.4 mg PO DAILY [facility] Last Admin: 07/23/18 15:12 Dose: 0.4 mg Physical Exam - Constitutional Appears: No Acute Distress - Head Exam Head Exam: ATRAUMATIC - Eye Exam Eye Exam: EOMI - Respiratory Exam Respiratory Exam: NORMAL BREATHING PATTERN Additional comments: Intubation - Cardiovascular Exam Cardiovascular Exam: REGULAR RHYTHM, +S1, +S2 - GI/Abdominal Exam GI & Abdominal Exam: Normal Bowel Sounds, Soft - Extremities Exam Extremities exam: Positive for: normal inspection. Negative for: calf tenderness, pedal edema - Neurological Exam Neurological exam: Alert, Oriented x3 Results - Vital Signs Recent Vital Signs: Last Vital Signs Temp 97.5 F L 07/23/18 12:00 Pulse 121 H 07/23/18 13:10 Resp 16 07/23/18 13:10 BP 91/52 L 07/23/18 13:10 Pulse Ox 94 L 07/23/18 13:10 - Labs Result Diagrams: 07/23/18 06:17 07/23/18 06:17 Labs: Laboratory Results - last 24 hr 07/22/18 07/22/18 07/22/18 13:05 19:50 19:50 WBC 7.5 RBC 3.81 L Hgb 9.7 L Hct 30.7 L MCV 80.6 MCH 25.6 L MCHC 31.7 L RDW 21.7 H Plt Count 241 MPV 7.6 Neut % (Auto) 86.2 H Lymph % (Auto) 3.9 L [place] % (Auto) 7.7 Eos % (Auto) 1.9 Baso % (Auto) 0.3 Neut # (Auto) 6.5 Lymph # (Auto) 0.3 L [place] # (Auto) 0.6 Eos # (Auto) 0.1 Baso # (Auto) 0.0 Neutrophils % (Manual) 95 H Band Neutrophils % Lymphocytes % (Manual) 4 L Monocytes % (Manual) 1 Toxic Granulation Platelet Estimate Normal Polychromasia Slight Hypochromasia (manual) Slight Poikilocytosis (manual Anisocytosis (manual) Slight Ovalocytes Slight Puncture Site pCO2 pO2 HCO3 ABG pH ABG Total CO2 ABG O2 Saturation ABG Base Excess ABG Hemoglobin ABG Carboxyhemoglobin POC ABG HHb (Measured) ABG Methemoglobin Braulio Test A-a O2 Difference Respiratory Index Hgb O2 Saturation Vent Mode Mechanical Rate FiO2 Tidal Volume PEEP Crit Value Called To Crit Value Called By Crit Value Read Back Blood Gas Notified Time Sodium 136 Potassium 4.6 Chloride 106 Carbon Dioxide 15 L Anion Gap 19 BUN 63 H Creatinine 2.2 H Est GFR ( Amer) 35 Est GFR (Non-Af Amer) 29 POC Glucose (mg/dL) Random Glucose 206 H Calcium 8.5 L Phosphorus 4.2 Magnesium 2.0 Total Bilirubin 0.1 L AST 18 ALT 21 Alkaline Phosphatase 95 Total Creatine Kinase 62 CK-MB (Mass) 2.10 Troponin I 0.0200 Total Protein 6.6 Albumin 3.4 L Globulin 3.2 Albumin/Globulin Ratio 1.0 Fluid Source Fluid Appearance Fluid WBC Fluid RBC Fluid Tot Cell Count Fluid Neutrophils Fluid Lymphocytes Fld Monocyte/Macrophag Fluid Comment C. difficile Ag & Toxin Negative Blood Type Antibody Screen 07/22/18 07/23/18 07/23/18 23:07 02:47 05:36 WBC RBC Hgb Hct MCV MCH MCHC RDW Plt Count MPV Neut % (Auto) Lymph % (Auto) [place] % (Auto) Eos % (Auto) Baso % (Auto) Neut # (Auto) Lymph # (Auto) [place] # (Auto) Eos # (Auto) Baso # (Auto) Neutrophils % (Manual) Band Neutrophils % Lymphocytes % (Manual) Monocytes % (Manual) Toxic Granulation Platelet Estimate Polychromasia Hypochromasia (manual) Poikilocytosis (manual Anisocytosis (manual) Ovalocytes Puncture Site A-line A-line pCO2 42 35 pO2 90 295 H HCO3 14.8 L 17.9 L ABG pH 7.16 L* 7.29 L ABG Total CO2 16.3 L 17.9 L ABG O2 Saturation 97.5 99.5 H ABG Base Excess -12.9 L -9.0 L ABG Hemoglobin 9.6 L 9.1 L ABG Carboxyhemoglobin 2.0 H 1.3 POC ABG HHb (Measured) 2.4 0.5 ABG Methemoglobin 1.0 1.5 Braulio Test Na Na A-a O2 Difference 571.0 374.0 Respiratory Index 6.3 1.3 Hgb O2 Saturation 94.6 L 96.8 Vent Mode Prvc Prvc Mechanical Rate 14 14 FiO2 100.0 100.0 Tidal Volume 500 450 PEEP 8 8 Crit Value Called To Serafin redito horticulture instructor Crit Value Called By Magalie andrews rt Crit Value Read Back Y Blood Gas Notified Time 252 Sodium Potassium Chloride Carbon Dioxide Anion Gap BUN Creatinine Est GFR ( Amer) Est GFR (Non-Af Amer) POC Glucose (mg/dL) Random Glucose Calcium Phosphorus Magnesium Total Bilirubin AST ALT Alkaline Phosphatase Total Creatine Kinase CK-MB (Mass) Troponin I Total Protein Albumin Globulin Albumin/Globulin Ratio Fluid Source Fluid Appearance Fluid WBC Fluid RBC Fluid Tot Cell Count Fluid Neutrophils Fluid Lymphocytes Fld Monocyte/Macrophag Fluid Comment C. difficile Ag & Toxin Blood Type O POSITIVE Antibody Screen Negative 07/23/18 07/23/18 07/23/18 06:17 06:17 08:13 WBC 9.5 RBC 3.67 L Hgb 9.4 L Hct 29.6 L MCV 80.5 MCH 25.5 L MCHC 31.7 L RDW 21.1 H Plt Count 197 MPV 7.6 Neut % (Auto) 89.5 H Lymph % (Auto) 3.1 L [place] % (Auto) 7.0 Eos % (Auto) 0.2 Baso % (Auto) 0.2 Neut # (Auto) 8.5 H Lymph # (Auto) 0.3 L [place] # (Auto) 0.7 Eos # (Auto) 0.0 Baso # (Auto) 0.0 Neutrophils % (Manual) 75 Band Neutrophils % 12 H* Lymphocytes % (Manual) 6 L Monocytes % (Manual) 7 Toxic Granulation Present Platelet Estimate Normal Polychromasia Hypochromasia (manual) Moderate Poikilocytosis (manual Slight Anisocytosis (manual) Moderate Ovalocytes Slight Puncture Site pCO2 pO2 HCO3 ABG pH ABG Total CO2 ABG O2 Saturation ABG Base Excess ABG Hemoglobin ABG Carboxyhemoglobin POC ABG HHb (Measured) ABG Methemoglobin Braulio Test A-a O2 Difference Respiratory Index Hgb O2 Saturation Vent Mode Mechanical Rate FiO2 Tidal Volume PEEP Crit Value Called To Crit Value Called By Crit Value Read Back Blood Gas Notified Time Sodium 137 Potassium 4.7 Chloride 108 H Carbon Dioxide 16 L Anion Gap 18 BUN 61 H Creatinine 2.0 H Est GFR ( Amer) 40 Est GFR (Non-Af Amer) 33 POC Glucose (mg/dL) Random Glucose 153 H Calcium 7.9 L Phosphorus 5.3 H Magnesium 2.0 Total Bilirubin 0.3 AST 20 ALT 28 Alkaline Phosphatase 74 Total Creatine Kinase CK-MB (Mass) Troponin I Total Protein 6.0 L Albumin 3.0 L Globulin 3.0 Albumin/Globulin Ratio 1.0 Fluid Source Pericardial Fluid Appearance Bloody Fluid WBC 8522.0 H Fluid RBC 8041470.0 H Fluid Tot Cell Count 100 H Fluid Neutrophils 71.0 H Fluid Lymphocytes 10.0 H Fld Monocyte/Macrophag 3 H Fluid Comment C. difficile Ag & Toxin Blood Type Antibody Screen 07/23/18 11:15 WBC RBC Hgb Hct MCV MCH MCHC RDW Plt Count MPV Neut % (Auto) Lymph % (Auto) [place] % (Auto) Eos % (Auto) Baso % (Auto) Neut # (Auto) Lymph # (Auto) [place] # (Auto) Eos # (Auto) Baso # (Auto) Neutrophils % (Manual) Band Neutrophils % Lymphocytes % (Manual) Monocytes % (Manual) Toxic Granulation Platelet Estimate Polychromasia Hypochromasia (manual) Poikilocytosis (manual Anisocytosis (manual) Ovalocytes Puncture Site pCO2 pO2 HCO3 ABG pH ABG Total CO2 ABG O2 Saturation ABG Base Excess ABG Hemoglobin ABG Carboxyhemoglobin POC ABG HHb (Measured) ABG Methemoglobin Braulio Test A-a O2 Difference Respiratory Index Hgb O2 Saturation Vent Mode Mechanical Rate FiO2 Tidal Volume PEEP Crit Value Called To Crit Value Called By Crit Value Read Back Blood Gas Notified Time Sodium Potassium Chloride Carbon Dioxide Anion Gap BUN Creatinine Est GFR ( Amer) Est GFR (Non-Af Amer) POC Glucose (mg/dL) 140 H Random Glucose Calcium Phosphorus Magnesium Total Bilirubin AST ALT Alkaline Phosphatase Total Creatine Kinase CK-MB (Mass) Troponin I Total Protein Albumin Globulin Albumin/Globulin Ratio Fluid Source Fluid Appearance Fluid WBC Fluid RBC Fluid Tot Cell Count Fluid Neutrophils Fluid Lymphocytes Fld Monocyte/Macrophag Fluid Comment C. difficile Ag & Toxin Blood Type Antibody Screen Assessment & Plan (1) Pericardial effusion Assessment and Plan: Patient is a 78 year old male with past medical history of HTN, DM type 2, high cholesterol, BPH, corneal transplant, prostate CA, UTI, hematuria, lung cancer on treatment with complaint of increasing shortness of breath and cough that started a month ago. Patient was noted on admission for pericardial effusion, with echocardiogram noting: Normal LV function, EF (65-70%), Large circumferential pericardial effusion. Evidence of diastolic compression of RV pericardial effusion. 1. s/p 1.5L blood in pericardium drainage (pericardial window and drainage) 2. Currently stable and intubated with mild sedation 3. Plans for extubation today by ICU team 4. Will continue to follow hospital course Status: Acute
--- NOTE | 2018-07-23 20:52 | CP.PCM.PN ---
Subjective - Date & Time of Evaluation Date of Evaluation: 07/23/18 Time of Evaluation: 20:52 - Subjective Subjective: Today postoperative day one. Patient had emergency pericardial window, 1 L of hemorrhagic fluid removed, still having drainage noted. Patient is currently on ventilator. Oxygen is better. Patient is awake and responding. Possibly will start weaning. On examination: Vital signs stable. Chest good air entry. Regular heart sound. Abdominal tenderness negative. Assessment: 78-year-old male with a history of prostate cancer. History of COPD Diagnosed with the lung cancer, on treatment. Now admitted with a pericardial tamponade cardiogenic shock acute renal failure status post a pericardial window. Renal insufficiency improving We will possibly wean the patient today and will follow the patient Objective - Vital Signs/Intake and Output Vital Signs (last 24 hours): Temp Pulse Resp BP Pulse Ox 98.6 F 106 H 22 100/41 L 95 07/23/18 16:00 07/23/18 19:02 07/23/18 19:02 07/23/18 19:02 07/23/18 19:02 Intake and Output: 07/23/18 07/24/18 18:59 06:59 Intake Total 1746.4 150 Output Total 1043 Balance 703.4 150 - Medications Medications: Current Medications Albuterol/Ipratropium (Duoneb 3 Mg/0.5 Mg (3 Ml) Ud) 3 ml INH RQ6 [facility] Last Admin: 07/23/18 19:37 Dose: 3 ml Finasteride (Proscar) 5 mg PO DAILY [facility] Last Admin: 07/23/18 15:12 Dose: 5 mg Piperacillin Sod/Tazobactam Sod (Zosyn 2.25 Gm Iv Premix) 2.25 gm in 50 mls @ 100 mls/hr IVPB Q8 [facility] PRN Reason: Protocol Last Admin: 07/23/18 14:35 Dose: 100 mls/hr Insulin Human Regular (Novolin R) 0 unit SC ACHS [facility] PRN Reason: Protocol Latanoprost (Xalatan Opht) 0.05 ml OU HS [facility] Last Admin: 07/22/18 23:00 Dose: 0.05 ml Morphine Sulfate (Morphine) 2 mg IVP Q4 PRN PRN Reason: Pain, severe (8-10) Last Admin: 07/23/18 16:07 Dose: 2 mg Pantoprazole Sodium (Protonix Inj) 40 mg IVP DAILY [facility] Last Admin: 07/23/18 10:29 Dose: 40 mg Tamsulosin HCl (Flomax) 0.4 mg PO DAILY [facility] Last Admin: 07/23/18 15:12 Dose: 0.4 mg - Labs Labs: 07/23/18 06:17 07/23/18 06:17 PT 12.9 SECONDS (9.7-12.2) H 07/21/18 17:46 INR 1.2 07/21/18 17:46 APTT 32 SECONDS (21-34) 07/21/18 17:46
--- NOTE | 2018-07-23 20:53 | CP.PCM.PN ---
Subjective - Date & Time of Evaluation Date of Evaluation: 07/22/18 Time of Evaluation: 21:33 - Subjective Subjective: Patient was seen by me in the evening time. Family was at bedside. Patient was having difficult time in breathing. He was not able to lie flat. He was holding the chest in the anterior chest, having some tightness and unable to lie flat shortness of breath even at rest. I reviewed the patient's echocardiogram which was done in the morning, there was a severe concern about the cardiac tamponade, and also pericardial effusion. I discussed with the Dr. Ricci, who recommended that the patient will need emergency pericardial window likely to decompress the heart. I discussed with the cardiothoracic surgeon. Patient will be transferred to ICU. Possibly emergency surgery will be done tonight. I spoke to the patient's family in details. Will continue the current treatment. Objective - Vital Signs/Intake and Output Vital Signs (last 24 hours): Temp Pulse Resp BP Pulse Ox 98.6 F 106 H 22 100/41 L 95 07/23/18 16:00 07/23/18 19:02 07/23/18 19:02 07/23/18 19:02 07/23/18 19:02 Intake and Output: 07/23/18 07/24/18 18:59 06:59 Intake Total 1746.4 150 Output Total 1043 Balance 703.4 150 - Medications Medications: Current Medications Albuterol/Ipratropium (Duoneb 3 Mg/0.5 Mg (3 Ml) Ud) 3 ml INH RQ6 [facility] Last Admin: 07/23/18 19:37 Dose: 3 ml Finasteride (Proscar) 5 mg PO DAILY [facility] Last Admin: 07/23/18 15:12 Dose: 5 mg Piperacillin Sod/Tazobactam Sod (Zosyn 2.25 Gm Iv Premix) 2.25 gm in 50 mls @ 100 mls/hr IVPB Q8 [facility] PRN Reason: Protocol Last Admin: 07/23/18 14:35 Dose: 100 mls/hr Insulin Human Regular (Novolin R) 0 unit SC ACHS [facility] PRN Reason: Protocol Latanoprost (Xalatan Opht) 0.05 ml OU HS [facility] Last Admin: 07/22/18 23:00 Dose: 0.05 ml Morphine Sulfate (Morphine) 2 mg IVP Q4 PRN PRN Reason: Pain, severe (8-10) Last Admin: 07/23/18 16:07 Dose: 2 mg Pantoprazole Sodium (Protonix Inj) 40 mg IVP DAILY [facility] Last Admin: 07/23/18 10:29 Dose: 40 mg Tamsulosin HCl (Flomax) 0.4 mg PO DAILY [facility] Last Admin: 07/23/18 15:12 Dose: 0.4 mg - Labs Labs: 07/23/18 06:17 07/23/18 06:17 PT 12.9 SECONDS (9.7-12.2) H 07/21/18 17:46 INR 1.2 07/21/18 17:46 APTT 32 SECONDS (21-34) 07/21/18 17:46
--- NOTE | 2018-07-23 21:41 | CARD ---
APPROVED REPORT Date of service: 07/22/2018 EKG Measurement Heart [id number] <Conclusion> Sinus tachycardia with APCs Nonspecific T wave abnormality Abnormal ECG
[2018-07-23] MEDS: (Novolin R) Insulin Human Regular 100 units/ml vial SC SCH (22:58)
[2018-07-23] MEDS: Latanoprost 2.5 ml Opht Soln OU SCH (23:00)
[2018-07-24] MEDS: Albuterol-Ipratrop 3 mg / 0.5 (3 ml) UD INH SCH ×4 (02:08→19:32)
[2018-07-24] MEDS: Piperacill/Tazo 2.25gm in Dex 2.25 GM/50 ML BAG IVPB SCH ×3 (05:39→22:13)
[2018-07-24 06:30] LABS: BASO % 0.5 % (0.0-2.0); EOS # 0.2 K/uL (0.0-0.7); EOS % 2.4 % (0.0-4.0); HEMOGLOBIN 8.4 g/dL (12.0-18.0); LYMPH # 0.3 K/uL (1.0-4.3); LYMPH % 3.5 % (20.0-40.0); MEAN CELL VOLUME 78.2 fL (80.0-94.0); MEAN CORPUSCULAR HEMOGLOBIN 25.2 pg (27.0-31.0); MEAN CORPUSCULAR HGB CONC 32.3 g/dL (33.0-37.0); MEAN PLATELET VOLUME 7.6 fL (7.2-11.7); MONO # 0.6 K/uL (0.0-0.8); MONO % 7.1 % (0.0-10.0); NEUT # 7.4 K/uL (1.8-7.0); NEUT % 86.5 % (50.0-75.0); PLATELET COUNT 186 K/uL (130-400); RBC 3.32 Mil/uL (4.40-5.90); RED CELL DISTRIBUTION WIDTH 21.3 % (11.5-14.5); WHITE BLOOD COUNT 8.6 K/uL (4.8-10.8)
[2018-07-24 06:50] LABS: ALB/GLOB RATIO 0.9 (1.0-2.1); ALBUMIN 2.6 g/dL (3.5-5.0); CALCIUM 7.4 mg/dl (8.6-10.4)
[2018-07-24] MEDS ORDERED: Bisacodyl 5mg EC Tab PO ONE (07:55)
[2018-07-24] MEDS: (Novolin R) Insulin Human Regular 100 units/ml vial SC SCH ×4 (08:00→22:14)
[2018-07-24] MEDS: HYDROmorphone 0.5 mg/0.5 ml ISec IVP PRN ×3 (08:23→23:45)
[2018-07-24 08:32] LABS: EOSINOPHIL 1 % (0-4); LYMPHOCYTE 2 % (20-40); MONOCYTE 1 % (0-10); NEUTROPHIL 96 % (50-75); TOTAL CELLS COUNTED 100
[2018-07-24 08:33] LABS: ANISOCYTOSIS SLIGHT; HYPOCHROMIC SLIGHT; PLATELET ESTIMATE NORMAL (NORMAL); POLYCHROMIC SLIGHT
--- NOTE | 2018-07-24 08:36 | RAD ---
Date of service: 07/24/2018 HISTORY: pericardial effusion/CTs COMPARISON: 07/23/2018 FINDINGS: LUNGS: rounded left perihilar opacity may reflect infiltrate or neoplasm. No other significant abnormal opacity. PLEURA: Probable small left pleural effusion. No right pleural effusion. No pneumothorax. CARDIOVASCULAR: Normal heart size. No congestive change. OSSEOUS STRUCTURES: No significant abnormalities. VISUALIZED UPPER ABDOMEN: Normal. OTHER FINDINGS: None. IMPRESSION: Rounded opacity adjacent to left hilum possibly neoplastic versus infectious. Correlating with CT examination of 07/21/2018, suspicious for malignant neoplasm.
[2018-07-24] MEDS ORDERED: Tramadol 25 mg PO PRN (08:42)
--- NOTE | 2018-07-24 08:48 | CP.PCM.PN ---
Subjective - Date & Time of Evaluation Date of Evaluation: 07/24/18 Time of Evaluation: 08:43 - Subjective Subjective: Surgery Pt seen and examined. Extubated. Pain controlled. anterior b/ chest tube in place. no leak. SOB improved. Denies fever, nausea, weakness. Objective - Vital Signs/Intake and Output Vital Signs (last 24 hours): Temp Pulse Resp BP Pulse Ox 98 F 105 H 21 119/51 L 93 L 07/24/18 04:00 07/24/18 07:01 07/24/18 07:01 07/24/18 08:30 07/24/18 07:01 Intake and Output: 07/24/18 07/24/18 06:59 18:59 Intake Total 925 Output Total 307 Balance 618 - Medications Medications: Current Medications Albuterol/Ipratropium (Duoneb 3 Mg/0.5 Mg (3 Ml) Ud) 3 ml INH RQ6 [facility] Last Admin: 07/24/18 07:35 Dose: 3 ml Finasteride (Proscar) 5 mg PO DAILY [facility] Last Admin: 07/23/18 15:12 Dose: 5 mg Hydromorphone HCl (Dilaudid) 0.5 mg IVP Q6H PRN PRN Reason: Pain, severe (8-10) Last Admin: 07/24/18 08:23 Dose: 0.5 mg Piperacillin Sod/Tazobactam Sod (Zosyn 2.25 Gm Iv Premix) 2.25 gm in 50 mls @ 100 mls/hr IVPB Q8 [facility] PRN Reason: Protocol Last Admin: 07/24/18 05:39 Dose: 100 mls/hr Insulin Human Regular (Novolin R) 0 unit SC ACHS [facility] PRN Reason: Protocol Last Admin: 07/23/18 22:58 Dose: Not Given Latanoprost (Xalatan Opht) 0.05 ml OU HS [facility] Last Admin: 07/23/18 23:00 Dose: 0.05 ml Pantoprazole Sodium (Protonix Inj) 40 mg IVP DAILY [facility] Last Admin: 07/23/18 10:29 Dose: 40 mg Tamsulosin HCl (Flomax) 0.4 mg PO DAILY [facility] Last Admin: 07/23/18 15:12 Dose: 0.4 mg Tramadol HCl (Ultram) 25 mg PO TID PRN PRN Reason: Pain, moderate (4-7) - Labs Labs: 07/24/18 06:23 07/24/18 06:23 PT 12.9 SECONDS (9.7-12.2) H 07/21/18 17:46 INR 1.2 07/21/18 17:46 APTT 32 SECONDS (21-34) 07/21/18 17:46 - Constitutional Appears: No Acute Distress - Head Exam Head Exam: ATRAUMATIC, NORMAL INSPECTION, NORMOCEPHALIC - Eye Exam Eye Exam: EOMI, Normal appearance, PERRL Pupil Exam: NORMAL ACCOMODATION, PERRL - ENT Exam ENT Exam: Mucous Membranes Moist, Normal Exam - Neck Exam Neck Exam: Full ROM, Normal Inspection. absent: Lymphadenopathy - Respiratory Exam Respiratory Exam: NORMAL BREATHING PATTERN - Cardiovascular Exam Cardiovascular Exam: Tachycardia Additional comments: anterior b/l chest tube 100cc SS /24hrs. - GI/Abdominal Exam GI & Abdominal Exam: Soft, Normal Bowel Sounds. absent: Guarding, Tenderness - Exam Exam: NORMAL INSPECTION - Extremities Exam Extremities Exam: Full ROM, Normal Capillary Refill, Normal Inspection. absent : Joint Swelling, Pedal Edema - Back Exam Back Exam: NORMAL INSPECTION - Neurological Exam Neurological Exam: Alert, Awake, CN II-XII Intact, Normal Gait, Oriented x3 - Psychiatric Exam Psychiatric exam: Normal Affect, Normal Mood - Skin Skin Exam: Dry, Intact, Normal Color, Warm Assessment and Plan - Assessment and Plan (Free Text) Assessment: POD 1 s/p pericardial window 2 anterior chest wall tube: 100cc ss /24hrs. -Chest tube to suction -Monitor output -Pain control -Advance diet as tolerated -OOB/ambulation -Medical management WIll SANDRO Yañez
--- NOTE | 2018-07-24 09:41 | CP.PCM.PN ---
Subjective - Date & Time of Evaluation Date of Evaluation: 07/23/18 Time of Evaluation: 18:15 - Subjective Subjective: Feeling better s/p pericardial window and chest tube Objective - Vital Signs/Intake and Output Vital Signs (last 24 hours): Temp Pulse Resp BP Pulse Ox 98 F 105 H 21 119/51 L 93 L 07/24/18 04:00 07/24/18 07:01 07/24/18 07:01 07/24/18 08:30 07/24/18 07:01 Intake and Output: 07/24/18 07/24/18 06:59 18:59 Intake Total 925 Output Total 307 Balance 618 - Medications Medications: Current Medications Albuterol/Ipratropium (Duoneb 3 Mg/0.5 Mg (3 Ml) Ud) 3 ml INH RQ6 [facility] Last Admin: 07/24/18 07:35 Dose: 3 ml Finasteride (Proscar) 5 mg PO DAILY [facility] Last Admin: 07/23/18 15:12 Dose: 5 mg Hydromorphone HCl (Dilaudid) 0.5 mg IVP Q6H PRN PRN Reason: Pain, severe (8-10) Last Admin: 07/24/18 08:23 Dose: 0.5 mg Piperacillin Sod/Tazobactam Sod (Zosyn 2.25 Gm Iv Premix) 2.25 gm in 50 mls @ 100 mls/hr IVPB Q8 [facility] PRN Reason: Protocol Last Admin: 07/24/18 05:39 Dose: 100 mls/hr Insulin Human Regular (Novolin R) 0 unit SC ACHS [facility] PRN Reason: Protocol Last Admin: 07/24/18 08:00 Dose: Not Given Latanoprost (Xalatan Opht) 0.05 ml OU HS [facility] Last Admin: 07/23/18 23:00 Dose: 0.05 ml Pantoprazole Sodium (Protonix Inj) 40 mg IVP DAILY [facility] Last Admin: 07/23/18 10:29 Dose: 40 mg Tamsulosin HCl (Flomax) 0.4 mg PO DAILY [facility] Last Admin: 07/23/18 15:12 Dose: 0.4 mg Tramadol HCl (Ultram) 25 mg PO TID PRN PRN Reason: Pain, moderate (4-7) - Labs Labs: 07/24/18 06:23 07/24/18 06:23 PT 12.9 SECONDS (9.7-12.2) H 07/21/18 17:46 INR 1.2 07/21/18 17:46 APTT 32 SECONDS (21-34) 07/21/18 17:46 - Head Exam Head Exam: ATRAUMATIC - Eye Exam Eye Exam: Normal appearance - ENT Exam ENT Exam: Mucous Membranes Dry - Respiratory Exam Respiratory Exam: NORMAL BREATHING PATTERN - Cardiovascular Exam Cardiovascular Exam: +S1, +S2 - GI/Abdominal Exam GI & Abdominal Exam: Normal Bowel Sounds Assessment and Plan (1) Pericardial effusion with cardiac tamponade Assessment & Plan: s/p pericardial window and chest tube f/u cytology Status: Acute (2) Anemia Assessment & Plan: anemia of chronic disease from malignancy recent cancer therapy Status: Acute (3) Lung cancer Assessment & Plan: stage IV on treatment with Dr. Slade Status: Acute (4) History of prostate cancer Assessment & Plan: in remission f/u PSA Status: Acute
--- NOTE | 2018-07-24 09:51 | CP.PCM.PN ---
Subjective - Date & Time of Evaluation Date of Evaluation: 07/24/18 Time of Evaluation: 09:51 - Subjective Subjective: Patient extubated yesterday. This afternoon patient had an episode of shortness of breath. Lasix was given. Currently patient is feeling well. Cough noted. Weakness present. Chest tube pericardial tube noted On examination: Vital signs stable otherwise. On high flow oxygen. Chest decreased air entry Assessment: Patient admitted with cardiogenic shock secondary to cardiac tamponade heart secondary to malignant the pericardial effusion likely. Fluid analysis pending. Continue the supportive care. Will follow-up the patient Objective - Vital Signs/Intake and Output Vital Signs (last 24 hours): Temp Pulse Resp BP Pulse Ox 98 F 105 H 21 119/51 L 93 L 07/24/18 04:00 07/24/18 07:01 07/24/18 07:01 07/24/18 08:30 07/24/18 07:01 Intake and Output: 07/24/18 07/24/18 06:59 18:59 Intake Total 925 Output Total 307 Balance 618 - Medications Medications: Current Medications Albuterol/Ipratropium (Duoneb 3 Mg/0.5 Mg (3 Ml) Ud) 3 ml INH RQ6 [facility] Last Admin: 07/24/18 07:35 Dose: 3 ml Finasteride (Proscar) 5 mg PO DAILY [facility] Last Admin: 07/23/18 15:12 Dose: 5 mg Hydromorphone HCl (Dilaudid) 0.5 mg IVP Q6H PRN PRN Reason: Pain, severe (8-10) Last Admin: 07/24/18 08:23 Dose: 0.5 mg Piperacillin Sod/Tazobactam Sod (Zosyn 2.25 Gm Iv Premix) 2.25 gm in 50 mls @ 100 mls/hr IVPB Q8 [facility] PRN Reason: Protocol Last Admin: 07/24/18 05:39 Dose: 100 mls/hr Insulin Human Regular (Novolin R) 0 unit SC ACHS [facility] PRN Reason: Protocol Last Admin: 07/24/18 08:00 Dose: Not Given Latanoprost (Xalatan Opht) 0.05 ml OU HS [facility] Last Admin: 07/23/18 23:00 Dose: 0.05 ml Pantoprazole Sodium (Protonix Inj) 40 mg IVP DAILY [facility] Last Admin: 07/23/18 10:29 Dose: 40 mg Tamsulosin HCl (Flomax) 0.4 mg PO DAILY [facility] Last Admin: 07/23/18 15:12 Dose: 0.4 mg Tramadol HCl (Ultram) 25 mg PO TID PRN PRN Reason: Pain, moderate (4-7) - Labs Labs: 07/24/18 06:23 07/24/18 06:23 PT 12.9 SECONDS (9.7-12.2) H 07/21/18 17:46 INR 1.2 07/21/18 17:46 APTT 32 SECONDS (21-34) 07/21/18 17:46
--- NOTE | 2018-07-24 10:44 | CP.CCUPN ---
<Sukh Cotton - Last Filed: 07/24/18 10:44> CCU Subjective - Physician Review Subjective (Free Text): Critical care progress note: Pt seen and examined at bedside. Patient was placed on Venti max and sat to high 80's. Was placed on high flow oxygen at 50%. . No complaints at this time. 12 Point ROS performed and neg other than stated above. CCU Objective - Vital Signs / Intake & Output Vital Signs (Last 4 hours): Vital Signs Pulse Resp BP Pulse Ox 07/24/18 08:30 119/51 L 07/24/18 07:01 105 H 21 113/53 L 93 L 07/24/18 06:52 20 Intake and Output (Last 8hrs): Intake & Output 07/23/18 07/24/18 07/24/18 22:59 06:59 14:59 Intake Total 1150 375 Output Total 428 122 Balance 722 253 Weight 185 lb 11.2 oz Intake: Intake, IV Amount 800 50 Right Forearm 800 50 Oral 350 325 Output: Chest Tube Drainage 38 82 Right mid anterior chest 38 82 Urine 390 40 Urethral (Walker) 390 40 - Physical Exam Head: Positive for: Atraumatic, Normocephalic Pupils: Positive for: PERRL Extroacular Muscles: Positive for: EOMI Mouth: Positive for: Moist Mucous Membranes Neck: Positive for: Normal Range of Motion. Negative for: JVD Respiratory/Chest: Positive for: Clear to Auscultation, Good Air Exchange. Negative for: Wheezes, Rales Cardiovascular: Positive for: Regular Rate and Rhythm, Normal S1, S2, Other ( preicardial drain ) Abdomen: Positive for: Normal Bowel Sounds. Negative for: Tenderness, Distention Upper Extremity: Negative for: Cyanosis, Edema Lower Extremity: Negative for: Edema, CALF TENDERNESS Neurological: Positive for: GCS=15, CN II-XII Intact Skin: Positive for: Warm, Dry Psychiatric: Positive for: Alert, Oriented x 3 - Medications Active Medications: Active Medications Generic Name Dose Route Start Last Admin Trade Name Freq PRN Reason Stop Dose Admin Albuterol/Ipratropium 3 ml 07/21/18 20:00 07/24/18 07:35 Duoneb 3 Mg/0.5 Mg (3 Ml) Ud INH 3 ml RQ6 ASPEN Administration Finasteride 5 mg 07/22/18 10:00 07/23/18 15:12 Proscar PO 5 mg DAILY ASPEN Administration Hydromorphone HCl 0.5 mg 07/24/18 07:57 07/24/18 08:23 Dilaudid IVP 0.5 mg Q6H PRN Administration Pain, severe (8-10) Piperacillin Sod/Tazobactam Sod 2.25 gm in 50 mls @ 100 mls/hr 07/22/18 14:00 07/24/18 05:39 Zosyn 2.25 Gm Iv Premix IVPB 100 mls/hr Q8 ASPEN Administration Protocol Insulin Human Regular 0 unit 07/23/18 22:00 07/24/18 08:00 Novolin R SC Not Given ACHS ASPEN Protocol Latanoprost 0.05 ml 07/21/18 22:00 07/23/18 23:00 Xalatan Opht OU 0.05 ml HS ASPEN Administration Pantoprazole Sodium 40 mg 07/22/18 10:00 07/23/18 10:29 Protonix Inj IVP 40 mg DAILY ASPEN Administration Tamsulosin HCl 0.4 mg 07/22/18 10:00 07/23/18 15:12 Flomax PO 0.4 mg DAILY ASPEN Administration - Patient Studies Lab Studies: Microbiology Studies 07/23/18 08:13 Gram Stain - Final Pericardial Fluid Body Fluid Culture - Preliminary NO GROWTH AFTER 24 HOURS Fungal Culture - Preliminary 07/21/18 21:29 Blood Culture - Preliminary Blood NO GROWTH AFTER 24 HOURS Lab Studies 07/24/18 07/24/18 07/23/18 Range/Units 06:23 06:23 21:16 WBC 8.6 (4.8-10.8) K/uL RBC 3.32 L (4.40-5.90) Mil/uL Hgb 8.4 L (12.0-18.0) g/dL Hct 26.0 L (35.0-51.0) % MCV 78.2 L D (80.0-94.0) fL MCH 25.2 L (27.0-31.0) pg MCHC 32.3 L (33.0-37.0) g/dL RDW 21.3 H (11.5-14.5) % Plt Count 186 (130-400) K/uL MPV 7.6 (7.2-11.7) fL Neut % (Auto) 86.5 H (50.0-75.0) % Lymph % (Auto) 3.5 L (20.0-40.0) % [place] % (Auto) 7.1 (0.0-10.0) % Eos % (Auto) 2.4 (0.0-4.0) % Baso % (Auto) 0.5 (0.0-2.0) % Neut # (Auto) 7.4 H (1.8-7.0) K/uL Lymph # (Auto) 0.3 L (1.0-4.3) K/uL [place] # (Auto) 0.6 (0.0-0.8) K/uL Eos # (Auto) 0.2 (0.0-0.7) K/uL Baso # (Auto) 0.0 (0.0-0.2) K/uL Neutrophils % (Manual) 96 H (50-75) % Lymphocytes % (Manual) 2 L (20-40) % Monocytes % (Manual) 1 (0-10) % Eosinophils % (Manual) 1 (0-4) % Platelet Estimate Normal (NORMAL) Polychromasia Slight Hypochromasia (manual) Slight Anisocytosis (manual) Slight Sodium 135 (132-148) mmol/L Potassium 3.7 (3.6-5.2) mmol/L Chloride 102 (98-107) mmol/L Carbon Dioxide 21 L (22-30) mmol/L Anion Gap 16 (10-20) BUN 47 H (9-20) mg/dL Creatinine 1.4 (0.8-1.5) mg/dL Est GFR ( Amer) 60 Est GFR (Non-Af Amer) 49 POC Glucose (mg/dL) 73 (65-110) mg/dL Random Glucose 135 H (75-110) mg/dL Calcium 7.4 L (8.6-10.4) mg/dl Phosphorus 3.4 (2.5-4.5) mg/dL Magnesium 1.8 (1.6-2.3) mg/dL Total Bilirubin 0.2 (0.2-1.3) mg/dL AST 22 (17-59) U/L ALT 18 L D (21-72) U/L Alkaline Phosphatase 74 (38-126) U/L Total Protein 5.5 L (6.3-8.3) g/dL Albumin 2.6 L (3.5-5.0) g/dL Globulin 2.9 (2.2-3.9) gm/dL Albumin/Globulin Ratio 0.9 L (1.0-2.1) 07/23/18 07/23/18 Range/Units 16:12 11:15 WBC (4.8-10.8) K/uL RBC (4.40-5.90) Mil/uL Hgb (12.0-18.0) g/dL Hct (35.0-51.0) % MCV (80.0-94.0) fL MCH (27.0-31.0) pg MCHC (33.0-37.0) g/dL RDW (11.5-14.5) % Plt Count (130-400) K/uL MPV (7.2-11.7) fL Neut % (Auto) (50.0-75.0) % Lymph % (Auto) (20.0-40.0) % [place] % (Auto) (0.0-10.0) % Eos % (Auto) (0.0-4.0) % Baso % (Auto) (0.0-2.0) % Neut # (Auto) (1.8-7.0) K/uL Lymph # (Auto) (1.0-4.3) K/uL [place] # (Auto) (0.0-0.8) K/uL Eos # (Auto) (0.0-0.7) K/uL Baso # (Auto) (0.0-0.2) K/uL Neutrophils % (Manual) (50-75) % Lymphocytes % (Manual) (20-40) % Monocytes % (Manual) (0-10) % Eosinophils % (Manual) (0-4) % Platelet Estimate (NORMAL) Polychromasia Hypochromasia (manual) Anisocytosis (manual) Sodium (132-148) mmol/L Potassium (3.6-5.2) mmol/L Chloride (98-107) mmol/L Carbon Dioxide (22-30) mmol/L Anion Gap (10-20) BUN (9-20) mg/dL Creatinine (0.8-1.5) mg/dL Est GFR ( Amer) Est GFR (Non-Af Amer) POC Glucose (mg/dL) 200 H 140 H (65-110) mg/dL Random Glucose (75-110) mg/dL Calcium (8.6-10.4) mg/dl Phosphorus (2.5-4.5) mg/dL Magnesium (1.6-2.3) mg/dL Total Bilirubin (0.2-1.3) mg/dL AST (17-59) U/L ALT (21-72) U/L Alkaline Phosphatase (38-126) U/L Total Protein (6.3-8.3) g/dL Albumin (3.5-5.0) g/dL Globulin (2.2-3.9) gm/dL Albumin/Globulin Ratio (1.0-2.1) Laboratory Results - last 24 hr 07/23/18 07/23/18 07/23/18 11:15 16:12 21:16 WBC RBC Hgb Hct MCV MCH MCHC RDW Plt Count MPV Neut % (Auto) Lymph % (Auto) [place] % (Auto) Eos % (Auto) Baso % (Auto) Neut # (Auto) Lymph # (Auto) [place] # (Auto) Eos # (Auto) Baso # (Auto) Neutrophils % (Manual) Lymphocytes % (Manual) Monocytes % (Manual) Eosinophils % (Manual) Platelet Estimate Polychromasia Hypochromasia (manual) Anisocytosis (manual) Sodium Potassium Chloride Carbon Dioxide Anion Gap BUN Creatinine Est GFR ( Amer) Est GFR (Non-Af Amer) POC Glucose (mg/dL) 140 H 200 H 73 Random Glucose Calcium Phosphorus Magnesium Total Bilirubin AST ALT Alkaline Phosphatase Total Protein Albumin Globulin Albumin/Globulin Ratio 07/24/18 07/24/18 06:23 06:23 WBC 8.6 RBC 3.32 L Hgb 8.4 L Hct 26.0 L MCV 78.2 L D MCH 25.2 L MCHC 32.3 L RDW 21.3 H Plt Count 186 MPV 7.6 Neut % (Auto) 86.5 H Lymph % (Auto) 3.5 L [place] % (Auto) 7.1 Eos % (Auto) 2.4 Baso % (Auto) 0.5 Neut # (Auto) 7.4 H Lymph # (Auto) 0.3 L [place] # (Auto) 0.6 Eos # (Auto) 0.2 Baso # (Auto) 0.0 Neutrophils % (Manual) 96 H Lymphocytes % (Manual) 2 L Monocytes % (Manual) 1 Eosinophils % (Manual) 1 Platelet Estimate Normal Polychromasia Slight Hypochromasia (manual) Slight Anisocytosis (manual) Slight Sodium 135 Potassium 3.7 Chloride 102 Carbon Dioxide 21 L Anion Gap 16 BUN 47 H Creatinine 1.4 Est GFR ( Amer) 60 Est GFR (Non-Af Amer) 49 POC Glucose (mg/dL) Random Glucose 135 H Calcium 7.4 L Phosphorus 3.4 Magnesium 1.8 Total Bilirubin 0.2 AST 22 ALT 18 L D Alkaline Phosphatase 74 Total Protein 5.5 L Albumin 2.6 L Globulin 2.9 Albumin/Globulin Ratio 0.9 L Fingerstick Blood Sugar Results: 77 Review of Systems - Review of Systems All systems: reviewed and no additional remarkable complaints except (HPI) Critical Care Progress Note - Nutrition Nutrition: Nutrition Category Date Time Status Heart Healthy Diet [DIET] Diets 07/24/18 Lunch Active Assessment/Plan - Assessment and Plan (Free Text) Assessment: 78yo M. PMHx HTN, DM type 2, high cholesterol, BPH, corneal transplant, prostate CA, UTI, hematuria, lung cancer on treatment presents with pericardial effusion with tamponade. S/p pericardial window and drainage POD2 . S/p extubation yesterday . Neuro: - alert and oriented x 3 - pain control with dilaudid Pulm: - Currently on high flow oxygen - Maintain SPO2 > 92% - Cont Duonebs aspen - Encourage incentive spirometry CV: - Currently hemodynamically stable - maintain MAP > 65 f/u cytology - F/u CT surgery consult and recs - drain management - Echo showed EF of 75% GI: - Gi ppx - Liquid diet as tolerated Hem: - no acute issues - Monitor H/H Renal: - d/ronnie walker cath yesterday monitor for urine output - Monitor I and O - Replete electrolytes as needed - Cont finesteride and flomax Endo: - DM type 2, SISS for coverage ID: - empiric therapy with Zosyn - F/u septic work up DVT proph - SCD's, a/c held immediately post-op GI proph - protonix Code status - full code PT/OT, OOB chair Case and plan was removed and discussed in detail with Dr Yee. <Terrie Yee - Last Filed: 07/24/18 15:08> CCU Objective - Vital Signs / Intake & Output Vital Signs (Last 4 hours): Vital Signs Resp 07/24/18 13:58 19 Intake and Output (Last 8hrs): Intake & Output 07/24/18 07/24/18 07/24/18 06:59 14:59 22:59 Intake Total 375 Output Total 122 Balance 253 Weight 185 lb 11.2 oz Intake: Intake, IV Amount 50 Right Forearm 50 Oral 325 Output: Chest Tube Drainage 82 Right mid anterior chest 82 Urine 40 Urethral (Walker) 40 - Medications Active Medications: Active Medications Generic Name Dose Route Start Last Admin Trade Name Freq PRN Reason Stop Dose Admin Albuterol/Ipratropium 3 ml 07/21/18 20:00 07/24/18 13:57 Duoneb 3 Mg/0.5 Mg (3 Ml) Ud INH 3 ml RQ6 ASPEN Administration Finasteride 5 mg 07/22/18 10:00 07/24/18 10:57 Proscar PO 5 mg DAILY ASPEN Administration Hydromorphone HCl 0.5 mg 07/24/18 07:57 07/24/18 14:50 Dilaudid IVP 0.5 mg Q6H PRN Administration Pain, severe (8-10) Piperacillin Sod/Tazobactam Sod 2.25 gm in 50 mls @ 100 mls/hr 07/22/18 14:00 07/24/18 14:34 Zosyn 2.25 Gm Iv Premix IVPB 100 mls/hr Q8 ASPEN Administration Protocol Insulin Human Regular 0 unit 07/23/18 22:00 07/24/18 12:06 Novolin R SC 1 u ACHS ASPEN Administration Protocol Latanoprost 0.05 ml 07/21/18 22:00 07/23/18 23:00 Xalatan Opht OU 0.05 ml HS ASPEN Administration Pantoprazole Sodium 40 mg 07/22/18 10:00 07/24/18 10:57 Protonix Inj IVP 40 mg DAILY ASPEN Administration Tamsulosin HCl 0.4 mg 07/22/18 10:00 07/24/18 10:57 Flomax PO 0.4 mg DAILY ASPEN Administration - Patient Studies Lab Studies: Microbiology Studies 07/23/18 08:13 Mycobacterial Culture - Preliminary Other: Please Indicate 07/22/18 22:22 MRSA Culture (Admit) - Final Naris MRSA NOT DETECTED 07/21/18 21:29 Blood Culture - Preliminary Blood NO GROWTH AFTER 48 HOURS 07/22/18 13:05 Stool Culture - Final Stool NO SALMONELLA, SHIGELLA OR CAMPYLOBACTER ISOLATED. 07/23/18 08:13 Gram Stain - Final Pericardial Fluid Body Fluid Culture - Preliminary NO GROWTH AFTER 24 HOURS Fungal Culture - Preliminary Lab Studies 07/24/18 07/24/18 07/24/18 Range/Units 11:10 07:11 06:23 WBC (4.8-10.8) K/uL RBC (4.40-5.90) Mil/uL Hgb (12.0-18.0) g/dL Hct (35.0-51.0) % MCV (80.0-94.0) fL MCH (27.0-31.0) pg MCHC (33.0-37.0) g/dL RDW (11.5-14.5) % Plt Count (130-400) K/uL MPV (7.2-11.7) fL Neut % (Auto) (50.0-75.0) % Lymph % (Auto) (20.0-40.0) % [place] % (Auto) (0.0-10.0) % Eos % (Auto) (0.0-4.0) % Baso % (Auto) (0.0-2.0) % Neut # (Auto) (1.8-7.0) K/uL Lymph # (Auto) (1.0-4.3) K/uL [place] # (Auto) (0.0-0.8) K/uL Eos # (Auto) (0.0-0.7) K/uL Baso # (Auto) (0.0-0.2) K/uL Neutrophils % (Manual) (50-75) % Lymphocytes % (Manual) (20-40) % Monocytes % (Manual) (0-10) % Eosinophils % (Manual) (0-4) % Platelet Estimate (NORMAL) Polychromasia Hypochromasia (manual) Anisocytosis (manual) Sodium 135 (132-148) mmol/L Potassium 3.7 (3.6-5.2) mmol/L Chloride 102 (98-107) mmol/L Carbon Dioxide 21 L (22-30) mmol/L Anion Gap 16 (10-20) BUN 47 H (9-20) mg/dL Creatinine 1.4 (0.8-1.5) mg/dL Est GFR ( Amer) 60 Est GFR (Non-Af Amer) 49 POC Glucose (mg/dL) 162 H 117 H (65-110) mg/dL Random Glucose 135 H (75-110) mg/dL Calcium 7.4 L (8.6-10.4) mg/dl Phosphorus 3.4 (2.5-4.5) mg/dL Magnesium 1.8 (1.6-2.3) mg/dL Total Bilirubin 0.2 (0.2-1.3) mg/dL AST 22 (17-59) U/L ALT 18 L D (21-72) U/L Alkaline Phosphatase 74 (38-126) U/L Total Protein 5.5 L (6.3-8.3) g/dL Albumin 2.6 L (3.5-5.0) g/dL Globulin 2.9 (2.2-3.9) gm/dL Albumin/Globulin Ratio 0.9 L (1.0-2.1) 07/24/18 07/23/18 07/23/18 Range/Units 06:23 21:16 16:12 WBC 8.6 (4.8-10.8) K/uL RBC 3.32 L (4.40-5.90) Mil/uL Hgb 8.4 L (12.0-18.0) g/dL Hct 26.0 L (35.0-51.0) % MCV 78.2 L D (80.0-94.0) fL MCH 25.2 L (27.0-31.0) pg MCHC 32.3 L (33.0-37.0) g/dL RDW 21.3 H (11.5-14.5) % Plt Count 186 (130-400) K/uL MPV 7.6 (7.2-11.7) fL Neut % (Auto) 86.5 H (50.0-75.0) % Lymph % (Auto) 3.5 L (20.0-40.0) % [place] % (Auto) 7.1 (0.0-10.0) % Eos % (Auto) 2.4 (0.0-4.0) % Baso % (Auto) 0.5 (0.0-2.0) % Neut # (Auto) 7.4 H (1.8-7.0) K/uL Lymph # (Auto) 0.3 L (1.0-4.3) K/uL [place] # (Auto) 0.6 (0.0-0.8) K/uL Eos # (Auto) 0.2 (0.0-0.7) K/uL Baso # (Auto) 0.0 (0.0-0.2) K/uL Neutrophils % (Manual) 96 H (50-75) % Lymphocytes % (Manual) 2 L (20-40) % Monocytes % (Manual) 1 (0-10) % Eosinophils % (Manual) 1 (0-4) % Platelet Estimate Normal (NORMAL) Polychromasia Slight Hypochromasia (manual) Slight Anisocytosis (manual) Slight Sodium (132-148) mmol/L Potassium (3.6-5.2) mmol/L Chloride (98-107) mmol/L Carbon Dioxide (22-30) mmol/L Anion Gap (10-20) BUN (9-20) mg/dL Creatinine (0.8-1.5) mg/dL Est GFR ( Amer) Est GFR (Non-Af Amer) POC Glucose (mg/dL) 73 200 H (65-110) mg/dL Random Glucose (75-110) mg/dL Calcium (8.6-10.4) mg/dl Phosphorus (2.5-4.5) mg/dL Magnesium (1.6-2.3) mg/dL Total Bilirubin (0.2-1.3) mg/dL AST (17-59) U/L ALT (21-72) U/L Alkaline Phosphatase (38-126) U/L Total Protein (6.3-8.3) g/dL Albumin (3.5-5.0) g/dL Globulin (2.2-3.9) gm/dL Albumin/Globulin Ratio (1.0-2.1) Laboratory Results - last 24 hr 09/20/18 09/20/18 09/21/18 16:12 21:16 06:23 WBC 8.6 RBC 3.32 L Hgb 8.4 L Hct 26.0 L MCV 78.2 L D MCH 25.2 L MCHC 32.3 L RDW 21.3 H Plt Count 186 MPV 7.6 Neut % (Auto) 86.5 H Lymph % (Auto) 3.5 L [place] % (Auto) 7.1 Eos % (Auto) 2.4 Baso % (Auto) 0.5 Neut # (Auto) 7.4 H Lymph # (Auto) 0.3 L [place] # (Auto) 0.6 Eos # (Auto) 0.2 Baso # (Auto) 0.0 Neutrophils % (Manual) 96 H Lymphocytes % (Manual) 2 L Monocytes % (Manual) 1 Eosinophils % (Manual) 1 Platelet Estimate Normal Polychromasia Slight Hypochromasia (manual) Slight Anisocytosis (manual) Slight Sodium Potassium Chloride Carbon Dioxide Anion Gap BUN Creatinine Est GFR ( Amer) Est GFR (Non-Af Amer) POC Glucose (mg/dL) 200 H 73 Random Glucose Calcium Phosphorus Magnesium Total Bilirubin AST ALT Alkaline Phosphatase Total Protein Albumin Globulin Albumin/Globulin Ratio 07/24/18 07/24/18 07/24/18 06:23 07:11 11:10 WBC RBC Hgb Hct MCV MCH MCHC RDW Plt Count MPV Neut % (Auto) Lymph % (Auto) [place] % (Auto) Eos % (Auto) Baso % (Auto) Neut # (Auto) Lymph # (Auto) [place] # (Auto) Eos # (Auto) Baso # (Auto) Neutrophils % (Manual) Lymphocytes % (Manual) Monocytes % (Manual) Eosinophils % (Manual) Platelet Estimate Polychromasia Hypochromasia (manual) Anisocytosis (manual) Sodium 135 Potassium 3.7 Chloride 102 Carbon Dioxide 21 L Anion Gap 16 BUN 47 H Creatinine 1.4 Est GFR ( Amer) 60 Est GFR (Non-Af Amer) 49 POC Glucose (mg/dL) 117 H 162 H Random Glucose 135 H Calcium 7.4 L Phosphorus 3.4 Magnesium 1.8 Total Bilirubin 0.2 AST 22 ALT 18 L D Alkaline Phosphatase 74 Total Protein 5.5 L Albumin 2.6 L Globulin 2.9 Albumin/Globulin Ratio 0.9 L Critical Care Progress Note - Nutrition Nutrition: Nutrition Category Date Time Status Heart Healthy Diet [DIET] Diets 07/24/18 Lunch Active Assessment/Plan - Assessment and Plan (Free Text) Assessment: Above patient seen and examined at bedside. Patient with h/o pericadial effusion s/p pericardial window. -Patient post op feeling better -continue pericardial tube management as per thoracic surgery -Patient remains hemodynamically stable. -Above resident documents my clinical management. - Date & Time Date: 07/24/18 Time: 15:08
--- NOTE | 2018-07-24 14:14 | CP.PCM.PN ---
Subjective - Date & Time of Evaluation Date of Evaluation: 07/24/18 Time of Evaluation: 14:13 - Subjective Subjective: Pt s/e. No c/o. Sinus tach at 100 chest tube-150cc/24 a/p: Satisfacory POD#2. Continue current supportive care. Objective - Vital Signs/Intake and Output Vital Signs (last 24 hours): Temp Pulse Resp BP Pulse Ox 99 F 108 H 19 110/55 L 95 07/24/18 08:00 07/24/18 11:01 07/24/18 13:58 07/24/18 11:01 07/24/18 11:01 Intake and Output: 07/24/18 07/24/18 06:59 18:59 Intake Total 925 Output Total 307 Balance 618 - Medications Medications: Current Medications Albuterol/Ipratropium (Duoneb 3 Mg/0.5 Mg (3 Ml) Ud) 3 ml INH RQ6 CHARLES Last Admin: 07/24/18 13:57 Dose: 3 ml Finasteride (Proscar) 5 mg PO DAILY CHARLES Last Admin: 07/24/18 10:57 Dose: 5 mg Hydromorphone HCl (Dilaudid) 0.5 mg IVP Q6H PRN PRN Reason: Pain, severe (8-10) Last Admin: 07/24/18 08:23 Dose: 0.5 mg Piperacillin Sod/Tazobactam Sod (Zosyn 2.25 Gm Iv Premix) 2.25 gm in 50 mls @ 100 mls/hr IVPB Q8 CHARLES PRN Reason: Protocol Last Admin: 07/24/18 05:39 Dose: 100 mls/hr Insulin Human Regular (Novolin R) 0 unit SC ACHS CHARLES PRN Reason: Protocol Last Admin: 07/24/18 12:06 Dose: 1 u Latanoprost (Xalatan Opht) 0.05 ml OU HS CHARLES Last Admin: 07/23/18 23:00 Dose: 0.05 ml Pantoprazole Sodium (Protonix Inj) 40 mg IVP DAILY CHARLES Last Admin: 07/24/18 10:57 Dose: 40 mg Tamsulosin HCl (Flomax) 0.4 mg PO DAILY CHARLES Last Admin: 07/24/18 10:57 Dose: 0.4 mg - Labs Labs: 07/24/18 06:23 07/24/18 06:23 PT 12.9 SECONDS (9.7-12.2) H 07/21/18 17:46 INR 1.2 07/21/18 17:46 APTT 32 SECONDS (21-34) 07/21/18 17:46
[2018-07-24] MEDS: Latanoprost 2.5 ml Opht Soln OU SCH (22:13)
[2018-07-25] MEDS: Albuterol-Ipratrop 3 mg / 0.5 (3 ml) UD INH SCH ×4 (01:50→19:38)
[2018-07-25] MEDS: Piperacill/Tazo 2.25gm in Dex 2.25 GM/50 ML BAG IVPB SCH ×3 (05:51→21:20)
[2018-07-25 06:41] LABS: BASO % 0.5 % (0.0-2.0); EOS # 0.5 K/uL (0.0-0.7); EOS % 6.1 % (0.0-4.0); HEMOGLOBIN 8.6 g/dL (12.0-18.0); LYMPH # 0.3 K/uL (1.0-4.3); LYMPH % 4.5 % (20.0-40.0); MEAN CELL VOLUME 78.5 fL (80.0-94.0); MEAN CORPUSCULAR HEMOGLOBIN 25.7 pg (27.0-31.0); MEAN CORPUSCULAR HGB CONC 32.8 g/dL (33.0-37.0); MEAN PLATELET VOLUME 7.4 fL (7.2-11.7); MONO # 0.5 K/uL (0.0-0.8); NEUT # 6.2 K/uL (1.8-7.0); NEUT % 81.9 % (50.0-75.0); PLATELET COUNT 180 K/uL (130-400); RBC 3.35 Mil/uL (4.40-5.90); RED CELL DISTRIBUTION WIDTH 21.7 % (11.5-14.5); WHITE BLOOD COUNT 7.5 K/uL (4.8-10.8)
[2018-07-25 07:01] LABS: ALBUMIN 2.8 g/dL (3.5-5.0); ALT/SGPT 34 U/L (21-72); AST/SGOT 30 U/L (17-59); BLOOD UREA NITROGEN 33 mg/dL (9-20); CALCIUM 8.2 mg/dl (8.6-10.4); GFR NON-AFRICAN AMERICAN 54
--- NOTE | 2018-07-25 07:11 | CP.PCM.PN ---
Subjective - Date & Time of Evaluation Date of Evaluation: 07/25/18 Time of Evaluation: 07:09 - Subjective Subjective: CT surgery progress note for Dr. Onur Gallo, PGY-2 Pt S & E at bedside at 0605 Pt reports minimal discomfort at CT insertion sites, aggravated by movement. Some SOB. Denies N & V, F & C. CT with 150 cc serosanguinous output over 24Hrs No airleak Slightly tachycardic into low 100s Objective - Vital Signs/Intake and Output Vital Signs (last 24 hours): Temp Pulse Resp BP Pulse Ox 98.6 F 107 H 22 109/51 L 91 L 07/25/18 04:00 07/25/18 06:00 07/25/18 06:28 07/25/18 05:01 07/25/18 06:00 Intake and Output: 07/25/18 07/25/18 06:59 18:59 Intake Total 320 120 Output Total 400 50 Balance -80 70 - Medications Medications: Current Medications Albuterol/Ipratropium (Duoneb 3 Mg/0.5 Mg (3 Ml) Ud) 3 ml INH RQ6 CHARLES Last Admin: 07/25/18 01:50 Dose: 3 ml Finasteride (Proscar) 5 mg PO DAILY CHARLES Last Admin: 07/24/18 10:57 Dose: 5 mg Hydromorphone HCl (Dilaudid) 0.5 mg IVP Q6H PRN PRN Reason: Pain, severe (8-10) Last Admin: 07/24/18 23:45 Dose: 0.5 mg Piperacillin Sod/Tazobactam Sod (Zosyn 2.25 Gm Iv Premix) 2.25 gm in 50 mls @ 100 mls/hr IVPB Q8 CHARLES PRN Reason: Protocol Last Admin: 07/25/18 05:51 Dose: 100 mls/hr Insulin Human Regular (Novolin R) 0 unit SC ACHS CHARLES PRN Reason: Protocol Last Admin: 07/24/18 22:14 Dose: Not Given Latanoprost (Xalatan Opht) 0.05 ml OU HS CHARLES Last Admin: 07/24/18 22:13 Dose: 0.05 ml Pantoprazole Sodium (Protonix Inj) 40 mg IVP DAILY CHARLES Last Admin: 07/24/18 10:57 Dose: 40 mg Tamsulosin HCl (Flomax) 0.4 mg PO DAILY CHARLES Last Admin: 07/24/18 10:57 Dose: 0.4 mg - Labs Labs: 07/25/18 06:26 07/25/18 06:26 PT 12.9 SECONDS (9.7-12.2) H 07/21/18 17:46 INR 1.2 07/21/18 17:46 APTT 32 SECONDS (21-34) 07/21/18 17:46 - Constitutional Appears: Non-toxic, No Acute Distress - Head Exam Head Exam: ATRAUMATIC, NORMAL INSPECTION, NORMOCEPHALIC - Eye Exam Eye Exam: EOMI, Normal appearance - ENT Exam ENT Exam: Mucous Membranes Moist, Normal Exam - Neck Exam Neck Exam: Normal Inspection - Respiratory Exam Respiratory Exam: Chest Wall Tenderness (over anterior CT insertion sites- dressing in place-clean/dry/intact), NORMAL BREATHING PATTERN. absent: Respiratory Distress - Cardiovascular Exam Cardiovascular Exam: Tachycardia, +S1, +S2 - GI/Abdominal Exam GI & Abdominal Exam: Soft. absent: Distended, Firm, Guarding, Tenderness - Neurological Exam Neurological Exam: Alert, Awake, CN II-XII Intact, Oriented x3 - Psychiatric Exam Psychiatric exam: Normal Affect, Normal Mood - Skin Skin Exam: Dry, Normal Color, Warm Assessment and Plan - Assessment and Plan (Free Text) Assessment: 78M POD#3 s/p pericardial window & 2 anterior chest wall tubes Plan: CT to wall suction MOnitor output Pain control PRN OOBTC Ambulate Encourage IS use Further mgmt as per primary/speciality teams Yg Gallo, PGY-2
[2018-07-25] MEDS: (Novolin R) Insulin Human Regular 100 units/ml vial SC SCH ×4 (08:00→21:55)
[2018-07-25 09:13] LABS: BANDS 3 % (0-2); EOSINOPHIL 6 % (0-4); LYMPHOCYTE 2 % (20-40); MONOCYTE 6 % (0-10); NEUTROPHIL 83 % (50-75); TOTAL CELLS COUNTED 100
[2018-07-25 09:14] LABS: ANISOCYTOSIS MODERATE; HYPOCHROMIC SLIGHT; MICROCYTOSIS SLIGHT; OVALOCYTES SLIGHT; PLATELET ESTIMATE NORMAL (NORMAL); POIKILOCYTOSIS SLIGHT; POLYCHROMIC SLIGHT
[2018-07-25 09:15] LABS: SCHISTOCYTES SLIGHT
[2018-07-25 09:17] LABS: TOXIC GRANULATION PRESENT
[2018-07-25] MEDS: Pantoprazole 40 mg EC Tab PO SCH (09:48)
--- NOTE | 2018-07-25 11:23 | CP.PCM.PN ---
Subjective - Date & Time of Evaluation Date of Evaluation: 07/25/18 Time of Evaluation: 11:18 - Subjective Subjective: Patient seen and examined at bedside. Patient saturating well on nasal caunla, ( +)Pericardial tube output ~50 ml, denies any fevers, denies any nausea or vomitting Objective - Vital Signs/Intake and Output Vital Signs (last 24 hours): Temp Pulse Resp BP Pulse Ox 98.3 F 113 H 24 127/54 L 90 L 07/25/18 08:00 07/25/18 09:22 07/25/18 09:22 07/25/18 09:48 07/25/18 09:22 Intake and Output: 07/25/18 07/25/18 06:59 18:59 Intake Total 320 120 Output Total 400 50 Balance -80 70 - Medications Medications: Current Medications Albuterol/Ipratropium (Duoneb 3 Mg/0.5 Mg (3 Ml) Ud) 3 ml INH RQ6 ASPEN Last Admin: 07/25/18 07:00 Dose: 3 ml Finasteride (Proscar) 5 mg PO DAILY [facility] Last Admin: 07/25/18 09:47 Dose: 5 mg Hydromorphone HCl (Dilaudid) 0.5 mg IVP Q6H PRN PRN Reason: Pain, severe (8-10) Last Admin: 07/24/18 23:45 Dose: 0.5 mg Piperacillin Sod/Tazobactam Sod (Zosyn 2.25 Gm Iv Premix) 2.25 gm in 50 mls @ 100 mls/hr IVPB Q8 ASPEN PRN Reason: Protocol Last Admin: 07/25/18 05:51 Dose: 100 mls/hr Insulin Human Regular (Novolin R) 0 unit SC ACHS ASPEN PRN Reason: Protocol Last Admin: 07/25/18 08:00 Dose: Not Given Latanoprost (Xalatan Opht) 0.05 ml OU HS [facility] Last Admin: 07/24/18 22:13 Dose: 0.05 ml Pantoprazole Sodium (Protonix Ec Tab) 40 mg PO DAILY [facility] Last Admin: 07/25/18 09:48 Dose: 40 mg Tamsulosin HCl (Flomax) 0.4 mg PO DAILY [facility] Last Admin: 07/25/18 09:48 Dose: 0.4 mg - Labs Labs: 07/25/18 06:26 07/25/18 06:26 PT 12.9 SECONDS (9.7-12.2) H 07/21/18 17:46 INR 1.2 07/21/18 17:46 APTT 32 SECONDS (21-34) 07/21/18 17:46 - Constitutional Appears: Well, Non-toxic - Head Exam Head Exam: ATRAUMATIC, NORMAL INSPECTION - Eye Exam Eye Exam: EOMI - ENT Exam ENT Exam: Mucous Membranes Moist - Respiratory Exam Respiratory Exam: Clear to Ausculation Bilateral, NORMAL BREATHING PATTERN - Cardiovascular Exam Cardiovascular Exam: REGULAR RHYTHM, +S1, +S2 - GI/Abdominal Exam GI & Abdominal Exam: Normal Bowel Sounds - Extremities Exam Extremities Exam: Full ROM - Neurological Exam Neurological Exam: Awake, CN II-XII Intact Assessment and Plan - Assessment and Plan (Free Text) Assessment: 78yo M. PMHx HTN, DM type 2, high cholesterol, BPH, corneal transplant, prostate CA, UTI, hematuria, lung cancer on treatment presents with pericardial effusion with tamponade. S/p pericardial window and drainage POD3. Neuro: - alert and oriented x 3 - pain controled Pulm: -hypoxic respiratory failure -change from high flow to nasal canula - Cont Duonebs aspen - Encourage incentive spirometry CV: Chronic Diastolic heart failure - continue lasix today to decrease pulmonary congestion - maintain MAP > 65 f/u cytology -EF 65% -Pericardial effusion:continue management as per CT surgery -continue tube feeds BPH - Cont finesteride and flomax ID: - empiric therapy with Zosyn -continue dvt/pud ppx: CT surgery to assertain hemostatiss before starting chemical DVT ppx, currently on SCDS Code status - full code PT/OT, OOB chair -Patient remains hemodynamically stable
--- NOTE | 2018-07-25 12:38 | RAD ---
Date of service: 07/25/2018 HISTORY: mediastinal tubes COMPARISON: 07/24/2018. FINDINGS: LUNGS: The lungs are well inflated. There is moderate pulmonary venous congestion. There is interval improved aeration in the right lung. There is persistent mass like opacity in the left mid lung. PLEURA: No change in moderate left pleural effusion, no pneumothorax apparent. CARDIOVASCULAR: Persistent mild cardiomegaly. OSSEOUS STRUCTURES: No significant abnormalities. VISUALIZED UPPER ABDOMEN: Normal. OTHER FINDINGS: None. IMPRESSION: No change in round masslike opacity in the left mid lung. Persistent moderate left pleural effusion. Interval mild improved aeration in the right lung and redemonstration of pulmonary venous congestion.
[2018-07-25] MEDS: Latanoprost 2.5 ml Opht Soln OU SCH (21:21)
[2018-07-26] MEDS: HYDROmorphone 0.5 mg/0.5 ml ISec IVP PRN (00:38)
[2018-07-26] MEDS: Albuterol-Ipratrop 3 mg / 0.5 (3 ml) UD INH SCH ×3 (01:20→19:40)
[2018-07-26] MEDS ORDERED: Dexmedetomidine Hydrochloride 200 MCG in Sodium Chloride 0.9% 48 ML IV PRN (03:28)
[2018-07-26] MEDS ORDERED: Albumin Human 25% (12.5 gm/50 ml) IV SCH (03:45)
[2018-07-26] MEDS ORDERED: Albumin Human 25% (12.5 gm/50 ml) IV ONE (04:45)
[2018-07-26] MEDS: Piperacill/Tazo 2.25gm in Dex 2.25 GM/50 ML BAG IVPB SCH ×3 (05:48→22:05)
[2018-07-26 06:31] LABS: BASO % 0.6 % (0.0-2.0); EOS # 0.2 K/uL (0.0-0.7); EOS % 2.3 % (0.0-4.0); HEMOGLOBIN 8.4 g/dL (12.0-18.0); LYMPH # 0.2 K/uL (1.0-4.3); LYMPH % 2.4 % (20.0-40.0); MEAN CORPUSCULAR HEMOGLOBIN 25.5 pg (27.0-31.0); MEAN CORPUSCULAR HGB CONC 32.7 g/dL (33.0-37.0); MEAN PLATELET VOLUME 7.3 fL (7.2-11.7); MONO # 0.6 K/uL (0.0-0.8); NEUT % 87.7 % (50.0-75.0); PLATELET COUNT 164 K/uL (130-400); RED CELL DISTRIBUTION WIDTH 21.5 % (11.5-14.5)
[2018-07-26 06:56] LABS: ALB/GLOB RATIO 1.1 (1.0-2.1); ALBUMIN 3.1 g/dL (3.5-5.0); ALT/SGPT 56 U/L (21-72); AST/SGOT 31 U/L (17-59); BLOOD UREA NITROGEN 27 mg/dL (9-20); CALCIUM 8.4 mg/dl (8.6-10.4); GFR NON-AFRICAN AMERICAN 54
[2018-07-26] MEDS: (Novolin R) Insulin Human Regular 100 units/ml vial SC SCH ×4 (08:23→22:00)
[2018-07-26 08:31] LABS: BANDS 8 % (0-2); LYMPHOCYTE 4 % (20-40); MONOCYTE 5 % (0-10); NEUTROPHIL 83 % (50-75); PLATELET ESTIMATE NORMAL (NORMAL); TOTAL CELLS COUNTED 100
[2018-07-26 08:32] LABS: ANISOCYTOSIS MODERATE; HYPOCHROMIC SLIGHT; MICROCYTOSIS SLIGHT; OVALOCYTES SLIGHT; POIKILOCYTOSIS SLIGHT; POLYCHROMIC SLIGHT
[2018-07-26 08:33] LABS: TOXIC GRANULATION PRESENT
[2018-07-26 08:34] LABS: PLATELET CLUMPS PRESENT; SCHISTOCYTES SLIGHT
--- NOTE | 2018-07-26 08:34 | RAD ---
Date of service: 07/26/2018 HISTORY: hypoxia COMPARISON: 07/25/2018. FINDINGS: LUNGS: Worsening pulmonary edema in the right perihilar region and lower lobe. Worsening left perihilar edema. Persistent masslike opacity in the left mid lung. PLEURA: Suspect pleural effusions, no pneumothorax apparent. CARDIOVASCULAR: Persistent cardiomegaly. OSSEOUS STRUCTURES: No significant abnormalities. VISUALIZED UPPER ABDOMEN: Normal. OTHER FINDINGS: None. IMPRESSION: Worsening pulmonary edema. No other change.
--- NOTE | 2018-07-26 09:08 | CP.PCM.PN ---
Subjective - Date & Time of Evaluation Date of Evaluation: 07/23/18 Time of Evaluation: 09:00 - Subjective Subjective: Covering for Dr Ricci intubated s/p pericardial window re: cardiac tamponade hemodynamically stable Objective - Vital Signs/Intake and Output Vital Signs (last 24 hours): Temp Pulse Resp BP Pulse Ox 99.2 F 109 H 18 90/58 L 93 L 07/26/18 08:00 07/26/18 08:00 07/26/18 08:00 07/26/18 08:01 07/26/18 08:00 Intake and Output: 07/26/18 07/26/18 06:59 18:59 Intake Total 562.9 0 Output Total 2660 200 Balance -2097.1 -200 - Medications Medications: Current Medications Albuterol/Ipratropium (Duoneb 3 Mg/0.5 Mg (3 Ml) Ud) 3 ml INH RQ6 [facility] Last Admin: 07/26/18 07:05 Dose: 3 ml Finasteride (Proscar) 5 mg PO DAILY [facility] Last Admin: 07/25/18 09:47 Dose: 5 mg Heparin Sodium (Porcine) (Heparin) 5,000 units SC Q8 [facility] Last Admin: 07/26/18 05:50 Dose: 5,000 units Hydromorphone HCl (Dilaudid) 0.5 mg IVP Q6H PRN PRN Reason: Pain, severe (8-10) Last Admin: 07/26/18 00:38 Dose: 0.5 mg Piperacillin Sod/Tazobactam Sod (Zosyn 2.25 Gm Iv Premix) 2.25 gm in 50 mls @ 100 mls/hr IVPB Q8 [facility] PRN Reason: Protocol Last Admin: 07/26/18 05:48 Dose: 100 mls/hr Insulin Human Regular (Novolin R) 0 unit SC ACHS [facility] PRN Reason: Protocol Last Admin: 07/26/18 08:23 Dose: Not Given Latanoprost (Xalatan Opht) 0.05 ml OU HS [facility] Last Admin: 07/25/18 21:21 Dose: 0.05 ml Pantoprazole Sodium (Protonix Ec Tab) 40 mg PO DAILY [facility] Last Admin: 07/25/18 09:48 Dose: 40 mg Tamsulosin HCl (Flomax) 0.4 mg PO DAILY [facility] Last Admin: 07/25/18 09:48 Dose: 0.4 mg - Labs Labs: 07/26/18 06:27 07/26/18 06:27 PT 12.9 SECONDS (9.7-12.2) H 07/21/18 17:46 INR 1.2 07/21/18 17:46 APTT 32 SECONDS (21-34) 07/21/18 17:46 - Constitutional Appears: Toxic - Head Exam Head Exam: NORMAL INSPECTION - Eye Exam Eye Exam: absent: Scleral icterus - ENT Exam Additional comments: intubated - Neck Exam Neck Exam: Full ROM - Respiratory Exam Respiratory Exam: Decreased Breath Sounds - Cardiovascular Exam Cardiovascular Exam: REGULAR RHYTHM - GI/Abdominal Exam GI & Abdominal Exam: Soft - Extremities Exam Extremities Exam: absent: Pedal Edema Assessment and Plan - Assessment and Plan (Free Text) Assessment: s/p pericardial window Cardiac tamponade Lung ca Prostate ca Plan: Should be extubated soon Cont post-op management
--- NOTE | 2018-07-26 09:15 | CP.PCM.PN ---
Subjective - Date & Time of Evaluation Date of Evaluation: 07/26/18 Time of Evaluation: 09:12 - Subjective Subjective: Surgery Pt seen and examined. No acute events. O2 sat 86-94%. Placed on BiPAP. CXR shows pulmonary edema. Mild SOB, improved s/p surgery. Denies weakness, CP, nausea, NEGRO. Objective - Vital Signs/Intake and Output Vital Signs (last 24 hours): Temp Pulse Resp BP Pulse Ox 99.2 F 109 H 18 90/58 L 93 L 07/26/18 08:00 07/26/18 08:00 07/26/18 08:00 07/26/18 08:01 07/26/18 08:00 Intake and Output: 07/26/18 07/26/18 06:59 18:59 Intake Total 562.9 0 Output Total 2660 200 Balance -2097.1 -200 - Medications Medications: Current Medications Albuterol/Ipratropium (Duoneb 3 Mg/0.5 Mg (3 Ml) Ud) 3 ml INH RQ6 [facility] Last Admin: 07/26/18 07:05 Dose: 3 ml Finasteride (Proscar) 5 mg PO DAILY [facility] Last Admin: 07/25/18 09:47 Dose: 5 mg Heparin Sodium (Porcine) (Heparin) 5,000 units SC Q8 [facility] Last Admin: 07/26/18 05:50 Dose: 5,000 units Hydromorphone HCl (Dilaudid) 0.5 mg IVP Q6H PRN PRN Reason: Pain, severe (8-10) Last Admin: 07/26/18 00:38 Dose: 0.5 mg Piperacillin Sod/Tazobactam Sod (Zosyn 2.25 Gm Iv Premix) 2.25 gm in 50 mls @ 100 mls/hr IVPB Q8 [facility] PRN Reason: Protocol Last Admin: 07/26/18 05:48 Dose: 100 mls/hr Insulin Human Regular (Novolin R) 0 unit SC ACHS [facility] PRN Reason: Protocol Last Admin: 07/26/18 08:23 Dose: Not Given Latanoprost (Xalatan Opht) 0.05 ml OU HS [facility] Last Admin: 07/25/18 21:21 Dose: 0.05 ml Pantoprazole Sodium (Protonix Ec Tab) 40 mg PO DAILY [facility] Last Admin: 07/25/18 09:48 Dose: 40 mg Tamsulosin HCl (Flomax) 0.4 mg PO DAILY [facility] Last Admin: 07/25/18 09:48 Dose: 0.4 mg - Labs Labs: 07/26/18 06:27 07/26/18 06:27 PT 12.9 SECONDS (9.7-12.2) H 07/21/18 17:46 INR 1.2 07/21/18 17:46 APTT 32 SECONDS (21-34) 07/21/18 17:46 - Constitutional Appears: No Acute Distress - Head Exam Head Exam: ATRAUMATIC, NORMAL INSPECTION, NORMOCEPHALIC - Eye Exam Eye Exam: EOMI, Normal appearance, PERRL Pupil Exam: NORMAL ACCOMODATION, PERRL - ENT Exam ENT Exam: Mucous Membranes Moist, Normal Exam Additional comments: has BIPAP on. - Neck Exam Neck Exam: Full ROM, Normal Inspection. absent: Lymphadenopathy - Respiratory Exam Additional comments: BIPAP - Cardiovascular Exam Cardiovascular Exam: Tachycardia, +S1, +S2 - GI/Abdominal Exam GI & Abdominal Exam: Soft, Normal Bowel Sounds. absent: Distended, Tenderness Additional comments: Chest tube x2 in place on ant chest wall: 50cc ss /24hrs. - Exam Exam: NORMAL INSPECTION - Extremities Exam Extremities Exam: Full ROM, Normal Capillary Refill, Normal Inspection. absent : Joint Swelling, Pedal Edema - Back Exam Back Exam: NORMAL INSPECTION - Neurological Exam Neurological Exam: Alert, Awake, CN II-XII Intact, Normal Gait, Oriented x3 - Psychiatric Exam Psychiatric exam: Normal Affect, Normal Mood - Skin Skin Exam: Dry, Normal Color, Warm Assessment and Plan - Assessment and Plan (Free Text) Assessment: 78M POD#4 s/p pericardial window & 2 anterior chest wall tubes 50cc ss/24hrs. Plan: CT to wall suction MOnitor output Pain control PRN OOBTC Ambulate Encourage IS use Further mgmt as per primary/speciality teams Yg Yañez
--- NOTE | 2018-07-26 09:16 | CP.PCM.PN ---
Subjective - Date & Time of Evaluation Date of Evaluation: 07/24/18 Time of Evaluation: 08:45 - Subjective Subjective: improving clinically no pressors Afebrile Objective - Vital Signs/Intake and Output Vital Signs (last 24 hours): Temp Pulse Resp BP Pulse Ox 99.2 F 109 H 18 90/58 L 93 L 07/26/18 08:00 07/26/18 08:00 07/26/18 08:00 07/26/18 08:01 07/26/18 08:00 Intake and Output: 07/26/18 07/26/18 06:59 18:59 Intake Total 562.9 0 Output Total 2660 200 Balance -2097.1 -200 - Medications Medications: Current Medications Albuterol/Ipratropium (Duoneb 3 Mg/0.5 Mg (3 Ml) Ud) 3 ml INH RQ6 [facility] Last Admin: 07/26/18 07:05 Dose: 3 ml Finasteride (Proscar) 5 mg PO DAILY [facility] Last Admin: 07/25/18 09:47 Dose: 5 mg Heparin Sodium (Porcine) (Heparin) 5,000 units SC Q8 [facility] Last Admin: 07/26/18 05:50 Dose: 5,000 units Hydromorphone HCl (Dilaudid) 0.5 mg IVP Q6H PRN PRN Reason: Pain, severe (8-10) Last Admin: 07/26/18 00:38 Dose: 0.5 mg Piperacillin Sod/Tazobactam Sod (Zosyn 2.25 Gm Iv Premix) 2.25 gm in 50 mls @ 100 mls/hr IVPB Q8 [facility] PRN Reason: Protocol Last Admin: 07/26/18 05:48 Dose: 100 mls/hr Insulin Human Regular (Novolin R) 0 unit SC ACHS [facility] PRN Reason: Protocol Last Admin: 07/26/18 08:23 Dose: Not Given Latanoprost (Xalatan Opht) 0.05 ml OU HS [facility] Last Admin: 07/25/18 21:21 Dose: 0.05 ml Pantoprazole Sodium (Protonix Ec Tab) 40 mg PO DAILY [facility] Last Admin: 07/25/18 09:48 Dose: 40 mg Tamsulosin HCl (Flomax) 0.4 mg PO DAILY [facility] Last Admin: 07/25/18 09:48 Dose: 0.4 mg - Labs Labs: 07/26/18 06:27 07/26/18 06:27 PT 12.9 SECONDS (9.7-12.2) H 07/21/18 17:46 INR 1.2 07/21/18 17:46 APTT 32 SECONDS (21-34) 07/21/18 17:46 - Constitutional Appears: Non-toxic - Head Exam Head Exam: NORMAL INSPECTION - Eye Exam Eye Exam: absent: Scleral icterus - Neck Exam Neck Exam: Full ROM - Respiratory Exam Respiratory Exam: Clear to Ausculation Bilateral - Cardiovascular Exam Cardiovascular Exam: REGULAR RHYTHM - GI/Abdominal Exam GI & Abdominal Exam: Soft. absent: Tenderness - Extremities Exam Extremities Exam: absent: Pedal Edema Assessment and Plan - Assessment and Plan (Free Text) Assessment: s/p pericardial window re: cardiac tamponade Ca of Lung Ca of Prostate COPD Anemia Pre-renal ARF Plan: Cont nebulizer treatment Cont post-op management
[2018-07-26] MEDS: Pantoprazole 40 mg EC Tab PO SCH (09:32)
--- NOTE | 2018-07-26 09:38 | CP.PCM.PN ---
Subjective - Date & Time of Evaluation Date of Evaluation: 07/25/18 Time of Evaluation: 09:00 - Subjective Subjective: extubated c/o pain at surgical site Objective - Vital Signs/Intake and Output Vital Signs (last 24 hours): Temp Pulse Resp BP Pulse Ox 99.2 F 109 H 18 90/58 L 93 L 07/26/18 08:00 07/26/18 08:00 07/26/18 08:00 07/26/18 08:01 07/26/18 08:00 Intake and Output: 07/26/18 07/26/18 06:59 18:59 Intake Total 562.9 0 Output Total 2660 200 Balance -2097.1 -200 - Medications Medications: Current Medications Albuterol/Ipratropium (Duoneb 3 Mg/0.5 Mg (3 Ml) Ud) 3 ml INH RQ6 [facility] Last Admin: 07/26/18 07:05 Dose: 3 ml Finasteride (Proscar) 5 mg PO DAILY [facility] Last Admin: 07/25/18 09:47 Dose: 5 mg Heparin Sodium (Porcine) (Heparin) 5,000 units SC Q8 [facility] Last Admin: 07/26/18 05:50 Dose: 5,000 units Hydromorphone HCl (Dilaudid) 0.5 mg IVP Q6H PRN PRN Reason: Pain, severe (8-10) Last Admin: 07/26/18 00:38 Dose: 0.5 mg Piperacillin Sod/Tazobactam Sod (Zosyn 2.25 Gm Iv Premix) 2.25 gm in 50 mls @ 100 mls/hr IVPB Q8 [facility] PRN Reason: Protocol Last Admin: 07/26/18 05:48 Dose: 100 mls/hr Insulin Human Regular (Novolin R) 0 unit SC ACHS [facility] PRN Reason: Protocol Last Admin: 07/26/18 08:23 Dose: Not Given Latanoprost (Xalatan Opht) 0.05 ml OU HS [facility] Last Admin: 07/25/18 21:21 Dose: 0.05 ml Pantoprazole Sodium (Protonix Ec Tab) 40 mg PO DAILY [facility] Last Admin: 07/25/18 09:48 Dose: 40 mg Tamsulosin HCl (Flomax) 0.4 mg PO DAILY [facility] Last Admin: 07/25/18 09:48 Dose: 0.4 mg Tramadol HCl (Ultram) 25 mg PO TID PRN PRN Reason: Pain, moderate (4-7) - Labs Labs: 07/26/18 06:27 07/26/18 06:27 PT 12.9 SECONDS (9.7-12.2) H 07/21/18 17:46 INR 1.2 07/21/18 17:46 APTT 32 SECONDS (21-34) 07/21/18 17:46 - Constitutional Appears: Non-toxic - Head Exam Head Exam: NORMAL INSPECTION - Eye Exam Eye Exam: absent: Scleral icterus - Neck Exam Neck Exam: absent: Lymphadenopathy - Respiratory Exam Respiratory Exam: NORMAL BREATHING PATTERN - Cardiovascular Exam Cardiovascular Exam: REGULAR RHYTHM - GI/Abdominal Exam GI & Abdominal Exam: Soft. absent: Tenderness - Extremities Exam Extremities Exam: Full ROM
[2018-07-26] MEDS ORDERED: Potassium Chloride 20 mEq/15 ml LIQ UD PO ONE ×2 (10:50→12:00)
--- NOTE | 2018-07-26 21:19 | CON ---
DATE: 07/26/2018 REASON FOR CONSULTATION: Metastatic adenocarcinoma of the lung. 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 The patient was treated with osimertinib 40 mg a day, reduced dose because of the diarrhea. Recently, the patient was complaining of increasing shortness of breath, some blood-tinged sputum, was evaluated by Dr. Lux and had an x-ray of the chest done and then reevaluated again for possible CAT scan; however, the patient was admitted with shortness of breath. CAT scan showed progression of the disease, also pericardial effusion and I am called on consult for further evaluation and suggestions. PAST MEDICAL HISTORY: Significant for hypertension, hyperlipidemia, diabetes, hypercholesterolemia and prostate cancer. SOCIAL HISTORY: He used to smoke, quit smoking many years ago. No ethanol abuse. Lives with the and very supportive daughter. ALLERGIES: NO KNOWN DRUG ALLERGIES. MEDICATIONS: Reviewed. REVIEW OF SYSTEMS: Decreased appetite, weight loss and shortness of breath. Also, loose bowel movement. No nausea or vomiting. No dysuria or hematuria at present time. No headache or dizziness. No passing out. No chest pain. PHYSICAL EXAMINATION: GENERAL: The patient is awake, alert, and oriented, quiet and pleasant, not in acute distress, out of bed in the chair. VITAL SIGNS: Temperature 99.2, respiratory rate 21, FIO2 of 80% and blood pressure 90/58. HEENT: Head is normocephalic and atraumatic. Eyes, conjunctivae are pale, sclerae are white. Pupils reacting to light. Ears, nose, and throat are within normal limits. LUNGS: Bilaterally good air entry, clear to auscultation and percussion. HEART: S1 and S2 regular. No gallop, no murmur. ABDOMEN: Soft, not distended, nontender, and no hepatosplenomegaly. CENTRAL NERVOUS SYSTEM: No gross motor or sensory deficits. LYMPH NODES: No cervical, axillary or inguinal lymph nodes palpable. IMPRESSION: 1. Metastatic adenocarcinoma of the lungs to the lymph nodes. 2. Anemia secondary to renal insufficiency and lung cancer. PLAN: Clinical status discussed at length with the patient and the . I will discuss at more length with the daughter tomorrow. Discussed with Dr. Lux. Clinically,the patient is losing weight, increasing shortness of breath. CAT scan highly suggestive of progression of the disease. I discussed briefly with the patient and the about the treatment with the chemotherapy and immunotherapy. The patient and have understood, but I will discuss with the daughter in length. We will get a double lumen LifePort placement. We will continue the chemotherapy as an outpatient. The patient and have understood and agreed with it. Thank you for letting me participate in the care of this patient and I will follow up the patient with you. Jaz Slade MD cc: Drew Lux MD
--- NOTE | 2018-07-26 21:33 | CP.PCM.PN ---
Subjective - Date & Time of Evaluation Date of Evaluation: 07/26/18 Time of Evaluation: 21:33 - Subjective Subjective: Patient last night had an episode of severe respiratory distress. Patient was placed on BiPAP last night. But the patient was restless. Change in to nasal cannula with high flow oxygen. Today patient is tolerating well. The FiO2 still 70%. Saturation is better. Patient is alert and awake. Not in any distress otherwise. Chest good air entry, wheezing or rales noted bilaterally. Regular heart sound. Edema negative No IV fluids, medications on antibiotic. Bronchodilators. We'll continue to monitor. Continue the high flow oxygen. Patient today possibly has acute fluid overload status. Will continue the gentle diuresis. DVT GI prophylaxis and will follow-up the patient Objective - Vital Signs/Intake and Output Vital Signs (last 24 hours): Temp Pulse Resp BP Pulse Ox 97.8 F 103 H 20 100/49 L 86 L 07/26/18 16:00 07/26/18 17:10 07/26/18 19:41 07/26/18 17:10 07/26/18 17:10 Intake and Output: 07/26/18 07/27/18 18:59 06:59 Intake Total 0 Output Total 200 Balance -200 - Medications Medications: Current Medications Acetaminophen (Tylenol 325mg Tab) 650 mg PO Q6 PRN PRN Reason: Pain, Mild (1-3) Finasteride (Proscar) 5 mg PO DAILY [facility] Last Admin: 07/26/18 09:32 Dose: 5 mg Heparin Sodium (Porcine) (Heparin) 5,000 units SC Q8 [facility] Last Admin: 07/26/18 13:28 Dose: 5,000 units Hydromorphone HCl (Dilaudid) 0.5 mg IVP Q6H PRN PRN Reason: Pain, severe (8-10) Last Admin: 07/26/18 00:38 Dose: 0.5 mg Piperacillin Sod/Tazobactam Sod (Zosyn 2.25 Gm Iv Premix) 2.25 gm in 50 mls @ 100 mls/hr IVPB Q8 [facility] PRN Reason: Protocol Last Admin: 07/26/18 13:28 Dose: 100 mls/hr Insulin Human Regular (Novolin R) 0 unit SC ACHS [facility] PRN Reason: Protocol Last Admin: 07/26/18 16:27 Dose: Not Given Latanoprost (Xalatan Opht) 0.05 ml OU HS [facility] Last Admin: 07/25/18 21:21 Dose: 0.05 ml Pantoprazole Sodium (Protonix Ec Tab) 40 mg PO DAILY [facility] Last Admin: 07/26/18 09:32 Dose: 40 mg Tamsulosin HCl (Flomax) 0.4 mg PO DAILY [facility] Last Admin: 07/26/18 09:31 Dose: 0.4 mg Tramadol HCl (Ultram) 25 mg PO TID PRN PRN Reason: Pain, moderate (4-7) - Labs Labs: 07/26/18 06:27 07/26/18 06:27 PT 12.9 SECONDS (9.7-12.2) H 07/21/18 17:46 INR 1.2 07/21/18 17:46 APTT 32 SECONDS (21-34) 07/21/18 17:46
--- NOTE | 2018-07-26 21:33 | CP.PCM.PN ---
Subjective - Date & Time of Evaluation Date of Evaluation: 07/25/18 Time of Evaluation: 21:32 - Subjective Subjective: Patient is currently feeling well. He is on cannula. Sitting up comfortably. Not in any distress. On examination no new changes noted Labs and x-rays reviewed Patient is now feeling well. Possibly tube will be removed today one of them. And will follow-up the patient Objective - Vital Signs/Intake and Output Vital Signs (last 24 hours): Temp Pulse Resp BP Pulse Ox 97.8 F 103 H 20 100/49 L 86 L 07/26/18 16:00 07/26/18 17:10 07/26/18 19:41 07/26/18 17:10 07/26/18 17:10 Intake and Output: 07/26/18 07/27/18 18:59 06:59 Intake Total 0 Output Total 200 Balance -200 - Medications Medications: Current Medications Acetaminophen (Tylenol 325mg Tab) 650 mg PO Q6 PRN PRN Reason: Pain, Mild (1-3) Finasteride (Proscar) 5 mg PO DAILY [facility] Last Admin: 07/26/18 09:32 Dose: 5 mg Heparin Sodium (Porcine) (Heparin) 5,000 units SC Q8 [facility] Last Admin: 07/26/18 13:28 Dose: 5,000 units Hydromorphone HCl (Dilaudid) 0.5 mg IVP Q6H PRN PRN Reason: Pain, severe (8-10) Last Admin: 07/26/18 00:38 Dose: 0.5 mg Piperacillin Sod/Tazobactam Sod (Zosyn 2.25 Gm Iv Premix) 2.25 gm in 50 mls @ 100 mls/hr IVPB Q8 [facility] PRN Reason: Protocol Last Admin: 07/26/18 13:28 Dose: 100 mls/hr Insulin Human Regular (Novolin R) 0 unit SC ACHS [facility] PRN Reason: Protocol Last Admin: 07/26/18 16:27 Dose: Not Given Latanoprost (Xalatan Opht) 0.05 ml OU HS [facility] Last Admin: 07/25/18 21:21 Dose: 0.05 ml Pantoprazole Sodium (Protonix Ec Tab) 40 mg PO DAILY [facility] Last Admin: 07/26/18 09:32 Dose: 40 mg Tamsulosin HCl (Flomax) 0.4 mg PO DAILY [facility] Last Admin: 07/26/18 09:31 Dose: 0.4 mg Tramadol HCl (Ultram) 25 mg PO TID PRN PRN Reason: Pain, moderate (4-7) - Labs Labs: 07/26/18 06:27 07/26/18 06:27 PT 12.9 SECONDS (9.7-12.2) H 07/21/18 17:46 INR 1.2 07/21/18 17:46 APTT 32 SECONDS (21-34) 07/21/18 17:46
[2018-07-26] MEDS: Latanoprost 2.5 ml Opht Soln OU SCH (22:05)
[2018-07-27] MEDS: Piperacill/Tazo 2.25gm in Dex 2.25 GM/50 ML BAG IVPB SCH ×3 (05:20→21:43)
[2018-07-27] MEDS: Tramadol 25 mg PO PRN ×2 (05:20→21:44)
[2018-07-27 05:33] LABS: BASO % 0.6 % (0.0-2.0); EOS # 0.6 K/uL (0.0-0.7); EOS % 8.3 % (0.0-4.0); HEMOGLOBIN 8.6 g/dL (12.0-18.0); LYMPH # 0.4 K/uL (1.0-4.3); LYMPH % 5.7 % (20.0-40.0); MEAN CELL VOLUME 78.6 fL (80.0-94.0); MEAN CORPUSCULAR HEMOGLOBIN 26.2 pg (27.0-31.0); MEAN CORPUSCULAR HGB CONC 33.3 g/dL (33.0-37.0); MEAN PLATELET VOLUME 7.1 fL (7.2-11.7); MONO # 0.4 K/uL (0.0-0.8); MONO % 5.5 % (0.0-10.0); NEUT # 5.6 K/uL (1.8-7.0); NEUT % 79.9 % (50.0-75.0); NRBC % 0.1 % (0.0-2.0); PLATELET COUNT 179 K/uL (130-400); RBC 3.28 Mil/uL (4.40-5.90); RED CELL DISTRIBUTION WIDTH 21.7 % (11.5-14.5)
[2018-07-27 05:54] LABS: ALBUMIN 2.9 g/dL (3.5-5.0); CALCIUM 8.2 mg/dl (8.6-10.4)
--- NOTE | 2018-07-27 07:02 | OP ---
PROCEDURE DATE: 07/22/2018 PREOPERATIVE DIAGNOSES: 1. Pericardial effusion. 2. Impending cardiac tamponade. POSTOPERATIVE DIAGNOSES: 1. Hemorrhagic pericardial effusion. 2. Impending cardiac tamponade. OPERATION PERFORMED: 1. Subxiphoid pericardial window. 2. Biopsy of pericardium. 3. Biopsy of mediastinal fat pad. SURGEON: Crow Yañez MD FIGHT MANAGER: Dr. Amrit Taylor ANESTHESIOLOGIST: Dr. Navarro. OPERATIVE FINDINGS: Approximately 1500 mL of hemorrhagic pericardial effusion was evacuated. Otherwise, epicardium and pericardium appeared normal. OPERATIVE PROCEDURE: The patient was taken to the operating room, where the patient was placed in a supine position and operative field prepared and draped in a sterile fashion. At the end of the preparation, the patient was slowly induced. Surgery was started out through upper midline, subxiphoid incision, and linea alba was incised. While linea alba was retracted laterally with the retractor, substernal tunnel was created using digital dissection. Some difficulty was obtained due to tight space, therefore, small portion of xiphoid process was amputated following which the subxiphoid space was readily enlarged using digital dissection, and then both were retracted laterally. At this time, distended pericardium was noted, which was subsequently cleared of mediastinal fat pad as well as pleural reflection. Finally 10 cm syringe with 22-gauge needle was used to impale the pericardium to confirm the pericardial space, and then subsequently, the needle hole was enlarged and the pericardial effusion was evacuated. Fluid was sent down for cell count as well as cytology. Fluid was also sent out for microbiological studies, which included routine aerobe and anaerobe and fungus. Approximately 5 cm x 5 cm anterior wall of the pericardium was removed and then using pool sucker, pericardial space was evacuated over all the pericardial effusion. Pericardial space was irrigated with 50 mL of warm normal saline following which two 28 chest tubes were placed in crisscrossed fashion, and chest tube was secured to the skin edge with 0 silk sutures in the usual manner. Linea alba was next approximated with #1 PDS, continuous, and subcutaneous fascia with continuous 0 Vicryl and skin with skin stapler. Sterile dressings were applied and taped in usual manner. The patient tolerated the procedure very well and was then transferred to the ICU in stable condition, intubated. Estimated blood loss was approximately 10 mL and sponge, needle, and instrument counts were correct. Crow Yañez MD
[2018-07-27] MEDS: Albuterol-Ipratrop 3 mg / 0.5 (3 ml) UD INH PRN (07:36)
[2018-07-27 07:46] LABS: BASOPHIL 1 % (0-2); EOSINOPHIL 9 % (0-4); LYMPHOCYTE 4 % (20-40); PLATELET ESTIMATE NORMAL (NORMAL); TOTAL CELLS COUNTED 100
[2018-07-27 07:47] LABS: ANISOCYTOSIS SLIGHT; HYPOCHROMIC SLIGHT; MONOCYTE 8 % (0-10); NEUTROPHIL 78 % (50-75); POIKILOCYTOSIS SLIGHT
[2018-07-27 07:48] LABS: LARGE PLATELETS PRESENT; OVALOCYTES SLIGHT; POLYCHROMIC SLIGHT; TARGET CELLS SLIGHT
[2018-07-27] MEDS: (Novolin R) Insulin Human Regular 100 units/ml vial SC SCH ×4 (07:58→21:35)
--- NOTE | 2018-07-27 09:24 | RAD ---
Chest x-ray single frontal view HISTORY: Congestive heart failure. COMPARISON: 07/26/2018 Findings: Persistent moderate to severe venous congestion. More confluent airspace opacifications seen within the bilateral mid lung zone; right greater than left. Right hilar prominence. Cardiomegaly. Surgical clips project over upper abdomen. Degenerative changes in the spine and shoulders. Impression: Persistent moderate to severe venous congestion. More confluent airspace opacifications seen within the bilateral mid lung zone; right greater than left. Right hilar prominence. Cardiomegaly. Surgical clips project over upper abdomen.
[2018-07-27] MEDS: Pantoprazole 40 mg EC Tab PO SCH (09:28)
--- NOTE | 2018-07-27 11:39 | CP.PCM.PN ---
Subjective - Date & Time of Evaluation Date of Evaluation: 07/27/18 Time of Evaluation: 11:37 - Subjective Subjective: Pt s/e. No c/o. chest tube-40cc/y cxr-cardiomegally and coalescing density bilat. a/p: 1. POD #5 Satisfactory. 2. Both tubes removed. 3. CXR in AM. Objective - Vital Signs/Intake and Output Vital Signs (last 24 hours): Temp Pulse Resp BP Pulse Ox 98.3 F 106 H 19 108/52 L 92 L 07/27/18 08:00 07/27/18 08:02 07/27/18 08:02 07/27/18 09:28 07/27/18 08:02 Intake and Output: 07/27/18 07/27/18 06:59 18:59 Intake Total 400 250 Output Total 400 Balance 0 250 - Medications Medications: Current Medications Acetaminophen (Tylenol 325mg Tab) 650 mg PO Q6 PRN PRN Reason: Pain, Mild (1-3) Albuterol/Ipratropium (Duoneb 3 Mg/0.5 Mg (3 Ml) Ud) 3 ml INH RQ6 PRN PRN Reason: Cough Last Admin: 07/27/18 07:36 Dose: 3 ml Finasteride (Proscar) 5 mg PO DAILY [facility] Last Admin: 07/27/18 09:28 Dose: 5 mg Furosemide (Lasix) 20 mg IVP DAILY [facility] Last Admin: 07/27/18 09:28 Dose: 20 mg Heparin Sodium (Porcine) (Heparin) 5,000 units SC Q8 [facility] Last Admin: 07/27/18 05:20 Dose: 5,000 units Hydromorphone HCl (Dilaudid) 0.5 mg IVP Q6H PRN PRN Reason: Pain, severe (8-10) Last Admin: 07/26/18 00:38 Dose: 0.5 mg Piperacillin Sod/Tazobactam Sod (Zosyn 2.25 Gm Iv Premix) 2.25 gm in 50 mls @ 100 mls/hr IVPB Q8 [facility] PRN Reason: Protocol Last Admin: 07/27/18 05:20 Dose: 100 mls/hr Insulin Human Regular (Novolin R) 0 unit SC ACHS [facility] PRN Reason: Protocol Last Admin: 07/27/18 07:58 Dose: Not Given Latanoprost (Xalatan Opht) 0.05 ml OU HS [facility] Last Admin: 07/26/18 22:05 Dose: 0.05 ml Pantoprazole Sodium (Protonix Ec Tab) 40 mg PO DAILY [facility] Last Admin: 07/27/18 09:28 Dose: 40 mg Tamsulosin HCl (Flomax) 0.4 mg PO DAILY [facility] Last Admin: 07/27/18 09:28 Dose: 0.4 mg Tramadol HCl (Ultram) 25 mg PO TID PRN PRN Reason: Pain, moderate (4-7) Last Admin: 07/27/18 05:20 Dose: 25 mg - Labs Labs: 07/27/18 05:29 07/27/18 05:29 PT 12.9 SECONDS (9.7-12.2) H 07/21/18 17:46 INR 1.2 07/21/18 17:46 APTT 32 SECONDS (21-34) 07/21/18 17:46
--- NOTE | 2018-07-27 17:18 | CARD ---
APPROVED REPORT Date of service: 07/27/2018 EXAM: LIMITED Two-dimensional and M-mode echocardiogram with Doppler and color Doppler. Other Information Quality : GoodRhythm : INDICATION Pericardial Effusion Follow-up Cardiac Tamponade M-Mode DIMENSIONS TAPSE13.02 cm Mitral Valve E/A ratio0.0 TDI E/Lateral E'0.0E/Medial E'0.0 Tricuspid Valve TR Peak [id number] Peak Gr.[id number] LEFT VENTRICLE The left ventricular function is normal. The left ventricular ejection fraction is within the normal range. RIGHT VENTRICLE The right ventricle is mildly dilated. Systolic function is mildly reduced. ATRIA The left atrium size is normal. The right atrium is mildlyto moderately dilated. AORTIC VALVE The aortic valve is normal in structure. No aortic regurgitation is present. MITRAL VALVE The mitral valve is normal in structure. There is no mitral valve regurgitation noted. TRICUSPID VALVE The tricuspid valve is normal in structure. There is moderate tricuspid regurgitation. Right ventricular systolic pressure is estimated at - 50 mmHg. There is moderate pulmonary hypertension. PULMONIC VALVE The pulmonary valve is normal in structure. <Conclusion> LIMITED FOLLOW STUDY FOR PERICARDIAL EFFUSION Successfully evacuated large pericardial effusion present in proir study of July 22, 2018. Presently no gross evidence of pericardial effusion. Grossly normal left ventricular function. There is moderate tricuspid regurgitation. Right ventricular systolic pressure is estimated at - 50 mmHg compatible with moderate pulmonary hypertension.
[2018-07-27] MEDS: Latanoprost 2.5 ml Opht Soln OU SCH (21:43)
--- NOTE | 2018-07-28 00:09 | CP.PCM.PN ---
Subjective - Date & Time of Evaluation Date of Evaluation: 07/24/18 Time of Evaluation: 18:00 - Subjective Subjective: Feeling better Objective - Vital Signs/Intake and Output Vital Signs (last 24 hours): Temp Pulse Resp BP Pulse Ox 98.2 F 105 H 19 132/50 L 91 L 07/28/18 00:00 07/28/18 00:00 07/28/18 00:00 07/28/18 00:00 07/28/18 00:00 Intake and Output: 07/27/18 07/28/18 18:59 06:59 Intake Total 450 250 Output Total 600 Balance -150 250 - Medications Medications: Current Medications Acetaminophen (Tylenol 325mg Tab) 650 mg PO Q6 PRN PRN Reason: Pain, Mild (1-3) Albuterol/Ipratropium (Duoneb 3 Mg/0.5 Mg (3 Ml) Ud) 3 ml INH RQ6 PRN PRN Reason: Cough Last Admin: 07/27/18 07:36 Dose: 3 ml Finasteride (Proscar) 5 mg PO DAILY [facility] Last Admin: 07/27/18 09:28 Dose: 5 mg Furosemide (Lasix) 20 mg IVP DAILY [facility] Last Admin: 07/27/18 09:28 Dose: 20 mg Heparin Sodium (Porcine) (Heparin) 5,000 units SC Q8 [facility] Last Admin: 07/27/18 21:43 Dose: 5,000 units Hydromorphone HCl (Dilaudid) 0.5 mg IVP Q6H PRN PRN Reason: Pain, severe (8-10) Last Admin: 07/26/18 00:38 Dose: 0.5 mg Piperacillin Sod/Tazobactam Sod (Zosyn 2.25 Gm Iv Premix) 2.25 gm in 50 mls @ 100 mls/hr IVPB Q8 [facility] PRN Reason: Protocol Last Admin: 07/27/18 21:43 Dose: 100 mls/hr Insulin Human Regular (Novolin R) 0 unit SC ACHS [facility] PRN Reason: Protocol Last Admin: 07/27/18 21:35 Dose: Not Given Latanoprost (Xalatan Opht) 0.05 ml OU HS [facility] Last Admin: 07/27/18 21:43 Dose: 0.05 ml Pantoprazole Sodium (Protonix Ec Tab) 40 mg PO DAILY [facility] Last Admin: 07/27/18 09:28 Dose: 40 mg Prednisone (Prednisone Tab) 20 mg PO DAILY [facility] Stop: 07/29/18 11:46 Last Admin: 07/27/18 12:16 Dose: 20 mg Tamsulosin HCl (Flomax) 0.4 mg PO DAILY [facility] Last Admin: 07/27/18 09:28 Dose: 0.4 mg Tramadol HCl (Ultram) 25 mg PO TID PRN PRN Reason: Pain, moderate (4-7) Last Admin: 07/27/18 21:44 Dose: 25 mg - Labs Labs: 07/27/18 05:29 07/27/18 05:29 PT 12.9 SECONDS (9.7-12.2) H 07/21/18 17:46 INR 1.2 07/21/18 17:46 APTT 32 SECONDS (21-34) 07/21/18 17:46 - Head Exam Head Exam: ATRAUMATIC - Eye Exam Eye Exam: Normal appearance - ENT Exam ENT Exam: Mucous Membranes Dry - Respiratory Exam Respiratory Exam: NORMAL BREATHING PATTERN - Cardiovascular Exam Cardiovascular Exam: +S1, +S2 - GI/Abdominal Exam GI & Abdominal Exam: Normal Bowel Sounds Assessment and Plan (1) Pericardial effusion with cardiac tamponade Assessment & Plan: s/p pericardial window and chest tube f/u cytology Status: Acute (2) Anemia Assessment & Plan: sanemia of chronic disease from malignancy recent cancer therapy Status: Acute (3) Lung cancer Assessment & Plan: stage IV on treatment with Dr. Slade Status: Acute (4) History of prostate cancer Assessment & Plan: in remission f/u PSA Status: Acute
--- NOTE | 2018-07-28 00:10 | CP.PCM.PN ---
Subjective - Date & Time of Evaluation Date of Evaluation: 07/25/18 Time of Evaluation: 16:00 - Subjective Subjective: Feeling better Objective - Vital Signs/Intake and Output Vital Signs (last 24 hours): Temp Pulse Resp BP Pulse Ox 98.2 F 105 H 19 132/50 L 91 L 07/28/18 00:00 07/28/18 00:00 07/28/18 00:00 07/28/18 00:00 07/28/18 00:00 Intake and Output: 07/27/18 07/28/18 18:59 06:59 Intake Total 450 250 Output Total 600 Balance -150 250 - Medications Medications: Current Medications Acetaminophen (Tylenol 325mg Tab) 650 mg PO Q6 PRN PRN Reason: Pain, Mild (1-3) Albuterol/Ipratropium (Duoneb 3 Mg/0.5 Mg (3 Ml) Ud) 3 ml INH RQ6 PRN PRN Reason: Cough Last Admin: 07/27/18 07:36 Dose: 3 ml Finasteride (Proscar) 5 mg PO DAILY [facility] Last Admin: 07/27/18 09:28 Dose: 5 mg Furosemide (Lasix) 20 mg IVP DAILY [facility] Last Admin: 07/27/18 09:28 Dose: 20 mg Heparin Sodium (Porcine) (Heparin) 5,000 units SC Q8 [facility] Last Admin: 07/27/18 21:43 Dose: 5,000 units Hydromorphone HCl (Dilaudid) 0.5 mg IVP Q6H PRN PRN Reason: Pain, severe (8-10) Last Admin: 07/26/18 00:38 Dose: 0.5 mg Piperacillin Sod/Tazobactam Sod (Zosyn 2.25 Gm Iv Premix) 2.25 gm in 50 mls @ 100 mls/hr IVPB Q8 [facility] PRN Reason: Protocol Last Admin: 07/27/18 21:43 Dose: 100 mls/hr Insulin Human Regular (Novolin R) 0 unit SC ACHS [facility] PRN Reason: Protocol Last Admin: 07/27/18 21:35 Dose: Not Given Latanoprost (Xalatan Opht) 0.05 ml OU HS [facility] Last Admin: 07/27/18 21:43 Dose: 0.05 ml Pantoprazole Sodium (Protonix Ec Tab) 40 mg PO DAILY [facility] Last Admin: 07/27/18 09:28 Dose: 40 mg Prednisone (Prednisone Tab) 20 mg PO DAILY [facility] Stop: 07/29/18 11:46 Last Admin: 07/27/18 12:16 Dose: 20 mg Tamsulosin HCl (Flomax) 0.4 mg PO DAILY [facility] Last Admin: 07/27/18 09:28 Dose: 0.4 mg Tramadol HCl (Ultram) 25 mg PO TID PRN PRN Reason: Pain, moderate (4-7) Last Admin: 07/27/18 21:44 Dose: 25 mg - Labs Labs: 07/27/18 05:29 07/27/18 05:29 PT 12.9 SECONDS (9.7-12.2) H 07/21/18 17:46 INR 1.2 07/21/18 17:46 APTT 32 SECONDS (21-34) 07/21/18 17:46 - Head Exam Head Exam: ATRAUMATIC - Eye Exam Eye Exam: Normal appearance - ENT Exam ENT Exam: Mucous Membranes Dry - Respiratory Exam Respiratory Exam: NORMAL BREATHING PATTERN - Cardiovascular Exam Cardiovascular Exam: +S1, +S2 - GI/Abdominal Exam GI & Abdominal Exam: Normal Bowel Sounds Assessment and Plan (1) Pericardial effusion with cardiac tamponade Assessment & Plan: s/p pericardial window and chest tube f/u cytology Status: Acute (2) Anemia Assessment & Plan: anemia of chronic disease from malignancy recent cancer therapy Status: Acute (3) Lung cancer Assessment & Plan: stage IV on treatment with Dr. Slade Status: Acute (4) History of prostate cancer Assessment & Plan: in remission f/u PSA Status: Acute
--- NOTE | 2018-07-28 00:12 | CP.PCM.PN ---
Subjective - Date & Time of Evaluation Date of Evaluation: 07/27/18 Time of Evaluation: 20:00 - Subjective Subjective: Feeling better Objective - Vital Signs/Intake and Output Vital Signs (last 24 hours): Temp Pulse Resp BP Pulse Ox 98.2 F 105 H 19 132/50 L 91 L 07/28/18 00:00 07/28/18 00:00 07/28/18 00:00 07/28/18 00:00 07/28/18 00:00 Intake and Output: 07/27/18 07/28/18 18:59 06:59 Intake Total 450 250 Output Total 600 Balance -150 250 - Medications Medications: Current Medications Acetaminophen (Tylenol 325mg Tab) 650 mg PO Q6 PRN PRN Reason: Pain, Mild (1-3) Albuterol/Ipratropium (Duoneb 3 Mg/0.5 Mg (3 Ml) Ud) 3 ml INH RQ6 PRN PRN Reason: Cough Last Admin: 07/27/18 07:36 Dose: 3 ml Finasteride (Proscar) 5 mg PO DAILY [facility] Last Admin: 07/27/18 09:28 Dose: 5 mg Furosemide (Lasix) 20 mg IVP DAILY [facility] Last Admin: 07/27/18 09:28 Dose: 20 mg Heparin Sodium (Porcine) (Heparin) 5,000 units SC Q8 [facility] Last Admin: 07/27/18 21:43 Dose: 5,000 units Hydromorphone HCl (Dilaudid) 0.5 mg IVP Q6H PRN PRN Reason: Pain, severe (8-10) Last Admin: 07/26/18 00:38 Dose: 0.5 mg Piperacillin Sod/Tazobactam Sod (Zosyn 2.25 Gm Iv Premix) 2.25 gm in 50 mls @ 100 mls/hr IVPB Q8 [facility] PRN Reason: Protocol Last Admin: 07/27/18 21:43 Dose: 100 mls/hr Insulin Human Regular (Novolin R) 0 unit SC ACHS [facility] PRN Reason: Protocol Last Admin: 07/27/18 21:35 Dose: Not Given Latanoprost (Xalatan Opht) 0.05 ml OU HS [facility] Last Admin: 07/27/18 21:43 Dose: 0.05 ml Pantoprazole Sodium (Protonix Ec Tab) 40 mg PO DAILY [facility] Last Admin: 07/27/18 09:28 Dose: 40 mg Prednisone (Prednisone Tab) 20 mg PO DAILY [facility] Stop: 07/29/18 11:46 Last Admin: 07/27/18 12:16 Dose: 20 mg Tamsulosin HCl (Flomax) 0.4 mg PO DAILY [facility] Last Admin: 07/27/18 09:28 Dose: 0.4 mg Tramadol HCl (Ultram) 25 mg PO TID PRN PRN Reason: Pain, moderate (4-7) Last Admin: 07/27/18 21:44 Dose: 25 mg - Labs Labs: 07/27/18 05:29 07/27/18 05:29 PT 12.9 SECONDS (9.7-12.2) H 07/21/18 17:46 INR 1.2 07/21/18 17:46 APTT 32 SECONDS (21-34) 07/21/18 17:46 - Head Exam Head Exam: ATRAUMATIC - Eye Exam Eye Exam: Normal appearance - ENT Exam ENT Exam: Mucous Membranes Dry - Respiratory Exam Respiratory Exam: NORMAL BREATHING PATTERN - Cardiovascular Exam Cardiovascular Exam: +S1, +S2 - GI/Abdominal Exam GI & Abdominal Exam: Normal Bowel Sounds Assessment and Plan (1) Pericardial effusion with cardiac tamponade Assessment & Plan: s/p pericardial window and chest tube malignant effusion by cytology Status: Acute (2) Anemia Assessment & Plan: anemia of chronic disease from malignancy recent cancer therapy Status: Acute (3) Lung cancer Assessment & Plan: stage IV on treatment with Dr. Slade Status: Acute (4) History of prostate cancer Assessment & Plan: in remission f/u PSA Status: Acute
[2018-07-28] MEDS: Piperacill/Tazo 2.25gm in Dex 2.25 GM/50 ML BAG IVPB SCH ×3 (06:34→21:29)
[2018-07-28] MEDS: Albuterol-Ipratrop 3 mg / 0.5 (3 ml) UD INH PRN (07:34)
[2018-07-28] MEDS: (Novolin R) Insulin Human Regular 100 units/ml vial SC SCH ×4 (08:53→21:19)
--- NOTE | 2018-07-28 12:03 | CP.PCM.PN ---
Subjective - Date & Time of Evaluation Date of Evaluation: 07/28/18 Time of Evaluation: 11:59 - Subjective Subjective: Surgery pT seen and examined. No acute events. Pt is on high flow O2 70%. saturating at 85%. Denies SOB, CP, weakness. Biopsy result shows malignant pericardial effusion and pericardial tissue shows metastatic ca from lung origin. Pt tolerating diet. OOB. Objective - Vital Signs/Intake and Output Vital Signs (last 24 hours): Temp Pulse Resp BP Pulse Ox 97.0 F L 106 H 18 117/53 L 95 07/28/18 08:00 07/28/18 08:18 07/28/18 08:00 07/28/18 08:00 07/28/18 08:00 Intake and Output: 07/28/18 07/28/18 06:59 18:59 Intake Total 400 Output Total 600 Balance -200 - Medications Medications: Current Medications Acetaminophen (Tylenol 325mg Tab) 650 mg PO Q6 PRN PRN Reason: Pain, Mild (1-3) Albuterol/Ipratropium (Duoneb 3 Mg/0.5 Mg (3 Ml) Ud) 3 ml INH RQ6 PRN PRN Reason: Cough Last Admin: 07/28/18 07:34 Dose: 3 ml Finasteride (Proscar) 5 mg PO DAILY [facility] Last Admin: 07/27/18 09:28 Dose: 5 mg Furosemide (Lasix) 20 mg IVP DAILY [facility] Last Admin: 07/27/18 09:28 Dose: 20 mg Heparin Sodium (Porcine) (Heparin) 5,000 units SC Q8 [facility] Last Admin: 07/28/18 06:36 Dose: 5,000 units Piperacillin Sod/Tazobactam Sod (Zosyn 2.25 Gm Iv Premix) 2.25 gm in 50 mls @ 100 mls/hr IVPB Q8 [facility]; Protocol Last Admin: 07/28/18 06:34 Dose: 100 mls/hr Insulin Human Regular (Novolin R) 0 unit SC ACHS [facility]; Protocol Last Admin: 07/28/18 08:53 Dose: Not Given Latanoprost (Xalatan Opht) 0.05 ml OU HS [facility] Last Admin: 07/27/18 21:43 Dose: 0.05 ml Pantoprazole Sodium (Protonix Ec Tab) 40 mg PO DAILY [facility] Last Admin: 07/27/18 09:28 Dose: 40 mg Prednisone (Prednisone Tab) 20 mg PO DAILY [facility] Stop: 07/29/18 11:46 Last Admin: 07/27/18 12:16 Dose: 20 mg Tamsulosin HCl (Flomax) 0.4 mg PO DAILY [facility] Last Admin: 07/27/18 09:28 Dose: 0.4 mg Tramadol HCl (Ultram) 25 mg PO TID PRN PRN Reason: Pain, moderate (4-7) Last Admin: 07/27/18 21:44 Dose: 25 mg - Labs Labs: 07/27/18 05:29 07/27/18 05:29 PT 12.9 SECONDS (9.7-12.2) H 07/21/18 17:46 INR 1.2 07/21/18 17:46 APTT 32 SECONDS (21-34) 07/21/18 17:46 - Constitutional Appears: No Acute Distress - Head Exam Head Exam: ATRAUMATIC, NORMAL INSPECTION, NORMOCEPHALIC - Eye Exam Eye Exam: EOMI, Normal appearance, PERRL Pupil Exam: NORMAL ACCOMODATION, PERRL - ENT Exam ENT Exam: Mucous Membranes Moist, Normal Exam - Neck Exam Neck Exam: Full ROM, Normal Inspection. absent: Lymphadenopathy - Respiratory Exam Respiratory Exam: NORMAL BREATHING PATTERN - Cardiovascular Exam Cardiovascular Exam: Tachycardia - GI/Abdominal Exam GI & Abdominal Exam: Soft, Normal Bowel Sounds. absent: Tenderness Additional comments: Incisions c/D/i - Extremities Exam Extremities Exam: Full ROM, Normal Capillary Refill, Normal Inspection. absent: Joint Swelling, Pedal Edema - Back Exam Back Exam: NORMAL INSPECTION - Neurological Exam Neurological Exam: Alert, Awake, CN II-XII Intact, Normal Gait, Oriented x3 - Psychiatric Exam Psychiatric exam: Normal Affect, Normal Mood - Skin Skin Exam: Dry, Intact, Normal Color, Warm Assessment and Plan - Assessment and Plan (Free Text) Assessment: pod 5 s/p pericardial window for malignant pericardial effusion : improved both drains removed. -No surgical further surgical intervention at this time. - CXR -f/u echo result DW Dr. Yañez
[2018-07-28] MEDS: Pantoprazole 40 mg EC Tab PO SCH (12:05)
--- NOTE | 2018-07-28 13:39 | VASCLAB ---
Date of service: 07/27/2018 PROCEDURE: Lower Extremity Venous Duplex Exam. HISTORY: Swelling r/o dvt PRIORS: None. TECHNIQUE: Bilateral common femoral, femoral, popliteal and posterior tibial, peroneal and great saphenous veins were evaluated. Flow was assessed with color Doppler, compressibility, assessment of phasic flow and augmentation response. Report prepared by JUAN RAMON Ozuna FINDINGS: RIGHT: 1. Common Femoral Vein: 1.1. Compressibility - Fully compressible: Thrombus - None : Flow - Phasic: Augmentation -Normal: Reflux - None. 2. Femoral Vein: 2.1. Compressibility - Fully compressible: Thrombus - None : Flow - Phasic: Augmentation -Normal: Reflux - None. 3. Popliteal Vein: 3.1. Compressibility - Fully compressible: Thrombus - None : Flow - Phasic: Augmentation -Normal: Reflux - None. 4. Posterior Tibial Vein: 4.1. Compressibility - Fully compressible: Thrombus - None: Flow - Phasic: Augmentation -Normal: Reflux - None. 5. Peroneal Vein: 5.1. Compressibility - Fully compressible: Thrombus - None: Flow - Phasic: Augmentation -Normal: Reflux - None. 6. Great Saphenous Vein: 6.1. Compressibility - Fully compressible: Thrombus - None: Flow - Phasic: Augmentation - Normal: Reflux - None. LEFT: 1. Common Femoral Vein: 1.1. Compressibility - Fully compressible: Thrombus - None: Flow - Phasic: Augmentation -Normal: Reflux - None. 2. Femoral Vein: 2.1. Compressibility - Fully compressible: Thrombus - None: Flow - Phasic: Augmentation -Normal: Reflux - None. 3. Popliteal Vein: 3.1. Compressibility - Fully compressible: Thrombus - None : Flow - Phasic: Augmentation -Normal: Reflux - None. 4. Posterior Tibial Vein: 4.1. Compressibility - Fully compressible: Thrombus - None: Flow - Phasic: Augmentation -Normal: Reflux - None. 5. Peroneal Vein: 5.1. Compressibility - Fully compressible: Thrombus - None: Flow - Phasic: Augmentation -Normal: Reflux - None. 6. Great Saphenous Vein: 6.1. Compressibility - Fully compressible: Thrombus - None: Flow - Phasic: Augmentation - Normal: Reflux - None. OTHER FINDINGS: Right: None significant. Left: None significant. IMPRESSION: Right: No evidence of deep or superficial vein thrombosis of the right lower extremity. Normal valve function noted of the right side. Left: No evidence of deep or superficial vein thrombosis of the left lower extremity. Normal valve function noted of the left side.
--- NOTE | 2018-07-28 21:25 | CP.PCM.PN ---
Subjective - Date & Time of Evaluation Date of Evaluation: 07/28/18 Time of Evaluation: 21:24 - Subjective Subjective: Patient is still on high flow oxygen today. He is able to eat by himself without any problem. No diarrhea noted. He is currently on 60% FiO2, saturation is 92. No pain noted. Minimal cough noted. But no mucus production Patient had a echocardiogram yesterday, ejection fraction is good, but no fluid was noted On examination: Vital signs stable. SPO2 92% with high flow FiO2 60%. Chest bilateral good air entry Regular heart sound Abdominal tenderness negative Leg edema negative Labs: Pathology showing evidence of invasive carcinoma of the lungs origin along with lymphovascular invasion Patient is currently on Lasix IV, antibiotic, prednisone for 2 days. Assessment: 78-year-old male with a history of lung cancer, gastric cancer also COPD hypertension. Patient admitted with the cardiac tamponade. Status post a pericardial window. 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 Patient is being seen by oncologist Dr. Slade. Anemia noted Currently on high flow FiO2 Will taper the oxygen as tolerated. Patient may need home oxygen. Physical therapy needed. Discharge plan is pending. Patient like to go home, possibly with the home oxygen and nebulizer once the patient is clinically stable. I discussed with the patient's and patient and family in detail. Patient will be followed up by hospitalist tomorrow Objective - Vital Signs/Intake and Output Vital Signs (last 24 hours): Temp Pulse Resp BP Pulse Ox 98 F 105 H 20 112/58 L 91 L 07/28/18 16:00 07/28/18 16:00 07/28/18 16:00 07/28/18 16:00 07/28/18 16:00 Intake and Output: 07/28/18 07/29/18 18:59 06:59 Intake Total 1050 Output Total 800 Balance 250 - Medications Medications: Current Medications Acetaminophen (Tylenol 325mg Tab) 650 mg PO Q6 PRN PRN Reason: Pain, Mild (1-3) Albuterol/Ipratropium (Duoneb 3 Mg/0.5 Mg (3 Ml) Ud) 3 ml INH RQ6 PRN PRN Reason: Cough Last Admin: 07/28/18 07:34 Dose: 3 ml Finasteride (Proscar) 5 mg PO DAILY [facility] Last Admin: 07/28/18 12:05 Dose: 5 mg Furosemide (Lasix) 20 mg IVP DAILY [facility] Last Admin: 07/28/18 12:05 Dose: 20 mg Heparin Sodium (Porcine) (Heparin) 5,000 units SC Q8 [facility] Last Admin: 07/28/18 13:59 Dose: 5,000 units Piperacillin Sod/Tazobactam Sod (Zosyn 2.25 Gm Iv Premix) 2.25 gm in 50 mls @ 100 mls/hr IVPB Q8 [facility]; Protocol Last Admin: 07/28/18 13:59 Dose: 100 mls/hr Insulin Human Regular (Novolin R) 0 unit SC ACHS [facility]; Protocol Last Admin: 07/28/18 21:19 Dose: Not Given Latanoprost (Xalatan Opht) 0.05 ml OU HS [facility] Last Admin: 07/27/18 21:43 Dose: 0.05 ml Pantoprazole Sodium (Protonix Ec Tab) 40 mg PO DAILY [facility] Last Admin: 07/28/18 12:05 Dose: 40 mg Prednisone (Prednisone Tab) 20 mg PO DAILY [facility] Stop: 07/29/18 11:46 Last Admin: 07/28/18 12:43 Dose: 20 mg Tamsulosin HCl (Flomax) 0.4 mg PO DAILY [facility] Last Admin: 07/28/18 12:05 Dose: 0.4 mg Tramadol HCl (Ultram) 25 mg PO TID PRN PRN Reason: Pain, moderate (4-7) Last Admin: 07/27/18 21:44 Dose: 25 mg - Labs Labs: 07/27/18 05:29 07/27/18 05:29 PT 12.9 SECONDS (9.7-12.2) H 07/21/18 17:46 INR 1.2 07/21/18 17:46 APTT 32 SECONDS (21-34) 07/21/18 17:46
[2018-07-28] MEDS: Latanoprost 2.5 ml Opht Soln OU SCH (21:27)
[2018-07-29] MEDS: Tramadol 25 mg PO PRN (03:00)
[2018-07-29] MEDS: Piperacill/Tazo 2.25gm in Dex 2.25 GM/50 ML BAG IVPB SCH ×3 (05:55→21:36)
[2018-07-29 06:31] LABS: BASO # 0.1 K/uL (0.0-0.2); BASO % 0.6 % (0.0-2.0); EOS # 0.4 K/uL (0.0-0.7); EOS % 4.5 % (0.0-4.0); HEMOGLOBIN 8.5 g/dL (12.0-18.0); LYMPH # 0.5 K/uL (1.0-4.3); LYMPH % 5.8 % (20.0-40.0); MEAN CELL VOLUME 80.4 fL (80.0-94.0); MEAN CORPUSCULAR HEMOGLOBIN 26.2 pg (27.0-31.0); MEAN CORPUSCULAR HGB CONC 32.6 g/dL (33.0-37.0); MEAN PLATELET VOLUME 7.5 fL (7.2-11.7); MONO # 0.5 K/uL (0.0-0.8); MONO % 6.1 % (0.0-10.0); NEUT # 7.4 K/uL (1.8-7.0); PLATELET COUNT 245 K/uL (130-400); RBC 3.24 Mil/uL (4.40-5.90); RED CELL DISTRIBUTION WIDTH 21.6 % (11.5-14.5); WHITE BLOOD COUNT 8.9 K/uL (4.8-10.8)
[2018-07-29 06:40] LABS: ALBUMIN 2.8 g/dL (3.5-5.0); ALT/SGPT 43 U/L (21-72); AST/SGOT 39 U/L (17-59); BLOOD UREA NITROGEN 32 mg/dL (9-20); CALCIUM 8.2 mg/dl (8.6-10.4); GFR NON-AFRICAN AMERICAN 59
--- NOTE | 2018-07-29 06:55 | CP.PCM.PN ---
Subjective - Date & Time of Evaluation Date of Evaluation: 07/27/18 Time of Evaluation: 09:10 - Subjective Subjective: tolerating off respirator NAD VSS Afebrile Objective - Vital Signs/Intake and Output Vital Signs (last 24 hours): Temp Pulse Resp BP Pulse Ox 98.2 F 96 H 18 115/50 L 91 L 07/29/18 04:00 07/29/18 04:00 07/29/18 04:00 07/29/18 04:00 07/29/18 04:00 Intake and Output: 07/28/18 07/29/18 18:59 06:59 Intake Total 1050 Output Total 800 Balance 250 - Medications Medications: Current Medications Acetaminophen (Tylenol 325mg Tab) 650 mg PO Q6 PRN PRN Reason: Pain, Mild (1-3) Albuterol/Ipratropium (Duoneb 3 Mg/0.5 Mg (3 Ml) Ud) 3 ml INH RQ6 PRN PRN Reason: Cough Last Admin: 07/28/18 07:34 Dose: 3 ml Finasteride (Proscar) 5 mg PO DAILY [facility] Last Admin: 07/28/18 12:05 Dose: 5 mg Heparin Sodium (Porcine) (Heparin) 5,000 units SC Q8 [facility] Last Admin: 07/29/18 05:55 Dose: 5,000 units Piperacillin Sod/Tazobactam Sod (Zosyn 2.25 Gm Iv Premix) 2.25 gm in 50 mls @ 100 mls/hr IVPB Q8 [facility]; Protocol Last Admin: 07/29/18 05:55 Dose: 100 mls/hr Insulin Human Regular (Novolin R) 0 unit SC ACHS [facility]; Protocol Last Admin: 07/28/18 21:19 Dose: Not Given Latanoprost (Xalatan Opht) 0.05 ml OU HS [facility] Last Admin: 07/28/18 21:27 Dose: 0.05 ml Pantoprazole Sodium (Protonix Ec Tab) 40 mg PO DAILY [facility] Last Admin: 07/28/18 12:05 Dose: 40 mg Prednisone (Prednisone Tab) 20 mg PO DAILY [facility] Stop: 07/29/18 11:46 Last Admin: 07/28/18 12:43 Dose: 20 mg Tamsulosin HCl (Flomax) 0.4 mg PO DAILY [facility] Last Admin: 07/28/18 12:05 Dose: 0.4 mg Tramadol HCl (Ultram) 25 mg PO TID PRN PRN Reason: Pain, moderate (4-7) Last Admin: 07/29/18 03:00 Dose: 25 mg - Labs Labs: 07/29/18 06:21 07/29/18 06:14 PT 12.9 SECONDS (9.7-12.2) H 07/21/18 17:46 INR 1.2 07/21/18 17:46 APTT 32 SECONDS (21-34) 07/21/18 17:46 - Constitutional Appears: No Acute Distress - Head Exam Head Exam: NORMAL INSPECTION - Eye Exam Eye Exam: absent: Scleral icterus - ENT Exam ENT Exam: Mucous Membranes Moist - Neck Exam Neck Exam: Full ROM - Respiratory Exam Respiratory Exam: NORMAL BREATHING PATTERN - Cardiovascular Exam Cardiovascular Exam: REGULAR RHYTHM - GI/Abdominal Exam GI & Abdominal Exam: Soft - Extremities Exam Extremities Exam: absent: Pedal Edema - Neurological Exam Neurological Exam: Alert, Oriented x3 Assessment and Plan - Assessment and Plan (Free Text) Assessment: Cardiac tamponade s/p pericardial window Lung ca Prostate ca COPD Plan: Cont post-op management DVT prophylaxis
--- NOTE | 2018-07-29 06:59 | CP.PCM.PN ---
Subjective - Date & Time of Evaluation Date of Evaluation: 07/28/18 Time of Evaluation: 09:00 - Subjective Subjective: Pt seen bedside with residents found pt sitting on the bed NAD Afebrile Objective - Vital Signs/Intake and Output Vital Signs (last 24 hours): Temp Pulse Resp BP Pulse Ox 98.2 F 96 H 18 115/50 L 91 L 07/29/18 04:00 07/29/18 04:00 07/29/18 04:00 07/29/18 04:00 07/29/18 04:00 Intake and Output: 07/28/18 07/29/18 18:59 06:59 Intake Total 1050 Output Total 800 Balance 250 - Medications Medications: Current Medications Acetaminophen (Tylenol 325mg Tab) 650 mg PO Q6 PRN PRN Reason: Pain, Mild (1-3) Albuterol/Ipratropium (Duoneb 3 Mg/0.5 Mg (3 Ml) Ud) 3 ml INH RQ6 PRN PRN Reason: Cough Last Admin: 07/28/18 07:34 Dose: 3 ml Finasteride (Proscar) 5 mg PO DAILY [facility] Last Admin: 07/28/18 12:05 Dose: 5 mg Heparin Sodium (Porcine) (Heparin) 5,000 units SC Q8 [facility] Last Admin: 07/29/18 05:55 Dose: 5,000 units Piperacillin Sod/Tazobactam Sod (Zosyn 2.25 Gm Iv Premix) 2.25 gm in 50 mls @ 100 mls/hr IVPB Q8 [facility]; Protocol Last Admin: 07/29/18 05:55 Dose: 100 mls/hr Insulin Human Regular (Novolin R) 0 unit SC ACHS [facility]; Protocol Last Admin: 07/28/18 21:19 Dose: Not Given Latanoprost (Xalatan Opht) 0.05 ml OU HS [facility] Last Admin: 07/28/18 21:27 Dose: 0.05 ml Pantoprazole Sodium (Protonix Ec Tab) 40 mg PO DAILY [facility] Last Admin: 07/28/18 12:05 Dose: 40 mg Prednisone (Prednisone Tab) 20 mg PO DAILY [facility] Stop: 07/29/18 11:46 Last Admin: 07/28/18 12:43 Dose: 20 mg Tamsulosin HCl (Flomax) 0.4 mg PO DAILY [facility] Last Admin: 07/28/18 12:05 Dose: 0.4 mg Tramadol HCl (Ultram) 25 mg PO TID PRN PRN Reason: Pain, moderate (4-7) Last Admin: 07/29/18 03:00 Dose: 25 mg - Labs Labs: 07/29/18 06:21 07/29/18 06:14 PT 12.9 SECONDS (9.7-12.2) H 07/21/18 17:46 INR 1.2 07/21/18 17:46 APTT 32 SECONDS (21-34) 07/21/18 17:46 - Constitutional Appears: Non-toxic - Head Exam Head Exam: NORMAL INSPECTION - Eye Exam Eye Exam: Scleral icterus - Neck Exam Neck Exam: Full ROM - Respiratory Exam Respiratory Exam: Decreased Breath Sounds - Cardiovascular Exam Cardiovascular Exam: Tachycardia - GI/Abdominal Exam GI & Abdominal Exam: Soft - Extremities Exam Extremities Exam: Pedal Edema - Neurological Exam Neurological Exam: Alert Assessment and Plan - Assessment and Plan (Free Text) Assessment: Cardiac tamponade most like 2ndary to Lung ca s/p pericardial window COPD Lung ca Prostate ca Plan: Cont post-op care
--- NOTE | 2018-07-29 07:04 | CP.PCM.PN ---
Subjective - Date & Time of Evaluation Date of Evaluation: 07/25/18 Time of Evaluation: 09:25 - Subjective Subjective: pt on nasal cannula feeling good NAD sitting on bed in good spirit Objective - Vital Signs/Intake and Output Vital Signs (last 24 hours): Temp Pulse Resp BP Pulse Ox 98.2 F 96 H 18 115/50 L 91 L 07/29/18 04:00 07/29/18 04:00 07/29/18 05:57 07/29/18 04:00 07/29/18 04:00 Intake and Output: 07/29/18 07/29/18 06:59 18:59 Intake Total 1050 Output Total 800 Balance 250 - Medications Medications: Current Medications Acetaminophen (Tylenol 325mg Tab) 650 mg PO Q6 PRN PRN Reason: Pain, Mild (1-3) Albuterol/Ipratropium (Duoneb 3 Mg/0.5 Mg (3 Ml) Ud) 3 ml INH RQ6 PRN PRN Reason: Cough Last Admin: 07/28/18 07:34 Dose: 3 ml Finasteride (Proscar) 5 mg PO DAILY [facility] Last Admin: 07/28/18 12:05 Dose: 5 mg Heparin Sodium (Porcine) (Heparin) 5,000 units SC Q8 [facility] Last Admin: 07/29/18 05:55 Dose: 5,000 units Piperacillin Sod/Tazobactam Sod (Zosyn 2.25 Gm Iv Premix) 2.25 gm in 50 mls @ 100 mls/hr IVPB Q8 [facility]; Protocol Last Admin: 07/29/18 05:55 Dose: 100 mls/hr Insulin Human Regular (Novolin R) 0 unit SC ACHS [facility]; Protocol Last Admin: 07/28/18 21:19 Dose: Not Given Latanoprost (Xalatan Opht) 0.05 ml OU HS [facility] Last Admin: 07/28/18 21:27 Dose: 0.05 ml Pantoprazole Sodium (Protonix Ec Tab) 40 mg PO DAILY [facility] Last Admin: 07/28/18 12:05 Dose: 40 mg Prednisone (Prednisone Tab) 20 mg PO DAILY [facility] Stop: 07/29/18 11:46 Last Admin: 07/28/18 12:43 Dose: 20 mg Tamsulosin HCl (Flomax) 0.4 mg PO DAILY [facility] Last Admin: 07/28/18 12:05 Dose: 0.4 mg Tramadol HCl (Ultram) 25 mg PO TID PRN PRN Reason: Pain, moderate (4-7) Last Admin: 07/29/18 03:00 Dose: 25 mg - Labs Labs: 07/29/18 06:21 07/29/18 06:14 PT 12.9 SECONDS (9.7-12.2) H 07/21/18 17:46 INR 1.2 07/21/18 17:46 APTT 32 SECONDS (21-34) 07/21/18 17:46 - Constitutional Appears: Non-toxic - Head Exam Head Exam: NORMAL INSPECTION - Eye Exam Eye Exam: absent: Scleral icterus - ENT Exam ENT Exam: Mucous Membranes Moist - Neck Exam Neck Exam: Full ROM - Respiratory Exam Respiratory Exam: Decreased Breath Sounds - Cardiovascular Exam Cardiovascular Exam: REGULAR RHYTHM - GI/Abdominal Exam GI & Abdominal Exam: Soft. absent: Tenderness - Extremities Exam Extremities Exam: absent: Pedal Edema - Neurological Exam Neurological Exam: Alert Assessment and Plan - Assessment and Plan (Free Text) Assessment: Cardiac tamponade s/p pericardial window Lung ca COPD Prostate ca Plan: Cont meds Cont post-op care
[2018-07-29] MEDS: Albuterol-Ipratrop 3 mg / 0.5 (3 ml) UD INH PRN (07:31)
[2018-07-29] MEDS: (Novolin R) Insulin Human Regular 100 units/ml vial SC SCH ×4 (08:00→21:37)
[2018-07-29 08:38] LABS: BANDS 1 % (0-2); EOSINOPHIL 4 % (0-4); LYMPHOCYTE 11 % (20-40); MONOCYTE 4 % (0-10); NEUTROPHIL 80 % (50-75); TOTAL CELLS COUNTED 100
[2018-07-29 08:39] LABS: ANISOCYTOSIS SLIGHT; HYPOCHROMIC SLIGHT; PLATELET ESTIMATE NORMAL (NORMAL); POLYCHROMIC SLIGHT
[2018-07-29] MEDS: Pantoprazole 40 mg EC Tab PO SCH (09:20)
--- NOTE | 2018-07-29 10:05 | RAD ---
Date of service: 07/29/2018 HISTORY: PNA COMPARISON: 07/27/2018 left parahilar pulmonary mass unchanged. Right-sided opacity parahilar, unchanged. No new abnormal opacity. FINDINGS: LUNGS: No active pulmonary disease. PLEURA: No significant pleural effusion identified, no pneumothorax apparent. CARDIOVASCULAR: Normal. OSSEOUS STRUCTURES: No significant abnormalities. VISUALIZED UPPER ABDOMEN: Normal. OTHER FINDINGS: None. IMPRESSION: Left parahilar rounded opacity likely mass. Right parahilar opacity possible pneumonia. No significant change.
--- NOTE | 2018-07-29 13:03 | PN ---
DATE: 07/29/2018 HISTORY OF PRESENT ILLNESS: Clinically, the patient has improved. Shortness of breath is decreased. The patient will be transferred from the ICU to the telemetry. No fever or chills. REVIEW OF SYSTEMS: Denies any headache, dizziness, or blackout. No chest pain or palpitation. No fever or chills. Sitting out of bed in the chair. No nausea, vomiting, melena, hemoptysis, or hematemesis. No dysuria or hematuria. No change in the bowel habits. No change in the color of the stool. No tingling or numbness. No localized weakness. PHYSICAL EXAMINATION: VITAL SIGNS: Temperature 98.1, pulse 98, respirations 20, and blood pressure 114/58. HEENT: Head normocephalic, atraumatic. Eyes, conjunctivae pale. Sclerae white. Pupils reacting to light. Ear, nose and throat within normal limits. LUNGS: Bilaterally decreased breath sounds at both the bases. HEART: S1 and S2 regular. No gallop. No murmur. ABDOMEN: Soft, not distended, not tender. No hepatosplenomegaly. FITTING ROOM ATTENDANT: No gross motor or sensory deficits. LYMPH NODE: No cervical, axillary, or inguinal lymph nodes palpable. EXTREMITIES: No edema, no cyanosis, no clubbing, and no varicose vein. LABORATORY DATA: WBC 8900, hemoglobin 8.5, and platelet count 245,000. GFR is 59, calcium is 8.2, and albumin is 2.8. Rest within normal limits. 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 PLAN: Clinical status discussed with the patient. Also discussed with the daughter on the phone. The patient may not be a candidate for chemotherapy, but might be a candidate for the immunotherapy with Keytruda. The patient's PDL1 was more than 50% positive. Once the patient is discharged, we will reevaluate in the office and plan further treatment. Thank you for letting me participate in the care of this patient and I will follow up the patient with you. Jaz Slade MD cc: Dr. Lux
--- NOTE | 2018-07-29 14:07 | CP.PCM.PN ---
Subjective - Date & Time of Evaluation Date of Evaluation: 07/29/18 Time of Evaluation: 14:05 - Subjective Subjective: Pt s/e. Path: pericardium-metastatic ca with lung primary. Doing well. Continue current supportive care. Objective - Vital Signs/Intake and Output Vital Signs (last 24 hours): Temp Pulse Resp BP Pulse Ox 98.1 F 98 H 20 114/58 L 92 L 07/29/18 08:00 07/29/18 08:00 07/29/18 13:10 07/29/18 08:00 07/29/18 08:00 Intake and Output: 07/29/18 07/29/18 06:59 18:59 Intake Total 1050 Output Total 800 Balance 250 - Medications Medications: Current Medications Acetaminophen (Tylenol 325mg Tab) 650 mg PO Q6 PRN PRN Reason: Pain, Mild (1-3) Albuterol/Ipratropium (Duoneb 3 Mg/0.5 Mg (3 Ml) Ud) 3 ml INH RQ6 PRN PRN Reason: Cough Last Admin: 07/29/18 07:31 Dose: 3 ml Finasteride (Proscar) 5 mg PO DAILY [facility] Last Admin: 07/29/18 09:20 Dose: 5 mg Heparin Sodium (Porcine) (Heparin) 5,000 units SC Q8 [facility] Last Admin: 07/29/18 05:55 Dose: 5,000 units Piperacillin Sod/Tazobactam Sod (Zosyn 2.25 Gm Iv Premix) 2.25 gm in 50 mls @ 100 mls/hr IVPB Q8 [facility]; Protocol Last Admin: 07/29/18 05:55 Dose: 100 mls/hr Insulin Human Regular (Novolin R) 0 unit SC ACHS [facility]; Protocol Last Admin: 07/29/18 11:45 Dose: 1 u Latanoprost (Xalatan Opht) 0.05 ml OU HS [facility] Last Admin: 07/28/18 21:27 Dose: 0.05 ml Pantoprazole Sodium (Protonix Ec Tab) 40 mg PO DAILY [facility] Last Admin: 07/29/18 09:20 Dose: 40 mg Tamsulosin HCl (Flomax) 0.4 mg PO DAILY [facility] Last Admin: 07/29/18 09:20 Dose: 0.4 mg Tramadol HCl (Ultram) 25 mg PO TID PRN PRN Reason: Pain, moderate (4-7) Last Admin: 07/29/18 03:00 Dose: 25 mg - Labs Labs: 07/29/18 06:21 07/29/18 06:14 PT 12.9 SECONDS (9.7-12.2) H 07/21/18 17:46 INR 1.2 07/21/18 17:46 APTT 32 SECONDS (21-34) 07/21/18 17:46
[2018-07-29] MEDS: Latanoprost 2.5 ml Opht Soln OU SCH (21:37)
--- NOTE | 2018-07-29 22:02 | CP.PCM.PN ---
Subjective - Date & Time of Evaluation Date of Evaluation: 07/29/18 Time of Evaluation: 13:00 - Subjective Subjective: Patient seen and evaluated denies chest pain and dyspnea Metastatic Ca S/P Pericardial window Objective - Vital Signs/Intake and Output Vital Signs (last 24 hours): Temp Pulse Resp BP Pulse Ox 98.2 F 120 H 20 128/66 94 L 07/29/18 19:33 07/29/18 19:46 07/29/18 19:33 07/29/18 19:33 07/29/18 16:00 Intake and Output: 07/29/18 07/30/18 18:59 06:59 Intake Total 650 Output Total 950 Balance -300 - Medications Medications: Current Medications Acetaminophen (Tylenol 325mg Tab) 650 mg PO Q6 PRN PRN Reason: Pain, Mild (1-3) Albuterol/Ipratropium (Duoneb 3 Mg/0.5 Mg (3 Ml) Ud) 3 ml INH RQ6 PRN PRN Reason: Cough Last Admin: 07/29/18 07:31 Dose: 3 ml Finasteride (Proscar) 5 mg PO DAILY [facility] Last Admin: 07/29/18 09:20 Dose: 5 mg Furosemide (Lasix) 40 mg PO DAILY [facility] Last Admin: 07/29/18 16:01 Dose: 40 mg Heparin Sodium (Porcine) (Heparin) 5,000 units SC Q8 [facility] Last Admin: 07/29/18 21:39 Dose: 5,000 units Piperacillin Sod/Tazobactam Sod (Zosyn 2.25 Gm Iv Premix) 2.25 gm in 50 mls @ 100 mls/hr IVPB Q8 [facility]; Protocol Last Admin: 07/29/18 21:36 Dose: 100 mls/hr Insulin Human Regular (Novolin R) 0 unit SC ACHS [facility]; Protocol Last Admin: 07/29/18 21:37 Dose: Not Given Latanoprost (Xalatan Opht) 0.05 ml OU HS [facility] Last Admin: 07/29/18 21:37 Dose: 0.05 ml Pantoprazole Sodium (Protonix Ec Tab) 40 mg PO DAILY [facility] Last Admin: 07/29/18 09:20 Dose: 40 mg Tamsulosin HCl (Flomax) 0.4 mg PO DAILY [facility] Last Admin: 07/29/18 09:20 Dose: 0.4 mg Tramadol HCl (Ultram) 25 mg PO TID PRN PRN Reason: Pain, moderate (4-7) Last Admin: 07/29/18 03:00 Dose: 25 mg - Labs Labs: 07/29/18 06:21 07/29/18 06:14 PT 12.9 SECONDS (9.7-12.2) H 07/21/18 17:46 INR 1.2 07/21/18 17:46 APTT 32 SECONDS (21-34) 07/21/18 17:46
--- NOTE | 2018-07-30 00:14 | CP.PCM.PN ---
<Jayson Engel - Last Filed: 07/30/18 00:36> Subjective - Date & Time of Evaluation Date of Evaluation: 07/29/18 Time of Evaluation: 10:25 - Subjective Subjective: PGY-1 progress note for Hospitalist Dr Crocker Patient is seen and examined at bedside. Patient reports having trouble sleeping, mostly related to hospital staff coming to room frequently. Patient admits to chronic coughing, with clear phlegm, nonbloody. Patient admits to previous yellow and red colored sputum, but not currently. Otherwise, patient denies any acute events. Patient denies fever, chills, nausea, vomiting, chest pain, shortness of breath, diarrhea or constipation. Objective - Vital Signs/Intake and Output Vital Signs (last 24 hours): Temp Pulse Resp BP Pulse Ox 98.2 F 120 H 20 128/66 94 L 07/29/18 19:33 07/29/18 19:46 07/29/18 23:36 07/29/18 19:33 07/29/18 16:00 Intake and Output: 07/29/18 07/30/18 18:59 06:59 Intake Total 650 Output Total 950 Balance -300 - Medications Medications: Current Medications Acetaminophen (Tylenol 325mg Tab) 650 mg PO Q6 PRN PRN Reason: Pain, Mild (1-3) Last Admin: 07/29/18 22:30 Dose: 650 mg Albuterol/Ipratropium (Duoneb 3 Mg/0.5 Mg (3 Ml) Ud) 3 ml INH RQ6 PRN PRN Reason: Cough Last Admin: 07/29/18 07:31 Dose: 3 ml Finasteride (Proscar) 5 mg PO DAILY [facility] Last Admin: 07/29/18 09:20 Dose: 5 mg Furosemide (Lasix) 40 mg PO DAILY [facility] Last Admin: 07/29/18 16:01 Dose: 40 mg Heparin Sodium (Porcine) (Heparin) 5,000 units SC Q8 [facility] Last Admin: 07/29/18 21:39 Dose: 5,000 units Piperacillin Sod/Tazobactam Sod (Zosyn 2.25 Gm Iv Premix) 2.25 gm in 50 mls @ 100 mls/hr IVPB Q8 [facility]; Protocol Last Admin: 07/29/18 21:36 Dose: 100 mls/hr Insulin Human Regular (Novolin R) 0 unit SC ACHS [facility]; Protocol Last Admin: 07/29/18 21:37 Dose: Not Given Latanoprost (Xalatan Opht) 0.05 ml OU HS [facility] Last Admin: 07/29/18 21:37 Dose: 0.05 ml Pantoprazole Sodium (Protonix Ec Tab) 40 mg PO DAILY [facility] Last Admin: 07/29/18 09:20 Dose: 40 mg Tamsulosin HCl (Flomax) 0.4 mg PO DAILY [facility] Last Admin: 07/29/18 09:20 Dose: 0.4 mg Tramadol HCl (Ultram) 25 mg PO TID PRN PRN Reason: Pain, moderate (4-7) Last Admin: 07/29/18 03:00 Dose: 25 mg - Labs Labs: 07/29/18 06:21 07/29/18 06:14 PT 12.9 SECONDS (9.7-12.2) H 07/21/18 17:46 INR 1.2 07/21/18 17:46 APTT 32 SECONDS (21-34) 07/21/18 17:46 - Constitutional Appears: Well, Non-toxic, No Acute Distress - Head Exam Head Exam: ATRAUMATIC, NORMAL INSPECTION, NORMOCEPHALIC - Eye Exam Eye Exam: EOMI, Normal appearance - ENT Exam ENT Exam: Mucous Membranes Moist, Normal Exam - Neck Exam Neck Exam: Full ROM, Normal Inspection - Respiratory Exam Respiratory Exam: Clear to Ausculation Bilateral, NORMAL BREATHING PATTERN. absent: Accessory Muscle Use, Respiratory Distress - Cardiovascular Exam Cardiovascular Exam: REGULAR RHYTHM, +S1, +S2 - GI/Abdominal Exam GI & Abdominal Exam: Soft, Normal Bowel Sounds. absent: Tenderness - Extremities Exam Extremities Exam: Full ROM, Normal Inspection Additional comments: edema lower extremities bilaterally - Back Exam Back Exam: Full ROM, NORMAL INSPECTION - Neurological Exam Neurological Exam: Alert, Awake, Oriented x3 - Psychiatric Exam Psychiatric exam: Normal Affect, Normal Mood - Skin Skin Exam: Intact, Normal Color, Warm Assessment and Plan - Assessment and Plan (Free Text) Plan: hypoxia, interstitial lung changes, underlying interstitial pneumonia possible * 07/29 Chest Xray - Left parahilar rounded opacity likely mass. Right parahilar opacity, possible pneumonia, no significant change * chest xray - persisten moderate to severe venous congestion. More confluent airspace opacification seen within the bilateral mid lung zone, rig ht greater than left. Right hilar prominence. Cardiomegaly, surgical clips project over upper abdomen. * CT scan - Interval progression of left upper lobe neoplasm including mediastinal lymphadenopathy. Interval interstitial and alveolar changes affecting the right lung and left lower lobe, may refelct atypical pneumonitis, limited possibility of spread of cancer. * sputum culture - normal oral clint * Mycobacterial culture- no acid fast bacilli seen * Naris culture - no MRSA detected * Stool culture negative * Blood culture - negative, no growth after 5 days * afebrile today, vitals wnl * WBC - 8.9, previous was 7 - follow up am labs * Patient currently on high flow FiO2 - consider weaning oxygen high flow, and observation if patient tolerating before sending him home vs ISAC. * Meds - Zosyn 2.25mg IVPB Q8 [facility] started 07/22/18 Cardiac tamponade/ Pericardial effusion * Dr Ricci consulted - recommended cardiac window 07/22 - performed on 07/[address] Yañez. As per surgery, no further surgical intervention at this time. * Patient transferred to ICU 07/23 * cardiogenic shock acute renal failure status post a pericardial window - renal insufficiency improved - chest tubes placed in surgery, later were removed. * Patient extubated * Lasix given - Ordered Lasix 40 mg PO Qdaily for swelling of legs * Patient currently on high flow FiO2 * pericardial fluid culture- no anaerbic isolated, no growth * Cardiology Dr Graham consulted - continue meds, continue post op care Hx prostate, gastric CA, metastatic lung cancer * Oncology consult - Dr Slade - follow recs * Pathology showing evidence of invasive carcinoma of the lungs origin along with lymphovascular invasion * Oncology Dr Gale - f/u recs * prostate ca in remission * H/H - 8.5/26.1 follow up am labs hx of COPD * inhaled corticosteroid bronchodilators IV corticosteroid * Oxygen supplementation * Duonebs Prophylaxis * DVT: Heparin 5000 SC Q8 * GI: Protonix 40 mg PO QD * Pain: tramadol 25 ng PO TID PRN * fever control - tylenol 650 PO Q6 PRN * continue HHD * Patient like to go home, possibly with the home oxygen and nebulizer once the patient is clinically stable. follow up PT recs on use of oxygen. Plan discussed with Dr Lizzette Engel, PGY-1 <Zion Crocker - Last Filed: 08/01/18 18:11> Attending/Attestation - Attestation I have personally seen and examined this patient.: Yes I have fully participated in the care of the patient.: Yes I have reviewed all pertinent clinical information, including history, physical exam and plan: Yes Notes (Text): Hypoxia, interstitial lung changes, underlying interstitial pneumonia Cardiac tamponade/ Pericardial effusion Hx prostate, gastric CA, metastatic lung cancer
[2018-07-30] MEDS: Piperacill/Tazo 2.25gm in Dex 2.25 GM/50 ML BAG IVPB SCH ×2 (05:50→22:30)
[2018-07-30] MEDS: Albuterol-Ipratrop 3 mg / 0.5 (3 ml) UD INH PRN (06:07)
--- NOTE | 2018-07-30 07:42 | CP.PCM.PN ---
Subjective - Subjective Subjective: pt on nasal cannula feeling good NAD sitting on bed in good spirit Objective - Vital Signs/Intake and Output Vital Signs (last 24 hours): Temp Pulse Resp BP Pulse Ox 98 F 114 H 20 127/62 97 07/29/18 23:10 07/30/18 00:00 07/30/18 05:12 07/29/18 23:10 07/29/18 23:10 Intake and Output: 07/30/18 07/30/18 06:59 18:59 Intake Total 650 Output Total 2100 Balance -1450 - Medications Medications: Current Medications Acetaminophen (Tylenol 325mg Tab) 650 mg PO Q6 PRN PRN Reason: Pain, Mild (1-3) Last Admin: 07/29/18 22:30 Dose: 650 mg Albuterol/Ipratropium (Duoneb 3 Mg/0.5 Mg (3 Ml) Ud) 3 ml INH RQ6 PRN PRN Reason: Cough Last Admin: 07/30/18 06:07 Dose: 3 ml Finasteride (Proscar) 5 mg PO DAILY [facility] Last Admin: 07/29/18 09:20 Dose: 5 mg Furosemide (Lasix) 40 mg PO DAILY [facility] Last Admin: 07/29/18 16:01 Dose: 40 mg Heparin Sodium (Porcine) (Heparin) 5,000 units SC Q8 [facility] Last Admin: 07/30/18 05:48 Dose: 5,000 units Piperacillin Sod/Tazobactam Sod (Zosyn 2.25 Gm Iv Premix) 2.25 gm in 50 mls @ 100 mls/hr IVPB Q8 [facility]; Protocol Last Admin: 07/30/18 05:50 Dose: 100 mls/hr Insulin Human Regular (Novolin R) 0 unit SC ACHS [facility]; Protocol Last Admin: 07/29/18 21:37 Dose: Not Given Latanoprost (Xalatan Opht) 0.05 ml OU HS [facility] Last Admin: 07/29/18 21:37 Dose: 0.05 ml Pantoprazole Sodium (Protonix Ec Tab) 40 mg PO DAILY [facility] Last Admin: 07/29/18 09:20 Dose: 40 mg Tamsulosin HCl (Flomax) 0.4 mg PO DAILY [facility] Last Admin: 07/29/18 09:20 Dose: 0.4 mg Tramadol HCl (Ultram) 25 mg PO TID PRN PRN Reason: Pain, moderate (4-7) Last Admin: 07/29/18 03:00 Dose: 25 mg - Labs Labs: 07/29/18 06:21 07/29/18 06:14 PT 12.9 SECONDS (9.7-12.2) H 07/21/18 17:46 INR 1.2 07/21/18 17:46 APTT 32 SECONDS (21-34) 07/21/18 17:46 - Constitutional Appears: Non-toxic - Head Exam Head Exam: NORMAL INSPECTION - Eye Exam Eye Exam: absent: Scleral icterus - Neck Exam Neck Exam: Full ROM - Respiratory Exam Respiratory Exam: NORMAL BREATHING PATTERN - Cardiovascular Exam Cardiovascular Exam: REGULAR RHYTHM - GI/Abdominal Exam GI & Abdominal Exam: Normal Bowel Sounds - Extremities Exam Extremities Exam: absent: Pedal Edema Assessment and Plan - Assessment and Plan (Free Text) Assessment: Cardiac tamponade s/p pericardiocentesis Lung ca Prostate ca COPD Plan: Cont present management
[2018-07-30] MEDS: (Novolin R) Insulin Human Regular 100 units/ml vial SC SCH ×4 (08:22→22:06)
[2018-07-30] MEDS: Pantoprazole 40 mg EC Tab PO SCH (09:09)
--- NOTE | 2018-07-30 12:31 | CP.PCM.PN ---
Subjective - Date & Time of Evaluation Date of Evaluation: 07/30/18 Time of Evaluation: 12:30 - Subjective Subjective: Pt s/e. Transferred out of ICU. Continue to do well. Objective - Vital Signs/Intake and Output Vital Signs (last 24 hours): Temp Pulse Resp BP Pulse Ox 98.6 F 98 H 20 142/65 94 L 07/30/18 08:13 07/30/18 08:13 07/30/18 11:07 07/30/18 09:08 07/30/18 08:13 Intake and Output: 07/30/18 07/30/18 06:59 18:59 Intake Total 810 Output Total 2100 Balance -1290 - Medications Medications: Current Medications Acetaminophen (Tylenol 325mg Tab) 650 mg PO Q6 PRN PRN Reason: Pain, Mild (1-3) Last Admin: 07/29/18 22:30 Dose: 650 mg Albuterol/Ipratropium (Duoneb 3 Mg/0.5 Mg (3 Ml) Ud) 3 ml INH RQ6 PRN PRN Reason: Cough Last Admin: 07/30/18 06:07 Dose: 3 ml Finasteride (Proscar) 5 mg PO DAILY [facility] Last Admin: 07/30/18 09:12 Dose: 5 mg Furosemide (Lasix) 40 mg PO DAILY [facility] Last Admin: 07/30/18 09:08 Dose: 40 mg Heparin Sodium (Porcine) (Heparin) 5,000 units SC Q8 [facility] Last Admin: 07/30/18 05:48 Dose: 5,000 units Insulin Human Regular (Novolin R) 0 unit SC ACHS [facility]; Protocol Last Admin: 07/30/18 12:02 Dose: 2 u Latanoprost (Xalatan Opht) 0.05 ml OU HS [facility] Last Admin: 07/29/18 21:37 Dose: 0.05 ml Pantoprazole Sodium (Protonix Ec Tab) 40 mg PO DAILY [facility] Last Admin: 07/30/18 09:09 Dose: 40 mg Tamsulosin HCl (Flomax) 0.4 mg PO DAILY [facility] Last Admin: 07/30/18 09:09 Dose: 0.4 mg Tramadol HCl (Ultram) 25 mg PO TID PRN PRN Reason: Pain, moderate (4-7) Last Admin: 07/29/18 03:00 Dose: 25 mg - Labs Labs: 07/29/18 06:21 07/29/18 06:14 PT 12.9 SECONDS (9.7-12.2) H 07/21/18 17:46 INR 1.2 07/21/18 17:46 APTT 32 SECONDS (21-34) 07/21/18 17:46
--- NOTE | 2018-07-30 17:29 | CP.PCM.PN ---
<Tawanda Bateman - Last Filed: 07/30/18 17:26> Subjective - Date & Time of Evaluation Date of Evaluation: 07/30/18 Time of Evaluation: 09:20 - Subjective Subjective: Progress Note for Hospitalist Service (covering for Dr. Lux) Pt seen and examined at bedside this am. Observed oob to chair on high flow O2, tolerating well, in no acute distress. Pt states he had some worsening dyspnea this am and was given venti mask by respiratory therapist with rapid improvement of symptoms. Denies fever, chills, chest pain, shortness of breath, n/v/d/c, abd pain, urinary complaints, or other symptoms. Reports leg swelling b/l is impr oving. Objective - Vital Signs/Intake and Output Vital Signs (last 24 hours): Temp Pulse Resp BP Pulse Ox 98.5 F 105 H 20 94/50 L 93 L 07/30/18 15:10 07/30/18 15:10 07/30/18 15:10 07/30/18 15:10 07/30/18 15:10 Intake and Output: 07/30/18 07/30/18 06:59 18:59 Intake Total 810 450 Output Total 2100 Balance -1290 450 - Medications Medications: Current Medications Acetaminophen (Tylenol 325mg Tab) 650 mg PO Q6 PRN PRN Reason: Pain, Mild (1-3) Last Admin: 07/29/18 22:30 Dose: 650 mg Albuterol/Ipratropium (Duoneb 3 Mg/0.5 Mg (3 Ml) Ud) 3 ml INH RQ6 PRN PRN Reason: Cough Last Admin: 07/30/18 06:07 Dose: 3 ml Finasteride (Proscar) 5 mg PO DAILY [facility] Last Admin: 07/30/18 09:12 Dose: 5 mg Fluticasone/Vilanterol (Breo Ellipta 100-25 Mcg Inh) 1 puff INH RQD [facility] Furosemide (Lasix) 40 mg PO DAILY [facility] Last Admin: 07/30/18 09:08 Dose: 40 mg Furosemide (Lasix) 20 mg PO DAILY [facility] Heparin Sodium (Porcine) (Heparin) 5,000 units SC Q8 [facility] Last Admin: 07/30/18 13:26 Dose: 5,000 units Insulin Human Regular (Novolin R) 0 unit SC ACHS [facility]; Protocol Last Admin: 07/30/18 12:02 Dose: 2 u Latanoprost (Xalatan Opht) 0.05 ml OU HS [facility] Last Admin: 07/29/18 21:37 Dose: 0.05 ml Pantoprazole Sodium (Protonix Ec Tab) 40 mg PO DAILY [facility] Last Admin: 07/30/18 09:09 Dose: 40 mg Tamsulosin HCl (Flomax) 0.4 mg PO DAILY [facility] Last Admin: 07/30/18 09:09 Dose: 0.4 mg Tramadol HCl (Ultram) 25 mg PO TID PRN PRN Reason: Pain, moderate (4-7) Last Admin: 07/29/18 03:00 Dose: 25 mg - Labs Labs: 07/29/18 06:21 07/29/18 06:14 PT 12.9 SECONDS (9.7-12.2) H 07/21/18 17:46 INR 1.2 07/21/18 17:46 APTT 32 SECONDS (21-34) 07/21/18 17:46 - Constitutional Appears: Non-toxic, No Acute Distress, Chronically Ill - Head Exam Head Exam: ATRAUMATIC, NORMOCEPHALIC - Eye Exam Eye Exam: EOMI, Normal appearance, PERRL - ENT Exam ENT Exam: Mucous Membranes Moist - Respiratory Exam Respiratory Exam: Clear to Ausculation Bilateral, NORMAL BREATHING PATTERN. absent: Rales, Rhonchi, Wheezes - Cardiovascular Exam Cardiovascular Exam: Tachycardia, +S1, +S2 - GI/Abdominal Exam GI & Abdominal Exam: Soft, Normal Bowel Sounds. absent: Distended, Firm, Guarding, Rigid, Tenderness, Organomegaly - Extremities Exam Extremities Exam: Full ROM, Normal Capillary Refill Additional comments: 1+ pitting edema b/l in LEs - Neurological Exam Neurological Exam: Alert, Awake, CN II-XII Intact, Oriented x3 - Psychiatric Exam Psychiatric exam: Normal Affect, Normal Mood - Skin Skin Exam: Dry, Intact, Warm Assessment and Plan - Assessment and Plan (Free Text) Assessment: 78 M PMhx HTN, DM, HLD, BPH, hx corneal transplant, prostate ca recurrent, hx UTI, hematuria, recently dx with lung ca currently on tx, who presented on admission with increasing cough and wheezing, decreased appetite x 1 month. Pt admitted for treatment of cardiac tamponade, pericardial effusion, and pne umonia. Downgraded from ICU to telemetry floor. Plan: Hypoxia, interstitial lung changes, underlying interstitial pneumonia 07/29 Chest Xray - Left parahilar rounded opacity likely mass. Right parahilar opacity, possible pneumonia, no significant change chest xray - persisten moderate to severe venous congestion. More confluent airspace opacification seen within the bilateral mid lung zone, right greater than left. Right hilar prominence. Cardiomegaly, surgical clips project over upper abdomen. CT scan - Interval progression of left upper lobe neoplasm including mediastinal lymphadenopathy. Interval interstitial and alveolar changes affecting the right lung and left lower lobe, may refelct atypical pneumonitis, limited possibility of spread of cancer. sputum culture - normal oral clint Mycobacterial culture- no acid fast bacilli seen Naris culture - no MRSA detected Stool culture negative Blood culture - negative, no growth final Afebrile today, tachycardic, otherwise vitals wnl WBC - 8.9 on 07/29, follow up am labs Patient currently on high flow FiO2 - will continue to wean to nasal cannula Zosyn 2.25mg IVPB Q8 [facility] started 07/22/18 Cardiac tamponade/ Pericardial effusion Dr Ricci consulted - recommended cardiac window 07/22 - performed on 07/[address] Yañez. As per surgery, no further surgical intervention at this time. Patient transferred to ICU 07/23; downgraded to telemetry cardiogenic shock acute renal failure status post a pericardial window - renal insufficiency improved - chest tubes placed in surgery, later were removed. Patient extubated Lasix given - Ordered Lasix 40 mg PO Qdaily for swelling of legs Patient currently on high flow FiO2 pericardial fluid culture- no anaerbic isolated, no growth Cardiology Dr Graham consulted - continue meds, continue post op care Hx prostate, gastric CA, metastatic lung cancer Oncology consult - Dr Slade - follow recs Pathology showing evidence of invasive carcinoma of the lungs origin along with lymphovascular invasion Oncology Dr Gale - f/u recs prostate ca in remission H/H - 8.03/28.1 follow up am labs Hx of COPD inhaled corticosteroid, bronchodilators, IV corticosteroids Oxygen supplementation Duonebs Prophylaxis DVT: Heparin 5000 SC Q8 GI: Protonix 40 mg PO QD Pain: tramadol 25 ng PO TID PRN fever control - tylenol 650 PO Q6 PRN continue HHD Patient declined ISAC and PT services as per PT dispo; states he wants to take charge of his own exercises at home, discussion of risks and benefits or treatment was had with the patient; Continue to titrate down high-flow O2 as tolerated, d/c on nasal cannula and home O2 once stable Pt seen, examined with, and plan discussed with Dr. Crocker, attending. Tawanda Bateman DO PGY-1, [employer] Pager #[phone] <Zion Crocker - Last Filed: 08/01/18 18:09> Attending/Attestation - Attestation I have personally seen and examined this patient.: Yes I have fully participated in the care of the patient.: Yes I have reviewed all pertinent clinical information, including history, physical exam and plan: Yes Notes (Text): Hypoxia, interstitial lung changes, underlying interstitial pneumonia Cardiac tamponade/ Pericardial effusion Hx prostate, gastric CA, metastatic lung cancer
--- NOTE | 2018-07-30 22:21 | CP.PCM.PN ---
Subjective - Date & Time of Evaluation Date of Evaluation: 07/30/18 Time of Evaluation: 14:30 - Subjective Subjective: Patient seen and evaluated Some dyspnea this morning Now better Metastatic CA s/p Pericardial effusion HTN Medical management Objective - Vital Signs/Intake and Output Vital Signs (last 24 hours): Temp Pulse Resp BP Pulse Ox 98.1 F 104 H 20 118/65 94 L 07/30/18 20:10 07/30/18 20:10 07/30/18 20:10 07/30/18 20:10 07/30/18 20:10 Intake and Output: 07/30/18 07/31/18 18:59 06:59 Intake Total 450 Balance 450 - Medications Medications: Current Medications Acetaminophen (Tylenol 325mg Tab) 650 mg PO Q6 PRN PRN Reason: Pain, Mild (1-3) Last Admin: 07/29/18 22:30 Dose: 650 mg Albuterol/Ipratropium (Duoneb 3 Mg/0.5 Mg (3 Ml) Ud) 3 ml INH RQ6 PRN PRN Reason: Cough Last Admin: 07/30/18 06:07 Dose: 3 ml Finasteride (Proscar) 5 mg PO DAILY [facility] Last Admin: 07/30/18 09:12 Dose: 5 mg Fluticasone/Vilanterol (Breo Ellipta 100-25 Mcg Inh) 1 puff INH RQD [facility] Furosemide (Lasix) 20 mg PO DAILY [facility] Heparin Sodium (Porcine) (Heparin) 5,000 units SC Q8 [facility] Last Admin: 07/30/18 13:26 Dose: 5,000 units Piperacillin Sod/Tazobactam Sod (Zosyn 2.25 Gm Iv Premix) 2.25 gm in 50 mls @ 100 mls/hr IVPB Q8H [facility]; Protocol Insulin Human Regular (Novolin R) 0 unit SC ACHS [facility]; Protocol Last Admin: 07/30/18 22:06 Dose: Not Given Latanoprost (Xalatan Opht) 0.05 ml OU HS [facility] Last Admin: 07/29/18 21:37 Dose: 0.05 ml Pantoprazole Sodium (Protonix Ec Tab) 40 mg PO DAILY [facility] Last Admin: 07/30/18 09:09 Dose: 40 mg Tamsulosin HCl (Flomax) 0.4 mg PO DAILY [facility] Last Admin: 07/30/18 09:09 Dose: 0.4 mg Tramadol HCl (Ultram) 25 mg PO TID PRN PRN Reason: Pain, moderate (4-7) Last Admin: 07/29/18 03:00 Dose: 25 mg - Labs Labs: 07/29/18 06:21 07/29/18 06:14 PT 12.9 SECONDS (9.7-12.2) H 07/21/18 17:46 INR 1.2 07/21/18 17:46 APTT 32 SECONDS (21-34) 07/21/18 17:46
[2018-07-30] MEDS: Latanoprost 2.5 ml Opht Soln OU SCH (22:57)
[2018-07-31] MEDS: Piperacill/Tazo 2.25gm in Dex 2.25 GM/50 ML BAG IVPB SCH ×3 (06:20→21:51)
[2018-07-31] MEDS: (Novolin R) Insulin Human Regular 100 units/ml vial SC SCH ×4 (07:29→21:31)
[2018-07-31 08:15] LABS: ALBUMIN 3.2 g/dL (3.5-5.0); ALT/SGPT 43 U/L (21-72); AST/SGOT 34 U/L (17-59); BLOOD UREA NITROGEN 29 mg/dL (9-20); CALCIUM 8.4 mg/dl (8.6-10.4); GFR NON-AFRICAN AMERICAN 59
[2018-07-31 08:17] LABS: BASO # 0.1 K/uL (0.0-0.2); BASO % 0.8 % (0.0-2.0); EOS # 0.7 K/uL (0.0-0.7); EOS % 8.5 % (0.0-4.0); HEMOGLOBIN 9.6 g/dL (12.0-18.0); LYMPH # 0.6 K/uL (1.0-4.3); LYMPH % 7.7 % (20.0-40.0); MEAN CELL VOLUME 80.6 fL (80.0-94.0); MEAN CORPUSCULAR HEMOGLOBIN 26.1 pg (27.0-31.0); MEAN CORPUSCULAR HGB CONC 32.4 g/dL (33.0-37.0); MEAN PLATELET VOLUME 7.5 fL (7.2-11.7); MONO # 0.6 K/uL (0.0-0.8); MONO % 7.2 % (0.0-10.0); NEUT # 5.9 K/uL (1.8-7.0); NEUT % 75.8 % (50.0-75.0); RBC 3.67 Mil/uL (4.40-5.90); RED CELL DISTRIBUTION WIDTH 21.2 % (11.5-14.5); WHITE BLOOD COUNT 7.8 K/uL (4.8-10.8)
[2018-07-31 08:20] LABS: PLATELET COUNT 364 K/uL (130-400)
[2018-07-31] MEDS: Fluticasone-Vilanterol 100/25mcg Diskus INH SCH (08:37)
[2018-07-31] MEDS: Albuterol-Ipratrop 3 mg / 0.5 (3 ml) UD INH PRN (08:37)
[2018-07-31 09:14] LABS: EOSINOPHIL 5 % (0-4); LYMPHOCYTE 4 % (20-40); MONOCYTE 5 % (0-10); NEUTROPHIL 86 % (50-75); PLATELET ESTIMATE NORMAL (NORMAL); TOTAL CELLS COUNTED 100
[2018-07-31 09:15] LABS: ANISOCYTOSIS SLIGHT; HYPOCHROMIC SLIGHT; POLYCHROMIC SLIGHT
[2018-07-31 09:16] LABS: OVALOCYTES SLIGHT
[2018-07-31] MEDS: Pantoprazole 40 mg EC Tab PO SCH (10:07)
--- NOTE | 2018-07-31 12:43 | CP.PCM.PN ---
Subjective - Date & Time of Evaluation Date of Evaluation: 07/31/18 Time of Evaluation: 07:50 - Subjective Subjective: PGY-[address] Ruffin (Hospitalist) Patient is seen and examined at bedside. Patient reports no acute events overnight. Patient continues to experience shortness of breath, but clarifies that it is the same as it has been in the past. Patient admits to mild chest pain, and leg swelling but states it has not changed. Patient continues to cough clear sputum. Patient denies fever, chills, abdominal pain, diarrhea, constipa tion, or dyuria. Objective - Vital Signs/Intake and Output Vital Signs (last 24 hours): Temp Pulse Resp BP Pulse Ox 97.9 F 108 H 20 118/60 95 07/31/18 07:15 07/31/18 12:00 07/31/18 07:15 07/31/18 10:05 07/31/18 07:15 Intake and Output: 07/31/18 07/31/18 06:59 18:59 Intake Total 510 Balance 510 - Medications Medications: Current Medications Acetaminophen (Tylenol 325mg Tab) 650 mg PO Q6 PRN PRN Reason: Pain, Mild (1-3) Last Admin: 07/30/18 23:12 Dose: 650 mg Albuterol/Ipratropium (Duoneb 3 Mg/0.5 Mg (3 Ml) Ud) 3 ml INH RQ6 PRN PRN Reason: Cough Last Admin: 07/31/18 08:37 Dose: 3 ml Finasteride (Proscar) 5 mg PO DAILY [facility] Last Admin: 07/31/18 10:06 Dose: 5 mg Fluticasone/Vilanterol (Breo Ellipta 100-25 Mcg Inh) 1 puff INH RQD [facility] Last Admin: 07/31/18 08:37 Dose: 1 puff Furosemide (Lasix) 20 mg PO DAILY [facility] Last Admin: 07/31/18 10:05 Dose: 20 mg Heparin Sodium (Porcine) (Heparin) 5,000 units SC Q8 [facility] Last Admin: 07/31/18 06:20 Dose: 5,000 units Piperacillin Sod/Tazobactam Sod (Zosyn 2.25 Gm Iv Premix) 2.25 gm in 50 mls @ 100 mls/hr IVPB Q8H [facility]; Protocol Last Admin: 07/31/18 06:20 Dose: 100 mls/hr Insulin Human Regular (Novolin R) 0 unit SC ACHS [facility]; Protocol Last Admin: 07/31/18 12:09 Dose: 2 u Latanoprost (Xalatan Opht) 0.05 ml OU HS [facility] Last Admin: 07/30/18 22:57 Dose: 0.05 ml Pantoprazole Sodium (Protonix Ec Tab) 40 mg PO DAILY [facility] Last Admin: 07/31/18 10:07 Dose: 40 mg Tamsulosin HCl (Flomax) 0.4 mg PO DAILY [facility] Last Admin: 07/31/18 10:05 Dose: 0.4 mg Tramadol HCl (Ultram) 25 mg PO TID PRN PRN Reason: Pain, moderate (4-7) Last Admin: 07/29/18 03:00 Dose: 25 mg - Labs Labs: 07/31/18 07:52 07/31/18 07:52 PT 12.9 SECONDS (9.7-12.2) H 07/21/18 17:46 INR 1.2 07/21/18 17:46 APTT 32 SECONDS (21-34) 07/21/18 17:46 - Constitutional Appears: Well, Non-toxic, No Acute Distress - Head Exam Head Exam: ATRAUMATIC, NORMAL INSPECTION, NORMOCEPHALIC - Eye Exam Eye Exam: EOMI, Normal appearance - ENT Exam ENT Exam: Mucous Membranes Moist, Normal Exam - Respiratory Exam Respiratory Exam: Decreased Breath Sounds Additional comments: Crackles heard on auscultation of lower lobe of right lung decreased breath sounds on left lung on upper and lower lobe - Cardiovascular Exam Cardiovascular Exam: Tachycardia, +S1, +S2 - GI/Abdominal Exam GI & Abdominal Exam: Soft, Normal Bowel Sounds. absent: Tenderness - Extremities Exam Extremities Exam: Full ROM, Joint Swelling, Tenderness. absent: Calf Tenderness Additional comments: pitting edema on right ankle, +2 pitting edema on left ankle and lower extremity, +1 - Back Exam Back Exam: Full ROM, NORMAL INSPECTION - Neurological Exam Neurological Exam: Alert, Awake, Oriented x3 - Psychiatric Exam Psychiatric exam: Normal Affect, Normal Mood - Skin Skin Exam: Dry, Intact, Normal Color, Warm Assessment and Plan - Assessment and Plan (Free Text) Plan: Hypoxia, interstitial lung changes, underlying interstitial pneumonia 07/29 Chest Xray - Left parahilar rounded opacity likely mass. Right parahilar opacity, possible pneumonia, no significant change chest xray - persisten moderate to severe venous congestion. More confluent airspace opacification seen within the bilateral mid lung zone, right greater than left. Right hilar prominence. Cardiomegaly, surgical clips project over upper abdomen. CT scan - Interval progression of left upper lobe neoplasm including mediastinal lymphadenopathy. Interval interstitial and alveolar changes affecting the right lung and left lower lobe, may refelct atypical pneumonitis, limited possibility of spread of cancer. sputum culture - normal oral clint Mycobacterial culture- no acid fast bacilli seen Naris culture - no MRSA detected Stool culture negative Blood culture - negative, no growth final Afebrile today, tachycardic, otherwise vitals wnl WBC - 8.9 on 07/29, follow up am labs Patient was off High flow oxygen this morning - patient desaturated on nasal canal observed and documented by Physical therapy - ABG ordered off nasal canula - Patient placed back to high flow pulm doctor Kennedy Higginbotham consulted for recs regarding being discharged home with home O2- follow up recs Zosyn 2.25mg IVPB Q8 [facility] started 07/22/18 Cardiac tamponade/ Pericardial effusion Dr Ricci consulted - recommended cardiac window 07/22 - performed on 07/[address] Yañez. As per surgery, no further surgical intervention at this time. Patient transferred to ICU 07/23; downgraded to telemetry cardiogenic shock acute renal failure status post a pericardial window - renal insufficiency improved - chest tubes placed in surgery, later were removed. Patient extubated Lasix 20mg PO daily Patient back on high flow FiO2 - failed weaning off Fio2 - f/u repeat ABGs (ordered this afternoon 07/31) pericardial fluid culture- no anaerbic isolated, no growth Cardiology Dr Graham consulted - continue meds, continue post op care Hx prostate, gastric CA, metastatic lung cancer Oncology consult - Dr Slade - follow recs Pathology showing evidence of invasive carcinoma of the lungs origin along with lymphovascular invasion prostate ca in remission H/H - 9.6/29.6 - follow up am labs Hx of COPD inhaled corticosteroid, bronchodilators, IV corticosteroids Oxygen supplementation Duonebs Prophylaxis DVT: Heparin 5000 SC Q8 GI: Protonix 40 mg PO QD Pain: tramadol 25 ng PO TID PRN fever control - tylenol 650 PO Q6 PRN continue HHD Patient declined ISAC and PT services as per PT dispo; states he wants to take charge of his own exercises at home, discussion of risks and benefits or treatment was had with the patient; Follow up Pulmonology doctor for recs in terms of D/C patient home with home O2. Plan discussed with Dr Augustin Engel, PGY-1
[2018-07-31 14:56] LABS: ARTERIAL BLOOD GAS HCO3 25.2 mmol/L (21-28); ARTERIAL BLOOD GAS O2 SAT 95.1 % (95-98); ARTERIAL BLOOD GAS PCO2 35 mm/Hg (35-45); ARTERIAL BLOOD GAS PH 7.45 (7.35-7.45); ARTERIAL BLOOD GAS PO2 54 mm/Hg (80-100); ARTERIAL BLOOD GAS TCO2 25.4 mmol/L (22-28)
[2018-07-31] MEDS: Latanoprost 2.5 ml Opht Soln OU SCH (21:59)
--- NOTE | 2018-07-31 22:30 | CP.PCM.PN ---
Subjective - Date & Time of Evaluation Date of Evaluation: 07/31/18 Time of Evaluation: 09:45 - Subjective Subjective: Patient seen and evaluated Denies chest pain and dyspnea Metastatic CA s/p Pericardial effusion HTN Medical management Objective - Vital Signs/Intake and Output Vital Signs (last 24 hours): Temp Pulse Resp BP Pulse Ox 98.8 F 102 H 20 107/42 L 95 07/31/18 15:10 07/31/18 20:00 07/31/18 15:10 07/31/18 15:10 07/31/18 15:10 - Medications Medications: Current Medications Acetaminophen (Tylenol 325mg Tab) 650 mg PO Q6 PRN PRN Reason: Pain, Mild (1-3) Last Admin: 07/31/18 21:52 Dose: 650 mg Albuterol/Ipratropium (Duoneb 3 Mg/0.5 Mg (3 Ml) Ud) 3 ml INH RQ6 PRN PRN Reason: Cough Last Admin: 07/31/18 08:37 Dose: 3 ml Finasteride (Proscar) 5 mg PO DAILY [facility] Last Admin: 07/31/18 10:06 Dose: 5 mg Fluticasone/Vilanterol (Breo Ellipta 100-25 Mcg Inh) 1 puff INH RQD [facility] Last Admin: 07/31/18 08:37 Dose: 1 puff Furosemide (Lasix) 20 mg PO DAILY [facility] Last Admin: 07/31/18 10:05 Dose: 20 mg Piperacillin Sod/Tazobactam Sod (Zosyn 2.25 Gm Iv Premix) 2.25 gm in 50 mls @ 100 mls/hr IVPB Q8H [facility]; Protocol Last Admin: 07/31/18 21:51 Dose: 100 mls/hr Insulin Human Regular (Novolin R) 0 unit SC ACHS [facility]; Protocol Last Admin: 07/31/18 21:31 Dose: Not Given Latanoprost (Xalatan Opht) 0.05 ml OU HS [facility] Last Admin: 07/31/18 21:59 Dose: Not Given Pantoprazole Sodium (Protonix Ec Tab) 40 mg PO DAILY [facility] Last Admin: 07/31/18 10:07 Dose: 40 mg Tamsulosin HCl (Flomax) 0.4 mg PO DAILY [facility] Last Admin: 07/31/18 10:05 Dose: 0.4 mg Tramadol HCl (Ultram) 25 mg PO TID PRN PRN Reason: Pain, moderate (4-7) Last Admin: 07/29/18 03:00 Dose: 25 mg - Labs Labs: 07/31/18 07:52 07/31/18 07:52 PT 12.9 SECONDS (9.7-12.2) H 07/21/18 17:46 INR 1.2 07/21/18 17:46 APTT 32 SECONDS (21-34) 07/21/18 17:46
[2018-08-01] MEDS: Piperacill/Tazo 2.25gm in Dex 2.25 GM/50 ML BAG IVPB SCH ×3 (05:17→21:06)
[2018-08-01 07:08] LABS: BASO % 0.6 % (0.0-2.0); EOS # 0.5 K/uL (0.0-0.7); EOS % 6.9 % (0.0-4.0); HEMOGLOBIN 8.8 g/dL (12.0-18.0); LYMPH # 0.4 K/uL (1.0-4.3); LYMPH % 5.5 % (20.0-40.0); MEAN CELL VOLUME 80.2 fL (80.0-94.0); MEAN CORPUSCULAR HEMOGLOBIN 26.2 pg (27.0-31.0); MEAN CORPUSCULAR HGB CONC 32.7 g/dL (33.0-37.0); MEAN PLATELET VOLUME 7.1 fL (7.2-11.7); MONO # 0.7 K/uL (0.0-0.8); MONO % 9.2 % (0.0-10.0); NEUT % 77.8 % (50.0-75.0); PLATELET COUNT 339 K/uL (130-400); RBC 3.37 Mil/uL (4.40-5.90); WHITE BLOOD COUNT 7.8 K/uL (4.8-10.8)
[2018-08-01 07:26] LABS: ALB/GLOB RATIO 0.9 (1.0-2.1); ALBUMIN 2.9 g/dL (3.5-5.0); ALT/SGPT 34 U/L (21-72); AST/SGOT 33 U/L (17-59); BLOOD UREA NITROGEN 27 mg/dL (9-20); CALCIUM 8.2 mg/dl (8.6-10.4); GFR NON-AFRICAN AMERICAN > 60
[2018-08-01] MEDS: Fluticasone-Vilanterol 100/25mcg Diskus INH SCH (07:58)
[2018-08-01] MEDS: (Novolin R) Insulin Human Regular 100 units/ml vial SC SCH ×4 (08:00→21:08)
[2018-08-01 09:27] LABS: BANDS 2 % (0-2); BASOPHIL 2 % (0-2); EOSINOPHIL 8 % (0-4); LYMPHOCYTE 6 % (20-40); TOTAL CELLS COUNTED 100
[2018-08-01] MEDS: Pantoprazole 40 mg EC Tab PO SCH (09:27)
[2018-08-01 09:28] LABS: ANISOCYTOSIS MODERATE; MONOCYTE 10 % (0-10); NEUTROPHIL 72 % (50-75); PLATELET ESTIMATE NORMAL (NORMAL)
[2018-08-01 09:29] LABS: MICROCYTOSIS SLIGHT; OVALOCYTES SLIGHT; POIKILOCYTOSIS SLIGHT
--- NOTE | 2018-08-01 11:35 | CP.PCM.CON ---
History of Present Illness - History of Present Illness History of Present Illness: Reason for consultation: evaluation for home oxygen 78yo M. PMHx HTN, DM type 2, high cholesterol, BPH, corneal transplant, prostate CA, UTI, hematuria, lung cancer on treatment presents with pericardial effusion with tamponade. S/p pericardial window and drainage. Patient was initially admitted to [facility] and later transferred to the floor after the tubes were removed. Patient requiring high flow oxygen. Still complaining of shortness of breath on exertion and at rest. Review of Systems - Review of Systems All systems: reviewed and no additional remarkable complaints except (shortness of breath) Past Patient History - Past Medical History & Family History Past Medical History?: Yes - Past Social History Smoking Status: Never Smoked - CARDIAC Hx Hypercholesterolemia: Yes Hx Hypertension: Yes - PULMONARY Hx Pneumonia: Yes (childhood) - NEUROLOGICAL Hx Neurological Disorder: No - HEENT Hx HEENT Problems: Yes Hx Cataracts: Yes Other/Comment: corneal transplant both eyes 5yrs ago - RENAL Hx Chronic Kidney Disease: No Hx Dialysis: No - ENDOCRINE/METABOLIC Hx Diabetes Mellitus Type 2: Yes - HEMATOLOGICAL/ONCOLOGICAL Hx Anemia: Yes (Requires transfusion) - INTEGUMENTARY Hx Dermatological Problems: No - MUSCULOSKELETAL/RHEUMATOLOGICAL Hx Arthritis: Yes (B/L KNEES) - GASTROINTESTINAL Hx Gastrointestinal Disorders: No - GENITOURINARY/GYNECOLOGICAL Hx Genitourinary Disorders: Yes (retention) - PSYCHIATRIC Hx Anxiety: Yes Hx Substance Use: No - SURGICAL HISTORY Hx Surgeries: Yes - ANESTHESIA Hx Anesthesia: Yes Hx Anesthesia Reactions: No Hx Malignant Hyperthermia: No Meds Allergies/Adverse Reactions: Allergies Allergy/AdvReac Type Severity Reaction Status Date / Time No Known Allergies Allergy Verified 07/21/18 17:04 - Medications Medications: Current Medications Acetaminophen (Tylenol 325mg Tab) 650 mg PO Q6 PRN PRN Reason: Pain, Mild (1-3) Last Admin: 07/31/18 21:52 Dose: 650 mg Finasteride (Proscar) 5 mg PO DAILY [facility] Last Admin: 08/01/18 09:27 Dose: 5 mg Fluticasone/Vilanterol (Breo Ellipta 100-25 Mcg Inh) 1 puff INH RQD [facility] Last Admin: 08/01/18 07:58 Dose: 1 puff Furosemide (Lasix) 20 mg PO DAILY [facility] Last Admin: 08/01/18 09:28 Dose: 20 mg Piperacillin Sod/Tazobactam Sod (Zosyn 2.25 Gm Iv Premix) 2.25 gm in 50 mls @ 100 mls/hr IVPB Q8H [facility]; Protocol Last Admin: 08/01/18 05:17 Dose: 100 mls/hr Insulin Human Regular (Novolin R) 0 unit SC ACHS [facility]; Protocol Last Admin: 08/01/18 08:00 Dose: Not Given Latanoprost (Xalatan Opht) 0.05 ml OU HS [facility] Last Admin: 07/31/18 21:59 Dose: Not Given Pantoprazole Sodium (Protonix Ec Tab) 40 mg PO DAILY [facility] Last Admin: 08/01/18 09:27 Dose: 40 mg Tamsulosin HCl (Flomax) 0.4 mg PO DAILY [facility] Last Admin: 08/01/18 09:27 Dose: 0.4 mg Tramadol HCl (Ultram) 25 mg PO TID PRN PRN Reason: Pain, moderate (4-7) Last Admin: 07/29/18 03:00 Dose: 25 mg Physical Exam - Head Exam Head Exam: ATRAUMATIC, NORMOCEPHALIC - ENT Exam ENT Exam: Mucous Membranes Moist - Respiratory Exam Respiratory Exam: Decreased Breath Sounds - Cardiovascular Exam Cardiovascular Exam: REGULAR RHYTHM - GI/Abdominal Exam GI & Abdominal Exam: Normal Bowel Sounds - Extremities Exam Extremities exam: Positive for: normal inspection Results - Vital Signs Recent Vital Signs: Last Vital Signs Temp 98.1 F 08/01/18 07:00 Pulse 90 08/01/18 07:00 Resp 18 08/01/18 07:00 BP 130/60 08/01/18 09:28 Pulse Ox 96 08/01/18 07:00 - Labs Result Diagrams: 08/01/18 06:46 08/01/18 06:46 Labs: Laboratory Results - last 24 hr 07/31/18 07/31/18 07/31/18 14:53 16:05 21:03 WBC RBC Hgb Hct MCV MCH MCHC RDW Plt Count MPV Neut % (Auto) Lymph % (Auto) Bureau % (Auto) Eos % (Auto) Baso % (Auto) Neut # (Auto) Lymph # (Auto) Bureau # (Auto) Eos # (Auto) Baso # (Auto) Neutrophils % (Manual) Band Neutrophils % Lymphocytes % (Manual) Monocytes % (Manual) Eosinophils % (Manual) Basophils % (Manual) Platelet Estimate Poikilocytosis (manual Anisocytosis (manual) Microcytosis (manual) Macrocytosis (manual) Ovalocytes Puncture Site Rba pCO2 35 pO2 54 L HCO3 25.2 ABG pH 7.45 ABG Total CO2 25.4 ABG O2 Saturation 95.1 ABG Base Excess 0.5 ABG Hemoglobin 9.0 L ABG Carboxyhemoglobin 2.4 H POC ABG HHb (Measured) 4.7 ABG Methemoglobin 1.7 Braulio Test Na A-a O2 Difference 152.0 Respiratory Index 2.8 Hgb O2 Saturation 91.2 L Liter Flow 4.0 FiO2 35.0 Sodium Potassium Chloride Carbon Dioxide Anion Gap BUN Creatinine Est GFR ( Amer) Est GFR (Non-Af Amer) POC Glucose (mg/dL) 138 H 193 H Random Glucose Calcium Phosphorus Magnesium Total Bilirubin AST ALT Alkaline Phosphatase Total Protein Albumin Globulin Albumin/Globulin Ratio 08/01/18 08/01/18 08/01/18 06:19 06:46 06:46 WBC 7.8 RBC 3.37 L Hgb 8.8 L Hct 27.0 L MCV 80.2 MCH 26.2 L MCHC 32.7 L RDW 22.0 H Plt Count 339 MPV 7.1 L Neut % (Auto) 77.8 H Lymph % (Auto) 5.5 L Bureau % (Auto) 9.2 Eos % (Auto) 6.9 H Baso % (Auto) 0.6 Neut # (Auto) 6.0 Lymph # (Auto) 0.4 L Bureau # (Auto) 0.7 Eos # (Auto) 0.5 Baso # (Auto) 0.0 Neutrophils % (Manual) 72 Band Neutrophils % 2 Lymphocytes % (Manual) 6 L Monocytes % (Manual) 10 Eosinophils % (Manual) 8 H Basophils % (Manual) 2 Platelet Estimate Normal Poikilocytosis (manual Slight Anisocytosis (manual) Moderate Microcytosis (manual) Slight Macrocytosis (manual) Slight Ovalocytes Slight Puncture Site pCO2 pO2 HCO3 ABG pH ABG Total CO2 ABG O2 Saturation ABG Base Excess ABG Hemoglobin ABG Carboxyhemoglobin POC ABG HHb (Measured) ABG Methemoglobin Braulio Test A-a O2 Difference Respiratory Index Hgb O2 Saturation Liter Flow FiO2 Sodium 135 Potassium 3.7 Chloride 100 Carbon Dioxide 27 Anion Gap 12 BUN 27 H Creatinine 1.1 Est GFR ( Amer) > 60 Est GFR (Non-Af Amer) > 60 POC Glucose (mg/dL) 121 H Random Glucose 123 H Calcium 8.2 L Phosphorus 3.0 Magnesium 1.9 Total Bilirubin 0.2 AST 33 ALT 34 Alkaline Phosphatase 114 Total Protein 6.0 L Albumin 2.9 L Globulin 3.1 Albumin/Globulin Ratio 0.9 L Assessment & Plan (1) Pneumonitis Status: Acute Comment: repeat CAT scan of the chest. Pro calcitonin level. Discontinue Breo ellipa. Continue antibiotics. Nebulizer treatment. Will benefit from home oxygen (2) History of prostate cancer Status: Acute (3) Lung cancer Status: Acute (4) Pericardial effusion with cardiac tamponade Status: Acute
[2018-08-01] MEDS: Albuterol-Ipratrop 3 mg / 0.5 (3 ml) UD INH SCH ×3 (13:17→19:45)
--- NOTE | 2018-08-01 17:25 | CT ---
Date of service: 08/01/2018 PROCEDURE: CT Chest without contrast HISTORY: worsening infiltrate COMPARISON: 07/21/2018 CT thorax. 07/29/2018 single-view chest TECHNIQUE: Contiguous axial images were obtained through the chest without intravenous contrast enhancement. Sagittal and coronal reconstructions were performed. Radiation dose (DLP): 498.61 mGy-cm. This CT exam was performed using one or more of the following dose reduction techniques: Automated exposure control, adjustment of the mA and/or kV according to patient size, and/or use of iterative reconstruction technique. FINDINGS: LUNGS: Worsening superimposed multifocal infiltrates etiology uncertain but could represent pulmonary edema. Thickening of interlobular septa consistent with pulmonary edema. Stable peripheral mass posterior segment left upper lobe. MEDIASTINUM: Unremarkable thoracic aorta. No aneurysm. Decrease in pericardial effusion identified previously. Main pulmonary artery unremarkable. No vascular congestion. Stable, extensive mediastinal and hilar adenopathy. PLEURA: New trace bilateral pleural effusions. BONES: No fracture. No destructive lesion. UPPER ABDOMEN: Grossly unremarkable. OTHER FINDINGS: None. IMPRESSION: 1. Worsening multifocal infiltrates compared to the prior CT scan. The findings are asymmetric right lung greater than left. More likely to represent asymmetric pulmonary edema than infectious/ 2. Stable adenopathy. Inflammatory process. 3. Resolution of pericardial effusion. 4. Trace bilateral pleural effusions represent a new finding.
--- NOTE | 2018-08-01 20:33 | CP.PCM.PN ---
Subjective - Date & Time of Evaluation Date of Evaluation: 08/01/18 Time of Evaluation: 09:30 - Subjective Subjective: Medicine Progress Note for Hospitalist Service (covering for Dr. Lux) Pt seen and examined at bedside this am. Denies any acute complaints, resting comfortably in chair on nasal cannula at 4L, reporting no shortness of breath of wheezing. Pt titrated down from high-flow O2 yesterday. Reports b/l pedal edema, encouraged pt to try to elevate his legs at the level of the heart more often during the day to relieve the symptoms. Denies fever, chills, chest pain, n/v/d/c, abd pain, urinary complaints, or other symptoms. Objective - Vital Signs/Intake and Output Vital Signs (last 24 hours): Temp Pulse Resp BP Pulse Ox 98 F 95 H 20 133/58 L 94 L 08/01/18 15:00 08/01/18 16:25 08/01/18 15:00 08/01/18 15:00 08/01/18 15:00 Intake and Output: 08/01/18 08/02/18 18:59 06:59 Intake Total 240 Balance 240 - Medications Medications: Current Medications Acetaminophen (Tylenol 325mg Tab) 650 mg PO Q6 PRN PRN Reason: Pain, Mild (1-3) Last Admin: 07/31/18 21:52 Dose: 650 mg Albuterol/Ipratropium (Duoneb 3 Mg/0.5 Mg (3 Ml) Ud) 3 ml INH RQ6 [facility] Last Admin: 08/01/18 19:45 Dose: 3 ml Finasteride (Proscar) 5 mg PO DAILY [facility] Last Admin: 08/01/18 09:27 Dose: 5 mg Furosemide (Lasix) 20 mg PO DAILY [facility] Last Admin: 08/01/18 09:28 Dose: 20 mg Piperacillin Sod/Tazobactam Sod (Zosyn 2.25 Gm Iv Premix) 2.25 gm in 50 mls @ 100 mls/hr IVPB Q8H [facility]; Protocol Last Admin: 08/01/18 13:22 Dose: 100 mls/hr Insulin Human Regular (Novolin R) 0 unit SC ACHS [facility]; Protocol Last Admin: 08/01/18 17:52 Dose: 4 u Latanoprost (Xalatan Opht) 0.05 ml OU HS [facility] Last Admin: 07/31/18 21:59 Dose: Not Given Methylprednisolone (Solu-Medrol) 60 mg IV Q8 [facility] Last Admin: 08/01/18 13:20 Dose: 60 mg Pantoprazole Sodium (Protonix Ec Tab) 40 mg PO DAILY [facility] Last Admin: 08/01/18 09:27 Dose: 40 mg Tamsulosin HCl (Flomax) 0.4 mg PO DAILY [facility] Last Admin: 08/01/18 09:27 Dose: 0.4 mg Tramadol HCl (Ultram) 25 mg PO TID PRN PRN Reason: Pain, moderate (4-7) Last Admin: 07/29/18 03:00 Dose: 25 mg - Labs Labs: 08/01/18 06:46 08/01/18 06:46 PT 12.9 SECONDS (9.7-12.2) H 07/21/18 17:46 INR 1.2 07/21/18 17:46 APTT 32 SECONDS (21-34) 07/21/18 17:46 - Constitutional Appears: Non-toxic, No Acute Distress - Head Exam Head Exam: ATRAUMATIC, NORMOCEPHALIC - Eye Exam Eye Exam: EOMI, Normal appearance, PERRL - ENT Exam ENT Exam: Mucous Membranes Moist - Respiratory Exam Respiratory Exam: NORMAL BREATHING PATTERN Additional comments: Minimal wheezes heard in all lung guevara - Cardiovascular Exam Cardiovascular Exam: REGULAR RHYTHM, +S1, +S2. absent: Gallop, Rubs, Murmur - GI/Abdominal Exam GI & Abdominal Exam: Soft, Normal Bowel Sounds. absent: Distended, Firm, Guarding, Rigid, Tenderness, Organomegaly, Rebound - Extremities Exam Extremities Exam: Normal Capillary Refill. absent: Calf Tenderness Additional comments: 1+ non-pitting pedal edema b/l - Neurological Exam Neurological Exam: Alert, Awake, CN II-XII Intact, Oriented x3 - Psychiatric Exam Psychiatric exam: Normal Affect, Normal Mood - Skin Skin Exam: Dry, Intact, Normal Color, Warm Assessment and Plan - Assessment and Plan (Free Text) Assessment: 78M PMhx HTN, DM, HLD, BPH, hx corneal transplant, prostate ca recurrent, hx UTI, hematuria, recently dx w/ lung ca currently on tx, who presented on admissi on with increasing cough and wheezing, decreased appetite x 1 month. Pt admitted for tx of cardiac tamponade, pericardial effusion, and PNA. Downgraded from ICU to telemetry floor. Plan: Hypoxia, interstitial lung changes, underlying interstitial pneumonia 07/29 Chest Xray - Left parahilar rounded opacity likely mass. Right parahilar opacity, possible pneumonia, no significant change chest xray - persisten moderate to severe venous congestion. More confluent airspace opacification seen within the bilateral mid lung zone, right greater than left. Right hilar prominence. Cardiomegaly, surgical clips project over upper abdomen. CT scan - Interval progression of left upper lobe neoplasm including mediastinal lymphadenopathy. Interval interstitial and alveolar changes affecting the right lung and left lower lobe, may refelct atypical pneumonitis, limited possibility of spread of cancer. sputum culture - normal oral clint Mycobacterial culture- no acid fast bacilli seen Naris culture - no MRSA detected Stool culture negative Blood culture - negative, no growth final Afebrile today, tachycardic, otherwise vitals wnl WBC - 8.9 on 07/29, follow up am labs Patient was off High flow oxygen this morning - patient desaturated on nasal ca nal observed and documented by Physical therapy - ABG ordered off nasal canula - Patient placed back to high flow, now on NC at 4 L today, continue to monitor Pulm doctor Kennedy Higginbotham consulted for recs regarding being discharged home with home O2- follow up recs Zosyn 2.25mg IVPB Q8 [facility] started 07/22/18 Cardiac tamponade/ Pericardial effusion Dr Ricci consulted - recommended cardiac window 07/22 - performed on 07/[address] Yañez. As per surgery, no further surgical intervention at this time. Patient transferred to ICU 07/23; downgraded to telemetry cardiogenic shock acute renal failure status post a pericardial window - renal insufficiency improved - chest tubes placed in surgery, later were removed. Patient extubated Lasix 20mg PO daily Patient back on high flow FiO2 - failed weaning off Fio2 - f/u repeat ABGs (ordered this afternoon 07/31) pericardial fluid culture- no anaerbic isolated, no growth Cardiology Dr Graham consulted - continue meds, continue post op care Hx prostate, gastric CA, metastatic lung cancer Oncology consult - Dr Slade - follow recs Pathology showing evidence of invasive carcinoma of the lungs origin along with lymphovascular invasion prostate ca in remission H/H - 9.6/29.6 - follow up am labs Hx of COPD inhaled corticosteroid, bronchodilators, IV corticosteroids Oxygen supplementation Duonebs Prophylaxis DVT: Heparin 5000 SC Q8 GI: Protonix 40 mg PO QD Pain: tramadol 25 ng PO TID PRN fever control - tylenol 650 PO Q6 PRN continue HHD Patient declined ISAC and PT services as per PT dispo; states he wants to take charge of his own exercises at home, discussion of risks and benefits or treatment was had with the patient; Follow up Pulmonology doctor for recs in terms of D/C patient home with home O2. Pt seen, examined with, and plan discussed with Dr. Ruffin, attending. Tawanda Bateman DO PGY-1, [employer] Pager #[phone]
[2018-08-01] MEDS: Latanoprost 2.5 ml Opht Soln OU SCH (21:09)
[2018-08-02] MEDS: Albuterol-Ipratrop 3 mg / 0.5 (3 ml) UD INH SCH ×4 (02:46→19:05)
[2018-08-02] MEDS: Piperacill/Tazo 2.25gm in Dex 2.25 GM/50 ML BAG IVPB SCH ×3 (05:25→21:09)
[2018-08-02 07:39] LABS: BASO % 0.1 % (0.0-2.0); HEMOGLOBIN 9.4 g/dL (12.0-18.0); LYMPH # 0.2 K/uL (1.0-4.3); LYMPH % 2.1 % (20.0-40.0); MEAN CELL VOLUME 81.3 fL (80.0-94.0); MEAN CORPUSCULAR HGB CONC 33.2 g/dL (33.0-37.0); MEAN PLATELET VOLUME 7.6 fL (7.2-11.7); MONO # 0.2 K/uL (0.0-0.8); MONO % 1.4 % (0.0-10.0); NEUT # 10.3 K/uL (1.8-7.0); NEUT % 96.4 % (50.0-75.0); PLATELET COUNT 425 K/uL (130-400); RBC 3.48 Mil/uL (4.40-5.90); WHITE BLOOD COUNT 10.7 K/uL (4.8-10.8)
[2018-08-02] MEDS: (Novolin R) Insulin Human Regular 100 units/ml vial SC SCH ×4 (08:15→21:09)
[2018-08-02 08:16] LABS: ALBUMIN 3.2 g/dL (3.5-5.0); ALT/SGPT 25 U/L (21-72); AST/SGOT 28 U/L (17-59); BLOOD UREA NITROGEN 28 mg/dL (9-20); CALCIUM 8.6 mg/dl (8.6-10.4); GFR NON-AFRICAN AMERICAN > 60
--- NOTE | 2018-08-02 08:30 | CP.PCM.PN ---
Subjective - Date & Time of Evaluation Date of Evaluation: 08/01/18 Time of Evaluation: 16:20 - Subjective Subjective: Pt seen and examined at bedside. Comfortable Some slight dyspnea Physical examination - Constitutional Appears: Non-toxic, No Acute Distress - Head Exam Head Exam: ATRAUMATIC, NORMOCEPHALIC - Eye Exam Eye Exam: EOMI, Normal appearance, PERRL - ENT Exam ENT Exam: Mucous Membranes Moist - Respiratory Exam Respiratory Exam: NORMAL BREATHING PATTERN Additional comments: Minimal wheezes heard in all lung guevara - Cardiovascular Exam Cardiovascular Exam: REGULAR RHYTHM, +S1, +S2. absent: Gallop, Rubs, Murmur - GI/Abdominal Exam GI & Abdominal Exam: Soft, Normal Bowel Sounds. absent: Distended, Firm, Guarding, Rigid, Tenderness, Organomegaly, Rebound - Extremities Exam Extremities Exam: Normal Capillary Refill. absent: Calf Tenderness Additional comments: 1+ non-pitting pedal edema b/l - Neurological Exam Neurological Exam: Alert, Awake, CN II-XII Intact, Oriented x3 - Psychiatric Exam Psychiatric exam: Normal Affect, Normal Mood - Skin Skin Exam: Dry, Intact, Normal Color, Warm Assessment and Plan - Assessment and Plan (Free Text) Assessment: 78M PMhx HTN, DM, HLD, BPH, hx corneal transplant, prostate ca recurrent, hx UTI, hematuria, recently dx w/ lung ca currently on tx, who presented on admission with increasing cough and wheezing, decreased appetite x 1 month. Pt admitted for tx of cardiac tamponade, pericardial effusion, and PNA. Downgraded from ICU to telemetry floor. Plan: Hypoxia, interstitial lung changes, underlying interstitial pneumonia 07/29 Chest Xray - Left parahilar rounded opacity likely mass. Right parahilar opacity, possible pneumonia, no significant change chest xray - persisten moderate to severe venous congestion. More confluent airspace opacification seen within the bilateral mid lung zone, right greater than left. Right hilar prominence. Cardiomegaly, surgical clips project over upper abdomen. CT scan - Interval progression of left upper lobe neoplasm including mediastinal lymphadenopathy. Interval interstitial and alveolar changes affecting the right lung and left lower lobe, may refelct atypical pneumonitis, limited possibility of spread of cancer. sputum culture - normal oral clint Mycobacterial culture- no acid fast bacilli seen Naris culture - no MRSA detected Stool culture negative Blood culture - negative, no growth final Afebrile today, tachycardic, otherwise vitals wnl WBC - 8.9 on 07/29, follow up am labs Patient was off High flow oxygen this morning - patient desaturated on nasal canal observed and documented by Physical therapy - ABG ordered off nasal canula - Patient placed back to high flow, now on NC at 4 L today, continue to monitor Pulm doctor Kennedy Higginbotham consulted for recs regarding being discharged home with home O2- follow up recs Zosyn 2.25mg IVPB Q8 [facility] started 07/22/18 Cardiac tamponade/ Pericardial effusion cardiac window 07/22 - performed on 07/[address] Yañez. As per surgery, no further surgical intervention at this time. Patient transferred to ICU 07/23; downgraded to telemetry cardiogenic shock acute renal failure status post a pericardial window - renal insufficiency improved - chest tubes placed in surgery, later were removed. Patient extubated Lasix 20mg PO daily Patient back on high flow FiO2 - failed weaning off Fio2 - f/u repeat ABGs (ordered this afternoon 07/31) pericardial fluid culture- no anaerbic isolated, no growth Cardiology Dr Graham consulted - continue meds, continue post op care Hx prostate, gastric CA, metastatic lung cancer Oncology consult - Dr Slade - follow recs Pathology showing evidence of invasive carcinoma of the lungs origin along with lymphovascular invasion prostate ca in remission H/H - .05/01.6 - follow up am labs Hx of COPD inhaled corticosteroid, bronchodilators, IV corticosteroids Oxygen supplementation Duonebs Prophylaxis DVT: Heparin 5000 SC Q8 GI: Protonix 40 mg PO QD Pain: tramadol 25 ng PO TID PRN fever control - tylenol 650 PO Q6 PRN continue HHD Patient declined ISAC and PT services as per PT dispo; states he wants to take charge of his own exercises at home, discussion of risks and benefits or treatment was had with the patient; Follow up Pulmonology doctor for recs in terms of D/C patient home with home O2. Repeat limited ECHO to assess pericardial effusion prior to discharge Objective - Vital Signs/Intake and Output Vital Signs (last 24 hours): Temp Pulse Resp BP Pulse Ox 98.4 F 111 H 20 123/55 L 99 08/01/18 23:10 08/02/18 04:21 08/01/18 23:10 08/01/18 23:10 08/01/18 23:10 - Medications Medications: Current Medications Acetaminophen (Tylenol 325mg Tab) 650 mg PO Q6 PRN PRN Reason: Pain, Mild (1-3) Last Admin: 08/01/18 21:07 Dose: 650 mg Albuterol/Ipratropium (Duoneb 3 Mg/0.5 Mg (3 Ml) Ud) 3 ml INH RQ6 [facility] Last Admin: 08/02/18 07:29 Dose: 3 ml Finasteride (Proscar) 5 mg PO DAILY [facility] Last Admin: 08/01/18 09:27 Dose: 5 mg Furosemide (Lasix) 20 mg PO DAILY [facility] Last Admin: 08/01/18 09:28 Dose: 20 mg Piperacillin Sod/Tazobactam Sod (Zosyn 2.25 Gm Iv Premix) 2.25 gm in 50 mls @ 100 mls/hr IVPB Q8H [facility]; Protocol Last Admin: 08/02/18 05:25 Dose: 100 mls/hr Insulin Human Regular (Novolin R) 0 unit SC ACHS [facility]; Protocol Last Admin: 08/02/18 08:15 Dose: 2 u Latanoprost (Xalatan Opht) 0.05 ml OU HS [facility] Last Admin: 08/01/18 21:09 Dose: Not Given Methylprednisolone (Solu-Medrol) 60 mg IV Q8 [facility] Last Admin: 08/02/18 05:23 Dose: 60 mg Pantoprazole Sodium (Protonix Ec Tab) 40 mg PO DAILY [facility] Last Admin: 08/01/18 09:27 Dose: 40 mg Tamsulosin HCl (Flomax) 0.4 mg PO DAILY [facility] Last Admin: 08/01/18 09:27 Dose: 0.4 mg Tramadol HCl (Ultram) 25 mg PO TID PRN PRN Reason: Pain, moderate (4-7) Last Admin: 07/29/18 03:00 Dose: 25 mg - Labs Labs: 08/02/18 07:23 08/02/18 07:23 PT 12.9 SECONDS (9.7-12.2) H 07/21/18 17:46 INR 1.2 07/21/18 17:46 APTT 32 SECONDS (21-34) 07/21/18 17:46
[2018-08-02] MEDS: Pantoprazole 40 mg EC Tab PO SCH (09:10)
[2018-08-02 09:19] LABS: ANISOCYTOSIS MODERATE; BANDS 1 % (0-2); LYMPHOCYTE 1 % (20-40); MONOCYTE 3 % (0-10); NEUTROPHIL 95 % (50-75); PLATELET ESTIMATE SLIGHTLY INCREASED (NORMAL); TOTAL CELLS COUNTED 100
[2018-08-02 09:20] LABS: HYPOCHROMIC SLIGHT; MICROCYTOSIS SLIGHT; POLYCHROMIC SLIGHT
[2018-08-02 09:21] LABS: LARGE PLATELETS PRESENT; OVALOCYTES SLIGHT; TEARDROP CELLS SLIGHT
--- NOTE | 2018-08-02 16:55 | CP.PCM.PN ---
Subjective - Date & Time of Evaluation Date of Evaluation: 08/02/18 Time of Evaluation: 09:30 - Subjective Subjective: Medicine Progress Note for Hospitalist Service (covering for Dr. Lux) Pt seen and examined at bedside this am. Reported having episode of shortness of breath this am while sleeping, states that he may have sat on the cannula tubing and caused it to kink. Recovered well with venti mask placed by respiratory therapist, observed seated oob to chair on nasal cannula at 4 L saturating well. Denies headache, fever, chills, dizziness, chest pain, sob, n/v/d/c, abd pain, urinary complaints, or other symptoms. Reports R foot swelling is improving today. Objective - Vital Signs/Intake and Output Vital Signs (last 24 hours): Temp Pulse Resp BP Pulse Ox 98.1 F 110 H 20 127/58 L 95 08/02/18 07:00 08/02/18 16:21 08/02/18 07:00 08/02/18 09:10 08/02/18 07:00 Intake and Output: 08/02/18 08/02/18 06:59 18:59 Intake Total 580 Balance 580 - Medications Medications: Current Medications Acetaminophen (Tylenol 325mg Tab) 650 mg PO Q6 PRN PRN Reason: Pain, Mild (1-3) Last Admin: 08/01/18 21:07 Dose: 650 mg Albuterol/Ipratropium (Duoneb 3 Mg/0.5 Mg (3 Ml) Ud) 3 ml INH RQ6 [facility] Last Admin: 08/02/18 13:27 Dose: 3 ml Finasteride (Proscar) 5 mg PO DAILY [facility] Last Admin: 08/02/18 09:11 Dose: 5 mg Furosemide (Lasix) 20 mg PO DAILY [facility] Last Admin: 08/02/18 09:10 Dose: 20 mg Piperacillin Sod/Tazobactam Sod (Zosyn 2.25 Gm Iv Premix) 2.25 gm in 50 mls @ 100 mls/hr IVPB Q8H [facility]; Protocol Last Admin: 08/02/18 13:13 Dose: 100 mls/hr Insulin Human Regular (Novolin R) 0 unit SC ACHS [facility]; Protocol Last Admin: 08/02/18 12:20 Dose: 4 u Latanoprost (Xalatan Opht) 0.05 ml OU HS [facility] Last Admin: 08/01/18 21:09 Dose: Not Given Methylprednisolone (Solu-Medrol) 60 mg IV Q8 [facility] Last Admin: 08/02/18 13:14 Dose: 60 mg Pantoprazole Sodium (Protonix Ec Tab) 40 mg PO DAILY [facility] Last Admin: 08/02/18 09:10 Dose: 40 mg Tamsulosin HCl (Flomax) 0.4 mg PO DAILY [facility] Last Admin: 08/02/18 09:10 Dose: 0.4 mg Tramadol HCl (Ultram) 25 mg PO TID PRN PRN Reason: Pain, moderate (4-7) Last Admin: 07/29/18 03:00 Dose: 25 mg - Labs Labs: 08/02/18 07:23 08/02/18 07:23 PT 12.9 SECONDS (9.7-12.2) H 07/21/18 17:46 INR 1.2 07/21/18 17:46 APTT 32 SECONDS (21-34) 07/21/18 17:46 - Constitutional Appears: Non-toxic, No Acute Distress, Chronically Ill - Head Exam Head Exam: ATRAUMATIC, NORMOCEPHALIC - Eye Exam Eye Exam: EOMI, Normal appearance, PERRL - ENT Exam ENT Exam: Mucous Membranes Moist - Respiratory Exam Respiratory Exam: Clear to Ausculation Bilateral, NORMAL BREATHING PATTERN. absent: Rales, Rhonchi, Wheezes - Cardiovascular Exam Cardiovascular Exam: REGULAR RHYTHM, +S1, +S2. absent: Gallop, Rubs, Murmur - GI/Abdominal Exam GI & Abdominal Exam: Soft, Normal Bowel Sounds. absent: Distended, Firm, Guarding, Rigid, Tenderness, Organomegaly, Rebound - Extremities Exam Extremities Exam: Full ROM, Normal Capillary Refill Additional comments: 1+ pedal edema on R side, 2+ pedal edema on L side - Neurological Exam Neurological Exam: Alert, Awake, CN II-XII Intact, Oriented x3 - Psychiatric Exam Psychiatric exam: Normal Affect, Normal Mood - Skin Skin Exam: Dry, Intact, Warm Assessment and Plan - Assessment and Plan (Free Text) Assessment: 78M PMhx HTN, DM, HLD, BPH, hx corneal transplant, prostate ca recurrent, hx UTI, hematuria, recently dx w/ lung ca currently on tx, who presented on admission with increasing cough and wheezing, decreased appetite x 1 month. Pt admitted for tx of cardiac tamponade, pericardial effusion, and PNA. Downgraded from ICU to telemetry floor. Plan: Hypoxia, interstitial lung changes, underlying interstitial pneumonia 07/29 Chest Xray - Left parahilar rounded opacity likely mass. Right parahilar opacity, possible pneumonia, no significant change chest xray - persisten moderate to severe venous congestion. More confluent airspace opacification seen within the bilateral mid lung zone, right greater than left. Right hilar prominence. Cardiomegaly, surgical clips project over upper abdomen. Chest CT 07/21 - Interval progression of left upper lobe neoplasm including mediastinal lymphadenopathy. Interval interstitial and alveolar changes affecting the right lung and left lower lobe, may refelct atypical pneumonitis, limited possibility of spread of cancer. Repeat Chest CT 08/01: Worsening multifocal infiltrates compared to prior CT scan, findings asymmetric R lung > L, more likely to represent asymmetric pulmonary edema than infectious. Stable adenopathy, inflammatory process. Resol ution of pericardial effusion. Trace b/l pleural effusions represent a new finding. sputum culture - normal oral clint Mycobacterial culture- no acid fast bacilli seen Naris culture - no MRSA detected Stool culture negative Blood culture - negative, no growth final Afebrile today, tachycardic, otherwise vitals wnl WBC - 10.1 on 08/02, follow up am labs Repeat procalcitonin wnl Patient was off High flow oxygen this morning - patient desaturated on nasal canal observed and documented by Physical therapy - ABG ordered off nasal canula - Patient placed back to high flow, now on NC at 4 L today, continue to monitor Pulm doctor Kennedy Higginbotham consulted for recs regarding being discharged home with home O2: Breo Ellipta d/c'd, c/w anbx, nebulizer tx, will benefit from O2 Zosyn 2.25mg IVPB Q8 [facility] started 07/22/18 Cardiac tamponade/ Pericardial effusion Dr Ricci consulted - recommended cardiac window 07/22 - performed on 07/[address] Yañez. As per surgery, no further surgical intervention at this time. Patient transferred to ICU 07/23; downgraded to telemetry cardiogenic shock acute renal failure status post a pericardial window - renal insufficiency improved - chest tubes placed in surgery, later were removed. Patient extubated Lasix 20mg PO daily Patient back on high flow FiO2 - failed weaning off Fio2 - f/u repeat ABGs (ordered this afternoon 07/31) pericardial fluid culture- no anaerbic isolated, no growth Cardiology Dr Graham consulted - continue meds, continue post op care Hx prostate, gastric CA, metastatic lung cancer Oncology consult - Dr Slade - follow recs Pathology showing evidence of invasive carcinoma of the lungs origin along with lymphovascular invasion prostate ca in remission H/H - 9.6/.6 - follow up am labs Hx of COPD inhaled corticosteroid, bronchodilators, IV corticosteroids Oxygen supplementation Duonebs Prophylaxis DVT: Heparin 5000 SC Q8 GI: Protonix 40 mg PO QD Pain: tramadol 25 ng PO TID PRN fever control - tylenol 650 PO Q6 PRN continue HHD Patient declined ISAC and PT services as per PT dispo; states he wants to take charge of his own exercises at home, discussion of risks and benefits or treatment was had with the patient; Dr. Higginbotham (Pulmonology) recommends home O2 for patient on discharge. Pt seen, examined with, and plan discussed with Dr. Ruffin, attending. Tawanda Bateman DO PGY-1, [employer] Pager #[phone]
[2018-08-02] MEDS: Latanoprost 2.5 ml Opht Soln OU SCH (21:10)
--- NOTE | 2018-08-02 21:55 | CP.PCM.PN ---
Subjective - Date & Time of Evaluation Date of Evaluation: 08/02/18 Time of Evaluation: 18:25 - Subjective Subjective: Pt seen and examined at bedside. Comfortable Some slight dyspnea Physical examination - Constitutional Appears: Non-toxic, No Acute Distress - Head Exam Head Exam: ATRAUMATIC, NORMOCEPHALIC - Eye Exam Eye Exam: EOMI, Normal appearance, PERRL - ENT Exam ENT Exam: Mucous Membranes Moist - Respiratory Exam Respiratory Exam: NORMAL BREATHING PATTERN Additional comments: Minimal wheezes heard in all lung guevara - Cardiovascular Exam Cardiovascular Exam: REGULAR RHYTHM, +S1, +S2. absent: Gallop, Rubs, Murmur - GI/Abdominal Exam GI & Abdominal Exam: Soft, Normal Bowel Sounds. absent: Distended, Firm, Guarding, Rigid, Tenderness, Organomegaly, Rebound - Extremities Exam Extremities Exam: Normal Capillary Refill. absent: Calf Tenderness Additional comments: 1+ non-pitting pedal edema b/l - Neurological Exam Neurological Exam: Alert, Awake, CN II-XII Intact, Oriented x3 - Psychiatric Exam Psychiatric exam: Normal Affect, Normal Mood - Skin Skin Exam: Dry, Intact, Normal Color, Warm Assessment and Plan - Assessment and Plan (Free Text) Assessment: 78M PMhx HTN, DM, HLD, BPH, hx corneal transplant, prostate ca recurrent, hx UTI, hematuria, recently dx w/ lung ca currently on tx, who presented on admission with increasing cough and wheezing, decreased appetite x 1 month. Pt admitted for tx of cardiac tamponade, pericardial effusion, and PNA. Downgraded from ICU to telemetry floor. Plan: Hypoxia, interstitial lung changes, underlying interstitial pneumonia 07/29 Chest Xray - Left parahilar rounded opacity likely mass. Right parahilar opacity, possible pneumonia, no significant change chest xray - persisten moderate to severe venous congestion. More confluent airspace opacification seen within the bilateral mid lung zone, right greater than left. Right hilar prominence. Cardiomegaly, surgical clips project over upper abdomen. CT scan - Interval progression of left upper lobe neoplasm including mediastinal lymphadenopathy. Interval interstitial and alveolar changes affecting the right lung and left lower lobe, may refelct atypical pneumonitis, limited possibility of spread of cancer. sputum culture - normal oral clint Mycobacterial culture- no acid fast bacilli seen Naris culture - no MRSA detected Stool culture negative Blood culture - negative, no growth final Afebrile today, tachycardic, otherwise vitals wnl WBC - 8.9 on 07/29, follow up am labs Patient was off High flow oxygen this morning - patient desaturated on nasal canal observed and documented by Physical therapy - ABG ordered off nasal canula - Patient placed back to high flow, now on NC at 4 L today, continue to monitor Pulm doctor Kennedy Higginbotham consulted for recs regarding being discharged home with home O2- follow up recs Zosyn 2.25mg IVPB Q8 [facility] started 07/22/18 Cardiac tamponade/ Pericardial effusion cardiac window 07/22 - performed on 07/[address] Yañez. As per surgery, no further surgical intervention at this time. Patient transferred to ICU 07/23; downgraded to telemetry cardiogenic shock acute renal failure status post a pericardial window - renal insufficiency improved - chest tubes placed in surgery, later were removed. Patient extubated Lasix 20mg PO daily Patient back on high flow FiO2 - failed weaning off Fio2 - f/u repeat ABGs (ordered this afternoon 07/31) pericardial fluid culture- no anaerbic isolated, no growth Cardiology Dr Graham consulted - continue meds, continue post op care Hx prostate, gastric CA, metastatic lung cancer Oncology consult - Dr Slade - follow recs Pathology showing evidence of invasive carcinoma of the lungs origin along with lymphovascular invasion prostate ca in remission H/H - 9.6/.6 - follow up am labs Hx of COPD inhaled corticosteroid, bronchodilators, IV corticosteroids Oxygen supplementation Duonebs Prophylaxis DVT: Heparin 5000 SC Q8 GI: Protonix 40 mg PO QD Pain: tramadol 25 ng PO TID PRN fever control - tylenol 650 PO Q6 PRN continue HHD Patient declined ISAC and PT services as per PT dispo; states he wants to take charge of his own exercises at home, discussion of risks and benefits or treatment was had with the patient; Follow up Pulmonology doctor for recs in terms of D/C patient home with home O2. Repeat limited ECHO to assess pericardial effusion prior to discharge Objective - Vital Signs/Intake and Output Vital Signs (last 24 hours): Temp Pulse Resp BP Pulse Ox 9.5 F L 110 H 20 114/71 95 08/02/18 15:00 08/02/18 16:21 08/02/18 15:00 08/02/18 15:00 08/02/18 15:00 Intake and Output: 08/02/18 08/03/18 18:59 06:59 Intake Total 580 Balance 580 - Medications Medications: Current Medications Acetaminophen (Tylenol 325mg Tab) 650 mg PO Q6 PRN PRN Reason: Pain, Mild (1-3) Last Admin: 08/02/18 21:07 Dose: 650 mg Albuterol/Ipratropium (Duoneb 3 Mg/0.5 Mg (3 Ml) Ud) 3 ml INH RQ6 [facility] Last Admin: 08/02/18 13:27 Dose: 3 ml Finasteride (Proscar) 5 mg PO DAILY [facility] Last Admin: 08/02/18 09:11 Dose: 5 mg Furosemide (Lasix) 20 mg PO DAILY [facility] Last Admin: 08/02/18 09:10 Dose: 20 mg Piperacillin Sod/Tazobactam Sod (Zosyn 2.25 Gm Iv Premix) 2.25 gm in 50 mls @ 100 mls/hr IVPB Q8H [facility]; Protocol Last Admin: 08/02/18 21:09 Dose: 100 mls/hr Insulin Human Regular (Novolin R) 0 unit SC ACHS [facility]; Protocol Last Admin: 08/02/18 21:09 Dose: Not Given Latanoprost (Xalatan Opht) 0.05 ml OU HS [facility] Last Admin: 08/02/18 21:10 Dose: Not Given Methylprednisolone (Solu-Medrol) 60 mg IV Q8 [facility] Last Admin: 08/02/18 21:08 Dose: 60 mg Pantoprazole Sodium (Protonix Ec Tab) 40 mg PO DAILY [facility] Last Admin: 08/02/18 09:10 Dose: 40 mg Tamsulosin HCl (Flomax) 0.4 mg PO DAILY [facility] Last Admin: 08/02/18 09:10 Dose: 0.4 mg Tramadol HCl (Ultram) 25 mg PO TID PRN PRN Reason: Pain, moderate (4-7) Last Admin: 07/29/18 03:00 Dose: 25 mg - Labs Labs: 08/02/18 07:23 08/02/18 07:23 PT 12.9 SECONDS (9.7-12.2) H 07/21/18 17:46 INR 1.2 07/21/18 17:46 APTT 32 SECONDS (21-34) 07/21/18 17:46
[2018-08-03] MEDS: Piperacill/Tazo 2.25gm in Dex 2.25 GM/50 ML BAG IVPB SCH ×3 (05:21→22:26)
[2018-08-03] MEDS: (Novolin R) Insulin Human Regular 100 units/ml vial SC SCH ×4 (08:01→23:04)
[2018-08-03] MEDS: Albuterol-Ipratrop 3 mg / 0.5 (3 ml) UD INH SCH ×3 (08:39→19:40)
[2018-08-03] MEDS: Pantoprazole 40 mg EC Tab PO SCH (10:46)
--- NOTE | 2018-08-03 20:21 | CP.PCM.PN ---
Subjective - Date & Time of Evaluation Date of Evaluation: 08/03/18 Time of Evaluation: 20:21 - Subjective Subjective: The patient this evening doing well. Comparing of minimal cough and minimal wheezing. No chest pain noted. Patient is using oxygen. Leg swelling present. Will get a venous Doppler tomorrow for the legs. Currently on antibiotic. Possible discharge plan if he is stable by tomorrow Objective - Vital Signs/Intake and Output Vital Signs (last 24 hours): Temp Pulse Resp BP Pulse Ox 97.9 F 95 H 20 144/56 L 95 08/03/18 16:00 08/03/18 16:20 08/03/18 16:00 08/03/18 16:00 08/03/18 16:00 - Medications Medications: Current Medications Acetaminophen (Tylenol 325mg Tab) 650 mg PO Q6 PRN PRN Reason: Pain, Mild (1-3) Last Admin: 08/02/18 21:07 Dose: 650 mg Albuterol/Ipratropium (Duoneb 3 Mg/0.5 Mg (3 Ml) Ud) 3 ml INH RQ6 [facility] Last Admin: 08/03/18 19:40 Dose: 3 ml Finasteride (Proscar) 5 mg PO DAILY [facility] Last Admin: 08/03/18 10:46 Dose: 5 mg Furosemide (Lasix) 20 mg PO DAILY [facility] Last Admin: 08/03/18 10:46 Dose: 20 mg Piperacillin Sod/Tazobactam Sod (Zosyn 2.25 Gm Iv Premix) 2.25 gm in 50 mls @ 100 mls/hr IVPB Q8H [facility]; Protocol Last Admin: 08/03/18 13:04 Dose: 100 mls/hr Insulin Human Regular (Novolin R) 0 unit SC ACHS [facility]; Protocol Last Admin: 08/03/18 18:12 Dose: 4 u Latanoprost (Xalatan Opht) 0.05 ml OU HS [facility] Last Admin: 08/02/18 21:10 Dose: Not Given Metformin HCl (Glucophage) 500 mg PO BID [facility] Last Admin: 08/03/18 18:11 Dose: 500 mg Methylprednisolone (Solu-Medrol) 40 mg IV Q12 [facility] Multivitamins (Hexavitamin) 1 tab PO DAILY [facility] Pantoprazole Sodium (Protonix Ec Tab) 40 mg PO DAILY [facility] Last Admin: 08/03/18 10:46 Dose: 40 mg Tamsulosin HCl (Flomax) 0.4 mg PO DAILY [facility] Last Admin: 08/03/18 10:46 Dose: 0.4 mg Tramadol HCl (Ultram) 25 mg PO TID PRN PRN Reason: Pain, moderate (4-7) Last Admin: 07/29/18 03:00 Dose: 25 mg - Labs Labs: 08/02/18 07:23 08/02/18 07:23 PT 12.9 SECONDS (9.7-12.2) H 07/21/18 17:46 INR 1.2 07/21/18 17:46 APTT 32 SECONDS (21-34) 07/21/18 17:46
[2018-08-03] MEDS: Latanoprost 2.5 ml Opht Soln OU SCH (22:28)
[2018-08-03] MEDS: MethylPREDNISolone 40 mg Vial IV SCH (23:05)
--- NOTE | 2018-08-04 00:11 | CP.PCM.PN ---
Subjective - Date & Time of Evaluation Date of Evaluation: 08/03/18 Time of Evaluation: 17:35 - Subjective Subjective: Patient seen and evaluated denies chest pain and dyspnea Objective - Vital Signs/Intake and Output Vital Signs (last 24 hours): Temp Pulse Resp BP Pulse Ox 97.9 F 102 H 20 144/56 L 95 08/03/18 16:00 08/03/18 23:29 08/03/18 16:00 08/03/18 16:00 08/03/18 16:00 - Medications Medications: Current Medications Acetaminophen (Tylenol 325mg Tab) 650 mg PO Q6 PRN PRN Reason: Pain, Mild (1-3) Last Admin: 08/03/18 22:26 Dose: 650 mg Albuterol/Ipratropium (Duoneb 3 Mg/0.5 Mg (3 Ml) Ud) 3 ml INH RQ6 [facility] Last Admin: 08/03/18 19:40 Dose: 3 ml Finasteride (Proscar) 5 mg PO DAILY [facility] Last Admin: 08/03/18 10:46 Dose: 5 mg Furosemide (Lasix) 20 mg PO DAILY [facility] Last Admin: 08/03/18 10:46 Dose: 20 mg Piperacillin Sod/Tazobactam Sod (Zosyn 2.25 Gm Iv Premix) 2.25 gm in 50 mls @ 100 mls/hr IVPB Q8H [facility]; Protocol Last Admin: 08/03/18 22:26 Dose: 100 mls/hr Insulin Human Regular (Novolin R) 0 unit SC ACHS [facility]; Protocol Last Admin: 08/03/18 23:04 Dose: Not Given Latanoprost (Xalatan Opht) 0.05 ml OU HS [facility] Last Admin: 08/03/18 22:28 Dose: 0.05 ml Metformin HCl (Glucophage) 500 mg PO BID [facility] Last Admin: 08/03/18 18:11 Dose: 500 mg Methylprednisolone (Solu-Medrol) 40 mg IV Q12 [facility] Last Admin: 08/03/18 23:05 Dose: 40 mg Multivitamins (Hexavitamin) 1 tab PO DAILY [facility] Pantoprazole Sodium (Protonix Ec Tab) 40 mg PO DAILY [facility] Last Admin: 08/03/18 10:46 Dose: 40 mg Tamsulosin HCl (Flomax) 0.4 mg PO DAILY [facility] Last Admin: 08/03/18 10:46 Dose: 0.4 mg Tramadol HCl (Ultram) 25 mg PO TID PRN PRN Reason: Pain, moderate (4-7) Last Admin: 07/29/18 03:00 Dose: 25 mg - Labs Labs: 08/02/18 07:23 08/02/18 07:23 PT 12.9 SECONDS (9.7-12.2) H 07/21/18 17:46 INR 1.2 07/21/18 17:46 APTT 32 SECONDS (21-34) 07/21/18 17:46
[2018-08-04] MEDS: Albuterol-Ipratrop 3 mg / 0.5 (3 ml) UD INH SCH ×4 (02:19→19:49)
[2018-08-04] MEDS: Piperacill/Tazo 2.25gm in Dex 2.25 GM/50 ML BAG IVPB SCH ×2 (05:12→13:16)
[2018-08-04 07:26] LABS: BASO % 0.1 % (0.0-2.0); EOS % 0.1 % (0.0-4.0); HEMOGLOBIN 8.7 g/dL (12.0-18.0); LYMPH # 0.2 K/uL (1.0-4.3); LYMPH % 1.5 % (20.0-40.0); MEAN CELL VOLUME 81.2 fL (80.0-94.0); MEAN CORPUSCULAR HEMOGLOBIN 25.8 pg (27.0-31.0); MEAN CORPUSCULAR HGB CONC 31.8 g/dL (33.0-37.0); MEAN PLATELET VOLUME 7.3 fL (7.2-11.7); MONO # 0.4 K/uL (0.0-0.8); MONO % 3.5 % (0.0-10.0); NEUT # 11.6 K/uL (1.8-7.0); NEUT % 94.8 % (50.0-75.0); NRBC % 0.1 % (0.0-2.0); PLATELET COUNT 476 K/uL (130-400); RBC 3.39 Mil/uL (4.40-5.90); RED CELL DISTRIBUTION WIDTH 22.1 % (11.5-14.5); WHITE BLOOD COUNT 12.2 K/uL (4.8-10.8)
[2018-08-04 08:12] LABS: ALBUMIN 2.9 g/dL (3.5-5.0); CALCIUM 8.5 mg/dl (8.6-10.4)
[2018-08-04] MEDS: (Novolin R) Insulin Human Regular 100 units/ml vial SC SCH ×3 (08:20→17:37)
[2018-08-04 08:31] LABS: ANISOCYTOSIS MODERATE; BANDS 8 % (0-2); LYMPHOCYTE 1 % (20-40); MONOCYTE 1 % (0-10); NEUTROPHIL 90 % (50-75); PLATELET ESTIMATE SLIGHTLY INCREASED (NORMAL); TOTAL CELLS COUNTED 100
[2018-08-04 08:32] LABS: HYPOCHROMIC SLIGHT; OVALOCYTES SLIGHT
[2018-08-04] MEDS ORDERED: Multiple Vitamins Tab PO SCH (10:00)
[2018-08-04] MEDS: MethylPREDNISolone 40 mg Vial IV SCH (10:18)
[2018-08-04] MEDS: Pantoprazole 40 mg EC Tab PO SCH (10:23)
[2018-08-04 16:37] VITALS: BP 137/61; PULSE 98; RESP 20; TEMP 98.1; O2SAT 96
[2018-08-04] MEDS ORDERED: Influenza Vaccine 60 MCG/0.5 ML SYR (3 yr & up) IM ONE (20:12)
--- NOTE | 2018-08-04 21:30 | CP.PCM.DIS ---
Provider - Provider Date of Admission: 07/21/18 18:17 Attending physician: Drew Lux MD Time Spent in preparation of Discharge (in minutes): 45 Hospital Course - Lab Results Lab Results: Micro Results 07/23/18 08:13 Pericardial Fluid Gram Stain - Final 07/23/18 08:13 Pericardial Fluid Anaerobic Culture - Final NO ANAEROBES ISOLATED. 07/23/18 08:13 Pericardial Fluid Body Fluid Culture - Final No growth. 07/23/18 08:13 Pericardial Fluid Fungal Culture - Preliminary NO FUNGUS GROWTH IN 1 WEEK. 07/30/18 06:28 Naris MRSA Culture - Final MRSA NOT DETECTED 07/23/18 08:13 Other: Please Indicate Mycobacterial Culture - Preliminary 07/21/18 21:29 Blood Blood Culture - Final NO GROWTH AFTER 5 DAYS 07/21/18 21:29 Blood Gram Stain - Final TEST NOT PERFORMED 07/25/18 15:03 Sputum Induced Gram Stain - Final 07/25/18 15:03 Sputum Induced Sputum Culture - Final NORMAL ORAL ARJUN 07/22/18 22:22 Naris MRSA Culture (Admit) - Final MRSA NOT DETECTED 07/22/18 13:05 Stool Stool Culture - Final NO SALMONELLA, SHIGELLA OR CAMPYLOBACTER ISOLATED. Most Recent Lab Values WBC 12.2 K/uL (4.8-10.8) H 08/04/18 07:11 RBC 3.39 Mil/uL (4.40-5.90) L 08/04/18 07:11 Hgb 8.7 g/dL (12.0-18.0) L 08/04/18 07:11 Hct 27.5 % (35.0-51.0) L 08/04/18 07:11 MCV 81.2 fL (80.0-94.0) 08/04/18 07:11 MCH 25.8 pg (27.0-31.0) L 08/04/18 07:11 MCHC 31.8 g/dL (33.0-37.0) L 08/04/18 07:11 RDW 22.1 % (11.5-14.5) H 08/04/18 07:11 Plt Count 476 K/uL (130-400) H 08/04/18 07:11 MPV 7.3 fL (7.2-11.7) 08/04/18 07:11 Neut % (Auto) 94.8 % (50.0-75.0) H 08/04/18 07:11 Lymph % (Auto) 1.5 % (20.0-40.0) L 08/04/18 07:11 Toole % (Auto) 3.5 % (0.0-10.0) 08/04/18 07:11 Eos % (Auto) 0.1 % (0.0-4.0) 08/04/18 07:11 Baso % (Auto) 0.1 % (0.0-2.0) 08/04/18 07:11 Neut # (Auto) 11.6 K/uL (1.8-7.0) H 08/04/18 07:11 Lymph # (Auto) 0.2 K/uL (1.0-4.3) L 08/04/18 07:11 Toole # (Auto) 0.4 K/uL (0.0-0.8) 08/04/18 07:11 Eos # (Auto) 0.0 K/uL (0.0-0.7) 08/04/18 07:11 Baso # (Auto) 0.0 K/uL (0.0-0.2) 08/04/18 07:11 Neutrophils % (Manual) 90 % (50-75) H 08/04/18 07:11 Band Neutrophils % 8 % (0-2) H 08/04/18 07:11 Lymphocytes % (Manual) 1 % (20-40) L 08/04/18 07:11 Monocytes % (Manual) 1 % (0-10) 08/04/18 07:11 Eosinophils % (Manual) 8 % (0-4) H 08/01/18 06:46 Basophils % (Manual) 2 % (0-2) 08/01/18 06:46 Toxic Granulation Present 07/26/18 06:27 Platelet Estimate Slightly increased (NORMAL) H 08/04/18 07:11 Plt Clumps, EDTA Present 07/26/18 06:27 Large Platelets Present 08/02/18 07:23 Polychromasia Slight 08/02/18 07:23 Hypochromasia (manual) Slight 08/04/18 07:11 Poikilocytosis (manual Slight 08/01/18 06:46 Anisocytosis (manual) Moderate 08/04/18 07:11 Microcytosis (manual) Slight 08/02/18 07:23 Macrocytosis (manual) Slight 08/02/18 07:23 Target Cells Slight 07/27/18 05:29 Tear Drop Cells Slight 08/02/18 07:23 Ovalocytes Slight 08/04/18 07:11 Schistocytes Slight 07/26/18 06:27 ESR 62 mm/hr (0-15) H 07/21/18 19:44 PT 12.9 SECONDS (9.7-12.2) H 07/21/18 17:46 INR 1.2 07/21/18 17:46 APTT 32 SECONDS (21-34) 07/21/18 17:46 Puncture Site Rba 07/31/18 14:53 pCO2 35 mm/Hg (35-45) 07/31/18 14:53 pO2 54 mm/Hg (80-100) L 07/31/18 14:53 HCO3 25.2 mmol/L (21-28) 07/31/18 14:53 ABG pH 7.45 (7.35-7.45) 07/31/18 14:53 ABG Total CO2 25.4 mmol/L (22-28) 07/31/18 14:53 ABG O2 Saturation 95.1 % (95-98) 07/31/18 14:53 ABG Base Excess 0.5 mmol/L (-2.0-3.0) 07/31/18 14:53 ABG Hemoglobin 9.0 g/dL (11.7-17.4) L 07/31/18 14:53 ABG Carboxyhemoglobin 2.4 % (0.5-1.5) H 07/31/18 14:53 POC ABG HHb (Measured) 4.7 % (0.0-5.0) 07/31/18 14:53 ABG Methemoglobin 1.7 % (0.0-3.0) 07/31/18 14:53 Braulio Test Na 07/31/18 14:53 A-a O2 Difference 152.0 mm/Hg 07/31/18 14:53 Respiratory Index 2.8 07/31/18 14:53 Hgb O2 Saturation 91.2 % (95.0-98.0) L 07/31/18 14:53 Liter Flow 4.0 07/31/18 14:53 Vent Mode Prvc 07/23/18 05:36 Mechanical Rate 14 07/23/18 05:36 FiO2 35.0 % 07/31/18 14:53 Tidal Volume 450 07/23/18 05:36 PEEP 8 07/23/18 05:36 Crit Value Called To Serafin morales agricultural economist 07/23/18 02:47 Crit Value Called By Magalie andrews rt 07/23/18 02:47 Crit Value Read Back Y 07/23/18 02:47 Blood Gas Notified Time 252 07/23/18 02:47 Sodium 135 mmol/L (132-148) 08/04/18 07:11 Potassium 4.9 mmol/L (3.6-5.2) 08/04/18 07:11 Chloride 99 mmol/L (98-107) 08/04/18 07:11 Carbon Dioxide 25 mmol/L (22-30) 08/04/18 07:11 Anion Gap 16 (10-20) 08/04/18 07:11 BUN 45 mg/dL (9-20) H 08/04/18 07:11 Creatinine 1.5 mg/dL (0.8-1.5) 08/04/18 07:11 Est GFR ( Amer) 55 08/04/18 07:11 Est GFR (Non-Af Amer) 46 08/04/18 07:11 POC Glucose (mg/dL) 196 mg/dL (65-110) H 08/04/18 20:20 Random Glucose 228 mg/dL (75-110) H 08/04/18 07:11 Lactic Acid 1.5 mmol/L (0.7-2.1) 07/21/18 17:46 Calcium 8.5 mg/dl (8.6-10.4) L 08/04/18 07:11 Phosphorus 3.2 mg/dL (2.5-4.5) 08/04/18 07:11 Magnesium 2.0 mg/dL (1.6-2.3) 08/04/18 07:11 Total Bilirubin 0.2 mg/dL (0.2-1.3) 08/04/18 07:11 AST 30 U/L (17-59) 08/04/18 07:11 ALT 50 U/L (21-72) 08/04/18 07:11 Alkaline Phosphatase 124 U/L (38-126) 08/04/18 07:11 Total Creatine Kinase 62 U/L (55-170) 07/22/18 19:50 CK-MB (Mass) 2.10 ng/mL (0.0-3.38) 07/22/18 19:50 Troponin I 0.0200 ng/mL (0.00-0.120) 07/22/18 19:50 C-Reactive Protein 23.00 mg/L (0.0-9.9) H 07/21/18 19:44 NT-Pro-B Natriuret Pep 596 pg/mL (0-900) 07/21/18 17:46 Total Protein 5.8 g/dL (6.3-8.3) L 08/04/18 07:11 Albumin 2.9 g/dL (3.5-5.0) L 08/04/18 07:11 Globulin 2.9 gm/dL (2.2-3.9) 08/04/18 07:11 Albumin/Globulin Ratio 1.0 (1.0-2.1) 08/04/18 07:11 Procalcitonin 0.07 NG/ML (0.19-0.49) L 08/02/18 12:14 Urine Color Yellow (YELLOW) 07/21/18 17: Urine Clarity Clear (Clear) 07/21/18 17:19 Urine pH 5.0 (5.0-8.0) 07/21/18 17:19 Ur Specific [place] 1.014 (1.003-1.030) 07/21/18 17:19 Urine Protein Negative mg/dL (NEGATIVE) 07/21/18 17:19 Urine Glucose (UA) Normal mg/dL (Normal) 07/21/18 17:19 Urine Ketones Negative mg/dL (NEGATIVE) 07/21/18 17: Urine Blood Negative (NEGATIVE) 07/21/18 17: Urine Nitrate Negative (NEGATIVE) 07/21/18 17: Urine Bilirubin Negative (NEGATIVE) 07/21/18 17:19 Urine Urobilinogen Normal mg/dL (0.2-1.0) 07/21/18 17:19 Ur Leukocyte Esterase Neg Juan David/uL (Negative) 07/21/18 17:19 Urine WBC (Auto) 3 /hpf (0-5) 07/21/18 17:19 Urine RBC (Auto) < 1 /hpf (0-3) 07/21/18 17:19 Ur Squamous Epith Cells < 1 /hpf (0-5) 07/21/18 17:19 Urine Bacteria Rare (<OCC) 07/21/18 17:19 Fluid Source Pericardial 07/23/18 08:13 Fluid Appearance Bloody (CLEAR) 07/23/18 08:13 Fluid WBC 8522.0 /mm3 (0.0-300.0) H 07/23/18 08:13 Fluid RBC 9993152.0 /mm3 (0.0-0.0) H 07/23/18 08:13 Fluid Tot Cell Count 100 (0-0) H 07/23/18 08:13 Fluid Neutrophils 71.0 % (0-0) H 07/23/18 08:13 Fluid Lymphocytes 10.0 % (0-0) H 07/23/18 08:13 Fld Monocyte/Macrophag 3 % (0-0) H 07/23/18 08:13 Fluid Comment 07/23/18 08:13 C. difficile Ag & Toxin Negative (NEGATIVE) 07/22/18 13:05 Influenza Typ A,B (EIA) Negative for flu a/b (NEGATIVE) 07/21/18 18:24 Blood Type O POSITIVE 07/22/18 23:07 Antibody Screen Negative 07/22/18 23:07 - Hospital Course Hospital Course: Chief complaint: Shortness of breath History present illness: 78-year-old male with history of hypertension, diabetes, high cholesterol and BPH history of corneal transplant, prostate cancer recurrent history of urinary tract infection, hematuria, recently diagnosed with lung cancer currently on treatment. Patient for the last one month, started noticing increasing cough. Patient also started noticing increasing wheezing. But 2 weeks symptoms got worse, he started having poor appetite. He's also having significant weight loss. He has a significant problem in eating, he immediately gets diarrhea, associate with the nausea and also stomach discomfort. he's also having increasing coughing, chest congestion, wheezing, unable to sleep, and while he is using the nebulizer, he started having a metallic taste in the mouth. Today he went to see oncologist. Received intravenous iron, IV fluid and Procrit. Patient is taking oral medication for his lung cancer. According to the oncologist at this medicine can cause diffuse lung disease. Patient had tumor of the left upper lung zone, but the recent chest x-ray 2 weeks ago showing worsening lung changes in the right lung guevara. He did not have any fever. Unable to sleep well. Chest pain on and off noted chest tightness. Past medical history: Hypertension, hyperlipidemia, diabetes, hypercholesterolemia. Prostate cancer. Hematorrhea. Lung cancer. Personal history: Used to be a smoker in the past. Nonalcoholic. Lives with family Surgical history include cystoscopy. Prostate seeds. Corneal transplant. Allergic to aspirin. Current medications reviewed Family history noncontributory Review of systems: Patient has ongoing weakness, tiredness, fatigability. Poor intake. Weight loss. Nausea. Vomiting. Diarrhea. On examination: Vital signs stable except hypoxia. Madisyn heart sound. Chest bilateral diffuse rhonchi and wheezing more on the right leg. Regular heart sound. Abdomen soft. No pedal edema Labs reviewed Nonspecific. X-ray and CAT scan showing evidence of bilateral diffuse lung disease. More on the right lung, associate with interstitial changes, alveolar pattern noted Assessment: 78-year-old male with history of lung cancer. Now currently receiving treatment. Comes with hypoxia, interstitial lung changes, underlying interstitial pneumonia possible. Interstitial lung disease possible. Complications From cancer medication is also likely. To start the patient on inhaled corticosteroid bronchodilators IV corticosteroid. Oxygen supplementation. Oncology evaluation. Further workup, possibility of metastatic lung cancer cannot be ruled out. DVT GI prophylaxis and will follow the patient Course in the Hospital: Within 24 hours the patient to develop increasing shortness of breath, emergency echocardiogram showing evidence of cardiac, not. Immediately cardia thoracic surgery was called Patient underwent emergency pericardial window on 07/23/2018 Postoperatively patient was closely monitored in the intensive care unit Patient was also had an evidence of lung collapse. Slowly lung status improved. Patient was on respirator. Extubated. Slowly his condition got better. Patient continues to have a symptoms of wheezing and coughing. Patient repeat CAT scan showing evidence of right lung pneumonitis. Patient also had improvement in the pericardial effusion. Biopsy, and also pleural fluid showing evidence of malignant cells. Likely patient has a metastatic malignancy of lung cancer. Today patient is clinically feeling better. He is stable. Vital signs stable. His oxygen saturation is 93% on 2 L of nasal cannula. He is able to walk, he is able to walk without any difficulty. Mild exertional dyspnea present. I spoke to the patient's family extensively. Blood gas analysis revealing hypoxia. He has home oxygen arrangement was made already. He will continue the home oxygen 2-3 L/m. He is also continue the neb lacer. He will continue antibiotic for one more week, bronchodilator, prednisone. He will monitor the blood sugar. I discussed the whole plan with the patient's family. He will also continue the Lasix. Will follow the patient in the clinic in one week. Final diagnosis cardiac tamponade Acute respiratory failure. Malignant metastatic lung cancer. Bronchopneumonia. Pneumonitis. COPD. Lung cancer. Diabetes, hypertension, prostate cancer. Discharge Exam - Head Exam Head Exam: ATRAUMATIC, NORMOCEPHALIC Discharge Plan - Discharge Medications Prescriptions: Amoxicillin/Clavulanate [Augmentin 875 MG-125 MG] 1 tab PO BID 10 Days #20 tab Losartan [Cozaar] 25 mg PO DAILY 30 Days #30 tab Prednisone [Deltasone] 20 mg PO DAILY #10 tablet - Follow Up Plan Condition: FAIR Disposition: HOME/ ROUTINE Instructions: Heart Healthy Diet, Pneumonia, Adult (DC), Oxygen Therapy, Adult (DC), Amoxicillin, Prednisone, Pericardial Window (DC) Referrals: Drew Lux MD [Staff Provider] -
--- NOTE | 2018-08-04 23:07 | CP.PCM.PN ---
Subjective - Date & Time of Evaluation Date of Evaluation: 08/04/18 Time of Evaluation: 15:15 - Subjective Subjective: Pt seen and examined at bedside. Comfortable Some slight dyspnea Physical examination - Constitutional Appears: Non-toxic, No Acute Distress - Head Exam Head Exam: ATRAUMATIC, NORMOCEPHALIC - Eye Exam Eye Exam: EOMI, Normal appearance, PERRL - ENT Exam ENT Exam: Mucous Membranes Moist - Respiratory Exam Respiratory Exam: NORMAL BREATHING PATTERN Additional comments: Minimal wheezes heard in all lung guevara - Cardiovascular Exam Cardiovascular Exam: REGULAR RHYTHM, +S1, +S2. absent: Gallop, Rubs, Murmur - GI/Abdominal Exam GI & Abdominal Exam: Soft, Normal Bowel Sounds. absent: Distended, Firm, Guardi ng, Rigid, Tenderness, Organomegaly, Rebound - Extremities Exam Extremities Exam: Normal Capillary Refill. absent: Calf Tenderness Additional comments: 1+ non-pitting pedal edema b/l - Neurological Exam Neurological Exam: Alert, Awake, CN II-XII Intact, Oriented x3 - Psychiatric Exam Psychiatric exam: Normal Affect, Normal Mood - Skin Skin Exam: Dry, Intact, Normal Color, Warm Assessment and Plan - Assessment and Plan (Free Text) Assessment: 78M PMhx HTN, DM, HLD, BPH, hx corneal transplant, prostate ca recurrent, hx UTI, hematuria, recently dx w/ lung ca currently on tx, who presented on admission with increasing cough and wheezing, decreased appetite x 1 month. Pt admitted for tx of cardiac tamponade, pericardial effusion, and PNA. Downgraded from ICU to telemetry floor. Plan: Hypoxia, interstitial lung changes, underlying interstitial pneumonia 07/29 Chest Xray - Left parahilar rounded opacity likely mass. Right parahilar opacity, possible pneumonia, no significant change chest xray - persisten moderate to severe venous congestion. More confluent airspace opacification seen within the bilateral mid lung zone, right greater than left. Right hilar prominence. Cardiomegaly, surgical clips project over upper abdomen. CT scan - Interval progression of left upper lobe neoplasm including mediastinal lymphadenopathy. Interval interstitial and alveolar changes affecting the right lung and left lower lobe, may refelct atypical pneumonitis, limited possibility of spread of cancer. sputum culture - normal oral clint Mycobacterial culture- no acid fast bacilli seen Naris culture - no MRSA detected Stool culture negative Blood culture - negative, no growth final Afebrile today, tachycardic, otherwise vitals wnl WBC - 8.9 on 07/29, follow up am labs Patient was off High flow oxygen this morning - patient desaturated on nasal canal observed and documented by Physical therapy - ABG ordered off nasal canula - Patient placed back to high flow, now on NC at 4 L today, continue to monitor Pulm doctor Kennedy Higginbotham consulted for recs regarding being discharged home with home O2- follow up recs Zosyn 2.25mg IVPB Q8 CHARLES started 07/22/18 Cardiac tamponade/ Pericardial effusion cardiac window 07/22 - performed on 07/[address] Yañez. As per surgery, no further surgical intervention at this time. Patient transferred to ICU 07/23; downgraded to telemetry cardiogenic shock acute renal failure status post a pericardial window - renal insufficiency improved - chest tubes placed in surgery, later were removed. Patient extubated Lasix 20mg PO daily Patient back on high flow FiO2 - failed weaning off Fio2 - f/u repeat ABGs (ordered this afternoon 07/31) pericardial fluid culture- no anaerbic isolated, no growth Cardiology Dr Graham consulted - continue meds, continue post op care Hx prostate, gastric CA, metastatic lung cancer Oncology consult - Dr Slade - follow recs Pathology showing evidence of invasive carcinoma of the lungs origin along with lymphovascular invasion prostate ca in remission H/H - 9.6/.6 - follow up am labs Hx of COPD inhaled corticosteroid, bronchodilators, IV corticosteroids Oxygen supplementation Duonebs Prophylaxis DVT: Heparin 5000 SC Q8 GI: Protonix 40 mg PO QD Pain: tramadol 25 ng PO TID PRN fever control - tylenol 650 PO Q6 PRN continue HHD Patient declined [facility] and PT services as per PT dispo; states he wants to take charge of his own exercises at home, discussion of risks and benefits or treatment was had with the patient; Follow up Pulmonology doctor for recs in terms of D/C patient home with home O2. Repeat limited ECHO: No pericardial effusion Objective - Vital Signs/Intake and Output Vital Signs (last 24 hours): Temp Pulse Resp BP Pulse Ox 98.1 F 98 H 20 137/61 96 08/04/18 15:00 08/04/18 15:00 08/04/18 15:00 08/04/18 15:00 08/04/18 15:00 - Labs Labs: 08/04/18 07:11 08/04/18 07:11 PT 12.9 SECONDS (9.7-12.2) H 07/21/18 17:46 INR 1.2 07/21/18 17:46 APTT 32 SECONDS (21-34) 07/21/18 17:46
--- NOTE | 2018-08-05 14:21 | VASCLAB ---
Date of service: 08/04/2018 PROCEDURE: Lower Extremity Venous Duplex Exam. HISTORY: DVT PRIORS: None. TECHNIQUE: Bilateral common femoral, femoral, popliteal and posterior tibial, peroneal and great saphenous veins were evaluated. Flow was assessed with color Doppler, compressibility, assessment of phasic flow and augmentation response. Report prepared by SHERIN Perera, RVT FINDINGS: RIGHT: 1. Common Femoral Vein: 1.1. Compressibility - Fully compressible: Thrombus - None : Flow - Phasic: Augmentation -Normal: Reflux - None. 2. Femoral Vein: 2.1. Compressibility - Fully compressible: Thrombus - None : Flow - Phasic: Augmentation -Normal: Reflux - None. 3. Popliteal Vein: 3.1. Compressibility - Fully compressible: Thrombus - None : Flow - Phasic: Augmentation -Normal: Reflux - None. 4. Posterior Tibial Vein: 4.1. Compressibility - Fully compressible: Thrombus - None: Flow - Phasic: Augmentation -Normal: Reflux - None. 5. Peroneal Vein: 5.1. Compressibility - Fully compressible: Thrombus - None: Flow - Phasic: Augmentation -Normal: Reflux - None. 6. Great Saphenous Vein: 6.1. Compressibility - Fully compressible: Thrombus - None: Flow - Phasic: Augmentation - Normal: Reflux - None. LEFT: 1. Common Femoral Vein: 1.1. Compressibility - Fully compressible: Thrombus - None: Flow - Phasic: Augmentation -Normal: Reflux - None. 2. Femoral Vein: 2.1. Compressibility - Fully compressible: Thrombus - None: Flow - Phasic: Augmentation -Normal: Reflux - None. 3. Popliteal Vein: 3.1. Compressibility - Fully compressible: Thrombus - None : Flow - Phasic: Augmentation -Normal: Reflux - None. 4. Posterior Tibial Vein: 4.1. Compressibility - Fully compressible: Thrombus - None: Flow - Phasic: Augmentation -Normal: Reflux - None. 5. Peroneal Vein: 5.1. Compressibility - Fully compressible: Thrombus - None: Flow - Phasic: Augmentation -Normal: Reflux - None. 6. Great Saphenous Vein: 6.1. Compressibility - Fully compressible: Thrombus - None: Flow - Phasic: Augmentation - Normal: Reflux - None. OTHER FINDINGS: Right: None significant. Left: None significant. IMPRESSION: Right: No evidence of deep or superficial vein thrombosis of the right lower extremity. Normal valve function noted of the right side. Left: No evidence of deep or superficial vein thrombosis of the left lower extremity. Normal valve function noted of the left side.
== END 2018-08-04 21:04 | disposition home or self-care (01) | DRG 826 ==
LOC: C.ER 16:45 → C.9E 18:17 → C.3T 18:44 → C.9I 07-22 22:19 → C.6T 07-29 19:19
PROVIDERS: ADMIT Internal Medicine; ATTEND Internal Medicine
PROC: 02BN0ZX Excision of Pericardium, Open Approach, Diagnostic (ICD-10-PCS; 2018-07-22)
PROC: 0WBC0ZX Excision of Mediastinum, Open Approach, Diagnostic (ICD-10-PCS; 2018-07-22)
PROC: 0W9D00Z Drainage of Pericardial Cavity with Drainage Device, Open Approach (ICD-10-PCS; 2018-07-22)
PROC: 5A1945Z Respiratory Ventilation, 24-96 Consecutive Hours (ICD-10-PCS; 2018-07-22)
PROC: 02BN0ZZ Excision of Pericardium, Open Approach (ICD-10-PCS; principal; 2018-07-22 11:30)
DX: C79.89 Secondary malignant neoplasm of other specified sites (principal); I31.4 Cardiac tamponade; R57.0 Cardiogenic shock; J96.01 Acute respiratory failure with hypoxia; I31.3 Pericardial effusion (noninflammatory); J18.0 Bronchopneumonia, unspecified organism; C34.12 Malignant neoplasm of upper lobe, left bronchus or lung; I50.32 Chronic diastolic (congestive) heart failure; J44.0 Chronic obstructive pulmonary disease with (acute) lower respiratory infection; J98.19 Other pulmonary collapse; N17.9 Acute kidney failure, unspecified; J84.89 Other specified interstitial pulmonary diseases; C78.2 Secondary malignant neoplasm of pleura; J91.0 Malignant pleural effusion; N40.0 Benign prostatic hyperplasia without lower urinary tract symptoms; D63.0 Anemia in neoplastic disease; E11.9 Type 2 diabetes mellitus without complications; I11.0 Hypertensive heart disease with heart failure; J98.09 Other diseases of bronchus, not elsewhere classified; M17.0 Bilateral primary osteoarthritis of knee; E78.00 Pure hypercholesterolemia, unspecified; E78.5 Hyperlipidemia, unspecified; Z85.46 Personal history of malignant neoplasm of prostate; Z87.891 Personal history of nicotine dependence; Z87.01 Personal history of pneumonia (recurrent); Z87.440 Personal history of urinary (tract) infections; Z94.7 Corneal transplant status; Z85.028 Personal history of other malignant neoplasm of stomach; Z99.81 Dependence on supplemental oxygen; Z88.6 Allergy status to analgesic agent; Z79.4 Long term (current) use of insulin